=== PATIENT | female | born 1980 | race Caucasian/White ===

== ENCOUNTER 2018-10-30 10:19 | Emergency (ER) | payer BC ==
[2018-10-30] MEDS ORDERED: NA CHLORIDE 0.9% 2,000 ML ONE (11:16)
[2018-10-30 11:31] LABS: Absolute Lymphocytes (CBC) 1.2 K/uL (0.7-4.9); Basophils % 0.4 % (0-1.3); Hematocrit 35.5 % (36.0-45.0); Lymphocytes % 12.2 % (15.3-44.8); MPV 8.2 fL (7.6-11.3); RBC Red Blood Cell Count 3.96 M/uL (3.86-4.86)
[2018-10-30 11:53] LABS: ALT/SGPT 16 U/L (12-78); AST/SGOT 19 U/L (15-37); Albumin 2.2 g/dL (3.4-5.0); Alkaline Phosphatase 91 U/L (45-117); BUN Blood Urea Nitrogen 5 mg/dL (7-18); Bicarbonate 20 mmol/L (21-32); Bilirubin Direct < 0.1 mg/dL (0-0.2); Bilirubin Total 0.2 mg/dL (0.2-1.0); Glucose Level 88 mg/dL (74-106); Lipase 106 U/L (73-393); Potassium 3.6 mmol/L (3.5-5.1); Protein, Total 6.7 g/dL (6.4-8.2); Sodium Level 139 mmol/L (136-145)
--- NOTE | 2018-10-30 12:01 | EDPHYS ---
Physician Documentation [facility] Name: Melanie Gotti Age: 38 yrs Sex: Female : 1980 Arrival Date: 10/30/2018 Time: 10:23 Bed 8 Private MD: Segun Perkins B ED Physician Carlos Cota HPI: 10/30 10:49 This 38 yrs old Female presents to ER via Ambulatory with complaints of mario Dehydration-31 wks preg. 10:49 The patient presents to the emergency department with abdominal pain, of the right mario upper quadrant, left upper quadrant, right lower quadrant and left lower quadrant. The estimated gestational age is 31 weeks. course: care: private OB physician. Previous pregnancies: in previous pregnancies patient has had vaginal delivery. Associated signs and symptoms: The patient has no apparent associated signs or symptoms. The patient has not experienced similar symptoms in the past. 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 - Social history:: Smoking status: Patient/guardian denies using tobacco. - Ebola Screening: : No symptoms or risks identified at this time. - Family history:: not pertinent. ROS: 10:49 Constitutional: Negative for fever, chills, and weight loss, Eyes: Negative for injury, mario pain, redness, and discharge, ENT: Negative for injury, pain, and discharge, Neck: Negative for injury, pain, and swelling, Cardiovascular: Negative for chest pain, palpitations, and edema, Respiratory: Negative for shortness of breath, cough, wheezing, and pleuritic chest pain, Back: Negative for injury and pain, : Negative for injury, bleeding, discharge, and swelling, MS/Extremity: Negative for injury and deformity, Skin: Negative for injury, rash, and discoloration, Neuro: Negative for headache, weakness, numbness, tingling, and seizure, Psych: Negative for depression, anxiety, suicide ideation, homicidal ideation, and hallucinations, Allergy/Immunology: Negative for hives, rash, and allergies, Endocrine: Negative for neck swelling, polydipsia, polyuria, polyphagia, and marked weight changes, Hematologic/Lymphatic: Negative for swollen nodes, abnormal bleeding, and unusual bruising. 10:49 Abdomen/GI: Positive for abdominal distension. Exam: 10:49 Constitutional: This is a well developed, well nourished patient who is awake, alert, mario and in no acute distress. Head/Face: Normocephalic, atraumatic. Eyes: Pupils equal round and reactive to light, extra-ocular motions intact. Lids and lashes normal. Conjunctiva and sclera are non-icteric and not injected. Cornea within normal limits. Periorbital areas with no swelling, redness, or edema. ENT: Nares patent. No nasal discharge, no septal abnormalities noted. Tympanic membranes are normal and external auditory canals are clear. Oropharynx with no redness, swelling, or masses, exudates, or evidence of obstruction, uvula midline. Mucous membranes moist. Neck: Trachea midline, no thyromegaly or masses palpated, and no cervical lymphadenopathy. Supple, full range of motion without nuchal rigidity, or vertebral point tenderness. No Meningismus. Chest/axilla: Normal chest wall appearance and motion. Nontender with no deformity. No lesions are appreciated. Respiratory: Lungs have equal breath sounds bilaterally, clear to auscultation and percussion. No rales, rhonchi or wheezes noted. No increased work of breathing, no retractions or nasal flaring. Back: No spinal tenderness. No costovertebral tenderness. Full range of motion. Skin: Warm, dry with normal turgor. Normal color with no rashes, no lesions, and no evidence of cellulitis. MS/ Extremity: Pulses equal, no cyanosis. Neurovascular intact. Full, normal range of motion. Neuro: Awake and alert, GCS 15, oriented to person, place, time, and situation. Cranial nerves II-XII grossly intact. Motor strength 5/5 in all extremities. Sensory grossly intact. Cerebellar exam normal. Normal gait. Psych: Awake, alert, with orientation to person, place and time. Behavior, mood, and affect are within normal limits. 10:49 Cardiovascular: Rate: tachycardic, Rhythm: regular, Pulses: Pulses are 4+ in bilateral radial, brachial, femoral, popliteal, posterior tibial and and dorsalis pedis arteries.. Heart sounds: normal, Edema: is not appreciated, JVD: is not appreciated. Vital Signs: 10:24 BP 123 / 72; Pulse 119; Resp 16; Temp 98.4; Pulse Ox 98% on R/A; Weight 70.31 kg; la1 Height 5 ft. 3 in. (160.02 cm); 11:38 BP 109 / 70; Pulse 94; Resp 16; Pulse Ox 96% ; bp 13:07 BP 99 / 66; Pulse 80; Resp 16; Pulse Ox 99% ; bp 10:24 Body Mass Index 27.46 (70.31 kg, 160.02 cm) la1 MDM: 10:28 Patient medically screened. [facility] 10:51 Data reviewed: vital signs, nurses notes, lab test result(s), CBC, electrolytes, [facility] hepatic panel, urinalysis. 10/30 10:49 Order name: Abo/rh Typing; Complete Time: 11:58 [facility] 10/30 10:49 Order name: Basic Metabolic Panel; Complete Time: 11:58 [facility] 10/30 10:49 Order name: CBC with Diff; Complete Time: 11:58 [facility] 10/30 10:49 Order name: Lipase; Complete Time: 11:58 [facility] 10/30 10:49 Order name: LFT's; Complete Time: 11:58 [facility] 10/30 10:49 Order name: Urine Culture [facility] 10/30 10:49 Order name: IV Saline Lock; Complete Time: 11:10 [facility] 10/30 10:49 Order name: Labs collected and sent; Complete Time: 11:10 [facility] 10/30 10:49 Order name: NPO; Complete Time: 10:50 [facility] 10/30 10:49 Order name: Urine Dipstick-Ancillary (obtain specimen); Complete Time: 11:28 [facility] 10/30 11:22 Order name: Urine Dipstick--Ancillary (enter results) 10/30 10:49 Order name: FHT's; Complete Time: 11:38 [facility] Administered Medications: 11:00 Drug: NS 0.9% 1000 ml Route: IV; Rate: 1 bolus; Site: right forearm; bp 14:20 Follow up: Response: No adverse reaction; IV Status: Completed infusion; IV Intake: sg 1000ml 14:26 Follow up: Response: No adverse reaction; IV Status: Completed infusion; IV Intake: sg 1000ml 11:00 Drug: NS 0.9% 1000 ml Route: IV; Rate: 1 bolus; Site: right forearm; bp 12:10 Drug: Rocephin 1 grams Route: IV; Rate: per protocol; Site: right forearm; bp Disposition: 10/30/18 12:00 Discharged to Home. Impression: related conditions, unspecified, third trimester, Dehydration, Urinary tract infection, site not specified. - Condition is Stable. - Discharge Instructions: Dehydration, Adult, Urinary Tract Infection, Adult, Urinary Tract Infection, Adult, Feca-fo-Ifiu, Abdominal Pain During , Uyje-ky-Axoy, Dehydration, Adult, Mdqp-mx-Qfje, Rehydration, Adult. - Prescriptions for Vitamin 27- 0.8 mg Oral Tablet - take 1 tablet by ORAL route once daily; 30 tablet. Macrobid 100 mg Oral Capsule - take 1 capsule by ORAL route every 12 hours for 7 days; 14 capsule. - Medication Reconciliation Form, Thank You Letter, Antibiotic Education, Prescription Opioid Use form. - Follow up: Segun Perkins; When: 2 - 3 days; Reason: Recheck today's complaints, Continuance of care, Re-evaluation by your physician. - Problem is new. - Symptoms have improved. Signatures: Dispatcher [employer] EDMS Efren Garcia RN RN Carlos Walker MD MD cha Attema, Lee RN RN la1 Isaac Abbasi RN RN bp Corrections: (The following items were deleted from the chart) 14:26 12:00 10/30/2018 12:00 Discharged to Home. Impression: related conditions, sg unspecified, third trimester; Dehydration; Urinary tract infection, site not specified. Condition is Stable. Discharge Instructions: Dehydration, Adult, Abdominal Pain During , Uhjs-mg-Ajog, Dehydration, Adult, Alwk-ge-Gtft, Rehydration, Adult. Prescriptions for Vitamin 27-0.8 mg Oral Tablet - take 1 tablet by ORAL route once daily; 30 tablet. and Forms are Medication Reconciliation Form, Thank You Letter, Antibiotic Education, Prescription Opioid Use. Follow up: Seugn Perkins; When: 2 - 3 days; Reason: Recheck today's complaints, Continuance of care, Re-evaluation by your physician. Problem is new. Symptoms have improved. mario
--- NOTE | 2018-10-30 12:01 | ER ---
Nurse's Notes [facility] Name: Melanie Gotti Age: 38 yrs Sex: Female : 1980 Arrival Date: 10/30/2018 Time: 10:23 Bed 8 Private MD: Segun Perkins B Diagnosis: related conditions, unspecified, third trimester;Dehydration;Urinary tract infection, site not specified Presentation: 10/30 10:22 Presenting complaint: Patient states: I am about 31 wks and I think I am la1 dehydrated. Pt tolerating PO, denies diarrhea or vomiting. Denies vaginal bleeding or discharge, feeling baby move a normal amount. Transition of care: patient was not received from another setting of care. Onset of symptoms was October 30, 2018. Risk Assessment: Do you want to hurt yourself or someone else? Patient reports no desire to harm self or others. Initial Sepsis Screen: Does the patient meet any 2 criteria? Yes Does the patient have a suspected source of infection? No. Patient's initial sepsis screen is negative. Care prior to arrival: None. 10:22 Method Of Arrival: Ambulatory la1 10:22 Acuity: JAYCOB 3 la1 Triage Assessment: 10:25 General: Appears in no apparent distress. comfortable, Behavior is calm, cooperative, bp appropriate for age. Pain: Denies pain. EENT: No deficits noted. Neuro: No deficits noted. Cardiovascular: Rhythm is sinus tachycardia. Respiratory: No deficits noted. GI: No signs and/or symptoms were reported involving the gastrointestinal system. : GRAVID. Derm: No deficits noted. Musculoskeletal: No deficits noted. 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 - Social history:: Smoking status: Patient/guardian denies using tobacco. - Ebola Screening: : No symptoms or risks identified at this time. - Family history:: not pertinent. Screenin:25 Abuse screen: Denies threats or abuse. Denies injuries from another. Nutritional bp screening: No deficits noted. Tuberculosis screening: No symptoms or risk factors identified. Fall Risk None identified. Assessment: 10:25 General: SEE TRIAGE NOTE. bp 11:39 Reassessment: IVF INFUSING, RESULTS PENDING. VS STABLE ON MONITOR. bp 12:03 Reassessment: D/C ON HOLD FOR IVF INFUSION. bp Vital Signs: 10:24 BP 123 / 72; Pulse 119; Resp 16; Temp 98.4; Pulse Ox 98% on R/A; Weight 70.31 kg; la1 Height 5 ft. 3 in. (160.02 cm); 11:38 BP 109 / 70; Pulse 94; Resp 16; Pulse Ox 96% ; bp 13:07 BP 99 / 66; Pulse 80; Resp 16; Pulse Ox 99% ; bp 10:24 Body Mass Index 27.46 (70.31 kg, 160.02 cm) la1 Vitals: 11:42 Heart Tones 145. bp ED Course: 10:23 Patient arrived in ED. as 10:23 Triage completed. la1 10:24 Segun Perkins MD is Private Physician. as 10:24 Arm band placed on right wrist. la1 10:25 Carlos Cota MD is Attending Physician. mraio 10:25 Patient has correct armband on for positive identification. Bed in low position. Call bp light in reach. Side rails up X2. 10:27 Isaac Abbasi, DALE is Primary Nurse. bp 11:10 Inserted saline lock: 22 gauge in right forearm, using aseptic technique. Blood bp collected. 12:00 Segun Perkins MD is Referral Physician. mario 14:17 Primary Nurse role handed off by Isaac Abbasi, RN sg 14:17 Efren Garcia, DALE is Primary Nurse. sg 14:20 IV discontinued, intact, bleeding controlled, No redness/swelling at site. Pressure sg dressing applied. Administered Medications: 11:00 Drug: NS 0.9% 1000 ml Route: IV; Rate: 1 bolus; Site: right forearm; bp 14:20 Follow up: Response: No adverse reaction; IV Status: Completed infusion; IV Intake: sg 1000ml 14:26 Follow up: Response: No adverse reaction; IV Status: Completed infusion; IV Intake: sg 1000ml 11:00 Drug: NS 0.9% 1000 ml Route: IV; Rate: 1 bolus; Site: right forearm; bp 12:10 Drug: Rocephin 1 grams Route: IV; Rate: per protocol; Site: right forearm; bp Intake: 14:20 IV: 1000ml; Total: 1000ml. sg 14:26 IV: 1000ml; Total: 2000ml. sg Outcome: 12:00 Discharge ordered by . mario 14:20 Discharged to home ambulatory, with family. 14:20 Condition: good 14:20 Discharge instructions given to patient, Instructed on discharge instructions, follow up and referral plans. safety practices, Demonstrated understanding of instructions, follow-up care. 14:26 Patient left the ED. sg Signatures: Efren Garcia, RN RN Carlos Walker MD MD cha Martinez, Amelia as Attema, Lee RN RN la1 Isaac Abbasi RN RN bp
[2018-10-30] MEDS ORDERED: CEFTRIAXONE/SWI 1gm 1 GM/10 ML SYR ONE (12:10)
[2018-10-30 20:05] LABS: Urine Blood NEGATIVE (NEG); Urine Glucose NEGATIVE (NEG); Urine Protein NEGATIVE (NEG)
== END 2018-10-30 14:26 | disposition home or self-care (01) ==
LOC: ER 10:19
DX: O23.43 Unspecified infection of urinary tract in pregnancy, third trimester (principal); O26.893 Other specified pregnancy related conditions, third trimester; E86.0 Dehydration; Z3A.31 31 weeks gestation of pregnancy
CPT/HCPCS: 96361; 87088; 85025; 87086; 80048; 36415; 86900; 86901; 80076; 81003; 83690; 96374; 99284; J0696; J7030

== ENCOUNTER 2018-12-26 01:34 | Inpatient (IN) | payer BC ==
[2018-12-26] MEDS ORDERED: CARBOPROST TROME 250 MCG/ML IM PRN (04:51)
[2018-12-26] MEDS ORDERED: PROMETHAZINE 25 MG/ML VIAL IM PRN (04:51)
[2018-12-26] MEDS ORDERED: Ringers Lactate 1,000 ML IV PRN (04:51)
[2018-12-26] MEDS ORDERED: METHYLERGONOVINE 0.2MG/ML AMP IM PRN (04:51)
[2018-12-26] MEDS ORDERED: BUTORPHANOL 1 MG/ML INJ IV PRN (04:51)
[2018-12-26] MEDS ORDERED: OXYTOCIN/LR 20 UNIT/1,000 ML BAG IV SCH ×2 (05:00→12:00)
[2018-12-26] MEDS ORDERED: Ringers Lactate 1,000 ML IV SCH (05:00)
[2018-12-26 05:16] LABS: Absolute Lymphocytes (CBC) 2.1 K/uL (0.7-4.9); Basophils % 0.3 % (0-1.3); Hematocrit 34.2 % (36.0-45.0); MPV 8.9 fL (7.6-11.3); RBC Red Blood Cell Count 4.01 M/uL (3.86-4.86)
[2018-12-26 06:07] LABS: Urine Appearance CLEAR; Urine Bilirubin NEGATIVE (NEG); Urine Blood NEGATIVE (NEG); Urine Color YELLOW; Urine Glucose NEGATIVE (NEG); Urine Microscopic Reflex ORDER UMIC; Urine Protein NEGATIVE (NEG); Urine Specific Gravity <=1.005 (1.005-1.030); Urine Urobilinogen 0.2 mg/dL (0.2-1.0)
[2018-12-26 06:34] VITALS: BMI 28.7
[2018-12-26 06:48] LABS: Urine Bacteria <20 /HPF (<20); Urine Culture Reflex Order REFLEXED; Urine RBC <5 /HPF (NONE SEEN)
[2018-12-26] MEDS ORDERED: ROPIVACAINE HCL 100 ML IV PRN (09:12)
[2018-12-26] MEDS ORDERED: ROPIVACAINE HCL 0.2% 20ML AMP IV ONE (09:14)
[2018-12-26] MEDS ORDERED: FENTANYL CITR 100 MCG/2 ML IV ONE (09:14)
--- NOTE | 2018-12-26 11:30 | PREOPHP ---
Date of Admission: 12/26/2018 History Of Present Illness: A 38-year-old 5, para 2, 39 weeks 1 day, Rh positive, immune to Rubella, negative beta strep screen, for induction. FHTs normal reactive. Patient is rodney re gularly, but really is not aware of them at this point. 3.5 cm, 50% effaced, vertex, well applied, - 1 station. Cervix slightly posterior. Rupture of membranes, clear fluid. Labor talk given. Patien t will probably be requesting epidural once the labor starts progressing. Anticipate delivery someti me later this morning or early afternoon. SENG/HARSHA Voice ID: [id number]
[2018-12-26] MEDS ORDERED: BISACODYL 10 MG RECTAL SUPP RECT PRN (11:49)
[2018-12-26] MEDS ORDERED: DOCUSATE NA/SENNA CONC 1 TAB PO PRN (11:49)
[2018-12-26] MEDS ORDERED: DIPHENHYDRAMINE 25 MG TAB/CAP PO PRN (11:49)
[2018-12-26] MEDS ORDERED: Oxycodone HCl/Acetaminophen 1 TAB TAB PO PRN ×2 (11:49)
[2018-12-26] MEDS ORDERED: ACETAMINOPHEN 500 MG TAB PO PRN (11:49)
[2018-12-26] MEDS ORDERED: IBUPROFEN 200 MG TAB PO PRN (11:49)
[2018-12-26 21:55] LABS: RPR (Rapid Plasma Reagin) NON-REACT (NON-REACT)
--- NOTE | 2018-12-26 22:23 | OP ---
Surgeon: Segun Perkins MD This is a 38-year-old 5, para 2 at 39 weeks and 1 day for induction, 3.5 cm when first examin ed by myself this morning. Valerie regularly. Rupture of membranes, clear fluid. Patient reque sted and received epidural anesthesia. Second stage of about 20 minutes. Spontaneous vaginal delive ry of a 6 pound 12 ounce female. Apgars 9 and 9. No episiotomy. No laceration. Schultze delivery of the placenta. Estimated blood loss 300 mL or less. Tolerated all procedures well. Rh positive, immune to Rubella and negative beta strep screen. Final Diagnoses: Term intrauterine at 39 weeks and 1 day, vaginal delivery, epidural anest hesia. SENG/HARSHA Voice ID: [id number] Report ID: [id number]
[2018-12-27 07:13] VITALS: TEMP 98.7
[2018-12-27 10:59] VITALS: BP 137/65
[2018-12-31 02:46] LABS: HBsAG Nonreactive (Nonreactive)
== END 2018-12-27 14:00 | disposition home or self-care (01) | DRG 807 ==
LOC: 2ND-WC 04:31
PROVIDERS: ADMIT Specialist; ATTEND Specialist
PROC: 10E0XZZ Delivery of Products of Conception, External Approach (ICD-10-PCS; principal; 2018-12-26)
PROC: 00HU33Z Insertion of Infusion Device into Spinal Canal, Percutaneous Approach (ICD-10-PCS; 2018-12-26)
DX: O80 Encounter for full-term uncomplicated delivery (principal); Z37.0 Single live birth; Z3A.39 39 weeks gestation of pregnancy
CPT/HCPCS: 36415; 81003; 81015; 85025; 86592; 86901; 87086; 87088; 87340; J0595; J2210; J2550; J2590; J2795; J3010; J7120

== ENCOUNTER 2020-06-24 17:39 | Emergency (ER) | payer BC, SELFPAY ==
--- NOTE | 2020-06-24 19:50 | EDPHYS ---
Physician Documentation [facility] Name: Melanie Gotti Age: 39 yrs Sex: Female : 1980 Arrival Date: 06/24/2020 Time: 17:43 Bed 30 Private MD: ED Physician Silviano Morgan HPI: 06/24 18:41 This 39 yrs old Female presents to ER via Ambulatory with complaints of jr8 Cough, Congestion. 18:41 The patient or guardian reports cough, that is intermittent, described as mild, with jr8 productive sputum, that is white. Onset: The symptoms/episode began/occurred gradually, 3 day(s) ago. Severity of symptoms: At their worst the symptoms were mild, in the emergency department the symptoms are unchanged. Modifying factors: The symptoms are alleviated by nothing, the symptoms are aggravated by nothing. Associated signs and symptoms: Pertinent positives: rhinorrhea, sore throat, loss of voice. It is unknown whether or not the patient has had similar symptoms in the past. The patient has not recently seen a physician. 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 - Social history:: Smoking status: Patient denies any tobacco usage or history of. ROS: 18:41 Eyes: Negative for injury, pain, redness, and discharge, Neck: Negative for injury, jr8 pain, and swelling, Cardiovascular: Negative for chest pain, palpitations, and edema, Abdomen/GI: Negative for abdominal pain, nausea, vomiting, diarrhea, and constipation, Back: Negative for injury and pain, MS/Extremity: Negative for injury and deformity, Skin: Negative for injury, rash, and discoloration, Neuro: Negative for headache, weakness, numbness, tingling, and seizure. 18:41 ENT: Positive for rhinorrhea, sore throat. 18:41 Respiratory: Positive for cough, with white sputum, Negative for dyspnea on exertion, shortness of breath, wheezing. Exam: 18:41 Eyes: Pupils equal round and reactive to light, extra-ocular motions intact. Lids and jr8 lashes normal. Conjunctiva and sclera are non-icteric and not injected. Cornea within normal limits. Periorbital areas with no swelling, redness, or edema. ENT: Nares patent. No nasal discharge, no septal abnormalities noted. Tympanic membranes are normal and external auditory canals are clear. Oropharynx with no redness, swelling, or masses, exudates, or evidence of obstruction, uvula midline. Mucous membranes moist. Neck: Trachea midline, no thyromegaly or masses palpated, and no cervical lymphadenopathy. Supple, full range of motion without nuchal rigidity, or vertebral point tenderness. No Meningismus. Cardiovascular: Regular rate and rhythm with a normal S1 and S2. No gallops, murmurs, or rubs. Normal PMI, no JVD. No pulse deficits. Respiratory: Lungs have equal breath sounds bilaterally, clear to auscultation and percussion. No rales, rhonchi or wheezes noted. No increased work of breathing, no retractions or nasal flaring. Abdomen/GI: Soft, non-tender, with normal bowel sounds. No distension or tympany. No guarding or rebound. No evidence of tenderness throughout. Back: No spinal tenderness. No costovertebral tenderness. Full range of motion. Skin: Warm, dry with normal turgor. Normal color with no rashes, no lesions, and no evidence of cellulitis. MS/ Extremity: Pulses equal, no cyanosis. Neurovascular intact. Full, normal range of motion. Neuro: Awake and alert, GCS 15, oriented to person, place, time, and situation. Cranial nerves II-XII grossly intact. Motor strength 5/5 in all extremities. Sensory grossly intact. Cerebellar exam normal. Normal gait. Vital Signs: 17:54 BP 120 / 91; Pulse 100; Resp 19 S; Temp 97.9(TE); Pulse Ox 97% on R/A; Weight 64.41 kg ca1 (R); Height 5 ft. 3 in. (160.02 cm) (R); 17:54 Body Mass Index 25.15 (64.41 kg, 160.02 cm) ca1 MDM: 18:34 Patient medically screened. jr8 19:49 Data reviewed: vital signs, nurses notes, lab test result(s), and as a result, I will jr8 discharge patient. Data interpreted: Pulse oximetry: on room air is 97 %. Interpretation: normal. Counseling: I had a detailed discussion with the patient and/or guardian regarding: the historical points, exam findings, and any diagnostic results supporting the discharge/admit diagnosis, the need for outpatient follow up, a family practitioner, to return to the emergency department if symptoms worsen or persist or if there are any questions or concerns that arise at home. 06/24 18:01 Order name: Strep ca1 06/24 18:01 Order name: COVID-19 : Document "Date of Symptom Onset" if Symptomatic. ca1 06/24 18:01 Order name: Flu ca1 06/24 18:02 Order name: Group A Streptococcus Rapid Sc; Complete Time: 19:14 EDMS 06/24 18:55 Order name: Throat Culture EDMS Administered Medications: No medications were administered Disposition: 06/24/20 19:50 Discharged to Home. Impression: Acute bronchitis, Acute laryngitis. - Condition is Stable. - Discharge Instructions: Acute Bronchitis, Adult, Laryngitis. - Prescriptions for promethazine- DM 6.25-15 mg/5 mL Oral syrup - take 5 milliliter by ORAL route every 4 hours as needed; 120 milliliter. Prednisone 20 mg Oral Tablet - take 2 tablet by ORAL route once daily for 5 days; 10 tablet. - Medication Reconciliation Form, Thank You Letter, Antibiotic Education, Prescription Opioid Use form. - Follow up: Private Physician; When: 2 - 3 days; Reason: Recheck today's complaints, Continuance of care, Re-evaluation by your physician. - Problem is new. - Symptoms are unchanged. Addendum: 06/27/2020 07:08 Co-signature as Attending Physician, Silviano Morgan MD. r n Signatures: Dispatcher [employer] Anthony Alvarez, RN Silviano Arroyo MD MD rn Roszak, Josh, PA PA jr8 Nayla Butler RN RN ca1 Corrections: (The following items were deleted from the chart) 06/24 18:41 18:02 CORONAVIRUS ordered. [facility] [place] 18:42 18:02 Influenza Screen (A ordered. [facility] [place] [facility] 20:02 19:50 06/24/2020 19:50 Discharged to Home. Impression: Acute bronchitis; Acute em laryngitis. Condition is Stable. Forms are Medication Reconciliation Form, Thank You Letter, Antibiotic Education, Prescription Opioid Use. Follow up: Private Physician; When: 2 - 3 days; Reason: Recheck today's complaints, Continuance of care, Re-evaluation by your physician. Problem is new. Symptoms are unchanged. jr8
--- NOTE | 2020-06-24 19:50 | ER ---
Nurse's Notes [facility] Name: Melanie Gotti Age: 39 yrs Sex: Female : 1980 Arrival Date: 06/24/2020 Time: 17:43 Bed 30 Private MD: Diagnosis: Acute bronchitis;Acute laryngitis Presentation: 06/24 17:54 Chief complaint: Patient states: Lost voice x 3 days. Cough and congestion x 3 days. ca1 Denies fever. Coronavirus screen: Client denies travel out of the [place] in the last 14 days. congestion, cough unrelated to allergies, Client presents with at least one sign or symptom that may indicate coronavirus-19. Standard/surgical mask placed on the client. Provider contacted for isolation considerations. Ebola Screen: Patient negative for fever greater than or equal to 101.5 degrees Fahrenheit, and additional compatible Ebola Virus Disease symptoms Patient denies exposure to infectious person. Patient denies travel to an Ebola-affected area in the 21 days before illness onset. No symptoms or risks identified at this time. Initial Sepsis Screen: Does the patient meet any 2 criteria? No. Patient's initial sepsis screen is negative. Does the patient have a suspected source of infection? No. Patient's initial sepsis screen is negative. Risk Assessment: Do you want to hurt yourself or someone else? Patient reports no desire to harm self or others. Onset of symptoms. 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 - Social history:: Smoking status: Patient denies any tobacco usage or history of. Screenin:51 Abuse screen: Denies threats or abuse. Nutritional screening: No deficits noted. em Tuberculosis screening: No symptoms or risk factors identified. Fall Risk None identified. Assessment: 19:20 General: Appears in no apparent distress. comfortable, Behavior is calm, cooperative, em appropriate for age, Denies fever. Pain: Denies pain. Neuro: Level of Consciousness is awake, alert, obeys commands, Oriented to person, place, time, situation. Cardiovascular: Capillary refill < 3 seconds Patient's skin is warm and dry. Respiratory: Airway is patent Respiratory effort is even, unlabored, Respiratory pattern is regular, symmetrical, Breath sounds are clear bilaterally. Derm: Skin is intact, is healthy with good turgor, Skin is pink, warm \\T\\ dry. Musculoskeletal: Capillary refill < 3 seconds, Range of motion: intact in all extremities. Vital Signs: 17:54 BP 120 / 91; Pulse 100; Resp 19 S; Temp 97.9(TE); Pulse Ox 97% on R/A; Weight 64.41 kg ca1 (R); Height 5 ft. 3 in. (160.02 cm) (R); 17:54 Body Mass Index 25.15 (64.41 kg, 160.02 cm) ca1 ED Course: 17:43 Patient arrived in ED. am2 17:56 Triage completed. ca1 17:57 Arm band placed on right wrist. ca1 18:19 Strep Sent. ca1 18:19 COVID-19 : Document "Date of Symptom Onset" if Symptomatic. Sent. ca1 18:19 Flu Sent. ca1 18:19 Group A Streptococcus Rapid Sc Sent. ca1 18:20 COVID swab sent to lab. Flu and/or RSV swab sent to lab. Strep swab sent to lab. ca1 18:33 Wolf Feliz PA is PHCP. jr8 18:34 Silviano Morgan MD is Attending Physician. jr8 19:37 Anthony Izaguirre RN is Primary Nurse. em 19:51 Patient has correct armband on for positive identification. em 19:51 No provider procedures requiring assistance completed. Patient did not have IV access em during this emergency room visit. Administered Medications: No medications were administered Outcome: 19:50 Discharge ordered by . jr8 20:02 Discharged to home ambulatory. em 20:02 Condition: stable 20:02 Discharge instructions given to patient, Instructed on discharge instructions, follow up and referral plans. medication usage, Demonstrated understanding of instructions, follow-up care, medications, Prescriptions given X 2. 20:02 Patient left the ED. em Signatures: Anthony Izaguirre RN RN em Wolf Feliz PA PA jr8 Maggie Ramsey am2 Nayla Butler RN RN ca1 Corrections: (The following items were deleted from the chart) 18:41 18:19 CORONAVIRUS drawn and sent. ca1 EDMS 18:42 18:19 Influenza Screen (A drawn and sent. ca1 EDMS
[2020-06-24 20:03] LABS: SARS-COV-2 RT PCR NEGATIVE (NEGATIVE)
== END 2020-06-24 20:02 | disposition home or self-care (01) ==
LOC: ER 17:39
DX: J20.9 Acute bronchitis, unspecified (principal); J04.0 Acute laryngitis; Z20.822 Contact with and (suspected) exposure to COVID-19; Z88.8 Allergy status to other drugs, medicaments and biological substances
CPT/HCPCS: 0240U; 87070; 87081; 99283

== ENCOUNTER 2020-09-27 10:22 | Emergency (ER) | payer OTHER ==
--- NOTE | 2020-09-27 12:19 | RAD REPORT ---
EXAM DESCRIPTION: RAD - Knee Left 3 View - 09/27/2020 12:00 pm CLINICAL HISTORY: Left knee pain FINDINGS: No fracture or dislocation is seen. No bone or joint abnormality seen
--- NOTE | 2020-09-27 12:33 | EDPHYS ---
Physician Documentation [facility] Name: Melanie Gotti Age: 40 yrs Sex: Female : 1980 Arrival Date: 09/27/2020 Time: 10:26 Bed 12 Private MD: ED Physician Marcello Jiménez HPI: 09/27 18:24 This 40 yrs old Female presents to ER via Ambulatory with complaints of Knee tw4 Injury, Knee Pain. 18:24 The patient presents with an injury. The complaints affect the left knee. Context: The tw4 problem was sustained at home. Modifying factors: The symptoms are alleviated by the symptoms are aggravated by movement, weight bearing, bending knee. The patient has not experienced similar symptoms in the past. Historical: - Allergies: 11:12 unknown decongestant; aa5 - PMHx: 11:12 None; aa5 - PSHx: 11:12 None; aa5 - Immunization history:: Adult Immunizations up to date. - Social history:: Smoking status: Patient denies any tobacco usage or history of. ROS: 18:24 Constitutional: Negative for fever, chills, and weight loss, Eyes: Negative for injury, tw4 pain, redness, and discharge, Cardiovascular: Negative for chest pain, palpitations, and edema, Respiratory: Negative for shortness of breath, cough, wheezing, and pleuritic chest pain, Abdomen/GI: Negative for abdominal pain, nausea, vomiting, diarrhea, and constipation, Back: Negative for injury and pain, Neuro: Negative for headache, weakness, numbness, tingling, and seizure. 18:24 MS/extremity: Positive for pain, swelling, tenderness. Exam: 18:24 Constitutional: This is a well developed, well nourished patient who is awake, alert, tw4 and in no acute distress. Head/Face: Normocephalic, atraumatic. Chest/axilla: Normal chest wall appearance and motion. Nontender with no deformity. No lesions are appreciated. Cardiovascular: Regular rate and rhythm with a normal S1 and S2. No gallops, murmurs, or rubs. Normal PMI, no JVD. No pulse deficits. Respiratory: Lungs have equal breath sounds bilaterally, clear to auscultation and percussion. No rales, rhonchi or wheezes noted. No increased work of breathing, no retractions or nasal flaring. Abdomen/GI: Soft, non-tender, with normal bowel sounds. No distension or tympany. No guarding or rebound. No evidence of tenderness throughout. 18:24 Musculoskeletal/extremity: Extremities: noted in the medial aspect of left knee and left knee: ROM: limited active range of motion due to pain, in the medial aspect of left knee and left knee. Vital Signs: 11:10 BP 134 / 99; Pulse 90; Resp 16 S; Temp 98.6(O); Pulse Ox 98% on R/A; Weight 65.77 kg aa5 (R); Height 5 ft. 3 in. (160.02 cm) (R); Pain 710; 11:10 Body Mass Index 25.69 (65.77 kg, 160.02 cm) aa5 MDM: 11:16 Patient medically screened. tw4 18:24 Data reviewed: vital signs, nurses notes. Data interpreted: Pulse oximetry:. tw4 09/27 11:16 Order name: Knee Left 3 View XRAY tw4 09/27 12:35 Order name: Crutches; Complete Time: 13:01 tw4 Administered Medications: 13:01 Drug: Motrin (ibuprofen) 800 mg Route: PO; aa5 13:01 Follow up: Response: Medication administered at discharge. aa5 Disposition Summary: 09/27/20 12:33 Discharge Ordered Location: Home tw4 Problem: new tw4 Symptoms: have improved tw4 Condition: Stable tw4 Diagnosis - Sprain of collateral ligament of knee tw4 Followup: tw4 - With: Private Physician - When: Upon discharge from the Emergency Department - Reason: Recheck today's complaints, Continuance of care, Re-evaluation by your physician Discharge Instructions: - Discharge Summary Sheet tw4 - Knee Sprain, Adult tw4 - Acute Knee Pain, Adult tw4 Forms: - Medication Reconciliation Form tw4 - Thank You Letter tw4 - Antibiotic Education tw4 - Prescription Opioid Use tw4 Prescriptions: - Ibuprofen 800 mg Oral Tablet - take 1 tablet by ORAL route every 12 hours As needed take with food; 20 tablet; tw4 Refills: 0, Product Selection Permitted Signatures: Dispatcher [employer] Julia Zhu RN RN aa5 Marcello Jiménez MD MD tw4
--- NOTE | 2020-09-27 12:33 | ER ---
Nurse's Notes [facility] Name: Melanie Gotti Age: 40 yrs Sex: Female : 1980 Arrival Date: 09/27/2020 Time: 10:26 Bed 12 Private MD: Diagnosis: Sprain of collateral ligament of knee Presentation: 09/27 11:10 Chief complaint: Patient states: "I went for a jog on and my left knee has aa5 been hurting since then". Coronavirus screen: At this time, the client does not indicate any symptoms associated with coronavirus-19. Ebola Screen: Patient negative for fever greater than or equal to 101.5 degrees Fahrenheit, and additional compatible Ebola Virus Disease symptoms. Initial Sepsis Screen: Does the patient meet any 2 criteria? No. Patient's initial sepsis screen is negative. Does the patient have a suspected source of infection? No. Patient's initial sepsis screen is negative. Risk Assessment: Do you want to hurt yourself or someone else? Patient reports no desire to harm self or others. Onset of symptoms was September 2020. 11:10 Method Of Arrival: Ambulatory 5 11:10 Acuity: JAYCOB 4 aa5 Historical: - Allergies: 11:12 unknown decongestant; aa5 - PMHx: 11:12 None; aa5 - PSHx: 11:12 None; aa5 - Immunization history:: Adult Immunizations up to date. - Social history:: Smoking status: Patient denies any tobacco usage or history of. Screenin:20 Abuse screen: Denies threats or abuse. Nutritional screening: No deficits noted. aa5 Tuberculosis screening: No symptoms or risk factors identified. Fall Risk None identified. Assessment: 11:10 General: Appears comfortable, Behavior is calm, cooperative. Pain: Complains of pain in aa5 left knee Pain currently is 7 out of 10 on a pain scale. Is continuous. Neuro: Level of Consciousness is awake, alert, obeys commands, Oriented to person, place, time, situation, Appropriate for age. Cardiovascular: Patient's skin is warm and dry. Respiratory: Airway is patent Respiratory effort is even, unlabored, Respiratory pattern is regular, symmetrical. GI: No signs and/or symptoms were reported involving the gastrointestinal system. : No signs and/or symptoms were reported regarding the genitourinary system. EENT: No signs and/or symptoms were reported regarding the EENT system. Derm: Skin is pink, warm \\T\\ dry. Musculoskeletal: Range of motion: intact in all extremities, Reports pain in left knee. 13:00 Reassessment: Patient is alert, oriented x 3, equal unlabored respirations, skin aa5 warm/dry/pink. Vital Signs: 11:10 BP 134 / 99; Pulse 90; Resp 16 S; Temp 98.6(O); Pulse Ox 98% on R/A; Weight 65.77 kg aa5 (R); Height 5 ft. 3 in. (160.02 cm) (R); Pain 7/10; 11:10 Body Mass Index 25.69 (65.77 kg, 160.02 cm) aa5 ED Course: 10:26 Patient arrived in ED. bp1 11:09 Arm band placed on Patient placed in an exam room. aa5 11:09 Patient has correct armband on for positive identification. Call light in reach. aa5 11:12 Triage completed. aa5 11:13 Julia Lopez, RN is Primary Nurse. aa5 11:16 Marcello Jiménez MD is Attending Physician. tw4 11:59 Knee Left 3 View XRAY In Process Unspecified. EDMS 13:00 No provider procedures requiring assistance completed. Patient did not have IV access aa5 during this emergency room visit. Administered Medications: 13:01 Drug: Motrin (ibuprofen) 800 mg Route: PO; aa5 13:01 Follow up: Response: Medication administered at discharge. aa5 Outcome: 12:33 Discharge ordered by . tw4 13:01 Discharged to home ambulatory, with crutches. aa5 13:01 Condition: stable 13:01 Discharge instructions given to patient, Instructed on discharge instructions, follow up and referral plans. medication usage, Demonstrated understanding of instructions, follow-up care, medications, Prescriptions given X 1. 13:02 Patient left the ED. aa5 Signatures: Dispatcher [employer] EDMS Julia Lopez, DALE RN aa5 Marcello Jiménez MD MD tw4 Miladis Elliott bp1 Corrections: (The following items were deleted from the chart) 11:10 11:09 Arm band placed on Patient placed in an exam room, on a stretcher, aa5 aa5
[2020-09-27 13:07] VITALS: BP 134/99; TEMP 98.6; O2SAT 98
[2020-09-27] MEDS ORDERED: IBUPROFEN 400 MG TAB ONE (13:14)
== END 2020-09-27 13:02 | disposition home or self-care (01) ==
LOC: ER 10:22
DX: S83.402A Sprain of unspecified collateral ligament of left knee, initial encounter (principal); Z88.8 Allergy status to other drugs, medicaments and biological substances
CPT/HCPCS: 99283

== ENCOUNTER 2020-12-03 18:41 | Emergency (ER) | payer OTHER ==
[2020-12-03 21:36] LABS: SARS-COV-2 RT PCR POSITIVE (NEGATIVE)
--- NOTE | 2020-12-03 21:43 | EDPHYS ---
Physician Documentation [facility] Name: Melanie Gotti Age: 40 yrs Sex: Female : 1980 Arrival Date: 12/03/2020 Time: 18:44 Bed DX1 Private MD: ED Physician Rommel Cadet HPI: 12/03 20:38 This 40 yrs old Female presents to ER via Ambulatory with complaints of Fever.pkl 20:38 The patient or guardian reports cough, described as mild, with productive sputum, that pkl is white, hoarse voice, sinus congrestion. Onset: The symptoms/episode began/occurred 3 day(s) ago. 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 - Social history:: Smoking status: Patient denies any tobacco usage or history of. ROS: 20:38 Eyes: Negative for injury, pain, redness, and discharge. pkl 20:38 ENT: Positive for sinus congestion. 20:38 Neck: Negative for stiffness. 20:38 Cardiovascular: Negative for chest pain. 20:38 Respiratory: Positive for cough, with white sputum. 20:38 Abdomen/GI: Negative for abdominal pain, nausea, vomiting, and diarrhea. 20:38 Back: Negative for acute changes. 20:38 : Negative for urinary symptoms. 20:38 MS/extremity: Negative for acute changes. 20:38 Skin: Negative for rash. 20:38 Neuro: Negative for altered mental status. Exam: 20:38 Head/Face: Normocephalic, atraumatic. Eyes: Pupils equal round and reactive to light, pkl extra-ocular motions intact. Lids and lashes normal. Conjunctiva and sclera are non-icteric and not injected. Cornea within normal limits. Periorbital areas with no swelling, redness, or edema. 20:38 ENT: Exam is negative for acute changes. 20:38 Neck: Exam negative for nuchal rigidity. 20:38 Chest/axilla: Exam negative for acute changes. 20:38 Cardiovascular: Rate: normal, Rhythm: regular. 20:38 Respiratory: the patient does not display signs of respiratory distress, Respirations: normal, Breath sounds: are clear throughout. 20:38 Abdomen/GI: Bowel sounds: normal, Palpation: abdomen is soft and non-tender, in all quadrants. 20:38 Back: Exam negative for acute changes. 20:38 : Exam negative for acute changes. 20:38 Musculoskeletal/extremity: Exam is negative for acute changes. 20:38 Skin: Exam negative for rash. 20:38 Neuro: Orientation: is normal, Mentation: is normal, Cranial nerves: grossly normal, Motor: is normal. Vital Signs: 19:34 BP 137 / 92; Pulse 99; Resp 18; Temp 97.8; Pulse Ox 99% on R/A; Weight 65.77 kg; em 19:39 BP 132 / 88; Pulse 95; Resp 18; Pulse Ox 100% on R/A; ld1 21:16 BP 127 / 87; Pulse 84; Resp 16; Temp 97.5; Pulse Ox 100% on R/A; Pain 0/10; bc5 22:11 BP 125 / 80; Pulse 75; Resp 15; Temp 98(O); Pulse Ox 100% on R/A; Pain 0/10; bc5 MDM: 20:22 Patient medically screened. pkl 21:38 Data reviewed: vital signs, nurses notes, lab test result(s). ED course: Discussed lab pkl results with patient. Advised to quarantine for 10 days. To monitor O2 sat with pulse oximeter daily. To return for evaluation if O2 sat is less than 90 %. Patient understood instructions. 12/03 20:04 Order name: Flu em 12/03 20:04 Order name: COVID-19 : Document "Date of Symptom Onset" if Symptomatic. em 12/03 20:04 Order name: Strep em 12/03 20:04 Order name: Group A Streptococcus Rapid Sc; Complete Time: 21:33 EDMS 12/03 21:18 Order name: Throat Culture EDMS 12/03 21:37 Order name: COVID-19/FLU A+B; Complete Time: 21:37 EDMS Administered Medications: 22:09 Drug: predniSONE 40 mg Route: PO; bc5 Disposition Summary: 12/03/20 21:42 Discharge Ordered Location: Home pkl Problem: new pkl Symptoms: are unchanged pkl Condition: Stable pkl Diagnosis - Positive Covid 19. Sinusitis pkl Followup: pkl - With: Private Physician - When: 2 - 3 days - Reason: Re-evaluation by your physician Discharge Instructions: - Discharge Summary Sheet pkl Forms: - Medication Reconciliation Form pkl - Thank You Letter pkl - Antibiotic Education pkl - Prescription Opioid Use pkl Prescriptions: - Prednisone 20 mg Oral Tablet - take 1 tablet by ORAL route once daily for 5 days; 5 tablet; Refills: 0, pkl Product Selection Permitted - Zithromax Z-Miguel 250 mg Oral Tablet - take 1 tablet by ORAL route as directed for 5 days Day 1 - take two (2) tablets pkl one time. Day 2, 3, 4 , 5 take one (1) tablet once daily.; 6 tablet; Refills: 0, Product Selection Permitted Signatures: Dispatcher [employer] EDRommel Bobby MD MD pkl Anthony Izaguirre, RN RN Lachelle Silvestre, RN RN bc5 Corrections: (The following items were deleted from the chart) 20:50 20:04 CORONAVIRUS ordered. EDMS EDMS 20:52 20:04 Influenza Screen (A ordered. EDMS EDMS
--- NOTE | 2020-12-03 21:43 | ER ---
Nurse's Notes [facility] Name: Melanie Gotti Age: 40 yrs Sex: Female : 1980 Arrival Date: 12/03/2020 Time: 18:44 Bed DX1 Private MD: Diagnosis: Positive Covid 19. Sinusitis Presentation: 12/03 19:34 Chief complaint: Patient states: fever, congestion for a few days, also developed a em fever. Coronavirus screen: Vaccine status: Patient reports receiving the 2nd dose of the covid vaccine. Ebola Screen: Patient negative for fever greater than or equal to 101.5 degrees Fahrenheit, and additional compatible Ebola Virus Disease symptoms Patient denies exposure to infectious person. Patient denies travel to an Ebola-affected area in the 21 days before illness onset. No symptoms or risks identified at this time. Initial Sepsis Screen: Does the patient meet any 2 criteria? HR > 90 bpm. No. Patient's initial sepsis screen is negative. Does the patient have a suspected source of infection? No. Patient's initial sepsis screen is negative. Risk Assessment: Do you want to hurt yourself or someone else? Patient reports no desire to harm self or others. Onset of symptoms was December 03, 2020. 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 - Social history:: Smoking status: Patient denies any tobacco usage or history of. Screenin:39 Abuse screen: Denies threats or abuse. Denies injuries from another. Nutritional ld1 screening: No deficits noted. Tuberculosis screening: No symptoms or risk factors identified. Fall Risk None identified. Assessment: 19:39 General: Appears in no apparent distress. comfortable, Behavior is calm, cooperative, ld1 appropriate for age. Pain: Denies pain. Neuro: Level of Consciousness is awake, alert, obeys commands, Oriented to person, place, time, situation. Cardiovascular: Capillary refill < 3 seconds Patient's skin is warm and dry. Respiratory: Airway is patent Respiratory effort is even, unlabored, Respiratory pattern is regular, symmetrical. Respiratory: Reports cough that is. GI: Abdomen is flat, non-distended. : No signs and/or symptoms were reported regarding the genitourinary system. EENT: Reports nasal congestion. Derm: No signs and/or symptoms reported regarding the dermatologic system. Musculoskeletal: No signs and/or symptoms reported regarding the musculoskeletal system. Vital Signs: 19:34 BP 137 / 92; Pulse 99; Resp 18; Temp 97.8; Pulse Ox 99% on R/A; Weight 65.77 kg; em 19:39 BP 132 / 88; Pulse 95; Resp 18; Pulse Ox 100% on R/A; ld1 21:16 BP 127 / 87; Pulse 84; Resp 16; Temp 97.5; Pulse Ox 100% on R/A; Pain 0/10; bc5 22:11 BP 125 / 80; Pulse 75; Resp 15; Temp 98(O); Pulse Ox 100% on R/A; Pain 0/10; 5 ED Course: 18:44 Patient arrived in ED. ds1 19:36 Triage completed. em 19:36 Arm band placed on. em 19:39 Patient has correct armband on for positive identification. Call light in reach. Pulse ld1 ox on. NIBP on. Warm blanket given. 19:39 No provider procedures requiring assistance completed. ld1 20:21 Rommel Cadet MD is Attending Physician. pkl 20:23 Lachelle Kruger, DALE is Primary Nurse. bc5 20:38 Strep Sent. bc5 20:38 Flu Sent. bc5 20:38 Group A Streptococcus Rapid Sc Sent. bc5 20:38 COVID-19 : Document "Date of Symptom Onset" if Symptomatic. Sent. bc5 22:10 Patient did not have IV access during this emergency room visit. bc5 Administered Medications: 22:09 Drug: predniSONE 40 mg Route: PO; 5 Outcome: 21:42 Discharge ordered by . pkl 22:10 Admitted to [facility] 22:10 Condition: stable 22:10 Discharge instructions given to patient, Instructed on discharge instructions, follow up and referral plans. medication usage, safety practices, Isolation and Quarantine 22:11 Patient left the ED. [facility] Signatures: Rommel Cadet MD MD pkl Munoz, Edgar, RN RN em Lyonsi ds1 Eloina Lopez RN RN ld1 Lachelle Kruger RN RN 5 Corrections: (The following items were deleted from the chart) 20:50 20:38 CORONAVIRUS drawn and sent. [facility] EDMS 20:52 20:38 Influenza Screen (A drawn and sent. [facility] EDMS
[2020-12-03] MEDS ORDERED: predniSONE 20 MG TAB ONE (22:24)
[2020-12-03 23:30] VITALS: O2SAT 100
[2020-12-03 23:33] VITALS: BP 125/80; TEMP 98
== END 2020-12-03 22:11 | disposition home or self-care (01) ==
LOC: ER 18:41
DX: U07.1 COVID-19 (principal); J32.9 Chronic sinusitis, unspecified
CPT/HCPCS: 87070; 87081; 0240U; 99285; J7512

== ENCOUNTER 2020-12-06 10:16 | Emergency (ER) | payer OTHER ==
--- NOTE | 2020-12-06 10:45 | ER ---
Nurse's Notes [facility] Name: Melanie Gotti Age: 40 yrs Sex: Female : 1980 Arrival Date: 12/06/2020 Time: 10:18 Bed 27 Private MD: Diagnosis: Acute stress reaction Presentation: 12/06 10:21 Chief complaint: Patient states: "I just got diagnosed with wong virus about 2 days aa5 ago and I've been having panic attacks everyday and this morning my heart is racing and I can't get into a psychiatrist for anxiety medicine". Coronavirus screen: Client reports previous positive COVID test result. Ebola Screen: Patient negative for fever greater than or equal to 101.5 degrees Fahrenheit, and additional compatible Ebola Virus Disease symptoms. Initial Sepsis Screen: Does the patient meet any 2 criteria? HR > 90 bpm. Does the patient have a suspected source of infection? No. Patient's initial sepsis screen is negative. Risk Assessment: Do you want to hurt yourself or someone else? Patient reports no desire to harm self or others. Onset of symptoms was November 2020. 10:21 Method Of Arrival: Ambulatory aa5 10:21 Acuity: JAYCOB 3 aa5 Historical: - Allergies: 10:21 NKDA; aa5 - PMHx: 10:21 Anxiety; Depressive disorder; aa5 - Immunization history:: Client reports receiving the 2nd dose of the Covid vaccine. - Social history:: Smoking status: Patient denies any tobacco usage or history of. Screenin:38 Abuse screen: Denies threats or abuse. Denies injuries from another. Nutritional aj2 screening: No deficits noted. Tuberculosis screening: No symptoms or risk factors identified. Fall Risk None identified. Assessment: 10:38 Pain: Denies pain. aj2 Vital Signs: 10:21 BP 126 / 97; Pulse 105; Resp 18 S; Temp 98.5(TE); Pulse Ox 99% on R/A; Weight 65.77 kg aa5 (R); Height 5 ft. 3 in. (160.02 cm) (R); 10:38 BP 117 / 84; Pulse 90; Resp 20; Temp 98.3; Pulse Ox 100% ; aj2 10:21 Body Mass Index 25.69 (65.77 kg, 160.02 cm) aa5 ED Course: 10:18 Patient arrived in ED. as 10:20 Arm band placed on. aa5 10:23 Triage completed. aa5 10:24 Phil Pollack NP is PHCP. pm1 10:24 Carlos Cota MD is Attending Physician. pm1 10:37 Ran Beltran is Primary Nurse. aj2 10:38 No apparent distress. Resting quietly. Texting on cell phone. aj2 10:38 Patient has correct armband on for positive identification. aj2 10:38 No provider procedures requiring assistance completed. Patient did not have IV access aj2 during this emergency room visit. Administered Medications: 11:13 Not Given (unavailablee): hydroxyzine 50 mg IM once pm1 11:13 Drug: hydrOXYzine 50 mg Route: PO; aj2 Outcome: 10:44 Discharge ordered by . pm1 11:20 Discharged to home ambulatory. aj2 11:20 Condition: stable 11:20 Discharge instructions given to patient, Instructed on discharge instructions, follow up and referral plans. medication usage, Prescriptions given X 1. 11:31 Patient left the ED. aj2 Signatures: Mary Nunez Audri, RN RN aa5 Phil Pollack, ALEIDA [employer] SCIENC[employer] DIRECTOR pm1 Ran Beltran aj2
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
[2020-12-06 11:38] VITALS: BP 117/84; TEMP 98.3; O2SAT 100
[2020-12-06] MEDS ORDERED: hydrOXYzine HCL 25 MG TAB ONE (11:39)
== END 2020-12-06 11:31 | disposition home or self-care (01) ==
LOC: ER 10:16
DX: F43.0 Acute stress reaction (principal); Z86.16 Personal history of COVID-19
CPT/HCPCS: 99283

== ENCOUNTER 2021-03-03 08:08 | Emergency (ER) | payer OTHER ==
[2021-03-03] MEDS ORDERED: HYDROCODONE/APAP 5/325 MG TAB ONE (08:36)
[2021-03-03] MEDS ORDERED: KETOROLAC 30 MG/ML INJ ONE (08:37)
--- NOTE | 2021-03-03 08:39 | ER ---
Nurse's Notes [facility] Name: Melanie Gotti Age: 40 yrs Sex: Female : 1980 Arrival Date: 03/03/2021 Time: 08:11 Bed 8 Private MD: Diagnosis: Acute Otalgia Presentation: 03/03 08:17 Chief complaint: Patient states: R ear pain after having ear pierced about 2 weeks ago. ll1 No known fever. Coronavirus screen: Vaccine status: Patient reports receiving the 2nd dose of the covid vaccine. Client denies travel out of the [place] in the last 14 days. At this time, the client does not indicate any symptoms associated with coronavirus-19. Ebola Screen: Patient denies travel to an Ebola-affected area in the 21 days before illness onset. Initial Sepsis Screen: Does the patient meet any 2 criteria? HR > 90 bpm. No. Patient's initial sepsis screen is negative. Does the patient have a suspected source of infection? Yes: Skin breakdown/wound. Risk Assessment: Do you want to hurt yourself or someone else? Patient reports no desire to harm self or others. Onset of symptoms was February 17, 2021. 08:17 Method Of Arrival: Ambulatory ll1 08:17 Acuity: JAYCOB 4 ll1 Historical: - Allergies: 08:17 NKDA; ll1 - PMHx: 08:17 Anxiety; depressive disorder; ll1 - PSHx: 08:17 Cholecystectomy; ll1 - Immunization history:: Client reports receiving the 2nd dose of the Covid vaccine. - Social history:: Smoking status: Reported history of juuling and/or vaping. Screenin:27 Abuse screen: Denies threats or abuse. Nutritional screening: No deficits noted. ll3 Tuberculosis screening: No symptoms or risk factors identified. Fall Risk None identified. Assessment: 08:27 General: Appears in no apparent distress. uncomfortable, Behavior is calm, cooperative. ll3 Pain: Complains of pain in right ear Pain radiates to right lateral aspect of neck Pain currently is 6 out of 10 on a pain scale. Pain began 2 weeks ago Is continuous, Current management is with Advil. Neuro: Level of Consciousness is awake, alert, obeys commands, Oriented to person, place, time, situation, Speech is normal, Facial symmetry appears normal. Cardiovascular: Patient's skin is warm and dry. Respiratory: Airway is patent Respiratory effort is even, unlabored, Respiratory pattern is regular, symmetrical. EENT: Ear canal w/ drainage noted from right ear Reports pain in right ear. Derm: Skin is pink, warm \T\ dry. 08:55 Reassessment: Pt called boyfriend for a ride home and discharged. ll3 Vital Signs: 08:17 BP 144 / 92; Pulse 92; Resp 16; Temp 98.3; Pulse Ox 100% ; Weight 65.77 kg; Height 5 ll1 ft. 3 in. (160.02 cm); Pain 8/10; 08:27 BP 146 / 74; Pulse 83; Resp 15; Pulse Ox 100% on R/A; ll3 08:17 Body Mass Index 25.69 (65.77 kg, 160.02 cm) 1 ED Course: 08:11 Patient arrived in ED. as 08:15 Fan Selby PA is PHCP. [facility] 08:15 Silviano Morgan MD is Attending Physician. [facility] 08:17 Arm band placed on Patient placed in an exam room, on a stretcher. 1 08:18 Triage completed. 1 08:19 Evette Steel, DALE is Primary Nurse. 3 08:27 Patient has correct armband on for positive identification. Bed in low position. Call 3 light in reach. Side rails up X 1. 08:38 Connie Enamorado MD is Referral Physician. [facility] 09:01 No provider procedures requiring assistance completed. Patient did not have IV access 3 during this emergency room visit. Administered Medications: 08:40 Drug: Ketorolac 30 mg Route: IM; Site: right gluteus; 3 09:02 Follow up: Response: No adverse reaction 3 08:42 Drug: [place] (HYDROcodone-acetaminophen) 5 mg-325 mg 1 tabs Route: PO; ll3 09:02 Follow up: Response: No adverse reaction 3 Outcome: 08:38 Discharge ordered by . [facility] 09:01 Discharged to home ambulatory, with family. 3 09:01 Condition: stable 09:01 Discharge instructions given to patient, Instructed on discharge instructions, follow up and referral plans. medication usage, Demonstrated understanding of instructions, Prescriptions given X 2. 09:02 Patient left the ED. 3 Signatures: Fan Selby PA PA jmm Martinez, Amelia as Lewis, Lynsay, RN RN ll1 Evette Steel RN RN ll3
--- NOTE | 2021-03-03 08:39 | EDPHYS ---
Physician Documentation [facility] Name: Melanie Gotti Age: 40 yrs Sex: Female : 1980 Arrival Date: 03/03/2021 Time: 08:11 Bed 8 Private MD: ED Physician Silvinao Morgan HPI: 03/03 08:33 This 40 yrs old Female presents to ER via Ambulatory with complaints of Ear Pain. m 08:33 The patient presents with pain. The complaints affect the right ear. Onset: The [facility] symptoms/episode began/occurred gradually, 2 week(s) ago. Modifying factors: The symptoms are alleviated by nothing, the symptoms are aggravated by nothing. Associated signs and symptoms: Pertinent negatives: fever. The patient has not experienced similar symptoms in the past. 40-year-old female with a history of anxiety and depression the presents emerged department with complaints of right external ear pain which occurred after receiving a piercing. Patient states she removed the piercing but continues to have pain which radiates into the inner ear. Patient also states of feeling drainage into the inner ear. Denies fever or chills.. Historical: - Allergies: 08:17 NKDA; ll1 - PMHx: 08:17 Anxiety; depressive disorder; ll1 - PSHx: 08:17 Cholecystectomy; ll1 - Immunization history:: Client reports receiving the 2nd dose of the Covid vaccine. - Social history:: Smoking status: Reported history of juuling and/or vaping. ROS: 08:33 Constitutional: Negative for fever, chills, and weight loss. jmm 08:33 ENT: Positive for ear pain. 08:33 All other systems are negative. Exam: 08:33 Constitutional: This is a well developed, well nourished patient who is awake, alert, jmm and in no acute distress. Head/Face: atraumatic. Eyes: EOMI, no conjunctival erythema appreciated 08:33 Neck: Trachea midline, Supple 08:33 Respiratory: Normal respirations, no respiratory distress appreciated Abdomen/GI: Non distended, soft Back: Normal ROM 08:33 ENT: External ear(s): pain with movement, that is moderate, of the pinna of right ear. 08:33 Cardiovascular: Rate: normal, Rhythm: regular. 08:33 Skin: Appearance: Color: normal in color. 08:33 Neuro: Motor: is normal. 08:33 Psych: Behavior/mood is pleasant, cooperative. Vital Signs: 08:17 BP 144 / 92; Pulse 92; Resp 16; Temp 98.3; Pulse Ox 100% ; Weight 65.77 kg; Height 5 ll1 ft. 3 in. (160.02 cm); Pain 8/10; 08:27 BP 146 / 74; Pulse 83; Resp 15; Pulse Ox 100% on R/A; ll3 08:17 Body Mass Index 25.69 (65.77 kg, 160.02 cm) ll1 MDM: 08:33 Patient medically screened. [facility] 08:37 Data reviewed: vital signs, nurses notes. Counseling: I had a detailed discussion with carlota the patient and/or guardian regarding: the historical points, exam findings, and any diagnostic results supporting the discharge/admit diagnosis, the need for outpatient follow up, to return to the emergency department if symptoms worsen or persist or if there are any questions or concerns that arise at home. ED course: Patient is alert and non toxic in appearance in the ED. No signs of sepsis. Patient advised to follow up with ENT and otherwise given strict return precautions. patient understood and agrees with the plan of care. . Administered Medications: 08:40 Drug: Ketorolac 30 mg Route: IM; Site: right gluteus; ll3 09:02 Follow up: Response: No adverse reaction ll3 08:42 Drug: [place] (HYDROcodone-acetaminophen) 5 mg-325 mg 1 tabs Route: PO; ll3 09:02 Follow up: Response: No adverse reaction ll3 Disposition: 09:58 Co-signature as Attending Physician, Silviano Morgan MD I agree with the assessment and rn plan of care. Attestation: The patient's history, exam findings, diagnostics, and a summary of any interventions or procedures was reviewed in detail with Fan OWENS. Disposition Summary: 03/03/21 08:38 Discharge Ordered Location: Home [facility] Condition: Stable carlota Diagnosis - Acute Otalgia carlota Followup: carlota - With: Connie Enamorado MD - When: 2 - 3 days - Reason: Recheck today's complaints, Continuance of care, Re-evaluation by your physician Discharge Instructions: - Discharge Summary Sheet sai - Earache, Adult sai Forms: - Medication Reconciliation Form [facility] - Thank You Letter carlota - Antibiotic Education [facility] - Prescription Opioid Use [facility] Prescriptions: - Augmentin 875-125 mg Oral Tablet - take 1 tablet by ORAL route every 12 hours for 10 days; 20 tablet; Refills: 0, [facility] Product Selection Permitted - Prednisone 20 mg Oral Tablet - take 3 tablets by ORAL route once daily for 5 days; 15 tablet; Refills: 0, [facility] Product Selection Permitted Signatures: Fan Selby PA PA jmm Nieto, Roman, MD MD rn Lewis, Lynsay, RN RN ll1 Evette tSeel RN RN ll3
[2021-03-03 09:31] VITALS: TEMP 98.3; O2SAT 100
[2021-03-03 09:33] VITALS: BP 146/74
== END 2021-03-03 09:02 | disposition home or self-care (01) ==
LOC: ER 08:08
DX: H92.01 Otalgia, right ear (principal); F41.8 Other specified anxiety disorders
CPT/HCPCS: 96372; 99283

== ENCOUNTER 2021-06-01 13:13 | Emergency (ER) | payer OTHER ==
[2021-06-01] MEDS ORDERED: HYDROCODONE/APAP 10/325 TAB ONE (14:49)
--- NOTE | 2021-06-01 15:22 | RAD REPORT ---
EXAM DESCRIPTION: RAD - Chest Pa And Lat (2 Views) - 06/01/2021 3:03 pm CLINICAL HISTORY: COUGH Chest pain. COMPARISON: No comparisons FINDINGS: The lungs are clear. The heart is normal in size. No displaced fractures. IMPRESSION: No acute or concerning finding suspected.
--- NOTE | 2021-06-01 15:25 | RAD REPORT ---
EXAM DESCRIPTION: RAD - Sacrum And Coccyx - 06/01/2021 3:03 pm CLINICAL HISTORY: PAIN COMPARISON: No comparisons FINDINGS: Cortical irregularity seen of the distal most aspect of the coccyx, likely a minimal fract ure. No additional fracture seen. IUD is noted.
[2021-06-01 15:59] LABS: SARS-COV-2 RT PCR NEGATIVE (NEGATIVE)
--- NOTE | 2021-06-01 16:11 | EDPHYS ---
Physician Documentation [facility] Name: Melanie Gotti Age: 40 yrs Sex: Female : 1980 Arrival Date: 06/01/2021 Time: 13:16 Bed 18 Private MD: ED Physician Ray Phillips HPI: 06/01 15:33 This 40 yrs old Female presents to ER via Ambulatory with complaints of Fall Injury, pm1 Sore Throat. 15:33 Details of fall: The patient fell from an upright position, while standing. Onset: The pm1 symptoms/episode began/occurred last night. Associated injuries: The patient sustained sacrum. Severity of symptoms: in the emergency department the symptoms are actually worse. The patient has not experienced similar symptoms in the past. The patient has not recently seen a physician. Patient presenting with complaints of pain to her tailbone after fall yesterday in the bathroom shower. Patient slipped and bounced on her rear. No injury to any other location except her tailbone. Patient also presenting to ER with complaints of sore throat cough and congestion for 1 week. Negative for fever, negative for chest pain, positive for mild shortness of breath. OPERA SINGER: 16:00 LMP N/A - Irregular menses jd3 Historical: - Allergies: 13:25 NKDA; ab2 - PMHx: 13:25 Anxiety; depressive disorder; ab2 - PSHx: 13:25 Cholecystectomy; ab2 - Immunization history:: Adult Immunizations up to date. - Social history:: Smoking status: Reported history of juuling and/or vaping. ROS: 15:33 Constitutional: Negative for fever, chills, and weight loss, Cardiovascular: Negative pm1 for chest pain, palpitations, and edema. 15:33 Abdomen/GI: Negative for abdominal pain, nausea, vomiting, diarrhea, and constipation, Back: Negative for injury and pain, MS/Extremity: Negative for injury and deformity, Skin: Negative for injury, rash, and discoloration, Neuro: Negative for headache, weakness, numbness, tingling, and seizure. 15:33 ENT: Positive for sore throat, Negative for ear pain, difficulty swallowing. 15:33 Respiratory: Positive for cough, shortness of breath. 15:33 All other systems are negative. Exam: 15:33 Constitutional: This is a well developed, well nourished patient who is awake, alert, pm1 and in no acute distress. Head/Face: Normocephalic, atraumatic. 15:33 MS/ Extremity: Pulses equal, no cyanosis. Neurovascular intact. Full, normal range of motion. 15:33 Eyes: Exam is negative for acute changes, Periorbital structures: appear normal, Extraocular movements: no acute changes, Conjunctiva: no acute changes, no injection. 15:33 ENT: Exam is negative for acute changes, Mouth: no acute changes, Lips: normal, moist, Oral mucosa: normal, pink and intact, moist, Posterior pharynx: no acute changes, Airway: no evidence of obstruction, Tonsils: are normal in appearance, peritonsillar mass, is not appreciated. 15:33 Neck: Exam negative for acute changes, Lymph nodes: no appreciated lymphadenopathy. 15:33 Cardiovascular: Exam negative for acute changes, Rate: normal, Rhythm: regular, Pulses: no pulse deficits are appreciated, Heart sounds: normal. 15:33 Respiratory: Exam negative for acute changes, respiratory distress, shortness of breath, Breath sounds: are clear throughout. 15:33 Abdomen/GI: Inspection: abdomen appears normal, Palpation: abdomen is soft and non-tender, in all quadrants. 15:33 Back: pain, that is moderate, of the sacrum, Chaperoned by RN: Jacqueline. 15:33 Neuro: Exam negative for acute changes, Orientation: is normal, Mentation: is normal, Motor: is normal, moves all fours, Sensation: is normal, no obvious gross deficits. Vital Signs: 13:22 BP 137 / 81; Pulse 102; Resp 17; Temp 98.2(TE); Pulse Ox 98% on R/A; Weight 65.77 kg; ab2 Height 5 ft. 3 in. (160.02 cm); Pain 8/10; 16:00 BP 128 / 79; Pulse 82; Resp 18 S; Pulse Ox 100% on R/A; Pain 4/10; jd3 13:22 Body Mass Index 25.69 (65.77 kg, 160.02 cm) ab2 MDM: 14:00 Patient medically screened. pm1 15:32 Data reviewed: vital signs. Data interpreted: Pulse oximetry: on room air is 98 %. pm1 Interpretation: normal. Counseling: I had a detailed discussion with the patient and/or guardian regarding: radiology results. 16:09 Counseling: I had a detailed discussion with the patient and/or guardian regarding: the pm1 historical points, exam findings, and any diagnostic results supporting the discharge/admit diagnosis, lab results, the need for outpatient follow up, to return to the emergency department if symptoms worsen or persist or if there are any questions or concerns that arise at home. 06/01 14:07 Order name: Strep pm1 06/01 14:07 Order name: COVID-19/FLU A+B (Document "Date of Onset" if Symptomatic) pm1 06/01 14:07 Order name: Chest Pa And Lat (2 Views) XRAY; Complete Time: 15:27 pm1 06/01 14:08 Order name: Group A Streptococcus Rapid Sc; Complete Time: 15:50 EDMS 06/01 14:08 Order name: COVID-19/FLU A+B; Complete Time: 16:09 EDMS 06/01 15:43 Order name: Throat Culture EDMS 06/01 14:07 Order name: Sacrum And Coccyx XRAY; Complete Time: 15:27 pm1 Administered Medications: 14:49 Drug: [place] (HYDROcodone-acetaminophen) 10 mg-325 mg 1 tabs Route: PO; jd3 15:45 Follow up: Response: No adverse reaction; RASS: Alert and Calm (0) jd3 Disposition: 21:36 Co-signature as Attending Physician, Ray Phillips DO I agree with the assessment and ms3 plan of care. Disposition Summary: 06/01/21 16:10 Discharge Ordered Location: Home pm1 Problem: new pm1 Symptoms: have improved pm1 Condition: Stable pm1 Diagnosis - Acute pharyngitis, unspecified pm1 - Fracture of coccyx pm1 Followup: pm1 - With: Emergency Department - When: As needed - Reason: Worsening of condition Followup: pm1 - With: Private Physician - When: 2 - 3 days - Reason: Recheck today's complaints, Continuance of care, Re-evaluation by your physician Discharge Instructions: - Discharge Summary Sheet pm1 - Pharyngitis pm1 - Tailbone Injury pm1 Forms: - Medication Reconciliation Form pm1 - Thank You Letter pm1 - Antibiotic Education pm1 - Prescription Opioid Use pm1 Prescriptions: - Tylenol-Codeine #3 300 mg-30 mg Oral - take 2 tablet by ORAL route every 6 hours As needed; 20 tablet; Refills: 0, pm1 Product Selection Permitted Signatures: Dispatcher [employer] Phil Lester, ALEIDA GROUTER HELPER pm1 Ricky Ramirez, RN RN jd3 Ray Pihllips, DO [place] ms3 Hesham Alvarez2
--- NOTE | 2021-06-01 16:11 | ER ---
Nurse's Notes [facility] Name: Melanie Gotti Age: 40 yrs Sex: Female : 1980 Arrival Date: 06/01/2021 Time: 13:16 Bed 18 Private MD: Diagnosis: Acute pharyngitis, unspecified;Fracture of coccyx Presentation: 06/01 13:22 Chief complaint: Patient states: "I took a hard fall in the bathroom and fell right ab2 onto my butt last night. The pain is getting worse. On top of that I have congestion and a sore throat for about a week now." Pt denies LOC or hitting head. Coronavirus screen: Vaccine status: Patient reports receiving the 2nd dose of the covid vaccine. Client denies travel out of the [place] in the last 14 days. At this time, the client does not indicate any symptoms associated with coronavirus-19. Ebola Screen: Patient negative for fever greater than or equal to 101.5 degrees Fahrenheit, and additional compatible Ebola Virus Disease symptoms Patient denies exposure to infectious person. Patient denies travel to an Ebola-affected area in the 21 days before illness onset. No symptoms or risks identified at this time. Initial Sepsis Screen: Does the patient meet any 2 criteria? No. Patient's initial sepsis screen is negative. Does the patient have a suspected source of infection? No. Patient's initial sepsis screen is negative. Risk Assessment: Do you want to hurt yourself or someone else? Patient reports no desire to harm self or others. Onset of symptoms is unknown. 13:22 Method Of Arrival: Ambulatory ab2 13:22 Acuity: JAYCOB 4 ab2 Triage Assessment: 13:26 General: Appears in no apparent distress. uncomfortable, Behavior is calm, cooperative, ab2 appropriate for age. Pain: Complains of pain in buttocks Pain currently is 8 out of 10 on a pain scale. 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 - Social history:: Smoking status: Reported history of juuling and/or vaping. Screenin:34 Abuse screen: Denies threats or abuse. Nutritional screening: No deficits noted. jd3 Tuberculosis screening: No symptoms or risk factors identified. Fall Risk Ambulatory Aid- None/Bed Rest/Nurse Assist (0 pts). Mental Status- Oriented to own ability (0 pts). Total German Fall Scale indicates No Risk (0-24 pts). Assessment: 14:32 General: Appears in no apparent distress. comfortable, Behavior is calm, cooperative, jd3 appropriate for age. 14:33 Pain: Complains of pain in buttocks Quality of pain is described as sharp, tender, jd3 Aggravated by increased activity, repositioning, weight bearing. Neuro: Level of Consciousness is awake, alert, obeys commands, Oriented to person, place, time, situation. Cardiovascular: Denies chest pain, Capillary refill < 3 seconds Patient's skin is warm and dry. Respiratory: Airway is patent Respiratory effort is even, unlabored, Respiratory pattern is regular, symmetrical. GI: No signs and/or symptoms were reported involving the gastrointestinal system. : No signs and/or symptoms were reported regarding the genitourinary system. EENT: Reports sore throat. Derm: Skin is intact, Skin is dry, Skin is normal, Skin temperature is warm. Musculoskeletal: Circulation, motion, and sensation intact. Range of motion: intact in all extremities. 15:11 Reassessment: Patient appears in no apparent distress at this time. No changes from jd3 previously documented assessment. Patient and/or family updated on plan of care and expected duration. Pain level reassessed. Patient is alert, oriented x 3, equal unlabored respirations, skin warm/dry/pink. 16:27 Reassessment: Patient appears in no apparent distress at this time. Patient and/or jd3 family updated on plan of care and expected duration. Pain level reassessed. Patient is alert, oriented x 3, equal unlabored respirations, skin warm/dry/pink. Patient states feeling better. Vital Signs: 13:22 BP 137 / 81; Pulse 102; Resp 17; Temp 98.2(TE); Pulse Ox 98% on R/A; Weight 65.77 kg; ab2 Height 5 ft. 3 in. (160.02 cm); Pain 8/10; 16:00 BP 128 / 79; Pulse 82; Resp 18 S; Pulse Ox 100% on R/A; Pain 4/10; jd3 13:22 Body Mass Index 25.69 (65.77 kg, 160.02 cm) ab2 ED Course: 13:16 Patient arrived in ED. mr 13:25 Triage completed. ab2 13:26 Arm band placed on right wrist. ab2 13:38 Phil Pollack NP is PHCP. pm1 13:38 Ray Phillips DO is Attending Physician. pm1 14:33 Ricky Ramirez, RN is Primary Nurse. jd3 14:35 Patient has correct armband on for positive identification. Bed in low position. Call jd3 light in reach. Side rails up X 1. Adult w/ patient. Pulse ox on. NIBP on. 14:49 Group A Streptococcus Rapid Sc Sent. jd3 14:49 COVID-19/FLU A+B Sent. jd3 15:03 Chest Pa And Lat (2 Views) XRAY In Process Unspecified. EDMS 15:03 Sacrum And Coccyx XRAY In Process Unspecified. EDMS 16:27 No provider procedures requiring assistance completed. Patient did not have IV access jd3 during this emergency room visit. Administered Medications: 14:49 Drug: [place] (HYDROcodone-acetaminophen) 10 mg-325 mg 1 tabs Route: PO; jd3 15:45 Follow up: Response: No adverse reaction; RASS: Alert and Calm (0) jd3 Outcome: 16:10 Discharge ordered by MD. pm1 16:27 Discharged to home ambulatory, with family. jd3 16:27 Condition: stable 16:27 Discharge instructions given to patient, family, Instructed on discharge instructions, follow up and referral plans. medication usage, Demonstrated understanding of instructions, follow-up care, medications, Prescriptions given X 1. 16:29 Patient left the ED. jd3 Signatures: Dispatcher [employer] EDRI Eduardo Lilibeth mr Phil Pollack, ALEIDA COLLECTION SYSTEMS TECHNICIAN pm1 Ricky Ramirez, DALE RN jd3 Heshma Alvarez ab2
[2021-06-01 17:20] VITALS: BP 128/79; O2SAT 100
[2021-06-01 17:22] VITALS: TEMP 98.2
== END 2021-06-01 16:29 | disposition home or self-care (01) ==
LOC: ER 13:13
DX: J02.9 Acute pharyngitis, unspecified (principal); S32.2XXA Fracture of coccyx, initial encounter for closed fracture; W18.2XXA Fall in (into) shower or empty bathtub, initial encounter; Z20.822 Contact with and (suspected) exposure to COVID-19
CPT/HCPCS: 87070; 87081; 0240U; 71046; 72220; 99284

== ENCOUNTER 2021-06-12 11:26 | Emergency (ER) | payer OTHER ==
[2021-06-12] MEDS ORDERED: ALBUTEROL INHALER 60 PUFF/8 GM IH ONE (12:29)
[2021-06-12] MEDS ORDERED: dexAMETHasone 10 MG/ML VIAL ONE (12:29)
[2021-06-12] MEDS ORDERED: HYDROCODONE/CHLORPHEN 5 ML/OSYR ONE (12:29)
[2021-06-12 12:37] LABS: Absolute Lymphocytes (CBC) 1.6 K/uL (0.7-4.9); Hematocrit 44.7 % (36.0-45.0); Lymphocytes % 21.1 % (15.3-44.8); MPV 8.5 fL (7.6-11.3); RBC Red Blood Cell Count 5.04 M/uL (3.86-4.86)
--- NOTE | 2021-06-12 12:45 | RAD REPORT ---
EXAM DESCRIPTION: RAD - Chest Single View - 06/12/2021 12:14 pm CLINICAL HISTORY: SOB COMPARISON: Chest Pa And Lat (2 Views) dated 06/01/2021 FINDINGS: Lines: None. Lungs: No evidence of edema or pneumonia. Pleural: No significant pleural effusions or pneumothorax. Cardiac: The heart size is within normal limits. Bones: No acute fractures. Other: IMPRESSION: No acute cardiopulmonary disease.
[2021-06-12 12:46] LABS: BUN Blood Urea Nitrogen 5 mg/dL (7-18); Bicarbonate 28 mmol/L (21-32); Glucose Level 85 mg/dL (74-106); Potassium 3.8 mmol/L (3.5-5.1); Sodium Level 138 mmol/L (136-145)
[2021-06-12 12:50] LABS: Troponin High Sensitivity < 3.0 pg/mL (<58.9)
[2021-06-12 14:00] LABS: SARS-COV-2 RT PCR NEGATIVE (NEGATIVE)
--- NOTE | 2021-06-12 15:07 | EDPHYS ---
Physician Documentation [facility] Name: Melanie Gotti Age: 40 yrs Sex: Female : 1980 Arrival Date: 06/12/2021 Time: 11:28 Bed 23 Private MD: ED Physician Carlos Cota HPI: 06/12 11:54 This 40 yrs old Female presents to ER via Ambulatory with complaints of Cough, pm1 Breathing Difficulty. 11:54 The patient or guardian reports cough, with productive sputum. Onset: The pm1 symptoms/episode began/occurred 2 week(s) ago. Severity of symptoms: in the emergency department the symptoms are actually worse. Modifying factors: The symptoms are alleviated by nothing, the symptoms are aggravated by nothing. Associated signs and symptoms: Pertinent negatives: chest pain, diarrhea, fever, sore throat, vomiting. The patient has not experienced similar symptoms in the past. The patient has been recently seen by a physician: 1 week ago for fracture tail bone. Patient had a mild cough at that time that she is presenting with today that has become worse. 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 - Social history:: Smoking status: Patient denies any tobacco usage or history of. ROS: 11:54 Constitutional: Negative for fever, chills, and weight loss, Cardiovascular: Negative pm1 for chest pain, palpitations, and edema. 11:54 Abdomen/GI: Negative for abdominal pain, nausea, vomiting, diarrhea, and constipation, Back: Negative for injury and pain, MS/Extremity: Negative for injury and deformity, Skin: Negative for injury, rash, and discoloration, Neuro: Negative for headache, weakness, numbness, tingling, and seizure. 11:54 Respiratory: Positive for cough, shortness of breath. 11:54 All other systems are negative. Exam: 11:54 Constitutional: This is a well developed, well nourished patient who is awake, alert, pm1 and in no acute distress. Head/Face: Normocephalic, atraumatic. 11:54 Back: No spinal tenderness. No costovertebral tenderness. Full range of motion. Skin: Warm, dry with normal turgor. Normal color with no rashes, no lesions, and no evidence of cellulitis. MS/ Extremity: Pulses equal, no cyanosis. Neurovascular intact. Full, normal range of motion. 11:54 Eyes: Exam is negative for acute changes, Pupils: no acute changes, Extraocular movements: no acute changes, Conjunctiva: no acute changes, no injection. 11:54 ENT: Exam is negative for acute changes, Mouth: no acute changes, Lips: normal, moist, Oral mucosa: normal, pink and intact, moist. 11:54 Cardiovascular: Exam negative for acute changes, Rate: normal, Rhythm: regular, Pulses: no pulse deficits are appreciated, Heart sounds: normal. 11:54 Respiratory: Exam negative for acute changes, respiratory distress, shortness of breath, Breath sounds: are clear throughout. 11:54 Neuro: Exam negative for acute changes, Orientation: is normal, Mentation: is normal, Motor: is normal, moves all fours. Vital Signs: 11:46 BP 125 / 82; Pulse 104; Resp 17; Temp 97.3(TE); Pulse Ox 98% on R/A; Weight 73.48 kg; ab2 Height 5 ft. 3 in. (160.02 cm); Pain 7/10; 12:29 BP 125 / 93; Pulse 88; Resp 18; Pulse Ox 100% on R/A; Pain 0/10; ld1 13:33 BP 126 / 84; Pulse 69; Resp 18; Pulse Ox 100% on R/A; ld1 14:25 BP 107 / 66; Pulse 68; Resp 18; Pulse Ox 99% on R/A; ld1 15:10 BP 119 / 72; Pulse 71; Resp 18; Pulse Ox 100% on R/A; ld1 11:46 Body Mass Index 28.70 (73.48 kg, 160.02 cm) ab2 MDM: 12:09 Patient medically screened. [facility] 15:05 Data reviewed: vital signs. Data interpreted: Pulse oximetry: on room air is 99 %. pm1 Interpretation: normal. Counseling: I had a detailed discussion with the patient and/or guardian regarding: the historical points, exam findings, and any diagnostic results supporting the discharge/admit diagnosis, lab results, radiology results, the need for outpatient follow up, to return to the emergency department if symptoms worsen or persist or if there are any questions or concerns that arise at home. 06/12 11:54 Order name: Basic Metabolic Panel; Complete Time: 13:02 06/12 11:54 Order name: CBC with Diff; Complete Time: 13:02 06/12 11:54 Order name: Troponin HS; Complete Time: 13:02 06/12 12:15 Order name: COVID-19/FLU A+B (Document "Date of Onset" if Symptomatic); Complete Time: pm1 15:08 06/12 12:15 Order name: Strep; Complete Time: 13:02 pm06/12 12:44 Order name: Throat Culture EDMS 06/12 11:54 Order name: XRAY Chest (1 view); Complete Time: 13:02 06/12 11:54 Order name: Cardiac monitoring; Complete Time: 12:02 06/12 11:54 Order name: EKG - Nurse/Tech; Complete Time: 12:02 06/12 11:54 Order name: IV Saline Lock; Complete Time: 12:16 06/12 11:54 Order name: Labs collected and sent; Complete Time: 12:16 06/12 11:54 Order name: O2 Per Protocol; Complete Time: 12:02 06/12 11:54 Order name: O2 Sat Monitoring; Complete Time: 12:02 ld Administered Medications: 12:28 Drug: Decadron (dexamethasone) 10 mg Route: IM; Site: right deltoid; ld1 12:29 Drug: Albuterol 5 mg Route: Inhalation; ld1 12:29 Drug: Tussionex Pennkinetic ER (chlorpheniramine-hydrocodone) Suspension 5 ml Route: PO;ld1 Disposition Summary: 06/12/21 15:06 Discharge Ordered Location: Home pm1 Problem: new pm1 Symptoms: have improved pm1 Condition: Stable pm1 Diagnosis - Acute bronchitis, unspecified pm1 Followup: pm1 - With: Emergency Department - When: As needed - Reason: Worsening of condition Followup: pm1 - With: Private Physician - When: 2 - 3 days - Reason: Recheck today's complaints, Continuance of care, Re-evaluation by your physician Discharge Instructions: - Discharge Summary Sheet pm1 - Acute Bronchitis, Adult pm1 Forms: - Medication Reconciliation Form pm1 - Thank You Letter pm1 - Antibiotic Education pm1 - Prescription Opioid Use pm1 Prescriptions: - Ventolin HFA 90 mcg/actuation Inhalation HFA aerosol inhaler - inhale 2 puff by INHALATION route every 4-6 hours As needed; 1 Inhaler; pm1 Refills: 0, Product Selection Permitted - Medrol (Miguel) 4 mg Oral Tablets, Dose Pack - take 1 tablet by ORAL route as directed - follow package instructions; 1 pm1 packet; Refills: 0, Product Selection Permitted - Guaifenesin AC 10-100 mg/5 mL Oral Liquid - take 10 milliliters by ORAL route every 4 hours As needed; 240 milliliter; pm1 Refills: 0, Product Selection Permitted Addendum: 06/16/2021 07:05 Co-signature as Attending Physician, Carlos Cota MD I agree with the assessment and c mckeon plan of care. Signatures: Dispatcher [employer] EDCarlos Madrigal MD MD cha Marinas, Patrick, TARIFF COMPILER TARIFF COMPILER pm1 Eloina Lopez, DALE RN ld1 Hesham Alvarez ab2
--- NOTE | 2021-06-12 15:07 | ER ---
Nurse's Notes [facility] Name: Melanie Gotti Age: 40 yrs Sex: Female : 1980 Arrival Date: 06/12/2021 Time: 11:28 Bed 23 Private MD: Diagnosis: Acute bronchitis, unspecified Presentation: 06/12 11:46 Chief complaint: Patient states: "Last night I was coughing so hard I was wheezing. My ab2 throat hurts, I'm hoarse and losing my voice. I cant sleep. Last week I was here and they told me it was viral, but its getting worse." Pt c/o SOB and chest pressure when coughing. Coronavirus screen: Vaccine status: Patient reports being unvaccinated. Client denies travel out of the [place] in the last 14 days. congestion, difficulty breathing, shortness of breath, sore throat, Client presents with at least one sign or symptom that may indicate coronavirus-19. Ebola Screen: Patient negative for fever greater than or equal to 101.5 degrees Fahrenheit, and additional compatible Ebola Virus Disease symptoms Patient denies exposure to infectious person. Patient denies travel to an Ebola-affected area in the 21 days before illness onset. No symptoms or risks identified at this time. Initial Sepsis Screen: Does the patient meet any 2 criteria? No. Patient's initial sepsis screen is negative. Does the patient have a suspected source of infection? No. Patient's initial sepsis screen is negative. Risk Assessment: Do you want to hurt yourself or someone else? Patient reports no desire to harm self or others. Onset of symptoms is unknown. 11:46 Method Of Arrival: Ambulatory ab2 11:50 Acuity: JAYCOB 3 ab2 Triage Assessment: 11:49 General: Appears in no apparent distress. uncomfortable, Behavior is calm, cooperative, ab2 appropriate for age. Pain: Complains of pain in sore throat. EENT: Reports pain when swallowing. Cardiovascular: Denies chest pain, shortness of breath. Respiratory: Reports cough that is Onset: The symptoms/episode began/occurred yesterday, the patient reports symptoms have resolved. 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 - Social history:: Smoking status: Patient denies any tobacco usage or history of. Screenin:29 Abuse screen: Denies threats or abuse. Denies injuries from another. Nutritional ld1 screening: No deficits noted. Tuberculosis screening: No symptoms or risk factors identified. Fall Risk None identified. Assessment: 11:50 Respiratory: Airway is patent Respiratory effort is even, unlabored, ab2 12:29 General: Appears in no apparent distress. comfortable, Behavior is calm, cooperative, ld1 appropriate for age. Pain: Denies pain. Neuro: Level of Consciousness is awake, alert, obeys commands, Oriented to person, place, time, situation, Appropriate for age. Cardiovascular: Capillary refill < 3 seconds Patient's skin is warm and dry. Rhythm is regular. Respiratory: Airway is patent Respiratory effort is even, unlabored, Breath sounds are clear bilaterally. GI: Abdomen is round non-distended. : No signs and/or symptoms were reported regarding the genitourinary system. EENT: No signs and/or symptoms were reported regarding the EENT system. Derm: No signs and/or symptoms reported regarding the dermatologic system. Musculoskeletal: No signs and/or symptoms reported regarding the musculoskeletal system. 13:33 Reassessment: Patient appears in no apparent distress at this time. No changes from ld1 previously documented assessment. Patient and/or family updated on plan of care and expected duration. Pain level reassessed. 14:25 Reassessment: Patient appears in no apparent distress at this time. Patient is alert, ld1 oriented x 3, equal unlabored respirations, skin warm/dry/pink. 15:10 Reassessment: Patient appears in no apparent distress at this time. Patient and/or ld1 family updated on plan of care and expected duration. Pain level reassessed. Patient is alert, oriented x 3, equal unlabored respirations, skin warm/dry/pink. Vital Signs: 11:46 BP 125 / 82; Pulse 104; Resp 17; Temp 97.3(TE); Pulse Ox 98% on R/A; Weight 73.48 kg; ab2 Height 5 ft. 3 in. (160.02 cm); Pain 7/10; 12:29 BP 125 / 93; Pulse 88; Resp 18; Pulse Ox 100% on R/A; Pain 0/10; ld1 13:33 BP 126 / 84; Pulse 69; Resp 18; Pulse Ox 100% on R/A; ld1 14:25 BP 107 / 66; Pulse 68; Resp 18; Pulse Ox 99% on R/A; ld1 15:10 BP 119 / 72; Pulse 71; Resp 18; Pulse Ox 100% on R/A; ld1 11:46 Body Mass Index 28.70 (73.48 kg, 160.02 cm) ab2 ED Course: 11:28 Patient arrived in ED. rg4 11:48 Triage completed. ab2 11:50 Arm band placed on right wrist. ab2 11:51 Eloina Lopez, DALE is Primary Nurse. ld1 11:55 Phil Pollack NP is PHCP. pm1 11:55 Carlos Cota MD is Attending Physician. pm1 12:16 XRAY Chest (1 view) In Process Unspecified. EDMS 12:24 Strep Sent. ld1 12:24 COVID-19/FLU A+B (Document "Date of Onset" if Symptomatic) Sent. ld1 12:29 Patient has correct armband on for positive identification. Placed in gown. Bed in low ld1 position. Call light in reach. Side rails up X2. classroom monitor on. Pulse ox on. NIBP on. Door closed. Noise minimized. Warm blanket given. 12:29 No provider procedures requiring assistance completed. Inserted saline lock: 22 gauge ld1 in left antecubital area, using aseptic technique. Blood collected. Missed attempt(s): 20 gauge in right antecubital area. 15:18 IV discontinued, intact, bleeding controlled, No redness/swelling at site. ld1 Administered Medications: 12:28 Drug: Decadron (dexamethasone) 10 mg Route: IM; Site: right deltoid; ld1 12:29 Drug: Albuterol 5 mg Route: Inhalation; ld1 12:29 Drug: Tussionex Pennkinetic ER (chlorpheniramine-hydrocodone) Suspension 5 ml Route: PO;ld1 Outcome: 15:06 Discharge ordered by . pm1 15:18 Discharged to home ambulatory. ld1 15:18 Condition: stable 15:18 Discharge instructions given to patient, Instructed on discharge instructions, follow up and referral plans. medication usage, Demonstrated understanding of instructions, follow-up care, medications, Prescriptions given X 3. 15:18 Patient left the ED. ld1 Signatures: Dispatcher [employer] EDMS Phil Pollack NP HALVER MACHINE OPERATOR pm1 Agustina Wilson rg4 Eloina Lopez RN RN ld1 Hesham Alvarez ab2 Corrections: (The following items were deleted from the chart) 11 11:46 Chief complaint: Patient states: "Last night I was coughing so hard I was ab2 wheezing. My throat hurts, I'm hoarse and losing my voice. I cant sleep. Last week I was here and they told me it was viral, but its getting worse." ab2 11 11:46 Acuity: JAYCOB 4 ab2 ab2
[2021-06-12 16:21] VITALS: TEMP 97.3
[2021-06-12 16:24] VITALS: BP 119/72; O2SAT 100
--- NOTE | 2021-06-15 12:39 | EKG ---
Test Date: 2021-06-12 Test Time: 11:56:26 Procurement Officer: NOEMI MEASUREMENT RESULTS: Intervals: Rate: 76 PA: 156 QRSD: 78 QT: 362 QTc: 407 [place]: P: 50 PA: 156 QRS: 80 T: 81 INTERPRETIVE STATEMENTS: Normal sinus rhythm Normal ECG No previous ECG available for comparison Electronically Signed On 06-15-21 12:33:47 CDT by Nestor Armando
== END 2021-06-12 15:18 | disposition home or self-care (01) ==
LOC: ER 11:26
DX: J20.9 Acute bronchitis, unspecified (principal); Z20.822 Contact with and (suspected) exposure to COVID-19
CPT/HCPCS: 93005; 87070; 85025; 80048; 36415; 87081; 84484; 0240U; 71045; 96372; 99285; J1100

== ENCOUNTER 2021-09-22 12:22 | Emergency (ER) | payer OTHER ==
[2021-09-22] MEDS ORDERED: ONDANSETRON 4 MG (ODT) TAB ONE (15:48)
[2021-09-22] MEDS ORDERED: ACETAMINOPHEN 500 MG TAB ONE (15:48)
--- NOTE | 2021-09-22 17:11 | EDPHYS ---
Physician Documentation [facility] Name: Melanie Gotti Age: 41 yrs Sex: Female : 1980 Arrival Date: 09/22/2021 Time: 12:23 Bed DIS1 Private MD: ED Physician Yan Avalos Historical: - Allergies: 09/22 13:03 NKDA; ss - PMHx: 13:03 Anxiety; depressive disorder; ss - PSHx: 13:03 Cholecystectomy; ss - Immunization history:: Client reports receiving the 2nd dose of the Covid vaccine. - Social history:: Smoking status: Reported history of juuling and/or vaping. Vital Signs: 13:01 Resp 17; Weight 71.21 kg; Height 5 ft. 3 in. (160.02 cm); Pain 6/10; ss 13:01 Pulse 79; Temp 97.4(TE); Pulse Ox 100% on R/A; ss 13:03 BP 132 / 95; ss 13:01 Body Mass Index 27.81 (71.21 kg, 160.02 cm) ss MDM: 15:34 Patient medically screened. cp 09/22 13:03 Order name: COVID-19 SARS RT PCR (Document "Date of Onset" if Symptomatic); Complete ss Time: 17:09 09/22 13:04 Order name: Flu; Complete Time: 17:09 ss 09/22 15:18 Order name: Strep; Complete Time: 17:09 cp 09/22 15:55 Order name: Throat Culture EDMS Administered Medications: 15:41 Drug: Zofran (Ondansetron) 4 mg Route: PO; ss 15:41 Drug: Tylenol 1000 mg Route: PO; ss Disposition Summary: 09/22/21 17:10 Discharge Ordered Location: Home cp Problem: new cp Symptoms: have improved cp Condition: Stable cp Diagnosis - Headache cp - Nausea cp Followup: cp - With: Private Physician - When: 2 - 3 days - Reason: Worsening of condition Discharge Instructions: - Discharge Summary Sheet cp - Migraine Headache cp - Nausea, Adult cp Forms: - Medication Reconciliation Form cp - Thank You Letter cp - Antibiotic Education cp - Prescription Opioid Use cp Prescriptions: - Fioricet 50-300-40 mg Oral capsule - take 1 capsule by ORAL route every 4 hours as needed; 20 capsule; Refills: 0, cp Product Selection Permitted - Zofran 4 mg Oral Tablet - take 1 tablet by ORAL route every 12 hours As needed; 20 tablet; Refills: 0, cp Product Selection Permitted Signatures: Trini Leung RN RN ss Carlos Colindres PA PA cp
--- NOTE | 2021-09-22 17:11 | ER ---
Nurse's Notes [facility] Name: Melanie Gotti Age: 41 yrs Sex: Female : 1980 Arrival Date: 09/22/2021 Time: 12:23 Bed DIS1 Private MD: Diagnosis: Headache;Nausea Presentation: 09/22 13:01 Chief complaint: Patient states: Migraine x 4 days. Exposed to Covid. Coronavirus ss screen: Client denies travel out of the [place] in the last 14 days. Ebola Screen: Patient denies exposure to infectious person. Patient denies travel to an Ebola-affected area in the 21 days before illness onset. Initial Sepsis Screen: Does the patient meet any 2 criteria? No. Patient's initial sepsis screen is negative. Does the patient have a suspected source of infection? No. Patient's initial sepsis screen is negative. Risk Assessment: Do you want to hurt yourself or someone else? Patient reports no desire to harm self or others. Onset of symptoms was September 18, 2021. 13:01 Method Of Arrival: Ambulatory ss 13:01 Acuity: JAYCOB 4 ss Historical: - Allergies: 13:03 NKDA; ss - PMHx: 13:03 Anxiety; depressive disorder; ss - PSHx: 13:03 Cholecystectomy; ss - Immunization history:: Client reports receiving the 2nd dose of the Covid vaccine. - Social history:: Smoking status: Reported history of juuling and/or vaping. Vital Signs: 13:01 Resp 17; Weight 71.21 kg; Height 5 ft. 3 in. (160.02 cm); Pain 6/10; ss 13:01 Pulse 79; Temp 97.4(TE); Pulse Ox 100% on R/A; ss 13:03 BP 132 / 95; ss 13:01 Body Mass Index 27.81 (71.21 kg, 160.02 cm) ss ED Course: 12:23 Patient arrived in ED. as 13:02 Triage completed. ss 13:03 Arm band placed on right wrist. ss 13:24 Carlos Colindres PA is PHCP. cp 13:24 Yan Avalos MD is Attending Physician. cp 17:22 Trini Harmon RN is Primary Nurse. ss 17:22 No provider procedures requiring assistance completed. Patient did not have IV access ss during this emergency room visit. Administered Medications: 15:41 Drug: Zofran (Ondansetron) 4 mg Route: PO; ss 15:41 Drug: Tylenol 1000 mg Route: PO; ss Outcome: 17:10 Discharge ordered by . cp 17:22 Discharged to home ambulatory. ss 17:22 Condition: good 17:22 Discharge instructions given to patient, Instructed on discharge instructions, follow up and referral plans. Demonstrated understanding of instructions, follow-up care, Prescriptions given X 2. 17:23 Patient left the ED. ss Signatures: Mary Nunez Shelby, RN RN Carlos Colindres, PA PA cp
[2021-09-22 17:45] VITALS: TEMP 97.4; O2SAT 100
[2021-09-22 17:47] VITALS: BP 132/95
== END 2021-09-22 17:23 | disposition home or self-care (01) ==
LOC: ER 12:22
DX: R51.9 Headache, unspecified (principal); R11.0 Nausea; Z20.822 Contact with and (suspected) exposure to COVID-19
CPT/HCPCS: 87070; 87081; 87804 ×2; U0003; Q0162

== ENCOUNTER 2022-03-20 15:58 | Emergency (ER) | payer OTHER ==
--- OUTSIDE RECORDS SUMMARY | 2022-03-20 16:02 | XMS REPORT | Continuity of Care Document ---
:1980 Author Organization [facility] t Address [address] [place] [address] Care Team Providers Name Role Phone Yamileth Rowe MD Primary Care Physician YAMILETH ROWE Attending Clinician Unavailable Raghavendra Lockhart Attending Clinician Raghavendra GARDNER Attending Clinician Unavailable ASHLEY VELÁSQUEZ Attending Clinician Unavailable Ashley Velásquez DO Attending Clinician Ger Coleman DO Attending Clinician GER COLEMAN Attending Clinician Unavailable ASHLEY VELÁSQUEZ Admitting Clinician Unavailable GER COLEMAN Admitting Clinician Unavailable Payers Payer Name Policy Type Policy Number Effective Date Expiration Date [facility] [id number] 2021 STAR 00:00:00 Problems Condition Condition Condition Status Onset Resolution Last Treating Co mments Source Name Details Category Date Date Treatment Clinician Date Encounter Encounter Disease Active Uni vers for for 2-09 ity of initial initial 00:00: [place] prescripti prescripti 00 Me dical on of on of Branch vaginal vaginal ring ring hormonal hormonal contracept contracept lupe lupe Decreased Decreased Disease Active Uni vers libido libido 04-28 ity of 00:00: [address] Well woman Well woman Disease Active 2014-03 U nivers exam exam 2- ity of 00:00: [place] 00 Medical Branch Allergies, Adverse Reactions, Alerts Allergy Allergy Status Severity Reaction(s) Onset Inactive Treating Comm ents Source Name Type Date Date Clinician NO KNOWN Drug Active Univers ALLERGIE Class ity of S [facility] Social History Social Habit Start Date Stop Date Quantity Comments Source History SDOH University o f Alcohol Frequency [place] M ed[facility] History SDOH University o f Alcohol Std [place] [facility] Drinks Branch History SDOH University o f Alcohol Binge [place] [facility] al [facility] Alcohol intake 2022-02-25 2022-02-25 Current drinker Unive rsity of 00:00:00 00:00:00 of alcohol [place] [facility] (finding) Branch Exposure to 2022-02-14 2022-02-24 Not sure University of SARS-CoV-2 00:00:00 10:23:00 [facility] (event) Branch Tobacco use and 2022-01-03 2022-01-03 Smokeless tobacco Un iversity of exposure 00:00:00 00:00:00 non-user [facility] Alcohol Comment 2022-01-03 2022-01-03 socially, 2 beers Un iversity of 00:00:00 00:00:00 a week [facility] Sex Ass[birth year] At [birth year] Universit y of 00:00:00 00:00:00 [facility] Smoking Status Start Date Stop Date Source Never smoked tobacco [facility] Medications Ordered Filled Start Stop Current Ordering Indication Dosage Frequency Signature Comments Components Source Medication Medication Date Date Medication? Clinician (SIG) Name Name ibuprofen 2021-03 Yes [id number] 600mg Take 1 Univers 600 mg 2 05 tablet by ity of tablet 00:00: mouth [place] 00 every 6 Medical (six) Branch hours as needed for Pain (scale 4-6). ibuprofen 2021-03 Yes [id number] 600mg Take 1 Univers 600 mg 2 05 tablet by ity of tablet 00:00: mouth [place] 00 every 6 Medical (six) Branch hours as needed for Pain (scale 4-6). amoxicillin 2021-03- Yes [id number] 500mg Take 1 Univers 500 mg 04-28 05 tablet by ity of tablet 00:00: 05:59 mouth in [place] 00 :00 the Medical morning Branch and 1 tablet in the evening. Do all this for 10 days. amoxicillin 2021-03- Yes [id number] 500mg Take 1 Univers 500 mg 04-28 05 tablet by ity of tablet 00:00: 05:59 mouth in [place] 00 :00 the Medical morning Branch and 1 tablet in the evening. Do all this for 10 days. dexamethaso 2021-03- No [id number] 10mg Univers ne sod phos 0-17 10-17 ity of PF 15:15: 14:21 [place] injection 00 :00 Medical 10 mg Branch dexamethaso 2021-03- No [id number] 10mg 10 mg, Univers ne sod phos 0-17 10-17 Intramuscu i ty of PF 15:15: 14:21 lar, ONCE, [place] injection 00 :00 1 dose, On Medi margaret 10 mg [facility] 01/03/22 at 1015, Routine dexamethaso 2021-03- No [id number] 10mg Univers ne sod phos 0-17 10-17 ity of PF 15:15: 14:21 [place] injection 00 :00 Medical 10 mg Branch dexamethaso 2021-03- No [id number] 10mg 10 mg, Univers ne sod phos 0-17 10-17 Intramuscu i ty of PF 15:15: 14:21 lar, ONCE, [place] injection 00 :00 1 dose, On Medi margaret 10 mg [facility] 01/03/22 at 1015, Routine dexAMETHaso 2021-03- No [id number] 10mg Univers ne sodium 0-17 10-17 ity of phos (PF) 15:00: 14:20 [place] injection 00 :23 Medical syringe 10 Branch mg dexAMETHaso 2021-03- No [id number] 10mg Univers ne sodium 0-17 10-17 ity of phos (PF) 15:00: 14:20 [place] injection 00 :23 Medical syringe 10 Branch mg loratadine 2021-03 Yes 10mg Take 10 mg U nivers 10 mg 0-17 by mouth ity of tablet 09:16: in the [place] 59 morning. Medical Branch loratadine 2021-03 Yes 10mg Take 10 mg U nivers 10 mg 0-17 by mouth ity of tablet 09:16: in the [place] 59 morning. Medical Branch loratadine 2021-03 Yes 10mg Take 10 mg U nivers 10 mg 0-17 by mouth ity of tablet 09:16: in the [place] 59 morning. Medical Branch loratadine 2021-03 Yes 10mg Take 10 mg U nivers 10 mg 0-17 by mouth ity of tablet 09:16: in the [place] 59 morning. Medical Branch copper 380 2021-03 Yes 1{IUD} 1 Intra Un taiwo square mm 0-17 Uterine ity of IUD 08:36: Device by [place] [id number] Intrauteri Medical ne route Branch once now. copper 380 2021-03 Yes 1{IUD} 1 Intra Un taiwo square mm 0-17 Uterine ity of IUD 08:36: Device by [place] [id number] Intrauteri Medical ne route Branch once now. copper 380 2021-03 Yes 1{IUD} 1 Intra Un taiwo square mm 0-17 Uterine ity of IUD 08:36: Device by [place] [id number] Intrauteri Medical ne route Branch once now. copper 380 2021-03 Yes 1{IUD} 1 Intra Un taiwo square mm 0-17 Uterine ity of IUD 08:36: Device by [place] [address] Intrauteri Medical ne route Branch once now. hydrOXYzine 2021-03 Yes [id number] 25mg Take 1 Univers 25 mg 0-17 capsule by ity of capsule 00:00: mouth 3 [place] (three) Medical times [place] daily as needed for Itching. escitalopra 2021-03 Yes [id number] 10mg Take 1 Univers m oxalate 0-17 tablet by ity o f 10 mg 00:00: mouth in [place] tablet 00 the Medical morning. Branch azelastine- 2021-03 Yes [id number] 1{spray Use 1 Univers fluticasone 0-17 } [place] in ity of (DYMISTA) 00:00: each [place] 137-50 00 nostril in Medical mcg/spray the Branch nasal spray morning and 1 [place] in the evening. hydrOXYzine 2021-03 Yes [id number] 25mg Take 1 Univers 25 mg 0-17 capsule by ity of capsule 00:00: mouth 3 [place] 00 (three) Medical times Branch daily as needed for Itching. escitalopra 2021-03 Yes [id number] 10mg Take 1 Univers m oxalate 0-17 tablet by ity o f 10 mg 00:00: mouth in [place] tablet 00 the Medical morning. Branch azelastine- 2021-03 Yes [id number] 1{spray Use 1 Univers fluticasone 0-17 } [place] in ity of (DYMISTA) 00:00: each [place] 137-50 00 nostril in Medical mcg/spray the Branch nasal spray morning and 1 [place] in the evening. hydrOXYzine 2021-03 Yes [id number] 25mg Take 1 Univers 25 mg 0-17 capsule by ity of capsule 00:00: mouth 3 [place] 00 (three) Medical times Branch daily as needed for Itching. escitalopra 2021-03 Yes [id number] 10mg Take 1 Univers m oxalate 0-17 tablet by ity o f 10 mg 00:00: mouth in [place] tablet 00 the Medical morning. [place] azelastine- 2021-03 Yes [id number] 1{spray Use 1 Univers fluticasone 0-17 } [place] ity of (DYMISTA) 00:00: each [place] 137-50 00 nostril in Medical mcg/spray the Branch nasal spray morning and 1 [place] in the evening. hydrOXYzine 2021-03 Yes [id number] 25mg Take 1 Univers 25 mg 0-17 capsule by ity of capsule 00:00: mouth 3 [place] 00 (three) Medical times Branch daily as needed for Itching. escitalopra 2021-03 Yes [id number] 10mg Take 1 Univers m oxalate 0-17 tablet by ity o f 10 mg 00:00: mouth in [place] tablet 00 the Medical morning. [place] azelastine- 2021-03 Yes [id number] 1{spray Use 1 Univers fluticasone 0-17 } [place] in ity of (DYMISTA) 00:00: each [place] 137-50 00 nostril in Medical mcg/spray the Branch nasal spray morning and 1 [place] in the evening. benzonatate Yes [id number] 200mg Take 1 Univers 200 mg 9-20 capsule by ity of capsule 00:00: mouth 3 [place] 00 (three) Medical times Branch daily as needed for Cough for up to 20 doses. benzonatate 2021- No [id number] 200mg Take 1 Univers 200 mg 9-20 10-17 capsule by ity of capsule 00:00: 00:00 mouth 3 [place] 00 :00 (three) Medical times Branch daily as needed for Cough for up to 20 doses. benzonatate 2021- No [id number] 200mg Take 1 Univers 200 mg 9-20 10-17 capsule by ity of capsule 00:00: 00:00 mouth 3 [place] 00 :00 (three) Medical times [place] daily as needed for Cough for up to 20 doses. NUVARING Yes [id number] 1{each} Insert 1 Univers 0.12-0.015 5-02 Each into ity of mg/24 hr 00:00: vagina [place] vaginal 00 once every Medica l insert month. Branch Insert vaginally and leave in place for 3 consecutiv e weeks, then remove for 1 week. NUVARING Yes [id number] 1{each} Insert 1 Univers 0.12-0.015 5-02 Each into ity of mg/24 hr 00:00: vagina [place] vaginal 00 once every Medica l insert month. Branch Insert vaginally and leave in place for 3 consecutiv e weeks, then remove for 1 week. NUVARING Yes [id number] 1{each} Insert 1 Univers 0.12-0.015 5-02 Each into ity of mg/24 hr 00:00: vagina [place] vaginal 00 once every Medica l insert month. Branch Insert vaginally and leave in place for 3 consecutiv e weeks, then remove for 1 week. NUVARING 2021- No [id number] 1{each} Insert 1 Univers 0.12-0.015 5-02 10-17 Each into ity of mg/24 hr 00:00: 00:00 vagina [place] vaginal 00 :00 once every Medica l insert month. Branch Insert vaginally and leave in place for 3 consecutiv e weeks, then remove for 1 week. NUVARING 2021- No [id number] 1{each} Insert 1 Univers 0.12-0.015 5-02 10-17 Each into ity of mg/24 hr 00:00: 00:00 vagina [place] vaginal 00 :00 once every Medica l insert month. Branch Insert vaginally and leave in place for 3 consecutiv e weeks, then remove for 1 week. hydrOXYzine Yes Univer s 25 mg 1-18 ity of capsule 00:00: [place] 00 Medical Branch escitalopra 2018-0 Yes Univer s m oxalate 1-18 ity of 10 mg 00:00: [place] tablet 00 Medical Branch hydrOXYzine 0 Yes Univer s 25 mg 1-18 ity of capsule 00:00: [place] 00 Medical Branch escitalopra 0 Yes Univer s m oxalate 1-18 ity of 10 mg 00:00: [place] tablet 00 Medical Branch hydrOXYzine 0 Yes Univer s 25 mg 1-18 ity of capsule 00:00: [place] 00 Medical Branch escitalopra 0 Yes Univer s m oxalate 1-18 ity of 10 mg 00:00: [place] tablet 00 Medical Branch hydrOXYzine 0 2021- No Unive rs 25 mg 1-18 10-17 ity of capsule 00:00: 00:00 [place] 00 :00 Medical Branch escitalopra 0 2021- No Unive rs m oxalate 1-18 10-17 ity of 10 mg 00:00: 00:00 [place] tablet 00 :00 Medical Branch hydrOXYzine 0 2- No Unive rs 25 mg 1-18 10-17 ity of capsule 00:00: 00:00 [place] 00 :00 Medical Branch escitalopra 0 2- No Unive rs m oxalate 1-18 10-17 ity of 10 mg 00:00: 00:00 [place] tablet 00 :00 [facility] norgestimat 2016-03 Yes 1{tbl} Take 1 Un taiwo e-ethinyl 2-11 tablet by ity o f estradiol 00:00: mouth [place] 0.18/0.215/ 00 daily. Medica l 0.25 mg-35 Branch mcg (28) tablet norgestimat 2016-03 Yes 1{tbl} Take 1 Un taiwo e-ethinyl 2-11 tablet by ity o f estradiol 00:00: mouth [place] 0.18/0.215/ 00 daily. Medica l 0.25 mg-35 Branch mcg (28) tablet norgestimat 2016-03 Yes 1{tbl} Take 1 Un taiwo e-ethinyl 2-11 tablet by ity o f estradiol 00:00: mouth [place] 0.18/0.215/ 00 daily. Medica l 0.25 mg-35 Branch mcg (28) tablet norgestimat 2016-03- No 1{tbl} Take 1 U nivers e-ethinyl 2-11 10-17 tablet by ity of estradiol 00:00: 00:00 mouth [place] 0.18/0.215/ 00 :00 daily. Medica l 0.25 mg-35 Branch mcg (28) tablet norgestimat 2016-03- No 1{tbl} Take 1 U nivers e-ethinyl 2-11 10-17 tablet by ity of estradiol 00:00: 00:00 mouth [place] 0.18/0.215/ 00 :00 daily. Medica l 0.25 mg-35 Branch mcg (28) tablet ibuprofen 2014-03 Yes 600mg Take 1 Tab U nivers (MOTRIN) 0-21 by mouth ity of 600 mg 00:00: every 6 [place] tablet 00 (six) Medical hours as Branch needed for Pain (scale 4-6). Take with food or milk. ibuprofen 2014-03 Yes 600mg Take 1 Tab U nivers (MOTRIN) 0-21 by mouth ity of 600 mg 00:00: every 6 [place] tablet 00 (six) Medical hours as Branch needed for Pain (scale 4-6). Take with food or milk. ibuprofen 2014-03 Yes 600mg Take 1 Tab U nivers (MOTRIN) 0-21 by mouth ity of 600 mg 00:00: every 6 [place] tablet 00 (six) Medical hours as Branch needed for Pain (scale 4-6). Take with food or milk. ibuprofen 2014-03 Yes 600mg Take 1 Tab U nivers (MOTRIN) 0-21 by mouth ity of 600 mg 00:00: every 6 [place] tablet 00 (six) Medical hours as Branch needed for Pain (scale 4-6). Take with food or milk. ibuprofen 2014-03 Yes 600mg Take 1 Tab U nivers (MOTRIN) 0-21 by mouth ity of 600 mg 00:00: every 6 [place] tablet 00 (six) Medical hours as Branch needed for Pain (scale 4-6). Take with food or milk. ibuprofen 2014-03 No 600mg Take 1 Tab Univers (MOTRIN) 0-21 12-09 by mouth ity of 600 mg 00:00: 00:00 every 6 [place] tablet 00 :00 (six) Medical hours as Branch needed for Pain (scale 4-6). Take with food or milk. ibuprofen 2014-03- 600mg Take 1 Tab Univers (MOTRIN) 0-21 1209 by mouth ity of 600 mg 00:00: 00:00 every 6 [place] tablet 00 :00 (six) Medical hours as Branch needed for Pain (scale 4-6). Take with food or milk. Immunizations Ordered Filled Immunization Date Status Comments [facility] e Immunization Name Name SARS-COV-2 COVID-19 2020-08-25 Completed Unive rsity of PFIZER VACCINE 00:00:00 [facility] SARS-COV-2 COVID-19 2020-08-25 Completed Unive rsity of PFIZER VACCINE 00:00:00 [facility] SARS-COV-2 COVID-19 2020-08-25 Completed Unive rsity of PFIZER VACCINE 00:00:00 [facility] SARS-COV-2 COVID-19 2020-08-25 Completed Unive rsity of PFIZER VACCINE 00:00:00 [facility] SARS-COV-2 COVID-19 2020-08-04 Completed Unive rsity of PFIZER VACCINE 00:00:00 [facility] SARS-COV-2 COVID-19 2020-08-04 Completed Unive rsity of PFIZER VACCINE 00:00:00 [facility] SARS-COV-2 COVID-19 2020-08-04 Completed Unive rsity of PFIZER VACCINE 00:00:00 [facility] SARS-COV-2 COVID-19 2020-08-04 Completed Unive rsity of PFIZER VACCINE 00:00:00 [facility] Influenza Virus 2017-02-14 Completed Universit y of Vaccine Quad IM 00:00:00 [place] Med ical Multi-dose 6+ MO Branch Influenza Virus 2017-02-14 Completed Universit y of Vaccine Quad IM 00:00:00 [place] Med ical Multi-dose 6+ MO Branch Influenza Virus 2017-02-14 Completed Universit y of Vaccine Quad IM 00:00:00 [place] Med ical Multi-dose 6+ MO Branch Influenza Virus 2017-02-14 Completed Universit y of Vaccine Quad IM 00:00:00 [place] Med ical Multi-dose 6+ MO Branch Influenza Virus 2017-02-14 Completed Universit y of Vaccine Quad IM 00:00:00 [place] Med ical Multi-dose 6+ MO Branch Influenza Virus 2017-02-14 Completed Universit y of Vaccine Quad IM 00:00:00 [place] Med ical Multi-dose 6+ MO Branch Influenza Virus 2017-02-14 Completed Universit y of Vaccine Quad IM 00:00:00 [place] Med ical Multi-dose 6+ MO Branch Influenza Virus 2014-12-08 Completed Universit y of Vaccine Quad IM 3+ 00:00:00 [facility] Influenza Virus 2014-12-08 Completed Universit y of Vaccine Quad IM 3+ 00:00:00 [facility] Influenza Virus 2014-12-08 Completed Universit y of Vaccine [place] IM 3+ 00:00:00 [facility] Influenza Virus 2014-12-08 Completed Universit y of Vaccine [place] IM 3+ 00:00:00 [facility] Influenza Virus 2014-12-08 Completed Universit y of Vaccine [place] IM 3+ 00:00:00 [facility] Influenza Virus 2014-12-08 Completed Universit y of Vaccine [place] IM 3+ 00:00:00 [facility] Influenza Virus 2014-12-08 Completed Universit y of Vaccine [place] IM 3+ 00:00:00 [facility] TDAP 2014-10-23 Completed University of 00:00:00 [facility] TDAP 2014-10-23 Completed University of 00:00:00 [facility] TDAP 2014-10-23 Completed University of 00:00:00 [facility] TDAP 2014-10-23 Completed University of 00:00:00 [facility] TDAP 2014-10-23 Completed University of 00:00:00 [facility] TDAP 2014-10-23 Completed University of 00:00:00 [facility] TDAP 2014-10-23 Completed University of 00:00:00 [facility] Td 2010-07-08 Completed University of 00:00:00 [facility] Td 2010-07-08 Completed University of 00:00:00 [facility] Td 2010-07-08 Completed University of 00:00:00 [facility] Td 2010-07-08 Completed University of 00:00:00 [facility] Td 2010-07-08 Completed University of 00:00:00 [facility] Td 2010-07-08 Completed University of 00:00:00 [facility] Td 2010-07-08 Completed University of 00:00:00 [facility] Vital Signs Vital Name Observation Time Observation Value Comments Source Systolic blood 2022-02-25 16:24:00 118 mm[Hg] Univer sity of pressure [place] [facility] Diastolic blood 2022-02-25 16:24:00 83 mm[Hg] Unive rsity of pressure [place] [facility] Heart rate 2022-02-25 16:24:00 96 /min Universi ty of [place] [facility] [place] Body temperature 2022-02-25 16:24:00 36.78 Roberta Univ ersity of [place] [facility] Body height 2022-02-25 16:24:00 160 cm Universi ty of [place] [facility] [place] Body weight 2022-02-25 16:24:00 72.122 kg Universi ty of [place] [facility] BMI 2022-02-25 16:24:00 28.17 kg/m2 Universi ty of [place] [facility] Oxygen saturation in 2022-02-25 16:24:00 95 /min University of Arterial blood by [place] Medi margaret Pulse oximetry Branch Systolic blood 2022-01-03 13:32:00 133 mm[Hg] Univer sity of pressure [place] [facility] Diastolic blood 2022-01-03 13:32:00 83 mm[Hg] Unive rsity of pressure [place] [facility] Heart rate 2022-01-03 13:32:00 85 /min Universi ty of [place] [facility] Body temperature 2022-01-03 13:32:00 36.44 Roberta Univ ersity of [place] [facility] Body height 2022-01-03 13:32:00 160 cm Universi ty of [place] [facility] Body weight 2022-01-03 13:32:00 72.122 kg Universi ty of [place] [facility] BMI 2022-01-03 13:32:00 28.17 kg/m2 [facility]i ty of [place] [facility] [place] Oxygen saturation in 2022-01-03 13:32:00 98 /min University of Arterial blood by [place] Medi margaret Pulse oximetry Branch Diastolic blood 2021-12-07 16:38:00 87 mm[Hg] Unive rsity of pressure [place] [facility] Heart rate 2021-12-07 16:38:00 98 /min Universi ty of [place] [facility] Body temperature 2021-12-07 16:38:00 36.17 Roberta Univ ersity of [place] [facility] Respiratory rate 2021-12-07 16:38:00 18 /min Univ ersity of [place] [facility] Body height 2021-12-07 16:38:00 160 cm Universi ty of [place] [facility] Body weight 2021-12-07 16:38:00 71.215 kg Universi ty of [place] [facility] BMI 2021-12-07 16:38:00 27.81 kg/m2 Universi ty of [place] [facility] Oxygen saturation in 2021-12-07 16:38:00 97 /min University of Arterial blood by [facility] Pulse oximetry Branch Systolic blood 2021-12-07 16:38:00 123 mm[Hg] Univer sity of pressure [place] [facility] Systolic blood 2021-08-03 16:08:00 117 mm[Hg] Univer sity of pressure [place] [facility] Diastolic blood 2021-08-03 16:08:00 80 mm[Hg] Unive rsity of pressure [place] [facility] Heart rate 2021-08-03 16:08:00 100 /min Universi ty of [place] [facility] Body temperature 2021-08-03 16:08:00 36.56 Roberta Univ ersity of [place] [facility] Respiratory rate 2021-08-03 16:08:00 18 /min Univ ersity of [place] [facility] Body weight 2021-08-03 16:08:00 71.668 kg Universi ty of [place] [facility] BMI 2021-08-03 16:08:00 27.99 kg/m2 Universi ty of [place] [facility] Oxygen saturation in 2021-08-03 16:08:00 99 /min University of Arterial blood by [facility] Pulse oximetry Branch Systolic blood 2021-07-15 18:43:00 135 mm[Hg] Univer sity of pressure [place] [facility] Diastolic blood 2021-07-15 18:43:00 97 mm[Hg] Unive rsity of pressure [place] [facility] Heart rate 2021-07-15 18:43:00 86 /min Universi ty of [place] [facility] Body temperature 2021-07-15 18:43:00 37.33 Roberta Univ ersity of [place] [facility] Respiratory rate 2021-07-15 18:43:00 18 /min Univ ersity of [place] [facility] Body height 2021-07-15 18:43:00 160 cm Universi ty of [place] [facility] Body weight 2021-07-15 18:43:00 73.483 kg Universi ty of [place] [facility] BMI 2021-07-15 18:43:00 28.70 [facility] Oxygen saturation in 2021-07-15 18:43:00 100 /min [facility] blood by [facility] Pulse oximetry Branch Procedures Procedure Date / Time Performed Performing Clinician [place] e POCT MOLECULAR FLU 2022-02-25 16:22:00 Yamileth Rowe [facility] POCT MOLECULAR STREP 2022-02-25 16:20:00 Yamileth Rowe [facility] RAPID STREP SCREEN 2021-12-07 16:41:00 Ger Coleman [facility] FOR GROUP A Medical Branch CONSENT/REFUSAL FOR 2021-12-07 16:32:22 Doctor Unassigned, No Un iversity of [place] DIAGNOSIS AND Name [facility] TREATMENT CONSENT/REFUSAL FOR 2021-08-03 16:04:24 Doctor Unassigned, No Un iversity of [place] DIAGNOSIS AND Name [facility] TREATMENT XR FOOT 3+ VW LEFT 2021-07-15 19:17:24 Singer Ger [facility] CONSENT/REFUSAL FOR 2021-07-15 18:35:54 Doctor Unassigned, No Un iversity of [place] DIAGNOSIS AND Name [facility] TREATMENT NOTICE OF PRIVACY 2021-07-15 18:35:10 Doctor Unassigned, No Univ ersity of [place] PRACTICES Name [facility] Encounters Start End Encounter Admission Attending Care Care Encounter Source Date/Time Date/Time Type Type Clinicians Facility Department ID 2022-02-25 2022-02-25 Outpatient Daryl ROWE [facility] [id number] Univers 10:00:00 10:42:34 YAMILETH phillips [facility] 2022-02-25 2022-02-25 [facility] [id number] Univers 10:00:00 10:42:34 Visit [facility] [id number] jacqueline [facility] [id number] Memo as JOSE?BLEA [id number] [place] ayala [address] MEDICAL OFFICE BUILDING 2022-01-03 2022-01-03 Outpatient Daryl ROWE [facility] [id number] Univers 08:40:00 09:31:28 [facility] [place] [facility]22-[facility]-03 2022-01-03 [facility] [id number] Univers 08:40:00 09:31:28 Visit [id number] [facility] [id number] Memo as JOSE?BLEA [id number] [place] ay[place] [address] MEDICAL OFFICE BUILDING 2021-12-07 2021-12-07 Emergency Raghavendra Gardner [facility] [id number] Univers 11:42:00 12:51:00 Mimi SHAW [id number] i ty of [facility] [id number] [id number] [address] 2021-12-07 2021-12-07 Emergency X KENDRA, K [facility] ERT [id number] Univers 11:42:00 12:51:00 [facility] [place] [facility] 2021-08-03 2021-08-03 Emergency [facility] E[facility] [id number] Univers 11:08:00 12:17:00 ASHLEY [facility] 2021-08-03 2021-08-03 [facility] [id number] Univers 11:08:00 12:17:00 Ashley SHAW [id number] i ty of [facility] [id number] [facility] [place] [id number] [address] 2021-07-15 2021-07-15 [facility] [id number] Univers 13:45:00 14:49:00 Ger BIRDLING [id number] i ty of [facility] [id number] [id number] [address] [address] 2021-07-15 2021-07-15 Emergency X [facility] ERT [id number] 13:45:00 14:49:00 GER [facility] Results Test Description Test Time Test Comments Results Result Comments Source POCT MOLECULAR FLU 2022-02-25 16:33:28 Test Item Value Reference Range Interpretation Comme nts POCT Molecular FluA (test code = 69548-6) Negative Negative POCT Molecular FluB (test code = 50530-1) Negative Negative Lab Interpretation (test code = 40690-6) Normal [facility] MOLECULAR [id number] 16:33:28 Test Item Value Reference Range Interpretation Comments POCT Molecular FluA (test code = Negative Negative 68192-8) POCT Molecular FluB (test code = Negative Negative 61711-6) Lab Interpretation (test code = Normal 43238-8) [facility] MOLECULAR [id number] 16:27:43 Test Item Value Reference Range Interpretation Comments POCT Molecular Strep (test code = Negative Negative 64937-7) Lab Interpretation (test code = Normal 09008-2) [facility] MOLECULAR [id number] 16:27:43 Test Item Value Reference Range Interpretation Comments POCT Molecular Strep (test code = Negative Negative 03249-4) Lab Interpretation (test code = Normal 07848-6) [facility]
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
[2022-03-20 16:35] VITALS: BP 137/99; TEMP 98.2; O2SAT 100
== END 2022-03-20 16:25 | disposition home or self-care (01) ==
LOC: ER 15:58
DX: T22.212A Burn of second degree of left forearm, initial encounter (principal)
CPT/HCPCS: 99281

== ENCOUNTER 2022-10-30 12:47 | Emergency (ER) | payer OTHER ==
--- OUTSIDE RECORDS SUMMARY | 2022-10-30 12:53 | XMS REPORT | Continuity of Care Document ---
:1980 Author Organization [facility] t Address [address] [place] [address] [address] [place] [address] Care Team Providers Name Role Phone Yamileth Rowe MD Primary Care Physician YAMILETH ROWE Attending Clinician Unavailable YAMILETH ROWE Attending Clinician Unavailable MEY HEALY Attending Clinician Unavailable Mey Nguyen Attending Clinician Unknown, Attending Attending Clinician Unavailable PRISCILLA KAPADIA Attending Clinician Unavailable Priscilla Kapadia PA-C Attending Clinician Akbar Vazquez Attending Clinician Unavailable MANSOOR MIN Attending Clinician Unavailable Mansoor Jorge Attending Clinician ORSEMARY LAUREN Attending Clinician Unavailable Rosemary Treviño Attending Clinician Butch Beatty Attending Clinician BUTCH PAYAN Attending Clinician Unavailable Raghavendra GARDNER Attending Clinician Unavailable Raghavendra Lockhart Attending Clinician ASHLEY VELÁSQUEZ Attending Clinician Unavailable Ashley Velásquez DO Attending Clinician Ger Coleman DO Attending Clinician GER COLEMAN Attending Clinician Unavailable YAMILETH ROWE Admitting Clinician Unavailable ASHLEY VELÁSQUEZ Admitting Clinician Unavailable GER COLEMAN Admitting Clinician Unavailable Payers Payer Name Policy Type Policy Number Effective Date Expiration Date Erich wu [facility]ENKINS [facility] [id number] 2021 STAR 00:00:00 Problems Condition Condition Condition Status Onset Resolution Last Treating Co mments Source Name Details Category Date Date Treatment Clinician Date Allergic Allergic Disease Active Unive rs conjunctiv conjunctiv 06-22 it y of itis of itis of 00:00: [place] left eye left eye 00 Medica l Branch Encounter Encounter Disease Active Uni vers for for 2 ity of initial initial 00:00: [place] prescripti prescripti 00 Me dical on of on of Branch vaginal vaginal ring ring hormonal hormonal contracept contracept lupe lupe Decreased Decreased Disease Active Uni vers libido libido 04-28 ity of 00:00: [place] 00 Medical [place] Well woman Well woman Disease Active 2014-03 U nivers exam exam 04-27 ity of 00:00: [address] Allergies, Adverse Reactions, Alerts Allergy Allergy Status Severity Reaction(s) Onset Inactive Treating Comm ents Source Name Type Date Date Clinician NO KNOWN Drug Active Univers ALLERGIE Class ity of S [facility] Social History Social Habit Start Date Stop Date Quantity Comments Source History SDSD University o f Alcohol Frequency [facility] edical Branch History SDSD University o f Alcohol Std Drinks [facility] History [facility] o f Alcohol Binge [facility] [place] Gender identity Universit y of [facility] Sexual orientation Univer sity of [facility] Alcohol intake 2022-10-09 2022-10-09 Ex-drinker University of 00:00:00 00:00:00 (finding) [facility] Exposure to 2022-07-10 2022-07-20 Not sure [facility] SARS-CoV-2 (event) 00:00:00 11:46:00 [facility] Tobacco use and 2022-05-09 2022-05-09 User of smokeless Un iversity of exposure 00:00:00 00:00:00 tobacco [facility] Tobacco Comment 2022-05-09 2022-05-09 Vape occasional Univ ersity of 00:00:00 00:00:00 [facility] Alcohol Comment 2022-01-03 2022-01-03 socially, 2 beers Un iversity of 00:00:00 00:00:00 a week [facility] History of Social 2022-01-03 2022-01-03 Univers ity of function 00:00:00 00:00:00 [facility] Sex [birth year] Universit y of 00:00:00 00:00:00 [facility] Smoking Status Start Date Stop Date Source Never smoked tobacco [facility] Medications Ordered Filled Start Stop Current Ordering Indication Dosage Frequency Signature Comments Components Source Medication Medication Date Date Medication? Clinician (SIG) Name Name loratadine Yes 10mg Take 1 Unive rs 10 mg 10-09 tablet by ity of tablet 10:15: mouth in [place] 48 the Medical morning. Branch mupirocin 2 Yes [id number] Apply to Univers % ointment 10-09 area(s) 3 ity of 00:00: (three) [place] 00 times Medical daily. Branch Azelastine Yes [id number] 1{spray Use 1 Univers 205.5 mcg 5-09 } [place] in ity of (0.15 %) 00:00: each [place] nasal spray 00 nostril in Me dical the Branch morning. fluticasone Yes [id number] 1{spray Use 1 Univers propionate 5-09 } [place] in ity o f 50 00:00: each [place] mcg/actuati 00 nostril in Me dical on nasal the Branch spray morning. Azelastine Yes [id number] 1{spray Use 1 Univers 205.5 mcg 5-09 } [place] in ity of (0.15 %) 00:00: each [place] nasal spray 00 nostril in Me dical the Branch morning. fluticasone 0 Yes [id number] 1{spray Use 1 Univers propionate 5-09 } [place] in ity o f 50 00:00: each [place] mcg/actuati 00 nostril in Me dical on nasal the Branch spray morning. Azelastine Yes [id number] 1{spray Use 1 Univers 205.5 mcg 5-09 } [place] in ity of (0.15 %) 00:00: each [place] nasal spray 00 nostril in Me dical the Branch morning. fluticasone 0 Yes [id number] 1{spray Use 1 Univers propionate 5-09 } [place] in ity o f 50 00:00: each [place] mcg/actuati 00 nostril in Me dical on nasal the Branch spray morning. Azelastine Yes [id number] 1{spray Use 1 Univers 205.5 mcg 5-09 } [place] in ity of (0.15 %) 00:00: each [place] nasal spray 00 nostril in Me dical the Branch morning. fluticasone Yes [id number] 1{spray Use 1 Univers propionate 5-09 } [place] in ity o f 50 00:00: each [place] mcg/actuati 00 nostril in Me dical on nasal the Branch spray morning. dexamethaso 2022- No [id number] 10mg Univers ne sod phos 07-20 [id number] ity o f PF 18:00: 17:18 [place] injection 00 :00 Medical 10 mg Branch dexamethaso 2022- No [id number] 10mg 10 mg, Univers ne sod phos 07-20 [id number] Intramuscu ity of PF 18:00: 17:18 lar, ONCE, [place] injection 00 :00 1 dose, On Medi margaret 10 mg 07/20/22 Branch at 1300, 1 mL cephALEXin 2022- No [id number] 500mg Take 1 Univers 500 mg 4-19 04-25 capsule by ity of capsule 00:00: 04:59 mouth 4 [place] 00 :00 (four) Medical times Branch daily for 5 days. cephALEXin 2022-0 2022- No [id number] 500mg Take 1 Univers 500 mg 4-19 04-25 capsule by ity of capsule 00:00: 04:59 mouth 4 [place] 00 :00 (four) Medical times Branch daily for 5 days. cephALEXin 2022-0 2022- No [id number] 500mg Take 1 Univers 500 mg 4-19 04-25 capsule by ity of capsule 00:00: 04:59 mouth 4 [place] 00 :00 (four) Medical times Branch daily for 5 days. cephALEXin 2022-0 2022- No [id number] 500mg Take 1 Univers 500 mg 4-19 04-25 capsule by ity of capsule 00:00: 04:59 mouth 4 [place] 00 :00 (four) Medical times Branch daily for 5 days. olopatadine 2023-0 Yes [id number] 1[drp] Place 1 Univers 0.7 % Drop 4-05 4102 Drop in ity of 00:00: each eye [place] 00 in the Medical morning. Branch olopatadine 2023-0 Yes [id number] 1[drp] Place 1 Univers 0.7 % Drop 4-05 4102 Drop in ity of 00:00: each eye [place] 00 in the Medical morning. Branch olopatadine 3-0 Yes [id number] 1[drp] Place 1 Univers 0.7 % Drop 4-05 4102 Drop in ity of 00:00: each eye [place] 00 in the Medical morning. Branch hydrOXYzine 3-0 Yes [id number] 25mg Take 1 Univers 25 mg 4-05 capsule by ity of capsule 00:00: mouth 3 [place] 00 (three) Medical times Branch daily as needed for Itching. olopatadine 3-0 Yes [id number] 1[drp] Place 1 Univers 0.7 % Drop 4-05 4102 Drop in ity of 00:00: each eye [place] 00 in the Medical morning. Branch hydrOXYzine 3-0 Yes [id number] 25mg Take 1 Univers 25 mg 4-05 capsule by ity of capsule 00:00: mouth 3 [place] 00 (three) Medical times Branch daily as needed for Itching. olopatadine 3-0 Yes [id number] 1[drp] Place 1 Univers 0.7 % Drop 4-05 4102 Drop in ity of 00:00: each eye [place] 00 in the Medical morning. Branch hydrOXYzine 3-0 Yes [id number] 25mg Take 1 Univers 25 mg 4-05 capsule by ity of capsule 00:00: mouth 3 [place] 00 (three) Medical times Branch daily as needed for Itching. olopatadine 2023-0 Yes [id number] 1[drp] Place 1 Univers 0.7 % Drop 4-05 4102 Drop in ity of 00:00: each eye [place] 00 in the Medical morning. Branch hydrOXYzine 2023-0 Yes [id number] 25mg Take 1 Univers 25 mg 4-05 capsule by ity of capsule 00:00: mouth 3 [place] 00 (three) Medical times Branch daily as needed for Itching. olopatadine 3-0 Yes [id number] 1[drp] Place 1 Univers 0.7 % Drop 4-05 4102 Drop in ity of 00:00: each eye [place] 00 in the Medical morning. Branch hydrOXYzine 3-0 Yes [id number] 25mg Take 1 Univers 25 mg 4-05 capsule by ity of capsule 00:00: mouth 3 [place] 00 (three) Medical times Branch daily as needed for Itching. olopatadine 3-0 Yes [id number] 1[drp] Place 1 Univers 0.7 % Drop 4-05 4102 Drop in ity of 00:00: each eye [place] 00 in the Medical morning. Branch hydrOXYzine 3-0 Yes [id number] 25mg Take 1 Univers 25 mg 4-05 capsule by ity of capsule 00:00: mouth 3 [place] 00 (three) Medical times Branch daily as needed for Itching. olopatadine 3-0 Yes [id number] 1[drp] Place 1 Univers 0.7 % Drop 4-05 4102 Drop in ity of 00:00: each eye [place] 00 in the Medical morning. Branch hydrOXYzine 3-0 Yes [id number] 25mg Take 1 Univers 25 mg 4-05 capsule by ity of capsule 00:00: mouth 3 [place] 00 (three) Medical times Branch daily as needed for Itching. olopatadine 3-0 Yes [id number] 1[drp] Place 1 Univers 0.7 % Drop 4-05 4102 Drop in ity of 00:00: each eye [place] 00 in the Medical morning. Branch hydrOXYzine 3-0 Yes [id number] 25mg Take 1 Univers 25 mg 4-05 capsule by ity of capsule 00:00: mouth 3 [place] 00 (three) Medical times Branch daily as needed for Itching. olopatadine 3-0 Yes [id number] 1[drp] Place 1 Univers 0.7 % Drop 4-05 4102 Drop in ity of 00:00: each eye [place] 00 in the Medical morning. Branch hydrOXYzine 2023-0 Yes [id number] 25mg Take 1 Univers 25 mg 4-05 capsule by ity of capsule 00:00: mouth 3 [place] 00 (three) Medical times Branch daily as needed for Itching. olopatadine 2022-0 Yes [id number] 1[drp] Place 1 Univers 0.7 % Drop 4-05 4102 Drop in ity of 00:00: each eye [place] 00 in the Medical morning. Branch hydrOXYzine 2022-0 Yes [id number] 25mg Take 1 Univers 25 mg 4-05 capsule by ity of capsule 00:00: mouth 3 [place] 00 (three) Medical times Branch daily as needed for Itching. olopatadine 2022-0 Yes [id number] 1[drp] Place 1 Univers 0.7 % Drop 4-05 4102 Drop in ity of 00:00: each eye [place] 00 in the Medical morning. Branch hydrOXYzine 2022-0 Yes [id number] 25mg Take 1 Univers 25 mg 4-05 capsule by ity of capsule 00:00: mouth 3 [place] 00 (three) Medical times Branch daily as needed for Itching. predniSONE 2022-0 3- No [id number] 40mg Take 2 Univers 20 mg 3-30 04-05 tablets by ity of tablet 00:00: 04:59 mouth in [place] 00 :00 the Medical morning Branch for 5 days. dexamethaso 0 3- No [id number] 10mg U nivers ne 2-20 02-20 ity of (DECADRON) 15:30: 15:34 [place] injection 00 :00 Medical 10 mg Branch dexamethaso 0 2022- No [id number] 10mg 10 mg, Univers ne 2-20 02-20 Intramuscu ity of (DECADRON) 15:30: 15:34 lar, ONCE, [place] injection 00 :00 1 dose, On Medi margaret 10 mg Mon [place] 05/09/22 at 0945, Routine methylPREDN 2022-0 Yes [id number] follow Univers ISolone 2-20 package ity of (MEDROL, 00:00: directions Memo as RAVINDRA,) 4 mg 00 Medical tablets Branch methylPREDN 3-0 Yes [id number] follow Univers ISolone 2-20 package ity of (MEDROL, 00:00: directions [place]o as RAVINDRA,) 4 mg 00 Medical tablets Branch methylPREDN 3-0 Yes [id number] follow Univers ISolone 2-20 package ity of (MEDROL, 00:00: directions [place] RAVINDRA,) 4 mg 00 Medical tablets Branch methylPREDN 2023-0 Yes [id number] follow Univers ISolone 2-20 package ity of (MEDROL, 00:00: directions Memo as RAVINDRA,) 4 mg 00 Medical tablets Branch methylPREDN 2023-0 Yes [id number] follow Univers ISolone 2-20 package ity of (MEDROL, 00:00: directions [place] RAVINDRA,) 4 mg 00 Medical tablets Branch methylPREDN 2023-0 Yes [id number] follow Univers ISolone 2-20 package ity of (MEDROL, 00:00: directions [place] RAVINDRA,) 4 mg 00 Medical tablets Branch methylPREDN 2023-0 2023- No [id number] follow Univers ISolone 2-20 04-21 package ity of (MEDROL, 00:00: 00:[place] RAVINDR[place] 4 mg 00 :00 Medical tablets Branch methylPREDN 2023-0 2023- No [id number] follow Univers ISolone 2-20 04-21 package ity of (MEDROL, 00:00: 00:00 [place] RAVINDRA,) 4 mg 00 :00 Medical tablets Branch escitalopra 2022-0 Yes [id number] 10mg Take 1 Univers m oxalate 1-19 tablet by ity o f 10 mg 00:00: mouth in [place] tablet 00 the Medical morning. Branch azelastine- 2022-0 Yes [id number] 1{spray Use 1 Univers fluticasone 1-19 } [place] in ity of (DYMISTA) 00:00: each [place] 137-50 00 nostril in Medical mcg/spray the Branch nasal spray morning and 1 [place] in the evening. methylPREDN 2022-0 Yes [id number] Take by Univers ISolone 1-19 mouth ity of (MEDROL, 00:00: SEE-INSTRU Memo as RAVINDRA,) 4 mg 00 CTIONS. Medica l tablets follow Branch package directions escitalopra 2022-0 Yes [id number] 10mg Take 1 Univers m oxalate 1-19 tablet by ity o f 10 mg 00:00: mouth in [place] tablet 00 the Medical morning. Branch azelastine- 2022-0 Yes [id number] 1{spray Use 1 Univers fluticasone 1-19 } [place] in ity of (DYMISTA) 00:00: each [place] 137-50 00 nostril in Medical mcg/spray the Branch nasal spray morning and 1 [place] in the evening. methylPREDN 3-0 Yes [id number] Take by Univers ISolone 1-19 mouth ity of (MEDROL, 00:00: SEE-INSTRU Memo as RAVINDRA,) 4 mg 00 CTIONS. Medica l tablets follow Branch package directions escitalopra 2022-0 Yes [id number] 10mg Take 1 Univers m oxalate 1-19 tablet by ity o f 10 mg 00:00: mouth in [place] tablet 00 the Medical morning. Branch azelastine- 2022-0 Yes [id number] 1{spray Use 1 Univers fluticasone 1-19 } [place] in ity of (DYMISTA) 00:00: each [place] 137-50 00 nostril in Medical mcg/spray the Branch nasal spray morning and 1 [place] in the evening. methylPREDN 3-0 Yes [id number] Take by Univers ISolone 1-19 mouth ity of (MEDROL, 00:00: SEE-INSTRU Memo as RAVINDRA,) 4 mg 00 CTIONS. Medica l tablets follow Branch package directions escitalopra 2022-0 Yes [id number] 10mg Take 1 Univers m oxalate 1-19 tablet by ity o f 10 mg 00:00: mouth in [place] tablet 00 the Medical morning. Branch azelastine- 3-0 Yes [id number] 1{spray Use 1 Univers fluticasone 1-19 } [place] in ity of (DYMISTA) 00:00: each [place] 137-50 00 nostril in Medical mcg/spray the Branch nasal spray morning and 1 [place] in the evening. methylPREDN 3-0 Yes [id number] Take by Univers ISolone 1-19 mouth ity of (MEDROL, 00:00: SEE-INSTRU Memo as RAVINDRA,) 4 mg 00 CTIONS. Medica l tablets follow Branch package directions escitalopra 3-0 Yes [id number] 10mg Take 1 Univers m oxalate 1-19 tablet by ity o f 10 mg 00:00: mouth in [place] tablet 00 the Medical morning. Branch azelastine- 3-0 Yes [id number] 1{spray Use 1 Univers fluticasone 1-19 } [place] in ity of (DYMISTA) 00:00: each [place] 137-50 00 nostril in Medical mcg/spray the Branch nasal spray morning and 1 [place] in the evening. methylPREDN 3-0 Yes [id number] Take by Univers ISolone 1-19 mouth ity of (MEDROL, 00:00: SEE-INSTRU Memo as RAVINDRA,) 4 mg 00 CTIONS. Medica l tablets follow Branch package directions escitalopra 2022-0 Yes [id number] 10mg Take 1 Univers m oxalate 1-19 tablet by ity o f 10 mg 00:00: mouth in [place] tablet 00 the Medical morning. Branch azelastine- 2022-0 Yes [id number] 1{spray Use 1 Univers fluticasone 1-19 } [place] in ity of (DYMISTA) 00:00: each [place] 137-50 00 nostril in Medical mcg/spray the Branch nasal spray morning and 1 [place] in the evening. methylPREDN 2022-0 Yes [id number] Take by Univers ISolone 1-19 mouth ity of (MEDROL, 00:00: SEE-INSTRU Memo as RAVINDRA,) 4 mg 00 CTIONS. Medica l tablets follow Branch package directions escitalopra 2022-0 Yes [id number] 10mg Take 1 Univers m oxalate 1-19 tablet by ity o f 10 mg 00:00: mouth in [place] tablet 00 the Medical morning. Branch azelastine- 2022-0 Yes [id number] 1{spray Use 1 Univers fluticasone 1-19 } [place] in ity of (DYMISTA) 00:00: each [place] 137-50 00 nostril in Medical mcg/spray the Branch nasal spray morning and 1 [place] in the evening. methylPREDN 3-0 Yes [id number] Take by Univers ISolone 1-19 mouth ity of (MEDROL, 00:00: SEE-INSTRU Memo as RAVINDRA,) 4 mg 00 CTIONS. Medica l tablets follow Branch package directions escitalopra 2022-0 Yes [id number] 10mg Take 1 Univers m oxalate 1-19 tablet by ity o f 10 mg 00:00: mouth in [place] tablet 00 the Medical morning. Branch azelastine- 3-0 Yes [id number] 1{spray Use 1 Univers fluticasone 1-19 } [place] in ity of (DYMISTA) 00:00: each [place] 137-50 00 nostril in Medical mcg/spray the Branch nasal spray morning and 1 [place] in the evening. methylPREDN 2023-0 Yes [id number] Take by Univers ISolone 1-19 mouth ity of (MEDROL, 00:00: SEE-INSTRU Memo as RAVINDRA,) 4 mg 00 CTIONS. Medica l tablets follow Branch package directions escitalopra 3-0 Yes [id number] 10mg Take 1 Univers m oxalate 1-19 tablet by ity o f 10 mg 00:00: mouth in [place] tablet 00 the Medical morning. Branch azelastine- 2022-0 Yes [id number] 1{spray Use 1 Univers fluticasone 1-19 } [place] in ity of (DYMISTA) 00:00: each [place] 137-50 00 nostril in Medical mcg/spray the Branch nasal spray morning and 1 [place] in the evening. methylPREDN 3-0 Yes [id number] Take by Univers ISolone 1-19 mouth ity of (MEDROL, 00:00: SEE-INSTRU Memo as RAVINDRA,) 4 mg 00 CTIONS. Medica l tablets follow Branch package directions escitalopra 2022-0 Yes [id number] 10mg Take 1 Univers m oxalate 1-19 tablet by ity o f 10 mg 00:00: mouth in [place] tablet 00 the Medical morning. Branch azelastine- 3-0 Yes [id number] 1{spray Use 1 Univers fluticasone 1-19 } [place] in ity of (DYMISTA) 00:00: each [place] 137-50 00 nostril in Medical mcg/spray the Branch nasal spray morning and 1 [place] in the evening. escitalopra 3-0 Yes [id number] 10mg Take 1 Univers m oxalate 1-19 tablet by ity o f 10 mg 00:00: mouth in [place] tablet 00 the Medical morning. Branch azelastine- 3-0 Yes [id number] 1{spray Use 1 Univers fluticasone 1-19 } [place] in ity of (DYMISTA) 00:00: each [place] 137-50 00 nostril in Medical mcg/spray the Branch nasal spray morning and 1 [place] in the evening. escitalopra 2022-0 Yes [id number] 10mg Take 1 Univers m oxalate 1-19 tablet by ity o f 10 mg 00:00: mouth in [place] tablet 00 the Medical morning. Branch azelastine- 2022-0 Yes [id number] 1{spray Use 1 Univers fluticasone 1-19 } [place] in ity of (DYMISTA) 00:00: each [place] 137-50 00 nostril in Medical mcg/spray the Branch nasal spray morning and 1 [place] in the evening. escitalopra 2022-0 Yes [id number] 10mg Take 1 Univers m oxalate 1-19 tablet by ity o f 10 mg 00:00: mouth in [place] tablet 00 the Medical morning. Branch azelastine- 2022-0 Yes [id number] 1{spray Use 1 Univers fluticasone 1-19 } [place] in ity of (DYMISTA) 00:00: each [place] 137-50 00 nostril in Medical mcg/spray the Branch nasal spray morning and 1 [place] in the evening. escitalopra 2022-0 Yes [id number] 10mg Take 1 Univers m oxalate 1-19 tablet by ity o f 10 mg 00:00: mouth in [place] tablet 00 the Medical morning. Branch azelastine- 2022-0 Yes [id number] 1{spray Use 1 Univers fluticasone 1-19 } [place] in ity of (DYMISTA) 00:00: each [place] 137-50 00 nostril in Medical mcg/spray the Branch nasal spray morning and 1 [place] in the evening. escitalopra 2022-0 Yes [id number] 10mg Take 1 Univers m oxalate 1-19 tablet by ity o f 10 mg 00:00: mouth in [place] tablet 00 the Medical morning. Branch azelastine- 2022-0 Yes [id number] 1{spray Use 1 Univers fluticasone 1-19 } [place] in ity of (DYMISTA) 00:00: each [place] 137-50 00 nostril in Medical mcg/spray the Branch nasal spray morning and 1 [place] in the evening. escitalopra 3-0 Yes [id number] 10mg Take 1 Univers m oxalate 1-19 tablet by ity o f 10 mg 00:00: mouth in [place] tablet 00 the Medical morning. Branch azelastine- 2022-0 Yes [id number] 1{spray Use 1 Univers fluticasone 1-19 } [place] in ity of (DYMISTA) 00:00: each [place] 137-50 00 nostril in Medical mcg/spray the Branch nasal spray morning and 1 [place] in the evening. escitalopra 2022-0 Yes [id number] 10mg Take 1 Univers m oxalate 1-19 tablet by ity o f 10 mg 00:00: mouth in [place] tablet 00 the Medical morning. Branch azelastine- 0 Yes [id number] 1{spray Use 1 Univers fluticasone 1-19 } [place] in ity of (DYMISTA) 00:00: each [place] 137-50 00 nostril in Medical mcg/spray the Branch nasal spray morning and 1 [place] in the evening. escitalopra Yes [id number] 10mg Take 1 Univers m oxalate 1-19 tablet by ity o f 10 mg 00:00: mouth in [place] tablet 00 the Medical morning. [place] azelastine- Yes [id number] 1{spray Use 1 Univers fluticasone 1-19 } [place] in ity of (DYMISTA) 00:00: each [place] 137-50 00 nostril in Medical mcg/spray the Branch nasal spray morning and 1 [place] in the evening. methylPREDN 2022- No [id number] Take by Univers ISolone 04-07- mouth ity of (MEDROL, 00:00: 00:00 [place]-INSTRU [place] RAVINDRA,) 4 mg 00 :00 CTIONS. Medica l tablets follow Branch package directions methylPREDN 2022- No [id number] Take by Univers ISolone 04-07-21 mouth ity of (MEDROL, 00:00: 00:00 [place]-INSTRU [place] RAVIN[place],) 4 mg 00 :00 CTIONS. Medica l tablets follow Branch package directions dexamethaso 2022- No [id number] 10mg U nivers ne 04-06 ity of (DECADRON) 16:45: 15:37 [place] injection 00 :00 Medical 10 mg Branch dexamethaso 2022- No [id number] 10mg 10 mg, Univers ne 04-06 Intramuscu ity of (DECADRON) 16:45: 15:37 lar, ONCE, [place] injection 00 :00 1 dose, On Medi margaret 10 mg Wed Branch 04/06/22 at 1045, Routine methylPREDN Yes [id number] Take by [facility] 04-06 mouth ity of (MEDROL, 00:00: SEE-INSTRU Memo as RAVINDRA,) 4 mg 00 CTIONS. Medica l tablets follow Branch package directions methylPREDN 2022- No [id number] Take by [facility] 04-06 mouth ity of (MEDROL, 00:00: 00:00 [place]-INSTRU [place] RAVINDRA,) 4 mg 00 :00 CTIONS. Medica l tablets follow Branch package directions methylPREDN 2022- No [id number] Take by [facility] 04-06 mouth ity of (MEDROL, 00:00: 00:00 [place]-INSTRU [place] RAVINDR[place],) 4 mg 00 :00 CTIONS. Medica l tablets follow Branch package directions ibuprofen 2021-03 Yes [id number] 600mg Take 1 Univers 600 mg 2-09 05 tablet by ity of tablet 00:00: mouth [place] 00 every 6 Medical (six) Branch hours as needed for Pain (scale 4-6). ibuprofen 2021-03 Yes [id number] 600mg Take 1 Univers 600 mg 2-09 05 tablet by ity of tablet 00:00: mouth [place] 00 every 6 Medical (six) Branch hours as needed for Pain (scale 4-6). ibuprofen 2021-03 Yes [id number] 600mg Take 1 Univers 600 mg 2-09 05 tablet by ity of tablet 00:00: mouth [place] 00 every 6 Medical (six) Branch hours as needed for Pain (scale 4-6). ibuprofen 2021-03- No [id number] 600mg Take 1 Univers 600 mg 2-09 - 05 tablet by ity of tablet 00:00: 00:00 mouth [place] 00 :00 every 6 Medical (six) Branch hours as needed for Pain (scale 4-6). ibuprofen 2021-03- No [id number] 600mg Take 1 Univers 600 mg 2-09 - 05 tablet by ity of tablet 00:00: 00:00 mouth [place] 00 :00 every 6 Medical (six) Branch hours as needed for Pain (scale 4-6). amoxicillin 2021-03- No [id number] 500mg Take 1 Univers 500 mg 04-28 05 tablet by ity of tablet 00:00: 05:59 mouth in [place] 00 :00 the Medical morning Branch and 1 tablet in the evening. Do all this for 10 days. amoxicillin 2021-03- No [id number] 500mg Take 1 Univers 500 mg 04-28 05 tablet by ity of tablet 00:00: 05:59 mouth in [place] 00 :00 the Medical morning Branch and 1 tablet in the evening. Do all this for 10 days. dexamethaso 2021-03- No [id number] 10mg Univers ne sod phos 0-17 10-17 ity of PF 15:15: 14:21 [place] injection 00 :00 Medical 10 mg Branch dexamethaso 2021-03- No [id number] 10mg 10 mg, Univers ne sod phos 0-17 10-17 Intramuscu i ty of PF 15:15: 14:21 lar, ONCE, [place] injection 00 :00 1 dose, On Medi margaret 10 mg [facility] 01/03/22 at 1015, Routine dexamethaso 2021-03- No [id number] 10mg Univers ne sod phos 0-17 10-17 ity of PF 15:15: 14:21 [place] injection 00 :00 Medical 10 mg Branch dexamethaso 2021-03- No [id number] 10mg 10 mg, Univers ne sod phos 0-17 10-17 Intramuscu i ty of PF 15:15: 14:21 lar, ONCE, [place] injection 00 :00 1 dose, On Medi margaret 10 mg [facility] 01/03/22 at 1015, Routine dexAMETHaso 2021-03- No [id number] 10mg Univers ne sodium 0-17 10-17 ity of phos (PF) 15:00: 14:20 [place] injection 00 :23 Medical syringe 10 Branch mg dexAMETHaso 2021-03- No [id number] 10mg Univers ne sodium 0-17 10-17 ity of phos (PF) 15:00: 14:20 [place] injection 00 :23 Medical syringe 10 Branch mg loratadine 2021- Yes 10mg Take 10 mg U nivers 10 mg 0-17 by mouth ity of tablet 09:16: in the [place] 59 morning. Medical Branch loratadine 2021-1 Yes 10mg Take 10 mg U nivers 10 mg 0-17 by mouth ity of tablet 09:16: in the [place] 59 morning. Medical Branch loratadine 2021-1 Yes 10mg Take 10 mg U nivers 10 mg 0-17 by mouth ity of tablet 09:16: in the [place] 59 morning. Medical Branch loratadine 2021-1 Yes 10mg Take 10 mg U nivers 10 mg 0-17 by mouth ity of tablet 09:16: in the [place] 59 morning. Medical Branch loratadine 2021-1 Yes 10mg Take 10 mg U nivers 10 mg 0-17 by mouth ity of tablet 09:16: in the [place] 59 morning. Medical Branch loratadine 2021-1 Yes 10mg Take 10 mg U nivers 10 mg 0-17 by mouth ity of tablet 09:16: in the [place] 59 morning. Medical Branch loratadine 2021-1 Yes 10mg Take 10 mg U nivers 10 mg 0-17 by mouth ity of tablet 09:16: in the [place] 59 morning. Medical Branch loratadine 2021-1 Yes 10mg Take 10 mg U nivers 10 mg 0-17 by mouth ity of tablet 09:16: in the [place] 59 morning. Medical Branch loratadine 2021-1 Yes 10mg Take 10 mg U nivers 10 mg 0-17 by mouth ity of tablet 09:16: in the [place] 59 morning. Medical Branch loratadine 2021-1 Yes 10mg Take 10 mg U nivers 10 mg 0-17 by mouth ity of tablet 09:16: in the [place] 59 morning. Medical Branch loratadine 2021-1 Yes 10mg Take 10 mg U nivers 10 mg 0-17 by mouth ity of tablet 09:16: in the [place] 59 morning. Medical Branch loratadine 2021-1 Yes 10mg Take 10 mg U nivers 10 mg 0-17 by mouth ity of tablet 09:16: in the [place] 59 morning. Medical Branch loratadine 2021-1 Yes 10mg Take 10 mg U nivers [...] mouth ity of tablet 09:16: in the [place] 59 morning. Medical Branch loratadine 2021-03 Yes 10mg Take 10 mg U nivers 10 mg 0-17 by mouth ity of tablet 09:16: in the [place] 59 morning. Medical Branch copper 380 2021-03 Yes 1{IUD} 1 Intra Un taiwo square mm 0-17 Uterine ity of IUD 08:36: Device by [place] [id number] Intrauteri Medical ne route Branch once now. copper 380 2021-03 Yes 1{IUD} 1 Intra Un taiwo square mm 0-17 Uterine ity of IUD 08:36: Device by [place] [id number] Intrauter Medical ne route Branch once now. copper 380 2021-03 Yes 1{IUD} 1 Intra Un taiwo square mm 0-17 Uterine ity of IUD 08:36: Device by [address] route Branch once now. copper 380 2021-03 Yes 1{IUD} 1 Intra Un taiwo square mm 0-17 Uterine ity of IUD 08:36: Device by [address] route Branch once now. copper 380 2021-03 Yes 1{IUD} 1 Intra Un taiwo square mm 0-17 Uterine ity of IUD 08:36: Device by [address] route Branch once now. copper 380 2021-03 Yes 1{IUD} 1 Intra Un taiwo square mm 0-17 Uterine ity of IUD 08:36: Device by [address] route Branch once now. copper 380 2021-03 Yes 1{IUD} 1 Intra Un taiwo square mm 0-17 Uterine ity of IUD 08:36: Device by [address] route Branch once now. copper 380 2021-03 Yes 1{IUD} 1 Intra Un taiwo square mm 0-17 Uterine ity of IUD 08:36: Device by [address] route Branch once now. copper 380 2021-03 Yes 1{IUD} 1 Intra Un taiwo square mm 0-17 Uterine ity of IUD 08:36: Device by [address] route Branch once now. copper 380 2021-03 Yes 1{IUD} 1 Intra Un taiwo square mm 0-17 Uterine ity of IUD 08:36: Device by [address] route Branch once now. copper 380 2021-03 Yes 1{IUD} 1 Intra Un taiwo square mm 0-17 Uterine ity of IUD 08:36: Device by [address] route Branch once now. copper 380 2021-03 Yes 1{IUD} 1 Intra Un taiwo square mm 0-17 Uterine ity of IUD 08:36: Device by [address] route Branch once now. copper 380 2021-03 Yes 1{IUD} 1 Intra Un taiwo square mm 0-17 Uterine ity of IUD 08:36: Device by [address] route Branch once now. copper 380 2021-03 Yes 1{IUD} 1 Intra Un taiwo square mm 0-17 Uterine ity of IUD 08:36: Device by [address] route Branch once now. copper 380 2021-03 Yes 1{IUD} 1 Intra Un taiwo square mm 0-17 Uterine ity of IUD 08:36: Device by [address] route Branch once now. copper 380 2021-03 Yes 1{IUD} 1 Intra Un taiwo square mm 0-17 Uterine ity of IUD 08:36: Device by [address] route Branch once now. copper 380 2021-03 Yes 1{IUD} 1 Intra Un taiwo square mm 0-17 Uterine ity of IUD 08:36: Device by [address] route Branch once now. copper 380 2021-03 Yes 1{IUD} 1 Intra Un taiwo square mm 0-17 Uterine ity of IUD 08:36: Device by [address] route Branch once now. copper 380 2021-03 Yes 1{IUD} 1 Intra Un taiwo square mm 0-17 Uterine ity of IUD 08:36: Device by [address] route Branch once now. copper 380 2021-03 Yes 1{IUD} 1 Intra Un taiwo square mm 0-17 Uterine ity of IUD 08:36: Device by [address] route Branch once now. copper 380 2021-03 Yes 1{IUD} 1 Intra Un taiwo square mm 0-17 Uterine ity of IUD 08:36: Device by [address] route Branch once now. copper 380 2021-03 Yes 1{IUD} 1 Intra Un taiwo square mm 0-17 Uterine ity of IUD 08:36: Device by [address] route Branch once now. copper 380 2021-03 Yes 1{IUD} 1 Intra Un taiwo square mm 0-17 Uterine ity of IUD 08:36: Device by [address] route Branch once now. hydrOXYzine 2021-03 Yes [id number] 25mg Take 1 [facility] 25 mg 0-17 capsule by ity of capsule 00:00: mouth 3 [place] 00 (three) Medical times Branch daily as needed for Itching. escitalopra 2021-03 Yes [id number] 10mg Take 1 Univers m oxalate 0-17 tablet by ity o f 10 mg 00:00: mouth in [place] tablet 00 the Medical morning. [place] azelastine- 2021-03 Yes [id number] 1{spray Use 1 [facility] fluticasone 0-17 } [place] in ity of (DYMISTA) 00:00: each [place] 137-50 00 nostril in Medical mcg/spray the Branch nasal spray morning and 1 [place] in the evening. hydrOXYzine 2021-03 Yes [id number] 25mg Take 1 [facility] 25 mg 0-17 capsule by ity of capsule 00:00: mouth 3 [place] 00 (three) Medical times Branch daily as needed for Itching. escitalopra 2021-03 Yes [id number] 10mg Take 1 [facility] m oxalate 0-17 tablet by ity o f 10 mg 00:00: mouth in [place] tablet 00 the Medical morning. [place] azelastine- 2021-03 Yes [id number] 1{spray Use 1 [facility] fluticasone 0-17 } [place] in ity of (DYMISTA) 00:00: each [place] 137-50 00 nostril in Medical mcg/spray the Branch nasal spray morning and 1 [place] in the evening. hydrOXYzine 2021-03 Yes [id number] 25mg Take 1 [facility] 25 mg 0-17 capsule by ity of capsule 00:00: mouth 3 [place] 00 (three) Medical times Branch daily as needed for Itching. escitalopra 2021-03 Yes [id number] 10mg Take 1 [facility] m oxalate 0-17 tablet by ity o f 10 mg 00:00: mouth in [place] tablet 00 the Medical morning. [place] azelastine- 2021-03 Yes [id number] 1{spray Use 1 [facility] fluticasone 0-17 } [place] in ity of (DYMISTA) 00:00: each [place] 137-50 00 nostril in Medical mcg/spray the Branch nasal spray morning and 1 [place] in the evening. hydrOXYzine 2021-03 Yes [id number] 25mg Take 1 [facility] 25 mg 0-17 capsule by ity of capsule 00:00: mouth 3 [place] 00 (three) Medical times Branch daily as needed for Itching. escitalopra 2021-03 Yes [id number] 10mg Take 1 [facility] m oxalate 0-17 tablet by ity o f 10 mg 00:00: mouth in [place] tablet 00 the Medical morning. Branch azelastine- 2021-03 Yes [id number] 1{spray Use 1 [facility] fluticasone 0-17 } [place] in ity of (DYMISTA) 00:00: each [place] 137-50 00 nostril in Medical mcg/spray the Branch nasal spray morning and 1 [place] in the evening. hydrOXYzine 2021-03 Yes [id number] 25mg Take 1 [facility] 25 mg 0-17 capsule by ity of capsule 00:00: mouth 3 [place] 00 (three) Medical times Branch daily as needed for Itching. escitalopra 2021-03 Yes [id number] 10mg Take 1 Univers m oxalate 0-17 tablet by ity o f 10 mg 00:00: mouth in [place] tablet 00 the Medical morning. [place] azelastine- 2021-03 Yes [id number] 1{spray Use 1 [facility] fluticasone 0-17 } [place] in ity of (DYMISTA) 00:00: each [place] 137-50 00 nostril in Medical mcg/spray the Branch nasal spray morning and 1 [place] in the evening. hydrOXYzine 2021-03 Yes [id number] 25mg Take 1 [facility] 25 mg 0-17 capsule by ity of capsule 00:00: mouth 3 [place] 00 (three) Medical times Branch daily as needed for Itching. hydrOXYzine 2021-03 Yes [id number] 25mg Take 1 [facility] 25 mg 0-17 capsule by ity of capsule 00:00: mouth 3 [place] 00 (three) Medical times Branch daily as needed for Itching. hydrOXYzine 2021-03 Yes [id number] 25mg Take 1 [facility] 25 mg 0-17 capsule by ity of capsule 00:00: mouth 3 [place] 00 (three) Medical times Branch daily as needed for Itching. hydrOXYzine 2021-03 Yes [id number] 25mg Take 1 [facility] 25 mg 0-17 capsule by ity of capsule 00:00: mouth 3 [place] 00 (three) Medical times Branch daily as needed for Itching. hydrOXYzine 2021-03 Yes [id number] 25mg Take 1 [facility] 25 mg 0-17 capsule by ity of capsule 00:00: mouth 3 [place] 00 (three) Medical times Branch daily as needed for Itching. hydrOXYzine 2021-03 Yes [id number] 25mg Take 1 [facility] 25 mg 0-17 capsule by ity of capsule 00:00: mouth 3 [place] 00 (three) Medical times Branch daily as needed for Itching. hydrOXYzine 2021-03 Yes [id number] 25mg Take 1 [facility] 25 mg 0-17 capsule by ity of capsule 00:00: mouth 3 [place] 00 (three) Medical times Branch daily as needed for Itching. hydrOXYzine 2021-03- No [id number] 25mg Take 1 [facility] 25 mg 0-17 04-05 capsule by ity of capsule 00:00: 00:00 mouth 3 [place] 00 :00 (three) Medical times Branch daily as needed for Itching. escitalopra 2021-03- No [id number] 10mg Take 1 Univers m oxalate 0-17 01-19 tablet by ity of 10 mg 00:00: 00:00 mouth in [place] tablet 00 :00 the Medical morning. [place] azelastine- 2021-03- No [id number] 1{spray Use 1 [facility] fluticasone 0-17 01-19 } [place] in ity of (DYMISTA) 00:00: 00:00 each [place] 137-50 00 :00 nostril in Medical mcg/spray the Branch nasal spray morning and 1 [place] in the evening. escitalopra 2021-03- No [id number] 10mg Take 1 Univers m oxalate 0-17 01-19 tablet by ity of 10 mg 00:00: 00:00 mouth in [place] tablet 00 :00 the Medical morning. [place] azelastine 2021-03- No [id number] 1{spray Use 1 [facility] fluticasone 0-17 01-19 } [place] in ity of (DYMISTA) 00:00: 00:00 each [place] 137-50 00 :00 nostril in Medical mcg/spray the Branch nasal spray morning and 1 [place] in the evening. benzonatate Yes [id number] 200mg Take 1 Univers 200 mg 9-20 capsule by ity of capsule 00:00: mouth 3 [place] 00 (three) Medical times Branch daily as needed for Cough for up to 20 doses. benzonatate 2021- No [id number] 200mg Take 1 Univers 200 mg 9-20 10-17 capsule by ity of capsule 00:00: 00:00 mouth 3 [place] 00 :00 (three) Medical times Branch daily as needed for Cough for up to 20 doses. benzonatate 2021- No [id number] 200mg Take 1 [facility] 200 mg 9-20 10-17 capsule by ity of capsule 00:00: 00:00 mouth 3 [place] 00 :00 (three) Medical times Branch daily as needed for Cough for up to 20 doses. NUVARING Yes [id number] 1{each} Insert 1 Univers 0.12-0.015 5-02 Each into ity of mg/24 hr 00:00: vagina [place] vaginal 00 once every Medica l insert month. Branch Insert vaginally and leave in place for 3 consecutiv e weeks, then remove for 1 week. NUVARING Yes [id number] 1{each} Insert 1 Univers 0.12-0.015 5-02 Each into ity of mg/24 hr 00:00: vagina [place] vaginal 00 once every Medica l insert month. Branch Insert vaginally and leave in place for 3 consecutiv e weeks, then remove for 1 week. NUVARING Yes [id number] 1{each} Insert 1 Univers 0.12-0.015 5-02 Each into ity of mg/24 hr 00:00: vagina [place] vaginal 00 once every Medica l insert month. Branch Insert vaginally and leave in place for 3 consecutiv e weeks, then remove for 1 week. NUVARING 2021- No [id number] 1{each} Insert 1 Univers 0.12-0.015 5-02 10-17 Each into ity of mg/24 hr 00:00: 00:00 vagina [place] vaginal 00 :00 once every Medica l insert month. Branch Insert vaginally and leave in place for 3 consecutiv e weeks, then remove for 1 week. NUVARING 2021- No [id number] 1{each} Insert 1 Univers 0.12-0.015 5-02 10-17 Each into ity of mg/24 hr 00:00: 00:00 vagina [place] vaginal 00 :00 once every Medica l insert month. Branch Insert vaginally and leave in place for 3 consecutiv e weeks, then remove for 1 week. hydrOXYzine Yes Univer s 25 mg 1-18 ity of capsule 00:00: [place] 00 Medical Branch escitalopra [id number] Yes Univer s m oxalate 1-18 ity [...] [place] tablet 00 Medical Branch hydrOXYzine 0 2022- No Unive rs 25 mg 1-18 10-17 ity of capsule 00:00: 00:00 [place] 00 :00 Medical Branch escitalopra 2018-0 2022- No Unive rs m oxalate 1-18 10-17 ity of 10 mg 00:00: 00:00 [place] tablet 00 :00 Medical Branch hydrOXYzine 0 2022- No Unive rs 25 mg 1-18 10-17 ity of capsule 00:00: 00:00 [place] 00 :00 Medical Branch escitalopra 2018-0 2022- No Unive rs m oxalate 1-18 10-17 ity of 10 mg 00:00: 00:00 [place] tablet 00 :00 Medical Branch norgestimat 2017 Yes 1{tbl} Take 1 Un taiwo e-ethinyl [...] 600mg Take 1 Tab Univers (MOTRIN) 0-21 02-25 by mouth ity of 600 mg 00:00: 00:00 every 6 [place] tablet 00 :00 (six) Medical hours as Branch needed for Pain (scale 4-6). Take with food or milk. Immunizations Ordered Filled Immunization Date Status Comments [facility] Immunization Name Name SARS-COV-2 COVID-19 2020-08-25 Completed Unive rsity of PFIZER VACCINE 00:00:00 [place] [facility] SARS-COV-2 COVID-19 2020-08-25 Completed Unive rsity of PFIZER VACCINE 00:00:00 [place] [facility] SARS-COV-2 COVID-19 2020-08-25 Completed Unive rsity of PFIZER VACCINE 00:00:00 [place] [facility] SARS-COV-2 COVID-19 2020-08-25 Completed Unive rsity of PFIZER VACCINE 00:00:00 [place] [facility] SARS-COV-2 COVID-19 2020-08-25 Completed Unive rsity of PFIZER VACCINE 00:00:00 [place] [facility] SARS-COV-2 COVID-19 2020-08-25 Completed Unive rsity of PFIZER VACCINE 00:00:00 [place] [facility] SARS-COV-2 COVID-19 2020-08-25 Completed Unive rsity of PFIZER VACCINE 00:00:00 [place] [facility] SARS-COV-2 COVID-19 2020-08-25 Completed Unive rsity of PFIZER VACCINE 00:00:00 [place] [facility] SARS-COV-2 COVID-19 2020-08-25 Completed Unive rsity of PFIZER VACCINE 00:00:00 [place] [facility] SARS-COV-2 COVID-19 2020-08-25 Completed Unive rsity of PFIZER VACCINE 00:00:00 [place] [facility] SARS-COV-2 COVID-19 2020-08-25 Completed Unive rsity of PFIZER VACCINE 00:00:00 [place] [facility] SARS-COV-2 COVID-19 2020-08-25 Completed Unive rsity of PFIZER VACCINE 00:00:00 [place] [facility] SARS-COV-2 COVID-19 2020-08-25 Completed Unive rsity of PFIZER VACCINE 00:00:00 [facility] Branch SARS-COV-2 COVID-19 2020-08-25 Completed Unive rsity of PFIZER VACCINE 00:00:00 [facility] Branch SARS-COV-2 COVID-19 2020-08-25 Completed Unive rsity of PFIZER VACCINE 00:00:00 [facility] Branch SARS-COV-2 COVID-19 2020-08-25 Completed Unive rsity of PFIZER VACCINE 00:00:00 [facility] Branch SARS-COV-2 COVID-19 2020-08-25 Completed Unive rsity of PFIZER VACCINE 00:00:00 [facility] Branch SARS-COV-2 COVID-19 2020-08-25 Completed Unive rsity of PFIZER VACCINE 00:00:00 [facility] Branch SARS-COV-2 COVID-19 2020-08-25 Completed Unive rsity of PFIZER VACCINE 00:00:00 [facility] Branch SARS-COV-2 COVID-19 2020-08-25 Completed Unive rsity of PFIZER VACCINE 00:00:00 [facility] Branch SARS-COV-2 COVID-19 2020-08-25 Completed Unive rsity of PFIZER VACCINE 00:00:00 [facility] Branch SARS-COV-2 COVID-19 2020-08-25 Completed Unive rsity of PFIZER VACCINE 00:00:00 [facility] Branch SARS-COV-2 COVID-19 2020-08-25 Completed Unive rsity of PFIZER VACCINE 00:00:00 [facility] Branch SARS-COV-2 COVID-19 2020-08-04 Completed Unive rsity of PFIZER VACCINE 00:00:00 [facility] Branch SARS-COV-2 COVID-19 2020-08-04 Completed Unive rsity of PFIZER VACCINE 00:00:00 [facility] Branch SARS-COV-2 COVID-19 2020-08-04 Completed Unive rsity of PFIZER VACCINE 00:00:00 [facility] Branch SARS-COV-2 COVID-19 2020-08-04 Completed Unive rsity of PFIZER VACCINE 00:00:00 [place] [facility] SARS-COV-2 COVID-19 2020-08-04 Completed Unive rsity of PFIZER VACCINE 00:00:00 [facility] Branch SARS-COV-2 COVID-19 2020-08-04 Completed Unive rsity of PFIZER VACCINE 00:00:00 [facility] Branch SARS-COV-2 COVID-19 2020-08-04 Completed Unive rsity of PFIZER VACCINE 00:00:00 [facility] Branch SARS-COV-2 COVID-19 2020-08-04 Completed Unive rsity of PFIZER VACCINE 00:00:00 [facility] Branch SARS-COV-2 COVID-19 2020-08-04 Completed Unive rsity of PFIZER VACCINE 00:00:00 [facility] Branch SARS-COV-2 COVID-19 2020-08-04 Completed Unive rsity of PFIZER VACCINE 00:00:00 [facility] Branch SARS-COV-2 COVID-19 2020-08-04 Completed Unive rsity of PFIZER VACCINE 00:00:00 [facility] Branch SARS-COV-2 COVID-19 2020-08-04 Completed Unive rsity of PFIZER VACCINE 00:00:00 [facility] Branch SARS-COV-2 COVID-19 2020-08-04 Completed Unive rsity of PFIZER VACCINE 00:00:00 [facility] Branch SARS-COV-2 COVID-19 2020-08-04 Completed Unive rsity of PFIZER VACCINE 00:00:00 [facility] Branch SARS-COV-2 COVID-19 2020-08-04 Completed Unive rsity of PFIZER VACCINE 00:00:00 [facility] Branch SARS-COV-2 COVID-19 2020-08-04 Completed Unive rsity of PFIZER VACCINE 00:00:00 [facility] Branch SARS-COV-2 COVID-19 2020-08-04 Completed Unive rsity of PFIZER VACCINE 00:00:00 [facility] Branch SARS-COV-2 COVID-19 2020-08-04 Completed Unive rsity of PFIZER VACCINE 00:00:00 [facility] Branch SARS-COV-2 COVID-19 2020-08-04 Completed Unive rsity of PFIZER VACCINE 00:00:00 [facility] Branch SARS-COV-2 COVID-19 2020-08-04 Completed Unive rsity of PFIZER VACCINE 00:00:00 [facility] Branch SARS-COV-2 COVID-19 2020-08-04 Completed Unive rsity of PFIZER VACCINE 00:00:00 [place] [facility] SARS-COV-2 COVID-19 2020-08-04 Completed Unive rsity of PFIZER VACCINE 00:00:00 [place] [facility] SARS-COV-2 COVID-19 2020-08-04 Completed Unive rsity of PFIZER VACCINE 00:00:00 [place] [facility] Influenza Virus 2017-02-14 Completed Universit y of [...] Universit y of Vaccine Quad IM 00:00:00 [place] [facility] Multi-dose 6+ MO Branch Influenza Virus 2017-02-14 Completed Universit y of Vaccine Quad IM 00:00:00 [place] Med ical Multi-dose 6+ MO Branch Influenza Virus 2017-02-14 Completed Universit y of Vaccine Quad IM 00:00:00 [place] Med ical Multi-dose 6+ MO Branch Influenza Virus 2017-02-14 Completed Universit y of Vaccine Quad IM 00:00:00 [place] Med ical Multi-dose 6+ MO Branch Influenza Virus 2017-02-14 Completed Universit y of Vaccine Quad IM 00:00:00 [place] Med ical Multi-dose 6+ MO Branch Influenza Virus 2014-12-08 Completed Universit y of Vaccine Quad IM 3+ 00:00:00 [facility] YRS Branch Influenza Virus 2014-12-08 Completed Universit y of Vaccine Quad IM 3+ 00:00:00 [place] [facility] YRS Branch Influenza Virus 2014-12-08 Completed Universit y of Vaccine Quad IM 3+ 00:00:00 [place] [facility] YRS Branch Influenza Virus 2014-12-08 Completed Universit y of Vaccine Quad IM 3+ 00:00:00 [facility] YRS Branch Influenza Virus 2014-12-08 Completed Universit y of Vaccine Quad IM 3+ 00:00:00 [facility] Influenza Virus 2014-12-08 Completed Universit y of Vaccine Quad IM 3+ 00:00:00 [facility] Influenza Virus 2014-12-08 Completed Universit y of Vaccine [facility] IM 3+ 00:00:00 [facility] Influenza Virus 2014-12-08 Completed Universit y of Vaccine [facility] IM 3+ 00:00:00 [facility] Influenza Virus 2014-12-08 Completed Universit y of Vaccine [facility] IM 3+ 00:00:00 [facility] Influenza Virus 2014-12-08 Completed Universit y of Vaccine [facility] IM 3+ 00:00:00 [facility] Influenza Virus 2014-12-08 Completed Universit y of Vaccine [facility] IM 3+ 00:00:00 [facility] Influenza Virus 2014-12-08 Completed Universit y of Vaccine Quad IM 3+ 00:00:00 [facility] Influenza Virus 2014-12-08 Completed Universit y of Vaccine Quad IM 3+ 00:00:00 [facility] Influenza Virus 2014-12-08 Completed Universit y of Vaccine [facility] IM 3+ 00:00:00 [facility] Influenza Virus 2014-12-08 Completed Universit y of Vaccine Quad IM 3+ 00:00:00 [facility] Influenza Virus 2014-12-08 Completed Universit y of Vaccine Quad IM 3+ 00:00:00 [facility] Influenza Virus 2014-12-08 Completed Universit y of Vaccine Quad IM 3+ 00:00:00 [facility] Influenza Virus 2014-12-08 Completed Universit y of Vaccine Quad IM 3+ 00:00:00 [facility] Influenza Virus 2014-12-08 Completed Universit y of Vaccine Quad IM 3+ 00:00:00 [facility] Influenza Virus 2014-12-08 Completed Universit y of Vaccine Quad IM 3+ 00:00:00 [facility] Influenza Virus 2014-12-08 Completed Universit y of Vaccine Quad IM 3+ 00:00:00 [facility] Influenza Virus 2014-12-08 Completed Universit y of Vaccine Quad IM 3+ 00:00:00 [facility] Influenza Virus 2014-12-08 Completed Universit y of Vaccine Quad IM 3+ 00:00:00 [facility] Influenza Virus 2014-12-08 Completed Universit y of Vaccine Quad IM 3+ 00:00:00 [facility] Influenza Virus 2014-12-08 Completed Universit y of Vaccine Quad IM 3+ 00:00:00 [facility] Influenza Virus 2014-12-08 Completed Universit y of Vaccine Quad IM 3+ 00:00:00 [facility] TDAP 2014-10-23 Completed University of 00:00:00 [facility] TDAP 2014-10-23 Completed University of 00:00:00 [facility] TDAP 2014-10-23 Completed University of 00:00:00 [facility] TDAP 2014-10-23 Completed University of 00:00:00 [facility] TDAP 2014-10-23 Completed University of 00:00:00 [facility] TDAP 2014-10-23 Completed University of 00:00:00 [facility] TDAP 2014-10-23 Completed University of 00:00:00 [facility] TDAP 2014-10-23 Completed University of 00:00:00 [facility] TDAP 2014-10-23 Completed University of 00:00:00 [facility] TDAP 2014-10-23 Completed University of 00:00:00 [facility] TDAP 2014-10-23 Completed University of 00:00:00 [facility] TDAP 2014-10-23 Completed University of 00:00:00 [facility] TDAP 2014-10-23 Completed University of 00:00:00 [facility] TDAP 2014-10-23 Completed University of 00:00:00 [facility] TDAP 2014-10-23 Completed University of 00:00:00 [facility] TDAP 2014-10-23 Completed University of 00:00:00 [facility] TDAP 2014-10-23 Completed University of 00:00:00 [facility] TDAP 2014-10-23 Completed University of 00:00:00 [facility] TDAP 2014-10-23 Completed University of 00:00:00 [facility] TDAP 2014-10-23 Completed University of 00:00:00 [facility] TDAP 2014-10-23 Completed University of 00:00:00 [facility] TDAP 2014-10-23 Completed University of 00:00:00 [facility] TDAP 2014-10-23 Completed University of 00:00:00 [facility] TDAP 2014-10-23 Completed University of 00:00:00 [facility] TDAP 2014-10-23 Completed [facility] 00:00:00 [facility] TDAP 2014-10-23 Completed University of 00:00:00 [facility] Td 2010-07-08 Completed University of 00:00:00 [facility] Td 2010-07-08 Completed University of 00:00:00 [facility] Td 2010-07-08 Completed University of 00:00:00 [facility] Td 2010-07-08 Completed University of 00:00:00 [facility] TD, NOS 2010-07-08 Completed University [facility] 00:00:00 [facility] TD, NOS 2010-07-08 Completed [facility] of 00:00:00 [facility] Td 2010-07-08 Completed University of 00:00:00 [facility] TD, NOS 2010-07-08 Completed [facility] 00:00:00 [facility] TD, NOS 2010-07-08 Completed [facility] 00:00:00 [facility] TD, NOS 2010-07-08 Completed [facility] 00:00:00 [facility] TD, NOS 2010-07-08 Completed [facility] of 00:00:00 [facility] TD, NOS 2010-07-08 Completed [facility] 00:00:00 [facility] TD, NOS 2010-07-08 Completed [facility] 00:00:00 [facility] TD, NOS 2010-07-08 Completed [facility] of 00:00:00 [facility] TD, NOS 2010-07-08 Completed [facility] 00:00:00 [facility] TD, NOS 2010-07-08 Completed [facility] 00:00:00 [facility] TD, NOS 2010-07-08 Completed [facility] 00:00:00 [facility] TD, NOS 2010-07-08 Completed [facility] 00:00:00 [facility] TD, NOS 2010-07-08 Completed [facility] of 00:00:00 [facility] Td 2010-07-08 Completed [facility] of 00:00:00 [facility] TD, NOS 2010-07-08 Completed [facility] 00:00:00 [facility] TD, NOS 2010-07-08 Completed [facility] 00:00:00 [facility] TD, NOS 2010-07-08 Completed [facility] of 00:00:00 [facility] TD, NOS 2010-07-08 Completed [facility] of 00:00:00 [facility] TD, NOS 2010-07-08 Completed [facility] of 00:00:00 [facility] Td 2010-07-08 Completed University of 00:00:00 [facility] Vital Signs Vital Name Observation Time Observation Value Comments Source Systolic blood 2022-10-09 15:13:00 117 mm[Hg] Univer sity of pressure [facility] Diastolic blood 2022-10-09 15:13:00 77 mm[Hg] Unive rsity of pressure [facility] Heart rate 2022-10-09 15:13:00 93 /min [facility]i [facility] Body temperature 2022-10-09 15:13:00 36.28 Roberta Univ ers[facility] [place] [facility] Body height 2022-10-09 15:13:00 160 cm [facility] [place] [facility] Body weight 2022-10-09 15:13:00 73.029 kg [facility] [place] [facility] BMI 2022-10-09 15:13:00 28.52 kg/m2 [facility] [place] [facility] Oxygen saturation in 2022-10-09 15:13:00 99 /min University of Arterial blood by [place] [facility] margaret Pulse oximetry Branch Systolic blood 2022-07-20 16:56:00 126 mm[Hg] Univer sity of pressure [facility] Diastolic blood 2022-07-20 16:56:00 81 mm[Hg] Unive rsity of pressure [facility] Heart rate 2022-07-20 16:56:00 77 /min [facility] [place] [facility] Body temperature 2022-07-20 16:56:00 36.39 Roberta [facility] [place] [facility] Respiratory rate 2022-07-20 16:56:00 22 /min Univ [facility] [place] [facility] Body height 2022-07-20 16:56:00 160 cm [facility] [place] [facility] Body weight 2022-07-20 16:56:00 75.921 kg [facility] [place] [facility] BMI 2022-07-20 16:56:00 29.65 kg/m2 [facility] [place] [facility] Oxygen saturation in 2022-07-20 16:56:00 97 /min University of Arterial blood by [place] [facility] margaret Pulse oxim[facility] Branch Systolic blood 2022-07-08 16:22:00 122 mm[Hg] Univer sity of pressure [place] [facility] Diastolic blood 2022-07-08 16:22:00 90 mm[Hg] Unive rsity of pressure [facility] Heart rate 2022-07-08 16:22:00 85 /min [facility]i [facility] Body temperature 2022-07-08 16:22:00 36.67 Orberta Univ [facility] [place] [facility] Respiratory rate 2022-07-08 16:22:00 20 /min Univ ersity [facility] [place] [facility] Body height 2022-07-08 16:22:00 160 cm [facility]i [facility] Body weight 2022-07-08 16:22:00 73.936 kg [facility] [place] [facility] BMI 2022-07-08 16:22:00 28.87 kg/m2 [facility] [place] [facility] Oxygen saturation in 2022-07-08 16:22:00 99 /min University of Arterial blood by [facility] Pulse oximetry Branch Systolic blood 2022-07-06 15:43:00 122 mm[Hg] Univer sity of pressure [facility] Diastolic blood 2022-07-06 15:43:00 86 mm[Hg] Unive rsity of pressure [facility] Heart rate 2022-07-06 15:43:00 115 /min Universi ty [facility] Body temperature 2022-07-06 15:43:00 36.83 Roberta Univ [facility] [place] [facility] Body height 2022-07-06 15:43:00 160 cm [facility] Body weight 2022-07-06 15:43:00 73.71 kg [facility] BMI 2022-07-06 15:43:00 28.79 kg/m2 [facility] [place] [facility] Oxygen saturation in 2022-07-06 15:43:00 96 /min University of Arterial blood by [facility] Pulse oximetry Branch Systolic blood 2022-06-22 18:25:00 120 mm[Hg] Univer sity of pressure [facility] Diastolic blood 2022-06-22 18:25:00 81 mm[Hg] Unive rsity of pressure [facility] Heart rate 2022-06-22 18:25:00 93 /min [facility]i [facility] Body temperature 2022-06-22 18:25:00 37 Roberta Univ [facility] [place] [facility] Body height 2022-06-22 18:25:00 160 cm [facility] [place] [facility] Body weight 2022-06-22 18:25:00 77.111 kg [facility] [place] [facility] BMI 2022-06-22 18:25:00 30.11 kg/m2 [facility] [place] [facility] Oxygen saturation in 2022-06-22 18:25:00 98 /min University of Arterial blood by [place] [facility] margaret Pulse oximetry Branch Systolic blood 2022-06-16 16:30:00 123 mm[Hg] Univer sity of pressure [facility] Diastolic blood 2022-06-16 16:30:00 80 mm[Hg] Unive rsity of pressure [facility] Heart rate 2022-06-16 16:30:00 65 /min [facility] Body temperature 2022-06-16 16:30:00 36.56 Roberta [facility] [place] [facility] Body height 2022-06-16 16:30:00 160 cm [facility] [place] [facility] Body weight 2022-06-16 16:30:00 75.887 kg [facility] [place] [facility] BMI 2022-06-16 16:30:00 29.64 kg/m2 [facility] Oxygen saturation in 2022-06-16 16:30:00 98 /min University of Arterial blood by [facility] Pulse oximetry Branch Systolic blood 2022-05-09 15:18:00 120 mm[Hg] Univer sity of pressure [facility] Diastolic blood 2022-05-09 15:18:00 83 mm[Hg] Unive rsity of pressure [facility] Heart rate 2022-05-09 15:18:00 83 /min [facility] [place] [facility] Body temperature 2022-05-09 15:18:00 36.72 Roberta [facility] [place] [facility] Respiratory rate 2022-05-09 15:18:00 18 /min Univ [facility] [place] [facility] Body height 2022-05-09 15:18:00 160 cm [facility] [place] [facility] Body weight 2022-05-09 15:18:00 75.615 kg [facility] [place] [facility] BMI 2022-05-09 15:18:00 29.53 kg/m2 [facility] [place] [facility] Oxygen saturation in 2022-05-09 15:18:00 98 /min University of Arterial blood by [facility] margaret Pulse oximetry Branch Systolic blood 2022-04-07 15:52:00 138 mm[Hg] Univer sity of pressure [place] [facility] Diastolic blood 2022-04-07 15:52:00 85 mm[Hg] Unive rsity of pressure [facility] Heart rate 2022-04-07 15:52:00 76 /min [facility] [place] [facility] Body temperature 2022-04-07 15:52:00 36.94 Roberta [facility] [place] [facility] Body height 2022-04-07 15:52:00 160 cm [facility] Body weight 2022-04-07 15:52:00 73.483 kg [facility] [place] [facility] BMI 2022-04-07 15:52:00 28.70 kg/m2 [facility] [place] [facility] Oxygen saturation in 2022-04-07 15:52:00 95 /min University [facility] Arterial blood by [place] [facility] P[facility]xim[facility] Branch Systolic blood 2022-04-06 15:32:00 118 mm[Hg] Univer sity of pressure [facility] Diastolic blood 2022-04-06 15:32:00 80 mm[Hg] Unive rsity of pressure [facility] Heart rate 2022-04-06 15:32:00 99 /min [facility] Body temperature 2022-04-06 15:32:00 37.33 Roberta [facility] [place] [facility] Respiratory rate 2022-04-06 15:32:00 17 /min Univ [facility] [place] [facility] Body height 2022-04-06 15:32:00 160 cm [facility] Body weight 2022-04-06 15:32:00 74.617 kg [facility] BMI 2022-04-06 15:32:00 29.14 kg/m2 [facility] [place] [facility] Oxygen saturation in 2022-04-06 15:32:00 98 /min University of Arterial blood by [facility] margaret Pulse oximetry Branch Systolic blood 2022-02-25 16:24:00 118 mm[Hg] Univer sity of pressure [facility] Diastolic blood 2022-02-25 16:24:00 83 mm[Hg] Unive rsity of pressure [facility] Heart rate 2022-02-25 16:24:00 96 /min [facility] [place] [facility] Body temperature 2022-02-25 16:24:00 36.78 Roberta [facility] [place] [facility] Body height 2022-02-25 16:24:00 160 cm [facility] Body weight 2022-02-25 16:24:00 72.122 kg [facility] BMI 2022-02-25 16:24:00 28.17 kg/m2 [facility] [place] [facility] Oxygen saturation in 2022-02-25 16:24:00 95 /min University of Arterial blood by [facility] margaret Pulse oximetry Branch Systolic blood 2022-01-03 13:32:00 133 mm[Hg] Univer sity of pressure [facility] Diastolic blood 2022-01-03 13:32:00 83 mm[Hg] Unive rsity of pressure [facility] Heart rate 2022-01-03 13:32:00 85 /min [facility] [place] [facility] Body temperature 2022-01-03 13:32:00 36.44 Roberta [facility] [place] [facility] Body height 2022-01-03 13:32:00 160 cm [facility] Body weight 2022-01-03 13:32:00 72.122 kg [facility] BMI 2022-01-03 13:32:00 28.17 kg/m2 [facility] Oxygen saturation in 2022-01-03 13:32:00 98 /min University of Arterial blood by [facility] Pulse oximetry Branch Diastolic blood 2021-12-07 16:38:00 87 mm[Hg] Unive rsity of pressure [facility] Heart rate 2021-12-07 16:38:00 98 /min [facility] Body temperature 2021-12-07 16:38:00 36.17 Roberta [facility] [place] [facility] Respiratory rate 2021-12-07 16:38:00 18 /min Univ [facility] [place] [facility] Body height 2021-12-07 16:38:00 160 cm [facility] Body weight 2021-12-07 16:38:00 71.215 kg [facility] BMI 2021-12-07 16:38:00 27.81 kg/m2 [facility] [place] [facility] Oxygen saturation in 2021-12-07 16:38:00 97 /min University of Arterial blood by [facility] Pulse oximetry Branch Systolic blood 2021-12-07 16:38:00 123 mm[Hg] Univer sity of pressure [facility] Systolic blood 2021-08-03 16:08:00 117 mm[Hg] Univer sity of pressure [facility] Diastolic blood 2021-08-03 16:08:00 80 mm[Hg] Unive rsity of pressure [facility] Heart rate 2021-08-03 16:08:00 100 /min [facility] [place] [facility] Body temperature 2021-08-03 16:08:00 36.56 Roberta [facility] [place] [facility] Respiratory rate 2021-08-03 16:08:00 18 /min Univ [facility] [place] [facility] Body weight 2021-08-03 16:08:00 71.668 kg [facility] [place] [facility] BMI 2021-08-03 16:08:00 27.99 kg/m2 [facility] [place] [facility] Oxygen saturation in 2021-08-03 16:08:00 99 /min University of Arterial blood by [facility] Pulse oximetry Branch Systolic blood 2021-07-15 18:43:00 135 mm[Hg] Univer sity of pressure [facility] Diastolic blood 2021-07-15 18:43:00 97 mm[Hg] Unive rsity of pressure [facility] Heart rate 2021-07-15 18:43:00 86 /min [facility] [place] [facility] Body temperature 2021-07-15 18:43:00 37.33 Roberta [facility] [place] [facility] Respiratory rate 2021-07-15 18:43:00 18 /min Univ [facility] [place] [facility] Body height 2021-07-15 18:43:00 160 cm [facility] Body weight 2021-07-15 18:43:00 73.483 kg [facility] BMI 2021-07-15 18:43:00 28.70 kg/m2 [facility] [place] [facility] Oxygen saturation in 2021-07-15 18:43:00 100 /min University of Arterial blood by [facility] Pulse oximetry Branch Procedures Procedure Date / Time Performed Performing Clinician Garland barbosa XR HEEL 2+ VW 2022-07-20 17:15:00 Kang [facility] [place] BILATERAL Medical Branch POCT MOLECULAR STREP 2022-06-16 16:34:00 Unknown, Attending [facility] POCT MOLECULAR FLU 2022-05-09 15:19:00 Unknown, Attending [facility] POCT MOLECULAR STREP 2022-05-09 15:16:00 Unknown, Attending [facility] POCT MOLECULAR FLU 2022-02-25 16:22:00 Soledad [facility] POCT MOLECULAR STREP 2022-02-25 16:20:[address] [facility] RAPID STREP SCREEN 2021-12-07 16:41:00 Singer [facility] FOR GROUP A Medical Branch CONSENT/REFUSAL FOR 2021-12-07 16:32:22 Doctor Unassigned, No [facility] [place] DI[facility]NOS[facility] AND Name [facility] TREATMENT CONSENT/REFUSAL FOR 2021-08-03 16:04:24 Doctor Unassigned, No [facility] [place] DIAGNOSIS AND Name [facility] TREATMENT XR FOOT 3+ VW LEFT 2021-07-15 19:17:[address] [facility] CONSENT/REFUSAL FOR 2021-07-15 18:35:54 Doctor Unassigned, No Un [facility] [place] DIAGNOSIS AND Name Medical Branch TREATMENT NOTICE OF PRIVACY 2021-07-15 18:35:10 Doctor Unassigned, No Univ [facility] PRACTICES Name Medical Branch Encounters Start End Encounter Admission Attending Care Care Encounter Source Date/Time Date/Time Type Type Clinicians Facility Department ID 2023-03-09 2023-03-09 Outpatient R YAMILETH ROWE [facility] [id number] Univers 10:20:00 10:20:00 YAMILETH ROWE [facility] 2022-10-09 2022-10-09 Outpatient R NIRAJ [facility] [id number] Univers 09:40:00 10:41:51 MEY phillips [facility] 2022-10-09 2022-10-09 Urgent Mey Healy [facility] 1.2.840.114 [id number] Univers 09:40:00 10:41:51 Care Unknown, Attending [place] [id number] ity [facility] [id number] Memo as JOSE?BLEA [id number] Nj ayala DOWELL [address] MEDICAL OFFICE [facility] 2022-08-08 2022-08-08 Outpatient R SOLEDAD YAMILETH [facility] [id number] Univers 13:23:51 23:59:00 YAMILETH ROWE [facility] 2022-08-08 2022-08-08 [facility] 1.2.840.114 [id number] Univers 13:23:51 23:59:00 Encounter Yamileth SHAW [id number] [facility] 4.2.7.2.686 [place] [id number] [address] 2022-07-26 2022-07-26 Telephone [facility] [id number] Univers 00:00:00 00:00:00 Yamileth HEALTH [id number] ity of [facility] 4.2.7.2.686 Memo as JOSE?BLEA [id number] Nj ayala DOWELL 044 [facility] OFFICE [facility] 2022-07-25 2022-07-25 [facility] [id number] Univers 00:00:00 00:00:00 Yamileth HEALTH [id number] ity [facility] 4.2.7.2.686 Memo as JOSE?BLEA [id number] Nj ayala DOWELL 044 [facility] OFFICE [facility] 2022-07-20 2022-07-20 Outpatient R KANG [facility] [id number] Univers 12:06:42 23:59:00 PRISCILLA margarita [facility] 2022-07-20 2022-07-20 [facility] 1.2.840.114 [id number] Univers 12:06:42 23:59:00 Encounter [facility] [id number] ity of [facility] 4.2.7.2.686 Memo as JOSE?BLEA [id number] Nj ayala DOWELL 808 [facility] OFFICE [facility] 2022-07-20 2022-07-20 Urgent Priscilla Kapadia [facility] 1.2.840.11 [id number] Univers 11:40:00 12:00:00 Care Unknown, Attending HEALTH 350.1.13.10 ity of [place] 4.2.7.2.686 Memo as JOSE?BLEA [id number] Nj ayala DOWELL 370 [facility] OFFICE [facility] 2022-07-08 2022-07-08 Billing Adjudicator Lab, Ang - Db RUST 1.2.840.1 [id number] Univers 12:15:00 12:30:00 [facility] 350.1.13.10 ity of [place] 4.2.7.2.686 Memo as JOSE?BLEA [id number] Nj ayala DOWELL 353 [facility] OFFICE [facility] 2022-07-08 2022-07-08 Outpatient R CHUCKIE ROWEINE [facility] [id number] Univers 11:20:00 11:55:48 MARYAMargarita YAMILETH [facility] 2022-07-08 2022-07-08 Office [facility] 1.2.840.114 [id number] Univers 11:20:00 11:55:48 Visit [facility] 350.1.13.10 ity of [place] 4.2.7.2.686 Memo as JOSE?BLEA [id number] Nj ayala DOWELL 044 [facility] OFFICE [facility] 2022-07-06 2022-07-06 Outpatient R PAKO [facility] [id number] Univers 10:35:00 10:55:42 ZURIU jacqueline [facility] 2022-07-06 2022-07-06 Urgent Mansoor Min R[facility] .2.840.11 [id number] Univers 10:35:00 10:55:42 Care Unknown, Attending HEALTH 350.1.13.10 ity of [place] 4.2.7.2.686 Memo as JOSE?BLEA [id number] [facility] CARTER 370 [facility] OFFICE [facility] 2022-06-22 2022-06-22 Outpatient R XIN [facility] [id number] Univers 13:30:00 13:40:17 ROSEMARY phillips [facility] 2022-06-22 2022-06-22 Office [facility] 1.2.840.114 [id number] Univers 13:30:00 13:40:17 Visit [facility] 350.1.13.10 it y of [place] 4.2.7.2.686 Memo as JOSE?BLEA [id number] [facility] [address] MEDICAL OFFICE [facility] 2022-06-16 2022-06-16 Urgent JairocoreyButch maxwell [facility] 1.2.840.114 [id number] Univers 11:20:00 11:40:00 Care Unknown, Attending HEALTH 350.1.13.10 ity of [place] 4.2.7.2.686 Memo as JOSE?BLEA [id number] [address] OFFICE [facility] 2022-06-16 2022-06-16 Outpatient R SCHUYLER [facility] [id number] Univers 11:20:00 11:20:00 BUTCH phillips [facility] 2022-05-09 2022-05-09 Outpatient R PAKO [facility] [id number] Univers 09:00:00 09:28:42 [facility] 2022-05-09 2022-05-09 Urgent Mara Minalberto [facility] 1.2.840.11 [id number] Univers 09:00:00 09:28:42 Care Unknown, Attending HEALTH 350.1.13.10 ity of [place] 4.2.7.2.686 Memo as JOSE?BLEA [id number] [address] MEDICAL OFFICE [facility] 2022-04-14 2022-04-14 Refill [facility] 1.2.840.114 [id number] Univers 00:00:00 00:00:00 [facility] 350.1.13.10 ity of [place] 4.2.7.2.686 Memo as JOSE?BLEA [id number] [address] OFFICE [facility] 2022-04-07 2022-04-07 [facility] [id number] Univers 09:20:00 10:17:32 YAMILETH ity [facility] 2022-04-07 2022-04-07 [facility] 1.2.840.114 [id number] Univers 09:20:00 10:17:32 Visit [facility] 350.1.13.10 ity of [place] 4.2.7.2.686 Memo as JOSE?BLEA [id number] [address] MEDICAL OFFICE [facility] 2022-04-06 2022-04-06 Outpatient R SCHUYLER [facility] [id number] Univers 09:00:00 09:40:43 RANIA ity [facility] 2022-04-06 2022-04-06 [facility] 1.2.840.114 [id number] Univers 09:00:00 09:40:43 Care Unknown, [facility] HEALTH 350.1.13.10 ity of [place] 4.2.7.2.686 Memo as JOSE?BLEA [id number] [facility] [address] MEDICAL OFFICE [facility] 2022-02-25 2022-02-25 Outpatient R SOLEDAD [facility] [id number] Univers 10:00:00 10:42:34 [facility] 2022-02-25 2022-02-25 Office [facility] 1.2.840.114 [id number] Univers 10:00:00 10:42:34 Visit [facility] 350.1.13.10 ity of [place] 4.2.7.2.686 Memo as JOSE?BLEA [id number] [address] MEDICAL OFFICE [facility] 2022-01-03 2022-01-03 Outpatient R SOLEDAD [facility] [id number] Univers 08:40:00 09:31:28 JESSUP ity [facility] 2022-01-03 2022-01-03 Office [facility] 1.2.840.114 [id number] Univers 08:40:00 09:31:28 Visit [facility] 350.1.13.10 ity of [place] 4.2.7.2.686 Memo as JOSE?BLEA [id number] [address] MEDICAL OFFICE [facility] 2021-12-07 2021-12-07 Emergency X Raghavendra GARDNER [facility] ERT [id number] Univers 11:42:00 12:51:00 [facility] 2021-12-07 2021-12-07 Emergency Raghavendra aGrdner [facility] 1.2.840.114 [id number] Univers 11:42:00 12:51:00 Mimi SHAW 350.1.13.10 i ty of [place] 4.2.7.2.686 [facility] [id number] [address] 2021-08-03 2021-08-03 [facility] [id number] Univers 11:08:00 12:17:00 ASHLEY [facility] 2021-08-03 2021-08-03 [facility] 1.2.840.114 [id number] Univers 11:08:00 12:17:00 Ashley SHAW 350.1.13.10 i ty of [place] 4.2.7.2.686 [facility] [id number] [address] 2021-07-15 2021-07-15 [facility] 1.2.183.091 [id number] Univers 13:45:00 14:49:00 Ger BIRDLING 350.1.13.10 i ty of [place] 4.2.7.2.686 [facility] [id number] [address] 2021-07-15 2021-07-15 Emergency [facility] [id number] Univers 13:45:00 14:49:00 GER [facility] Results Test Description Test Time Test Comments Results Result Comments Source POCT MOLECULAR STREP 2022-06-16 16:41:11 Test Item Value Reference Range Interpretation Comme nts POCT Molecular Strep (test code = 43451-4) Negative Negative Lab Interpretation (test code = 68237-3) Normal [facility] MOLECULAR [id number] 15:31:05 Test Item Value Reference Range Interpretation Comments POCT Molecular FluA (test code = Negative Negative 71906-6) POCT Molecular FluB (test code = Negative Negative 59486-6) Lab Interpretation (test code = Normal 52488-7) [facility] MOLECULAR [id number] 15:23:32 Test Item Value Reference Range Interpretation Comments POCT Molecular Strep (test code = Negative Negative 87269-4) Lab Interpretation (test code = Normal 03721-2) [facility] MOLECULAR [id number] 16:33:28 Test Item Value Reference Range Interpretation Comments POCT Molecular FluA (test code = Negative Negative 79054-8) POCT Molecular FluB (test code = Negative Negative 78127-4) Lab Interpretation (test code = Normal 03468-4) [facility] MOLECULAR [id number] 16:33:28 Test Item Value Reference Range Interpretation Comments POCT Molecular FluA (test code = Negative Negative 11768-4) POCT Molecular FluB (test code = Negative Negative 75256-3) Lab Interpretation (test code = Normal 72721-4) [facility] MOLECULAR [id number] 16:27:43 Test Item Value Reference Range Interpretation Comments POCT Molecular Strep (test code = Negative Negative 39521-2) Lab Interpretation (test code = Normal 50979-4) [facility] MOLECULAR [id number] 16:27:43 Test Item Value Reference Range Interpretation Comments POCT Molecular Strep (test code = Negative Negative 65706-1) Lab Interpretation (test code = Normal 12920-1) [facility]
--- NOTE | 2022-10-30 14:00 | RAD REPORT ---
EXAM DESCRIPTION: RAD - Foot Left 3 View - 10/30/2022 1:35 pm CLINICAL HISTORY: Left Foot pain FINDINGS: No fracture or dislocation is seen. Mild hallux valgus deformity
[2022-10-30] MEDS ORDERED: HYDROCODONE/APAP 5/325 MG TAB ONE (14:03)
--- NOTE | 2022-10-30 14:25 | ER ---
Nurse's Notes [facility] Name: Melanie Gotti Age: 42 yrs Sex: Female : 1980 Arrival Date: 10/30/2022 Time: 12:47 Bed 11 Private MD: Diagnosis: Pain in left foot Presentation: 10/30 13:21 Chief complaint: Patient states: Left bottom heel pain, "its burning, it throbs" . Has nj1 been hurting for 6 weeks, i was in [facility], with plantar fascitis but "i know plantar fascitis is not where its hurting". pain is not getting better. Coronavirus screen: Vaccine status: Patient reports receiving the 2nd dose of the covid vaccine. Ebola Screen: Patient denies travel to an Ebola-affected area in the 21 days before illness onset. Initial Sepsis Screen: Does the patient meet any 2 criteria? HR > 90 bpm. No. Patient's initial sepsis screen is negative. Does the patient have a suspected source of infection? No. Patient's initial sepsis screen is negative. Risk Assessment: Do you want to hurt yourself or someone else? Patient reports no desire to harm self or others. Onset of symptoms was October 2022. 13:21 Method Of Arrival: Ambulatory [facility] 13:21 Acuity: JAYCOB 4 nj1 Triage Assessment: 13:30 Cardiovascular: Patient's skin is warm and dry. nj 13:30 General: Appears in no apparent distress. uncomfortable, Behavior is calm, cooperative, nj1 appropriate for age. Pain: Complains of pain in heel of left foot Pain currently is 7 out of 10 on a pain scale. Neuro: Level of Consciousness is awake, alert, obeys commands, Oriented to person, place, time, situation. 13:30 Pain: Quality of pain is described as burning, throbbing. Respiratory: Airway is patent nj1 Respiratory effort is even, unlabored. Musculoskeletal: Reports pain in heel of left foot. Historical: - Allergies: 13:26 NKDA; nj1 - PMHx: 13:26 Anxiety; depressive disorder; nj1 - PSHx: 13:26 Cholecystectomy; nj1 - Immunization history:: Client reports receiving the 2nd dose of the Covid vaccine. - Social history:: Smoking status: Reported history of juuling and/or vaping. Screenin:[facility] Fall Risk Assessment (Adult) History of falling in the last 3 months, ss including since admission No falls in past 3 months (0 pts). Abuse screen: Denies threats or abuse. Denies injuries from another. Nutritional screening: No deficits noted. Tuberculosis screening: Never had TB. Assessment: 14:32 General: Appears in no apparent distress. comfortable, Behavior is calm, cooperative. ss Neuro: Level of Consciousness is awake, alert, obeys commands, Oriented to person, place, time, situation. Cardiovascular: Pulses are palpable in right dorsalis pedis artery and left dorsalis pedis artery. Respiratory: Airway is patent Respiratory effort is even, unlabored, Respiratory pattern is regular, symmetrical. Derm: Skin is intact, is healthy with good turgor, Skin is pink, warm \\T\\ dry. normal. Vital Signs: 13:21 BP 120 / 87; Pulse 91; Resp 17; Temp 98.2(TE); Pulse Ox 99% ; Weight 71.67 kg; Height 5 nj1 ft. 3 in. ; Pain 7/10; 13:21 Body Mass Index 27.99 (71.67 kg, 160.02 cm) nj1 13:21 Pain Scale: Adult nj1 ED Course: 12:50 Patient arrived in ED. mr 12:55 Tammi Mccormack [facility]C [facility]. kb 12:55 Yan Avalos MD is Attending Physician. kb 13:26 Triage completed. nj1 13:26 Arm band placed on right wrist. nj1 13:37 Foot Left 3 View XRAY In Process Unspecified. EDMS 14:31 Trini Waite, RN is Primary Nurse. ss 14:32 Patient has correct armband on for positive identification. ss 14:32 No provider procedures requiring assistance completed. Patient did not have IV access ss during this emergency room visit. Administered Medications: 13:55 Drug: HYDROcodone-acetaminophen PO 5 mg-325 mg 1 tabs Route: PO; nj1 14:33 Follow up: Response: No adverse reaction ss Medication: 14:32 VIS not applicable for this client. ss Outcome: 14:24 Discharge ordered by . kb 14:32 Discharged to home ambulatory, with family. ss 14:32 Condition: good 14:32 Discharge instructions given to patient, Instructed on discharge instructions, follow up and referral plans. Demonstrated understanding of instructions, follow-up care, Prescriptions given X 1. 14:33 Patient left the ED. ss Signatures: Dispatcher [employer] EDMS Tammi Mccormack, MERY-Demarcus IT ACCOUNT MANAGER-Olivia iLlibeth Clark mr Trini Waite, RN RN ss Lizzette Lu RN RN nj1 Corrections: (The following items were deleted from the chart) 13:29 13:21 BP 151 / 98; Pulse 91bpm; Resp 17bpm; Pulse Ox 99%; Temp 98.2F Temporal; 71.67 nj1 kg; Height 5 ft. 3 in.; BMI: 27.9; Pain 710, Adult; nj1 14:10 13:20 General: Appears in no apparent distress. uncomfortable, Behavior is calm, nj1 cooperative, appropriate for age, nj1 14:10 13:20 Pain: Complains of pain in heel of left foot Pain currently is 7 out of 10 on a [facility] pain scale. nj1 14:10 13:20 Neuro: Level of Consciousness is awake, alert, obeys commands, Oriented to nj1 person, place, time, situation, nj 14:10 13:20 Cardiovascular: Patient's skin is warm and dry. nj1 nj1
--- NOTE | 2022-10-30 14:25 | EDPHYS ---
Physician Documentation [facility] Name: Melanie Gotti Age: 42 yrs Sex: Female : 1980 Arrival Date: 10/30/2022 Time: 12:47 Bed 11 Private MD: ED Physician Yan Avalos HPI: 10/30 17:55 This 42 yrs old Female presents to ER via Ambulatory with complaints of Foot Pain. kb 17:55 The patient presents with pain. The complaints affect the heel of left foot. Onset: The kb symptoms/episode began/occurred Onset: The symptoms/episode began/occurred 6 week(s) ago. 17:56 Context: The problem was sustained at home, resulted from an unknown cause, the patient kb can fully bear weight, the patient is able to ambulate. Modifying factors: The symptoms are alleviated by nothing, the symptoms are aggravated by weight bearing. Associated signs and symptoms: The patient has no apparent associated signs or symptoms. Severity of symptoms: At their worst the symptoms were moderate, in the emergency department the symptoms are unchanged. The patient has not experienced similar symptoms in the past. The patient has not recently seen a physician. Pt reports burning pain to heel for 6 weeks. States she was seen at [facility] ER and diagnosed with plantar fasciitis. Followed up with PCP who agreed. Pt states she does not think it is plantar fasciitis because it is just in her heel. wants an x-ray to rule out heel spur. Historical: - Allergies: 13:26 NKDA; nj1 - PMHx: 13:26 Anxiety; depressive disorder; nj1 - PSHx: 13:26 Cholecystectomy; nj1 - Immunization history:: Client reports receiving the 2nd dose of the Covid vaccine. - Social history:: Smoking status: Reported history of juuling and/or vaping. ROS: 17:54 Constitutional: Negative for fever, chills, and weight loss. kb 17:54 MS/extremity: Positive for pain, of the heel of left foot. 17:54 All other systems are negative. Exam: 17:54 Constitutional: This is a well developed, well nourished patient who is awake, alert, kb and in no acute distress. Head/Face: Normocephalic, atraumatic. ENT: Moist Mucous membranes Cardiovascular: Regular rate and rhythm with a normal S1 and S2. No gallops, murmurs, or rubs. No pulse deficits. Respiratory: Respirations even and unlabored. No increased work of breathing. Talking in full sentences Abdomen/GI: Soft, non-tender. No distention Skin: Warm, dry with normal turgor. Normal color. MS/ Extremity: Pulses equal, no cyanosis. Neurovascular intact. Full, normal range of motion. Neuro: Awake and alert, GCS 15, oriented to person, place, time, and situation. Moves all extremities. Normal gait. Vital Signs: 13:21 BP 120 / 87; Pulse 91; Resp 17; Temp 98.2(TE); Pulse Ox 99% ; Weight 71.67 kg; Height 5 nj1 ft. 3 in. ; Pain 7/10; 13:21 Body Mass Index 27.99 (71.67 kg, 160.02 cm) nj1 13:21 Pain Scale: Adult nj1 MDM: 13:16 Patient medically screened. kb 17:55 Differential diagnosis: closed fracture, contusion, tendonitis. Data reviewed: vital kb signs, nurses notes. Counseling: I had a detailed discussion with the patient and/or guardian regarding: the historical points, exam findings, and any diagnostic results supporting the discharge/admit diagnosis, radiology results, the need for outpatient follow up, a orthopedic surgeon, to return to the emergency department if symptoms worsen or persist or if there are any questions or concerns that arise at home. 10/30 13:25 Order name: Foot Left 3 View XRAY; Complete Time: 14:02 kb Administered Medications: 13:55 Drug: HYDROcodone-acetaminophen PO 5 mg-325 mg 1 tabs Route: PO; nj 14:33 Follow up: Response: No adverse reaction ss Disposition Summary: 10/30/22 14:24 Discharge Ordered Location: Home kb Condition: Stable kb Diagnosis - Pain in left foot kb Followup: kb - With: Emergency Department - When: As needed - Reason: Worsening of condition Followup: kb - With: Private Physician - When: 2 - 3 days - Reason: Recheck today's complaints, Continuance of care, Re-evaluation by your physician Discharge Instructions: - Discharge Summary Sheet kb - Musculoskeletal Pain kb - Foot Pain kb Forms: - Medication Reconciliation Form kb - Thank You Letter kb - Antibiotic Education kb - Prescription Opioid Use kb - Patient Portal Instructions kb - Leadership Thank You Letter kb Prescriptions: - Diclofenac Sodium 75 mg Oral tablet,delayed release (DR/EC) - take 1 tablet by ORAL route 2 times per day As needed; 30 tablet; Refills: 0, kb Product Selection Permitted Signatures: Dispatcher [employer] Tammi Giles, ARASHC MERY-Lizzette Sotelo RN RN nj1 Trini Waite RN ss Corrections: (The following items were deleted from the chart) 17:58 17:55 Onset: The symptoms/episode began/occurred kb kb
[2022-10-30 14:38] VITALS: BP 120/87; TEMP 98.2; O2SAT 99
== END 2022-10-30 14:33 | disposition home or self-care (01) ==
LOC: ER 12:47
DX: M79.672 Pain in left foot (principal)
CPT/HCPCS: 99283

== ENCOUNTER 2023-11-18 09:16 | Emergency (ER) | payer OTHER ==
--- OUTSIDE RECORDS SUMMARY | 2023-11-18 09:22 | XMS REPORT | Continuity of Care Document ---
Author Name Unknown Address [address] [place] [address] [facility] thconnect Address [address] [place] [address] Care Team Providers Care [employer]itor Name Role Phone Yamileth Rowe MD Primary Care Physician [phone] Mansoor Jorge Attending Clinician [phone] Unknown, Attending Attending Clinician Unavailab MANSOOR Chavarria Attending Clinician Unavailable Yamileth Rowe MD Attending Clinician [phone] Cresencio Kapadia PA-C Attending Clinician [phone] CRESENCIO KAPADIA Attending Clinician Unavailable ROSEMARY SHEIKH Attending Clinician Unavailable YAMILETH ROWE Attending Clinician Unavailable KENNA ALMARAZ Attending Clinician UnavailKENNA Cifuentes Attending Clinician UnavailRosemary Calderon Attending Clinician [phone] CHACHO MINOR Attending Clinician Unavailable Chacho Beatty Attending Clinician [phone] ASHLEY WRIGHT Attending Clinician Unavailable Ashley Wright MD Attending Clinician [phone] KG HEALY Attending Clinician Unavailable Kg Nguyen Attending Clinician [phone] Lab, Ang - Db Attending Clinician Unavailable Raghavendra GARDNER Attending Clinician Unavailable Raghavendra Lockhartge Attending Clinician ASHLEY GIL Attending Clinician Unavailab Ashley Damon DO Attending Clinician Farhat Coleman DO Attending Clinician [phone] FARHAT COLEMAN Attending Clinician Unavailable YAMILETH ROWE Admitting Clinician Unavailable ASHLEY GIL Admitting Clinician Unavailab FARHAT Guzmán Admitting Clinician Unavailable Payers Payer Name Policy Type Policy Number Effective Date Expirati on Date Source Problems Condition Name Condition Details Condition Category Status Onset Date Resolution Date Last Treatment Date Treating Clinician Comments Source Need for vaccinatio n Need for vaccinatio n Disease Active 05-08 00:00: 00 [facility] Injury of left ankle, initial encounter Injury of left ankle, initial encounter Disease Active 05-08 00:00: 00 [facility] Allergic conjunctiv itis of left eye Allergic conjunctiv itis of left eye Disease Active 05 00:00: 00 [facility] Encounter for initial prescripti on of vaginal ring hormonal contracept lupe Encounter for initial prescripti on of vaginal ring hormonal contracept lupe Disease Active 04-28 00:00: 00 [facility] Decreased libido Decreased libido Disease Active 04-28 00:00: 00 [facility] Well woman exam Well woman exam Disease Active 2014-03 00:00: 00 [facility] Anemia of mother in , condition Anemia of mother in , condition Disease Resolve d 2014-03 00:00: 00 2016-02-25 00:00:00 2016-02-25 11:16:48 [facility] Spontaneou s vaginal delivery Spontaneou s vaginal delivery Disease Resolve d 2014-03 0-20 00:00: 00 2015-02-24 00:00:00 2021-10-03 00:38:09 [facility] Yeast infection of the vagina Yeast infection of the vagina Disease Resolve d 7-31 00:00: 00 2015-02-24 00:00:00 2015-02-24 12:46:58 [facility] Supervisio n of high-risk with history of Supervisio n of high-risk with history of Disease Resolve d 07-08 00:00: 00 2015-02-24 00:00:00 2015-02-24 12:47:13 [facility] Family history of Downs syndrome Family history of Downs syndrome Disease Resolve d 07-08 00:00: 00 2015-02-24 00:00:00 2015-02-24 12:47:01 [facility] Prior with demise, antepartum Prior with demise, antepartum Disease Resolve d 07-08 00:00: 00 2015-02-24 00:00:00 2021-10-03 00:35:41 [facility] Sciatic leg pain Sciatic leg pain Disease Resolve d 07-08 00:00: 00 2015-02-24 00:00:00 2015-02-24 12:47:08 [facility] History of delivery, currently History of delivery, currently Disease Resolve d 07-08 00:00: 00 2015-02-24 00:00:00 2015-02-24 12:47:43 [facility] induction of labor induction of labor Disease Resolve d 2014-0319 00:00: 00 2015-01-06 00:00:00 2015-01-06 15:12:40 [facility] Allergies, Adverse Reactions, Alerts Allergy Name Allergy Type Status Severity Reaction(s) Onset Date Inactive Date Treating Clinician Comments Source NO KNOWN ALLERGIE S Drug Class Active [facility] Social History Social Habit Start Date Stop Date Quantity Comments Source History SDOH Alcohol Frequency [facility] History SDOH Alcohol Std Drinks [facility] History SDOH Alcohol Binge [facility] Gender identity [facility] Alcoholic beverage intake 2023-08-28 00:00:00 2023-08-28 00:00:00 Ex-drinker (finding) [facility] Alcohol intake 2023-05-24 00:00:00 2023-05-24 00:00:00 Ex-drinker (finding) [facility] History of Social function 2022-12-02 00:00:00 2022-12-02 00:00:00 [facility] Exposure to SARS-CoV-2 (event) 2022-07-10 00:00:00 2022-07-20 11:46:00 Not sure [facility] Tobacco use and exposure 2022-05-09 00:00:00 2022-05-09 00:00:00 User of smokeless tobacco [facility] Tobacco Comment 2022-05-09 00:00:00 2022-05-09 00:00:00 Vape occasional [facility] Alcohol Comment 2022-01-03 00:00:00 2022-01-03 00:00:00 socially, 2 beers a week [facility] Sex assigned at 1980 00:00:00 1980 00:00:00 [facility] Smoking Status Start Date Stop Date Source Never smoked tobacco [facility] Medications Ordered Medication Name Filled Medication Name Start Date Stop Date Current Medication? Ordering Clinician Indication Dosage Frequency Signature (SIG) Comments Components Source amoxicillin -clavulanat e (AUGMENTIN) 875-125 mg per tablet 08-27 00:00: 00 09-07 04:59 :00 Yes [id number] 1{tbl} Take 1 tablet by mouth in the morning and 1 tablet in the evening. Do all this for 10 days. [facility] ESCITALOPRA M OXALATE 20 mg tablet 08-10 00:00: 00 Yes [id number] 20mg TAKE 1 TABLET BY MOUTH EVERY MORNING [facility] ESCITALOPRA M OXALATE 20 mg tablet 07-09 00:00: 00 08-10 00:00 :00 No [id number] 20mg TAKE 1 TABLET BY MOUTH EVERY MORNING [facility] ESCITALOPRA M OXALATE 20 mg tablet 06-04 00:00: 00 07-09 00:00 :00 No [id number] 20mg TAKE 1 TABLET BY MOUTH EVERY MORNING [facility] azelastine 137 mcg (0.1 %) nasal spray 05-23 00:00: 00 Yes [id number] 1{spray } Use 1 Vernon in each nostril in the morning and 1 Vernon in the evening. Use in each nostril as directed [facility] amoxicillin -clavulanat e (AUGMENTIN) 875-125 mg per tablet 05-23 00:00: 00 06-03 04:59 :00 No [id number] 1{tbl} Take 1 tablet by mouth in the morning and 1 tablet in the evening. Do all this for 10 days. [facility] meloxicam 15 mg tablet 05-08 00:00: 00 Yes [id number] 15mg Take 1 tablet by mouth in the morning. [facility] ESCITALOPRA M OXALATE 20 mg tablet 05-05 00:00: 00 06-04 00:00 :00 No [id number] 20mg TAKE 1 TABLET BY MOUTH EVERY MORNING [facility] ketorolac (TORADOL) injection 30 mg 04-08 17:15: 00 04-08 16:27 :00 No [id number] 30mg [facility] methocarbam oL (ROBAXIN-75 0) 750 mg tablet 04-08 00:00: 00 04-19 05:59 :00 No [id number] 750mg Take 1 tablet by mouth 4 (four) times daily for 10 days. [facility] escitalopra m oxalate 20 mg tablet 03-31 00:00: 00 05-05 00:00 :00 No [id number] 20mg TAKE ONE TABLET BY MOUTH EVERY MORNING [facility] ketorolac (TORADOL) injection 30 mg 2022-03 16:45: 00 02-25 16:00 :00 No [id number] 30mg [facility] proMETHazin e 25 mg tablet 2022-03 00:00: 00 Yes [id number] 25mg Take 1 tablet by mouth every 4 (four) hours as needed for Nausea and Vomiting (N/V). [facility] escitalopra m oxalate 20 mg tablet 2022-03 00:00: 00 03-31 00:00 :00 No [id number] 20mg Take 1 tablet by mouth in the morning. [facility] ondansetron 4 mg disintegrat ing tablet 2022-03 00:00: 00 Yes [id number] 4mg Take 1 tablet by mouth every 8 (eight) hours as needed for Nausea and Vomiting (N/V). [facility] clindamycin 300 mg capsule 2022-03 00:00: 00 01-27 00:00 :00 No [id number] 05 300mg Take 1 capsule by mouth 4 (four) times daily. [facility] amoxicillin 500 mg tablet 12-02 00:00: 00 01-27 00:00 :00 No [id number] 500mg Take 1 tablet by mouth in the morning and 1 tablet in the evening. [facility] azelastine 137 mcg (0.1 %) nasal spray 11-03 00:00: 00 05-23 00:00 :00 No [id number] 1{spray } Use 1 Vernon in each nostril in the morning and 1 Vernon in the evening. Use in each nostril as directed [facility] fluticasone propionate 50 mcg/actuati on nasal spray 11-03 00:00: 00 01-27 00:00 :00 No [id number] 2{spray } Use 2 Sprays in each nostril in the morning. [facility] predniSONE 20 mg tablet 11-03 00:00: 00 11-09 04:59 :00 No [id number] 20mg Take 1 tablet by mouth in the morning and 1 tablet in the evening. Do all this for 5 days. [facility] loratadine 10 mg tablet 10-09 10:15: 48 Yes 10mg Take 1 tablet by mouth in the morning. [facility] mupirocin 2 % ointment 10-09 00:00: 00 Yes [id number] Apply to area(s) 3 (three) times daily. [facility] Azelastine 205.5 mcg (0.15 %) nasal spray 07-26 00:00: 00 Yes [id number] 1{spray } Use 1 Vernon in each nostril in the morning. [facility] fluticasone propionate 50 mcg/actuati on nasal spray 07-26 00:00: 00 Yes [id number] 1{spray } Use 1 Vernon in each nostril in the morning. [facility] dexamethaso ne sod phos PF injection 10 mg 07-20 18:00: 00 07-20 17:18 :00 No [id number] 10mg [facility] cephALEXin 500 mg capsule -19 00:00: 00 07-12 04:59 :00 No [id number] 500mg Take 1 capsule by mouth 4 (four) times daily for 5 days. [facility] olopatadine 0.7 % Drop 06-22 00:00: 00 Yes [id number] 4102 1[drp] Place 1 Drop in each eye in the morning. [facility] hydrOXYzine 25 mg capsule 06-22 00:00: 00 Yes [id number] 25mg Take 1 capsule by mouth 3 (three) times daily as needed for Itching. [facility] predniSONE 20 mg tablet 3-30 00:00: 00 06-22 04:59 :00 No [id number] 40mg Take 2 tablets by mouth in the morning for 5 days. [facility] dexamethaso ne (DECADRON) injection 10 mg 2-20 15:30: 00 05-09 15:34 :00 No [id number] 10mg [facility] methylPREDN ISolone (MEDROL, RAVINDRA,) 4 mg tablets 2-20 00:00: 00 07-08 00:00 :00 No [id number] follow package directions [facility] azelastine- fluticasone (DYMISTA) 137-50 mcg/spray nasal spray 04-07 00:00: 00 Yes [id number] 1{spray } Use 1 Vernon in each nostril in the morning and 1 Vernon in the evening. [facility] escitalopra m oxalate 10 mg tablet 04-07 00:00: 00 01-27 00:00 :00 No [id number] 10mg Take 1 tablet by mouth in the morning. [facility] methylPREDN ISolone (MEDROL, RAVINDRA,) 4 mg tablets 04-07 00:00: 00 07-08 00:00 :00 No [id number] Take by mouth SEE-INSTRU CTIONS. follow package directions [facility] dexamethaso ne (DECADRON) injection 10 mg 04-06 16:45: 00 04-06 15:37 :00 No [id number] 10mg [facility] methylPREDN ISolone (MEDROL, RAVINDRA,) 4 mg tablets 04-06 00:00: 00 04-07 00:00 :00 No [id number] Take by mouth SEE-INSTRU CTIONS. follow package directions [facility] ibuprofen 600 mg tablet 2021-03 00:00: 00 04-07 00:00 :00 No [id number] 05 600mg Take 1 tablet by mouth every 6 (six) hours as needed for Pain (scale 4-6). [facility] amoxicillin 500 mg tablet 2021-03 00:00: 00 03-08 05:59 :00 No [id number] 05 500mg Take 1 tablet by mouth in the morning and 1 tablet in the evening. Do all this for 10 days. [facility] dexamethaso ne sod phos PF injection 10 mg 2021-03 15:15: 00 01-03 14:21 :00 No [id number] 10mg [facility] dexAMETHaso ne sodium phos (PF) injection syringe 10 mg 2021-03 15:00: 00 01-03 14:20 :23 No [id number] 10mg [facility] loratadine 10 mg tablet 2021-03 09:16: 59 Yes 10mg Take 10 mg by mouth in the morning. [facility] copper 380 square mm IUD 2021-03 08:36: 44 Yes 1{IUD} 1 Intra Uterine Device by Intrauteri ne route once now. [facility] hydrOXYzine 25 mg capsule 2021-03 00:00: 00 06-22 00:00 :00 No [id number] 25mg Take 1 capsule by mouth 3 (three) times daily as needed for Itching. [facility] escitalopra m oxalate 10 mg tablet 2021-03 00:00: 00 04-07 00:00 :00 No [id number] 10mg Take 1 tablet by mouth in the morning. [facility] azelastine- fluticasone (DYMISTA) 137-50 mcg/spray nasal spray 2021-03 00:00: 00 04-07 00:00 :00 No [id number] 1{spray } Use 1 Vernon in each nostril in the morning and 1 Vernon in the evening. [facility] benzonatate 200 mg capsule 20 00:00: 00 01-03 00:00 :00 No [id number] 200mg Take 1 capsule by mouth 3 (three) times daily as needed for Cough for up to 20 doses. [facility] NUVARING 0.12-0.015 mg/24 hr vaginal insert 07-19 00:00: 00 01-03 00:00 :00 No [id number] 1{each} Insert 1 Each into vagina once every month. Insert vaginally and leave in place for 3 consecutiv e weeks, then remove for 1 week. [facility] hydrOXYzine 25 mg capsule 04-06 00:00: 00 01-03 00:00 :00 No [facility] escitalopra m oxalate 10 mg tablet 04-06 00:00: 00 01-03 00:00 :00 No [facility] norgestimat e-ethinyl estradiol 0.18/0.215/ 0.25 mg-35 mcg (28) tablet 2016-03 00:00: 00 01-03 00:00 :00 No 1{tbl} Take 1 tablet by mouth daily. [facility] ibuprofen (MOTRIN) 600 mg tablet 2014-03 00:00: 00 02-25 00:00 :00 No 600mg Take 1 Tab by mouth every 6 (six) hours as needed for Pain (scale 4-6). Take with food or milk. [facility] Immunizations Ordered Immunization Name Filled Immunization Name Date Status Comments Source SARS-COV-2 COVID-19 PFIZER VACCINE 2020-08-25 00:00:00 Completed [facility] SARS-COV-2 COVID-19 PFIZER VACCINE 2020-08-25 00:00:00 Completed [facility] SARS-COV-2 COVID-19 PFIZER VACCINE 2020-08-25 00:00:00 Completed [facility] SARS-COV-2 COVID-19 PFIZER VACCINE 2020-08-25 00:00:00 Completed [facility] SARS-COV-2 COVID-19 PFIZER VACCINE 2020-08-25 00:00:00 Completed [facility] SARS-COV-2 COVID-19 PFIZER VACCINE 2020-08-25 00:00:00 Completed [facility] SARS-COV-2 COVID-19 PFIZER VACCINE 2020-08-25 00:00:00 Completed [facility] SARS-COV-2 COVID-19 PFIZER VACCINE 2020-08-25 00:00:00 Completed [facility] SARS-COV-2 COVID-19 PFIZER VACCINE 2020-08-25 00:00:00 Completed [facility] SARS-COV-2 COVID-19 PFIZER VACCINE 2020-08-25 00:00:00 Completed [facility] SARS-COV-2 COVID-19 PFIZER VACCINE 2020-08-25 00:00:00 Completed [facility] SARS-COV-2 COVID-19 PFIZER VACCINE 2020-08-25 00:00:00 Completed [facility] SARS-COV-2 COVID-19 PFIZER VACCINE 2020-08-25 00:00:00 Completed [facility] SARS-COV-2 COVID-19 PFIZER VACCINE 2020-08-25 00:00:00 Completed [facility] SARS-COV-2 COVID-19 PFIZER VACCINE 2020-08-25 00:00:00 Completed [facility] SARS-COV-2 COVID-19 PFIZER VACCINE 2020-08-25 00:00:00 Completed [facility] SARS-COV-2 COVID-19 PFIZER VACCINE 2020-08-25 00:00:00 Completed [facility] SARS-COV-2 COVID-19 PFIZER VACCINE 2020-08-25 00:00:00 Completed [facility] SARS-COV-2 COVID-19 PFIZER VACCINE 2020-08-25 00:00:00 Completed [facility] SARS-COV-2 COVID-19 PFIZER VACCINE 2020-08-25 00:00:00 Completed [facility] SARS-COV-2 COVID-19 PFIZER VACCINE 2020-08-25 00:00:00 Completed [facility] SARS-COV-2 COVID-19 PFIZER VACCINE 2020-08-25 00:00:00 Completed [facility] SARS-COV-2 COVID-19 PFIZER VACCINE 2020-08-25 00:00:00 Completed [facility] SARS-COV-2 COVID-19 PFIZER VACCINE 2020-08-25 00:00:00 Completed [facility] SARS-COV-2 COVID-19 PFIZER VACCINE 2020-08-25 00:00:00 Completed [facility] SARS-COV-2 COVID-19 PFIZER VACCINE 2020-08-25 00:00:00 Completed [facility] SARS-COV-2 COVID-19 PFIZER VACCINE 2020-08-04 00:00:00 Completed [facility] SARS-COV-2 COVID-19 PFIZER VACCINE 2020-08-04 00:00:00 Completed [facility] SARS-COV-2 COVID-19 PFIZER VACCINE 2020-08-04 00:00:00 Completed [facility] SARS-COV-2 COVID-19 PFIZER VACCINE 2020-08-04 00:00:00 Completed [facility] SARS-COV-2 COVID-19 PFIZER VACCINE 2020-08-04 00:00:00 Completed [facility] SARS-COV-2 COVID-19 PFIZER VACCINE 2020-08-04 00:00:00 Completed [facility] SARS-COV-2 COVID-19 PFIZER VACCINE 2020-08-04 00:00:00 Completed [facility] SARS-COV-2 COVID-19 PFIZER VACCINE 2020-08-04 00:00:00 Completed [facility] SARS-COV-2 COVID-19 PFIZER VACCINE 2020-08-04 00:00:00 Completed [facility] SARS-COV-2 COVID-19 PFIZER VACCINE 2020-08-04 00:00:00 Completed [facility] SARS-COV-2 COVID-19 PFIZER VACCINE 2020-08-04 00:00:00 Completed [facility] SARS-COV-2 COVID-19 PFIZER VACCINE 2020-08-04 00:00:00 Completed [facility] SARS-COV-2 COVID-19 PFIZER VACCINE 2020-08-04 00:00:00 Completed [facility] SARS-COV-2 COVID-19 PFIZER VACCINE 2020-08-04 00:00:00 Completed [facility] SARS-COV-2 COVID-19 PFIZER VACCINE 2020-08-04 00:00:00 Completed [facility] SARS-COV-2 COVID-19 PFIZER VACCINE 2020-08-04 00:00:00 Completed [facility] SARS-COV-2 COVID-19 PFIZER VACCINE 2020-08-04 00:00:00 Completed [facility] SARS-COV-2 COVID-19 PFIZER VACCINE 2020-08-04 00:00:00 Completed [facility] SARS-COV-2 COVID-19 PFIZER VACCINE 2020-08-04 00:00:00 Completed [facility] SARS-COV-2 COVID-19 PFIZER VACCINE 2020-08-04 00:00:00 Completed [facility] SARS-COV-2 COVID-19 PFIZER VACCINE 2020-08-04 00:00:00 Completed [facility] SARS-COV-2 COVID-19 PFIZER VACCINE 2020-08-04 00:00:00 Completed [facility] SARS-COV-2 COVID-19 PFIZER VACCINE 2020-08-04 00:00:00 Completed [facility] SARS-COV-2 COVID-19 PFIZER VACCINE 2020-08-04 00:00:00 Completed [facility] SARS-COV-2 COVID-19 PFIZER VACCINE 2020-08-04 00:00:00 Completed [facility] SARS-COV-2 COVID-19 PFIZER VACCINE 2020-08-04 00:00:00 Completed [facility] Influenza Virus Vaccine Quad IM Multi-dose 6+ MO 2017-02-14 00:00:00 Completed [facility] Influenza Virus Vaccine Quad IM Multi-dose 6+ MO 2017-02-14 00:00:00 Completed [facility] Influenza Virus Vaccine Quad IM Multi-dose 6+ MO 2017-02-14 00:00:00 Completed [facility] Influenza Virus Vaccine Quad IM Multi-dose 6+ MO 2017-02-14 00:00:00 Completed [facility] Influenza Virus Vaccine Quad IM Multi-dose 6+ MO 2017-02-14 00:00:00 Completed [facility] Influenza Virus Vaccine Quad IM Multi-dose 6+ MO 2017-02-14 00:00:00 Completed [facility] Influenza Virus Vaccine Quad IM Multi-dose 6+ MO 2017-02-14 00:00:00 Completed [facility] Influenza Virus Vaccine Quad IM Multi-dose 6+ MO 2017-02-14 00:00:00 Completed [facility] Influenza Virus Vaccine Quad IM Multi-dose 6+ MO 2017-02-14 00:00:00 Completed [facility] Influenza Virus Vaccine Quad IM Multi-dose 6+ MO 2017-02-14 00:00:00 Completed [facility] Influenza Virus Vaccine Quad IM Multi-dose 6+ MO 2017-02-14 00:00:00 Completed [facility] Influenza Virus Vaccine Quad IM Multi-dose 6+ MO 2017-02-14 00:00:00 Completed [facility] Influenza Virus Vaccine Quad IM Multi-dose 6+ MO 2017-02-14 00:00:00 Completed [facility] Influenza Virus Vaccine Quad IM Multi-dose 6+ MO 2017-02-14 00:00:00 Completed [facility] Influenza Virus Vaccine Quad IM Multi-dose 6+ MO 2017-02-14 00:00:00 Completed [facility] Influenza Virus Vaccine Quad IM Multi-dose 6+ MO 2017-02-14 00:00:00 Completed [facility] Influenza Virus Vaccine Quad IM Multi-dose 6+ MO 2017-02-14 00:00:00 Completed [facility] Influenza Virus Vaccine Quad IM Multi-dose 6+ MO 2017-02-14 00:00:00 Completed [facility] Influenza Virus Vaccine Quad IM Multi-dose 6+ MO 2017-02-14 00:00:00 Completed [facility] Influenza Virus Vaccine Quad IM Multi-dose 6+ MO 2017-02-14 00:00:00 Completed [facility] Influenza Virus Vaccine Quad IM Multi-dose 6+ MO 2017-02-14 00:00:00 Completed [facility] Influenza Virus Vaccine Quad IM Multi-dose 6+ MO 2017-02-14 00:00:00 Completed [facility] Influenza Virus Vaccine Quad IM Multi-dose 6+ MO 2017-02-14 00:00:00 Completed [facility] Influenza Virus Vaccine Quad IM Multi-dose 6+ MO 2017-02-14 00:00:00 Completed [facility] Influenza Virus Vaccine Quad IM Multi-dose 6+ MO 2017-02-14 00:00:00 Completed [facility] Influenza Virus Vaccine Quad IM Multi-dose 6+ MO 2017-02-14 00:00:00 Completed [facility] Influenza Virus Vaccine Quad IM Multi-dose 6+ MO 2017-02-14 00:00:00 Completed [facility] Influenza Virus Vaccine Quad IM Multi-dose 6+ MO 2017-02-14 00:00:00 Completed [facility] Influenza Virus Vaccine Quad IM Multi-dose 6+ MO 2017-02-14 00:00:00 Completed [facility] Influenza Virus Vaccine Quad IM 3+ YRS 2014-12-08 00:00:00 Completed [facility] Influenza Virus Vaccine Quad IM 3+ YRS 2014-12-08 00:00:00 Completed [facility] Influenza Virus Vaccine Quad IM 3+ YRS 2014-12-08 00:00:00 Completed [facility] Influenza Virus Vaccine Quad IM 3+ YRS 2014-12-08 00:00:00 Completed [facility] Influenza Virus Vaccine Quad IM 3+ YRS 2014-12-08 00:00:00 Completed [facility] Influenza Virus Vaccine Quad IM 3+ YRS 2014-12-08 00:00:00 Completed [facility] Influenza Virus Vaccine Quad IM 3+ YRS 2014-12-08 00:00:00 Completed [facility] Influenza Virus Vaccine Quad IM 3+ YRS 2014-12-08 00:00:00 Completed [facility] Influenza Virus Vaccine Quad IM 3+ YRS 2014-12-08 00:00:00 Completed [facility] Influenza Virus Vaccine Quad IM 3+ YRS 2014-12-08 00:00:00 Completed [facility] Influenza Virus Vaccine Quad IM 3+ YRS 2014-12-08 00:00:00 Completed [facility] Influenza Virus Vaccine Quad IM 3+ YRS 2014-12-08 00:00:00 Completed [facility] Influenza Virus Vaccine Quad IM 3+ YRS 2014-12-08 00:00:00 Completed [facility] Influenza Virus Vaccine Quad IM 3+ YRS 2014-12-08 00:00:00 Completed [facility] Influenza Virus Vaccine Quad IM 3+ YRS 2014-12-08 00:00:00 Completed [facility] Influenza Virus Vaccine Quad IM 3+ YRS 2014-12-08 00:00:00 Completed [facility] Influenza Virus Vaccine Quad IM 3+ YRS 2014-12-08 00:00:00 Completed [facility] Influenza Virus Vaccine Quad IM 3+ YRS 2014-12-08 00:00:00 Completed [facility] Influenza Virus Vaccine Quad IM 3+ YRS 2014-12-08 00:00:00 Completed [facility] Influenza Virus Vaccine Quad IM 3+ YRS 2014-12-08 00:00:00 Completed [facility] Influenza Virus Vaccine Quad IM 3+ YRS 2014-12-08 00:00:00 Completed [facility] Influenza Virus Vaccine Quad IM 3+ YRS 2014-12-08 00:00:00 Completed [facility] Influenza Virus Vaccine Quad IM 3+ YRS 2014-12-08 00:00:00 Completed [facility] Influenza Virus Vaccine Quad IM 3+ YRS 2014-12-08 00:00:00 Completed [facility] Influenza Virus Vaccine Quad IM 3+ YRS 2014-12-08 00:00:00 Completed [facility] Influenza Virus Vaccine Quad IM 3+ YRS 2014-12-08 00:00:00 Completed [facility] Influenza Virus Vaccine Quad IM 3+ YRS 2014-12-08 00:00:00 Completed [facility] Influenza Virus Vaccine Quad IM 3+ YRS 2014-12-08 00:00:00 Completed [facility] Influenza Virus Vaccine Quad IM 3+ YRS 2014-12-08 00:00:00 Completed [facility] TDAP 2014-10-23 00:00:00 Completed [facility] TDAP 2014-10-23 00:00:00 Completed [facility] TDAP 2014-10-23 00:00:00 Completed [facility] TDAP 2014-10-23 00:00:00 Completed [facility] TDAP 2014-10-23 00:00:00 Completed [facility] TDAP 2014-10-23 00:00:00 Completed [facility] TDAP 2014-10-23 00:00:00 Completed [facility] TDAP 2014-10-23 00:00:00 Completed [facility] TDAP 2014-10-23 00:00:00 Completed [facility] TDAP 2014-10-23 00:00:00 Completed [facility] TDAP 2014-10-23 00:00:00 Completed [facility] TDAP 2014-10-23 00:00:00 Completed [facility] TDAP 2014-10-23 00:00:00 Completed [facility] TDAP 2014-10-23 00:00:00 Completed [facility] TDAP 2014-10-23 00:00:00 Completed [facility] TDAP 2014-10-23 00:00:00 Completed [facility] TDAP 2014-10-23 00:00:00 Completed [facility] TDAP 2014-10-23 00:00:00 Completed [facility] TDAP 2014-10-23 00:00:00 Completed [facility] TDAP 2014-10-23 00:00:00 Completed [facility] TDAP 2014-10-23 00:00:00 Completed [facility] TDAP 2014-10-23 00:00:00 Completed [facility] TDAP 2014-10-23 00:00:00 Completed [facility] TDAP 2014-10-23 00:00:00 Completed [facility] TDAP 2014-10-23 00:00:00 Completed [facility] TDAP 2014-10-23 00:00:00 Completed [facility] TDAP 2014-10-23 00:00:00 Completed [facility] TDAP 2014-10-23 00:00:00 Completed [facility] TDAP 2014-10-23 00:00:00 Completed [facility] Td 2010-07-08 00:00:00 Completed [facility] Td 2010-07-08 00:00:00 Completed [facility] Td 2010-07-08 00:00:00 Completed [facility] Td 2010-07-08 00:00:00 Completed [facility] TD, NOS 2010-07-08 00:00:00 Completed [facility] TD, NOS 2010-07-08 00:00:00 Completed [facility] Td 2010-07-08 00:00:00 Completed [facility] TD, NOS 2010-07-08 00:00:00 Completed [facility] TD, NOS 2010-07-08 00:00:00 Completed [facility] TD, NOS 2010-07-08 00:00:00 Completed [facility] TD, NOS 2010-07-08 00:00:00 Completed [facility] TD, NOS 2010-07-08 00:00:00 Completed [facility] TD, NOS 2010-07-08 00:00:00 Completed [facility] TD, NOS 2010-07-08 00:00:00 Completed [facility] TD, NOS 2010-07-08 00:00:00 Completed [facility] TD, NOS 2010-07-08 00:00:00 Completed [facility] TD, NOS 2010-07-08 00:00:00 Completed [facility] TD, NOS 2010-07-08 00:00:00 Completed [facility] TD, NOS 2010-07-08 00:00:00 Completed [facility] Td 2010-07-08 00:00:00 Completed [facility] TD, NOS 2010-07-08 00:00:00 Completed [facility] TD, NOS 2010-07-08 00:00:00 Completed [facility] TD, NOS 2010-07-08 00:00:00 Completed [facility] TD, NOS 2010-07-08 00:00:00 Completed [facility] TD, NOS 2010-07-08 00:00:00 Completed [facility] TD, NOS 2010-07-08 00:00:00 Completed [facility] TD, NOS 2010-07-08 00:00:00 Completed [facility] TD, NOS 2010-07-08 00:00:00 Completed [facility] Td 2010-07-08 00:00:00 Completed [facility] TDAP Unknown Completed [facility] Influenza Virus Vaccine Quad IM 3+ YRS Unknown Completed [facility] Influenza Virus Vaccine Quad IM Multi-dose 6+ MO Unknown Completed [facility] SARS-COV-2 COVID-19 PFIZER VACCINE Unknown Completed [facility] SARS-COV-2 COVID-19 PFIZER VACCINE Unknown Completed [facility] Influenza Virus Vaccine Quad IM, Preserv and ABX Free 6 MO-64 YRS (FLUCELVAX) Unknown Completed [facility] SARS-COV-2 COVID 19 CORNELIA SUCROSE VACCINE 12, [id number], 0.3 ML (30 MCG), IM PFIZER (KIRKPATRICK TOP) Unknown Completed [facility] TD, NOS Unknown Completed [facility] TDAP Unknown Completed [facility] Influenza Virus Vaccine Quad IM 3+ YRS Unknown Completed [facility] Influenza Virus Vaccine Quad IM Multi-dose 6+ MO Unknown Completed [facility] SARS-COV-2 COVID-19 PFIZER VACCINE Unknown Completed [facility] SARS-COV-2 COVID-19 PFIZER VACCINE Unknown Completed [facility] Influenza Virus Vaccine Quad IM, Preserv and ABX Free 6 MO-64 YRS (FLUCELVAX) Unknown Completed [facility] SARS-COV-2 COVID 19 CORNELIA SUCROSE VACCINE +, , 0.3 ML (30 MCG), IM PFIZER (KIRKPATRICK TOP) Unknown Completed [facility] TD, NOS Unknown Completed [facility] TDAP Unknown Completed [facility] Influenza Virus Vaccine Quad IM 3+ YRS Unknown Completed [facility] Influenza Virus Vaccine Quad IM Multi-dose 6+ MO Unknown Completed [facility] SARS-COV-2 COVID-19 PFIZER VACCINE Unknown Completed [facility] SARS-COV-2 COVID-19 PFIZER VACCINE Unknown Completed [facility] TD, NOS Unknown Completed [facility] TDAP Unknown Completed [facility] Influenza Virus Vaccine Quad IM 3+ YRS Unknown Completed [facility] Influenza Virus Vaccine Quad IM Multi-dose 6+ MO Unknown Completed [facility] SARS-COV-2 COVID-19 PFIZER VACCINE Unknown Completed [facility] SARS-COV-2 COVID-19 PFIZER VACCINE Unknown Completed [facility] TD, NOS Unknown Completed [facility] TDAP Unknown Completed [facility] Influenza Virus Vaccine Quad IM 3+ YRS Unknown Completed [facility] Influenza Virus Vaccine Quad IM Multi-dose 6+ MO Unknown Completed [facility] SARS-COV-2 COVID-19 PFIZER VACCINE Unknown Completed [facility] SARS-COV-2 COVID-19 PFIZER VACCINE Unknown Completed [facility] TD, NOS Unknown Completed [facility] TDAP Unknown Completed [facility] Influenza Virus Vaccine Quad IM 3+ YRS Unknown Completed [facility] Influenza Virus Vaccine Quad IM Multi-dose 6+ MO Unknown Completed [facility] SARS-COV-2 COVID-19 PFIZER VACCINE Unknown Completed [facility] SARS-COV-2 COVID-19 PFIZER VACCINE Unknown Completed [facility] TD, NOS Unknown Completed [facility] TDAP Unknown Completed [facility] Influenza Virus Vaccine Quad IM 3+ YRS Unknown Completed [facility] Influenza Virus Vaccine Quad IM Multi-dose 6+ MO Unknown Completed [facility] SARS-COV-2 COVID-19 PFIZER VACCINE Unknown Completed [facility] SARS-COV-2 COVID-19 PFIZER VACCINE Unknown Completed [facility] TD, NOS Unknown Completed [facility] TDAP Unknown Completed [facility] Influenza Virus Vaccine Quad IM 3+ YRS Unknown Completed [facility] Influenza Virus Vaccine Quad IM Multi-dose 6+ MO Unknown Completed [facility] SARS-COV-2 COVID-19 PFIZER VACCINE Unknown Completed [facility] SARS-COV-2 COVID-19 PFIZER VACCINE Unknown Completed [facility] TD, NOS Unknown Completed [facility] TDAP Unknown Completed [facility] Influenza Virus Vaccine Quad IM 3+ YRS Unknown Completed [facility] Influenza Virus Vaccine Quad IM Multi-dose 6+ MO Unknown Completed [facility] SARS-COV-2 COVID-19 PFIZER VACCINE Unknown Completed [facility] SARS-COV-2 COVID-19 PFIZER VACCINE Unknown Completed [facility] TD, NOS Unknown Completed [facility] TDAP Unknown Completed [facility] Influenza Virus Vaccine Quad IM 3+ YRS Unknown Completed [facility] Influenza Virus Vaccine Quad IM Multi-dose 6+ MO Unknown Completed [facility] SARS-COV-2 COVID-19 PFIZER VACCINE Unknown Completed [facility] SARS-COV-2 COVID-19 PFIZER VACCINE Unknown Completed [facility] TD, NOS Unknown Completed [facility] TDAP Unknown Completed [facility] Influenza Virus Vaccine Quad IM 3+ YRS Unknown Completed [facility] Influenza Virus Vaccine Quad IM Multi-dose 6+ MO Unknown Completed [facility] SARS-COV-2 COVID-19 PFIZER VACCINE Unknown Completed [facility] SARS-COV-2 COVID-19 PFIZER VACCINE Unknown Completed [facility] TD, NOS Unknown Completed [facility] TDAP Unknown Completed [facility] Influenza Virus Vaccine Quad IM 3+ YRS Unknown Completed [facility] Influenza Virus Vaccine Quad IM Multi-dose 6+ MO Unknown Completed [facility] SARS-COV-2 COVID-19 PFIZER VACCINE Unknown Completed [facility] SARS-COV-2 COVID-19 PFIZER VACCINE Unknown Completed [facility] TD, NOS Unknown Completed [facility] TDAP Unknown Completed [facility] Influenza Virus Vaccine Quad IM 3+ YRS Unknown Completed [facility] Influenza Virus Vaccine Quad IM Multi-dose 6+ MO Unknown Completed [facility] SARS-COV-2 COVID-19 PFIZER VACCINE Unknown Completed [facility] SARS-COV-2 COVID-19 PFIZER VACCINE Unknown Completed [facility] TD, NOS Unknown Completed [facility] TDAP Unknown Completed [facility] Influenza Virus Vaccine Quad IM 3+ YRS Unknown Completed [facility] Influenza Virus Vaccine Quad IM Multi-dose 6+ MO Unknown Completed [facility] SARS-COV-2 COVID-19 PFIZER VACCINE Unknown Completed [facility] SARS-COV-2 COVID-19 PFIZER VACCINE Unknown Completed [facility] TD, NOS Unknown Completed [facility] TDAP Unknown Completed [facility] Influenza Virus Vaccine Quad IM 3+ YRS Unknown Completed [facility] Influenza Virus Vaccine Quad IM Multi-dose 6+ MO Unknown Completed [facility] SARS-COV-2 COVID-19 PFIZER VACCINE Unknown Completed [facility] SARS-COV-2 COVID-19 PFIZER VACCINE Unknown Completed [facility] TD, NOS Unknown Completed [facility] TDAP Unknown Completed [facility] Influenza Virus Vaccine Quad IM 3+ YRS Unknown Completed [facility] Influenza Virus Vaccine Quad IM Multi-dose 6+ MO Unknown Completed [facility] SARS-COV-2 COVID-19 PFIZER VACCINE Unknown Completed [facility] SARS-COV-2 COVID-19 PFIZER VACCINE Unknown Completed [facility] TD, NOS Unknown Completed [facility] TDAP Unknown Completed [facility] Influenza Virus Vaccine Quad IM 3+ YRS Unknown Completed [facility] Influenza Virus Vaccine Quad IM Multi-dose 6+ MO Unknown Completed [facility] SARS-COV-2 COVID-19 PFIZER VACCINE Unknown Completed [facility] SARS-COV-2 COVID-19 PFIZER VACCINE Unknown Completed [facility] TD, NOS Unknown Completed [facility] TDAP Unknown Completed [facility] Influenza Virus Vaccine Quad IM 3+ YRS Unknown Completed [facility] Influenza Virus Vaccine Quad IM Multi-dose 6+ MO Unknown Completed [facility] SARS-COV-2 COVID-19 PFIZER VACCINE Unknown Completed [facility] SARS-COV-2 COVID-19 PFIZER VACCINE Unknown Completed [facility] Influenza Virus Vaccine Quad IM, Preserv and ABX Free 6 MO-64 YRS (FLUCELVAX) Unknown Completed [facility] SARS-COV-2 COVID 19 CORNELIA SUCROSE VACCINE 12+, [id number], 0.3 ML (30 MCG), IM PFIZER (KIRKPATRICK TOP) Unknown Completed [facility] TD, NOS Unknown Completed [facility] TDAP Unknown Completed [facility] Influenza Virus Vaccine Quad IM 3+ YRS Unknown Completed [facility] Influenza Virus Vaccine Quad IM Multi-dose 6+ MO Unknown Completed [facility] SARS-COV-2 COVID-19 PFIZER VACCINE Unknown Completed [facility] SARS-COV-2 COVID-19 PFIZER VACCINE Unknown Completed [facility] Influenza Virus Vaccine Quad IM, Preserv and ABX Free 6 MO-64 YRS (FLUCELVAX) Unknown Completed [facility] SARS-COV-2 COVID 19 CORNELIA SUCROSE VACCINE 12+, [id number], 0.3 ML (30 MCG), IM PFIZER (KIRKPATRICK TOP) Unknown Completed [facility] TD, NOS Unknown Completed [facility] TDAP Unknown Completed [facility] Influenza Virus Vaccine Quad IM 3+ YRS Unknown Completed [facility] Influenza Virus Vaccine Quad IM Multi-dose 6+ MO Unknown Completed [facility] SARS-COV-2 COVID-19 PFIZER VACCINE Unknown Completed [facility] SARS-COV-2 COVID-19 PFIZER VACCINE Unknown Completed [facility] Influenza Virus Vaccine Quad IM, Preserv and ABX Free 6 MO-64 YRS (FLUCELVAX) Unknown Completed [facility] SARS-COV-2 COVID 19 CORNELIA SUCROSE VACCINE 12+, , 0.3 ML (30 MCG), IM PFIZER (KIRKPATRICK TOP) Unknown Completed [facility] TD, NOS Unknown Completed [facility] TDAP Unknown Completed [facility] Influenza Virus Vaccine Quad IM 3+ YRS Unknown Completed [facility] Influenza Virus Vaccine Quad IM Multi-dose 6+ MO Unknown Completed [facility] SARS-COV-2 COVID-19 PFIZER VACCINE Unknown Completed [facility] SARS-COV-2 COVID-19 PFIZER VACCINE Unknown Completed [facility] Influenza Virus Vaccine Quad IM, Preserv and ABX Free 6 MO-64 YRS (FLUCELVAX) Unknown Completed [facility] SARS-COV-2 COVID 19 CORNELIA SUCROSE VACCINE 12+, , 0.3 ML (30 MCG), IM PFIZER (KIRKPATRICK TOP) Unknown Completed [facility] TD, NOS Unknown Completed [facility] TDAP Unknown Completed [facility] Influenza Virus Vaccine Quad IM 3+ YRS Unknown Completed [facility] Influenza Virus Vaccine Quad IM Multi-dose 6+ MO Unknown Completed [facility] SARS-COV-2 COVID-19 PFIZER VACCINE Unknown Completed [facility] SARS-COV-2 COVID-19 PFIZER VACCINE Unknown Completed [facility] Influenza Virus Vaccine Quad IM, Preserv and ABX Free 6 MO-64 YRS (FLUCELVAX) Unknown Completed [facility] SARS-COV-2 COVID 19 CORNELIA SUCROSE VACCINE 12+, [id number], 0.3 ML (30 MCG), IM PFIZER (KIRKPATRICK TOP) Unknown Completed [facility] TD, NOS Unknown Completed [facility] TDAP Unknown Completed [facility] Influenza Virus Vaccine Quad IM 3+ YRS Unknown Completed [facility] Influenza Virus Vaccine Quad IM Multi-dose 6+ MO Unknown Completed [facility] SARS-COV-2 COVID-19 PFIZER VACCINE Unknown Completed [facility] SARS-COV-2 COVID-19 PFIZER VACCINE Unknown Completed [facility] Influenza Virus Vaccine Quad IM, Preserv and ABX Free 6 MO-64 YRS (FLUCELVAX) Unknown Completed [facility] SARS-COV-2 COVID 19 CORNELIA SUCROSE VACCINE , 0.3 ML (30 MCG), IM PFIZER (KIRKPATRICK TOP) Unknown Completed [facility] TD, NOS Unknown Completed [facility] TDAP Unknown Completed [facility] Influenza Virus Vaccine Quad IM 3+ YRS Unknown Completed [facility] Influenza Virus Vaccine Quad IM Multi-dose 6+ MO Unknown Completed [facility] SARS-COV-2 COVID-19 PFIZER VACCINE Unknown Completed [facility] SARS-COV-2 COVID-19 PFIZER VACCINE Unknown Completed [facility] Influenza Virus Vaccine Quad IM, Preserv and ABX Free 6 MO-64 YRS (FLUCELVAX) Unknown Completed [facility] SARS-COV-2 COVID 19 CORNELIA SUCROSE VACCINE , , 0.3 ML (30 MCG), IM PFIZER (KIRKPATRICK TOP) Unknown Completed [facility] TD, NOS Unknown Completed [facility] TDAP Unknown Completed [facility] Influenza Virus Vaccine Quad IM 3+ YRS Unknown Completed [facility] Influenza Virus Vaccine Quad IM Multi-dose 6+ MO Unknown Completed [facility] SARS-COV-2 COVID-19 PFIZER VACCINE Unknown Completed [facility] SARS-COV-2 COVID-19 PFIZER VACCINE Unknown Completed [facility] Influenza Virus Vaccine Quad IM, Preserv and ABX Free 6 MO-64 YRS (FLUCELVAX) Unknown Completed [facility] SARS-COV-2 COVID 19 CORNELIA SUCROSE VACCINE 12+, [id number], 0.3 ML (30 MCG), IM PFIZER (KIRKPATRICK TOP) Unknown Completed [facility] TD, NOS Unknown Completed [facility] Vital Signs Vital Name Observation Time Observation Value Comments S ource Systolic blood pressure 2023-10-16 15:40:00 125 mm[Hg] [facility] Diastolic blood pressure 2023-10-16 15:40:00 83 mm[Hg] [facility] Heart rate 2023-10-16 15:40:00 79 /min [facility] Body temperature 2023-10-16 15:40:00 36.72 Roberta [facility] Respiratory rate 2023-10-16 15:40:00 17 /min [facility] Body weight 2023-10-16 15:40:00 69.854 kg [facility] BMI 2023-10-16 15:40:00 27.28 kg/m2 [facility] Oxygen saturation in Arterial blood by Pulse oximetry 2023-10-16 15:40:00 99 /min [facility] Systolic blood pressure 2023-08-28 23:42:00 130 mm[Hg] [facility] Diastolic blood pressure 2023-08-28 23:42:00 83 mm[Hg] [facility] Heart rate 2023-08-28 23:42:00 89 /min [facility] Body temperature 2023-08-28 23:42:00 37.06 Roberta [facility] Respiratory rate 2023-08-28 23:42:00 18 /min [facility] Body height 2023-08-28 23:42:00 160 cm [facility] Body weight 2023-08-28 23:42:00 72.576 kg [facility] BMI 2023-08-28 23:42:00 28.34 kg/m2 [facility] Oxygen saturation in Arterial blood by Pulse oximetry 2023-08-28 23:42:00 97 /min [facility] Systolic blood pressure 2023-08-10 20:42:00 128 mm[Hg] [facility] Diastolic blood pressure 2023-08-10 20:42:00 88 mm[Hg] [facility] Heart rate 2023-08-10 20:42:00 73 /min [facility] Body temperature 2023-08-10 20:42:00 36.78 Rober[facility] Respiratory rate 2023-08-10 20:42:00 18 /min [facility] Body height 2023-08-10 20:42:00 160 cm [facility] Body weight 2023-08-10 20:42:00 71.668 kg [facility] BMI 2023-08-10 20:42:00 27.99 kg/m2 [facility] Oxygen saturation in Arterial blood by Pulse oximetry 2023-08-10 20:42:00 98 /min [facility] Systolic blood pressure 2023-05-25 00:56:00 127 mm[Hg] [facility] Diastolic blood pressure 2023-05-25 00:56:00 86 mm[Hg] [facility] Heart rate 2023-05-25 00:56:00 86 /min [facility] Body temperature 2023-05-25 00:56:00 36.72 Roberta [facility] Respiratory rate 2023-05-25 00:56:00 17 /min [facility] Body weight 2023-05-25 00:56:00 72.122 kg [facility] BMI 2023-05-25 00:56:00 28.17 kg/m2 [facility] Oxygen saturation in Arterial blood by Pulse oximetry 2023-05-25 00:56:00 98 /min [facility] Systolic blood pressure 2023-05-08 20:24:00 120 mm[Hg] [facility] Diastolic blood pressure 2023-05-08 20:24:00 82 mm[Hg] [facility] Heart rate 2023-05-08 20:24:00 87 /min [facility] Body height 2023-05-08 20:24:00 160 cm [facility] Body weight 2023-05-08 20:24:00 71.215 kg [facility] BMI 2023-05-08 20:24:00 27.81 kg/m2 [facility] Oxygen saturation in Arterial blood by Pulse oximetry 2023-05-08 20:24:00 98 /min [facility] Systolic blood pressure 2023-04-29 15:36:00 139 mm[Hg] [facility] Diastolic blood pressure 2023-04-29 15:36:00 86 mm[Hg] [facility] Heart rate 2023-04-29 15:36:00 84 /min [facility] Body temperature 2023-04-29 15:36:00 36.78 Roberta [facility] Respiratory rate 2023-04-29 15:36:00 18 /min [facility] Body height 2023-04-29 15:36:00 157.5 cm [facility] Body weight 2023-04-29 15:36:00 71.668 kg [facility] BMI 2023-04-29 15:36:00 28.90 kg/m2 [facility] Oxygen saturation in Arterial blood by Pulse oximetry 2023-04-29 15:36:00 98 /min [facility] Systolic blood pressure 2023-04-08 16:05:00 113 mm[Hg] [facility] Diastolic blood pressure 2023-04-08 16:05:00 79 mm[Hg] [facility] Heart rate 2023-04-08 16:05:00 74 /min [facility] Body temperature 2023-04-08 16:05:00 36.11 Roberta [facility] Respiratory rate 2023-04-08 16:05:00 17 /min [facility] Body height 2023-04-08 16:05:00 157.5 cm [facility] Body weight 2023-04-08 16:05:00 71.215 kg [facility] BMI 2023-04-08 16:05:00 28.72 kg/m2 [facility] Oxygen saturation in Arterial blood by Pulse oximetry 2023-04-08 16:05:00 97 /min [facility] Systolic blood pressure 2023-02-25 15:41:00 123 mm[Hg] [facility] Diastolic blood pressure 2023-02-25 15:41:00 77 mm[Hg] [facility] Heart rate 2023-02-25 15:41:00 101 /min [facility] Body temperature 2023-02-25 15:41:00 37.22 Roberta [facility] Respiratory rate 2023-02-25 15:41:00 19 /min [facility] Body height 2023-02-25 15:41:00 160 cm [facility] Body weight 2023-02-25 15:41:00 72.122 kg [facility] BMI 2023-02-25 15:41:00 28.17 kg/m2 [facility] Oxygen saturation in Arterial blood by Pulse oximetry 2023-02-25 15:41:00 95 /min [facility] Systolic blood pressure 2023-01-27 14:47:00 136 mm[Hg] [facility] Diastolic blood pressure 2023-01-27 14:47:00 75 mm[Hg] [facility] Heart rate 2023-01-27 14:47:00 86 /min [facility] Respiratory rate 2023-01-27 14:47:00 18 /min [facility] Body height 2023-01-27 14:47:00 160 cm [facility] Body weight 2023-01-27 14:47:00 73.074 kg [facility] BMI 2023-01-27 14:47:00 28.54 kg/m2 [facility] Oxygen saturation in Arterial blood by Pulse oximetry 2023-01-27 14:47:00 99 /min [facility] Systolic blood pressure 2023-01-16 13:29:00 127 mm[Hg] [facility] Diastolic blood pressure 2023-01-16 13:29:00 88 mm[Hg] [facility] Heart rate 2023-01-16 13:29:00 94 /min [facility] Body temperature 2023-01-16 13:29:00 36.89 Roberta [facility] Respiratory rate 2023-01-16 13:29:00 16 /min [facility] Body height 2023-01-16 13:29:00 160 cm [facility] Body weight 2023-01-16 13:29:00 70.308 kg [facility] BMI 2023-01-16 13:29:00 27.46 kg/m2 [facility] Oxygen saturation in Arterial blood by Pulse oximetry 2023-01-16 13:29:00 100 /min [facility] Systolic blood pressure 2022-12-02 18:51:00 130 mm[Hg] [facility] Diastolic blood pressure 2022-12-02 18:51:00 83 mm[Hg] [facility] Heart rate 2022-12-02 18:51:00 66 /min [facility] Body temperature 2022-12-02 18:51:00 36.28 Roberta [facility] Body height 2022-12-02 18:51:00 160 cm [facility] Body weight 2022-12-02 18:51:00 72.802 kg [facility] BMI 2022-12-02 18:51:00 28.43 kg/m2 [facility] Oxygen saturation in Arterial blood by Pulse oximetry 2022-12-02 18:51:00 97 /min [facility] Systolic blood pressure 2022-11-03 19:38:00 130 mm[Hg] [facility] Diastolic blood pressure 2022-11-03 19:38:00 82 mm[Hg] [facility] Heart rate 2022-11-03 19:35:00 66 /min [facility] Body temperature 2022-11-03 19:35:00 36.72 Roberta [facility] Respiratory rate 2022-11-03 19:35:00 14 /min [facility] Body height 2022-11-03 19:35:00 160 cm [facility] Body weight 2022-11-03 19:35:00 73.12 kg [facility] BMI 2022-11-03 19:35:00 28.56 kg/m2 [facility] Oxygen saturation in Arterial blood by Pulse oximetry 2022-11-03 19:35:00 97 /min [facility] Systolic blood pressure 2022-10-09 15:13:00 117 mm[Hg] [facility] Diastolic blood pressure 2022-10-09 15:13:00 77 mm[Hg] [facility] Heart rate 2022-10-09 15:13:00 93 /min [facility] Body temperature 2022-10-09 15:13:00 36.28 Roberta [facility] Body height 2022-10-09 15:13:00 160 cm [facility] Body weight 2022-10-09 15:13:00 73.029 kg [facility] BMI 2022-10-09 15:13:00 28.52 kg/m2 [facility] Oxygen saturation in Arterial blood by Pulse oximetry 2022-10-09 15:13:00 99 /min [facility] Systolic blood pressure 2022-07-20 16:56:00 126 mm[Hg] [facility] Diastolic blood pressure 2022-07-20 16:56:00 81 mm[Hg] [facility] Heart rate 2022-07-20 16:56:00 77 /min [facility] Body temperature 2022-07-20 16:56:00 36.39 Roberta [facility] Respiratory rate 2022-07-20 16:56:00 22 /min [facility] Body height 2022-07-20 16:56:00 160 cm [facility] Body weight 2022-07-20 16:56:00 75.921 kg [facility] BMI 2022-07-20 16:56:00 29.65 kg/m2 [facility] Oxygen saturation in Arterial blood by Pulse oximetry 2022-07-20 16:56:00 97 /min [facility] Systolic blood pressure 2022-07-08 16:22:00 122 mm[Hg] [facility] Diastolic blood pressure 2022-07-08 16:22:00 90 mm[Hg] [facility] Heart rate 2022-07-08 16:22:00 85 /min [facility] Body temperature 2022-07-08 16:22:00 36.67 Roberta [facility] Respiratory rate 2022-07-08 16:22:00 20 /min [facility] Body height 2022-07-08 16:22:00 160 cm [facility] Body weight 2022-07-08 16:22:00 73.936 kg [facility] BMI 2022-07-08 16:22:00 28.87 kg/m2 [facility] Oxygen saturation in Arterial blood by Pulse oximetry 2022-07-08 16:22:00 99 /min [facility] Systolic blood pressure 2022-07-06 15:43:00 122 mm[Hg] [facility] Diastolic blood pressure 2022-07-06 15:43:00 86 mm[Hg] [facility] Heart rate 2022-07-06 15:43:00 115 /min [facility] Body temperature 2022-07-06 15:43:00 36.83 Roberta [facility] Body height 2022-07-06 15:43:00 160 cm [facility] Body weight 2022-07-06 15:43:00 73.71 kg [facility] BMI 2022-07-06 15:43:00 28.79 kg/m2 [facility] Oxygen saturation in Arterial blood by Pulse oximetry 2022-07-06 15:43:00 96 /min [facility] Systolic blood pressure 2022-06-22 18:25:00 120 mm[Hg] [facility] Diastolic blood pressure 2022-06-22 18:25:00 81 mm[Hg] [facility] Heart rate 2022-06-22 18:25:00 93 /min [facility] Body temperature 2022-06-22 18:25:00 37 Roberta [facility] Body height 2022-06-22 18:25:00 160 cm [facility] Body weight 2022-06-22 18:25:00 77.111 kg [facility] BMI 2022-06-22 18:25:00 30.11 kg/m2 [facility] Oxygen saturation in Arterial blood by Pulse oximetry 2022-06-22 18:25:00 98 /min [facility] Systolic blood pressure 2022-06-16 16:30:00 123 mm[Hg] [facility] Diastolic blood pressure 2022-06-16 16:30:00 80 mm[Hg] [facility] Heart rate 2022-06-16 16:30:00 65 /min [facility] Body temperature 2022-06-16 16:30:00 36.56 Roberta [facility] Body height 2022-06-16 16:30:00 160 cm [facility] Body weight 2022-06-16 16:30:00 75.887 kg [facility] BMI 2022-06-16 16:30:00 29.64 kg/m2 [facility] Oxygen saturation in Arterial blood by Pulse oximetry 2022-06-16 16:30:00 98 /min [facility] Systolic blood pressure 2022-05-09 15:18:00 120 mm[Hg] [facility] Diastolic blood pressure 2022-05-09 15:18:00 83 mm[Hg] [facility] Heart rate 2022-05-09 15:18:00 83 /min [facility] Body temperature 2022-05-09 15:18:00 36.72 Roberta [facility] Respiratory rate 2022-05-09 15:18:00 18 /min [facility] Body height 2022-05-09 15:18:00 160 cm [facility] Body weight 2022-05-09 15:18:00 75.615 kg [facility] BMI 2022-05-09 15:18:00 29.53 kg/m2 [facility] in Arterial blood by Pulse oximetry 2022-05-09 15:18:00 98 /min [facility] Systolic blood pressure 2022-04-07 15:52:00 138 mm[Hg] [facility] Diastolic blood pressure 2022-04-07 15:52:00 85 mm[Hg] [facility] Heart rate 2022-04-07 15:52:00 76 /min [facility] Body temperature 2022-04-07 15:52:00 36.94 Roberta [facility] Body height 2022-04-07 15:52:00 160 cm [facility] Body weight 2022-04-07 15:52:00 73.483 kg [facility] BMI 2022-04-07 15:52:00 28.70 kg/m2 [facility] Oxygen saturation in Arterial blood by Pulse oximetry 2022-04-07 15:52:00 95 /min [facility] Systolic blood pressure 2022-04-06 15:32:00 118 mm[Hg] [facility] Diastolic blood pressure 2022-04-06 15:32:00 80 mm[Hg] [facility] Heart rate 2022-04-06 15:32:00 99 /min [facility] Body temperature 2022-04-06 15:32:00 37.33 Roberta [facility] Respiratory rate 2022-04-06 15:32:00 17 /min [facility] Body height 2022-04-06 15:32:00 160 cm [facility] Body weight 2022-04-06 15:32:00 74.617 kg [facility] BMI 2022-04-06 15:32:00 29.14 kg/m2 [facility] Oxygen saturation in Arterial blood by Pulse oximetry 2022-04-06 15:32:00 98 /min [facility] Systolic blood pressure 2022-02-25 16:24:00 118 mm[Hg] [facility] Diastolic blood pressure 2022-02-25 16:24:00 83 mm[Hg] [facility] Heart rate 2022-02-25 16:24:00 96 /min [facility] Body temperature 2022-02-25 16:24:00 36.78 Roberta [facility] Body height 2022-02-25 16:24:00 160 cm [facility] Body weight 2022-02-25 16:24:00 72.122 kg [facility] BMI 2022-02-25 16:24:00 28.17 kg/m2 [facility] Oxygen saturation in Arterial blood by Pulse oximetry 2022-02-25 16:24:00 95 /min [facility] Systolic blood pressure 2022-01-03 13:32:00 133 mm[Hg] [facility] Diastolic blood pressure 2022-01-03 13:32:00 83 mm[Hg] [facility] Heart rate 2022-01-03 13:32:00 85 /min [facility] Body temperature 2022-01-03 13:32:00 36.44 Roberta [facility] Body height 2022-01-03 13:32:00 160 cm [facility] Body weight 2022-01-03 13:32:00 72.122 kg [facility] BMI 2022-01-03 13:32:00 28.17 kg/m2 [facility] Oxygen saturation in Arterial blood by Pulse oximetry 2022-01-03 13:32:00 98 /min [facility] Diastolic blood pressure 2021-12-07 16:38:00 87 mm[Hg] [facility] Heart rate 2021-12-07 16:38:00 98 /min [facility] Body temperature 2021-12-07 16:38:00 36.17 Roberta [facility] Respiratory rate 2021-12-07 16:38:00 18 /min [facility] Body height 2021-12-07 16:38:00 160 cm [facility] Body weight 2021-12-07 16:38:00 71.215 kg [facility] BMI 2021-12-07 16:38:00 27.81 kg/m2 [facility] Oxygen saturation in Arterial blood by Pulse oximetry 2021-12-07 16:38:00 97 /min [facility] Systolic blood pressure 2021-12-07 16:38:00 123 mm[Hg] [facility] Systolic blood pressure 2021-08-03 16:08:00 117 mm[Hg] [facility] Diastolic blood pressure 2021-08-03 16:08:00 80 mm[Hg] [facility] Heart rate 2021-08-03 16:08:00 100 /min [facility] Body temperature 2021-08-03 16:08:00 36.56 Roberta [facility] Respiratory rate 2021-08-03 16:08:00 18 /min [facility] Body weight 2021-08-03 16:08:00 71.668 kg [facility] BMI 2021-08-03 16:08:00 27.99 kg/m2 [facility] Oxygen saturation in Arterial blood by Pulse oximetry 2021-08-03 16:08:00 99 /min [facility] Systolic blood pressure 2021-07-15 18:43:00 135 mm[Hg] [facility] Diastolic blood pressure 2021-07-15 18:43:00 97 mm[Hg] [facility] Heart rate 2021-07-15 18:43:00 86 /min [facility] Body temperature 2021-07-15 18:43:00 37.33 Roberta [facility] Respiratory rate 2021-07-15 18:43:00 18 /min [facility] Body height 2021-07-15 18:43:00 160 cm [facility] Body weight 2021-07-15 18:43:00 73.483 kg [facility] BMI 2021-07-15 18:43:00 28.70 kg/m2 [facility] Oxygen saturation in Arterial blood by Pulse oximetry 2021-07-15 18:43:00 100 /min [facility] Procedures Procedure Date / Time Performed Performing Clinicia n Source POCT SARS-COV-2 ANTIGEN (BINAX NOW) 2023-10-16 15:45:00 Mansoor Min [facility] POCT SARS-COV-2 ANTIGEN (BINAX NOW) 2023-08-28 23:52:00 Mansoor Min [facility] POCT MOLECULAR STREP 2023-08-28 23:39:00 Unknown, Attchelsey salguero [facility] POCT MOLECULAR FLU 2023-08-10 20:43:00 Unknown, Attend ing [facility] POCT MOLECULAR STREP 2023-08-10 20:40:00 Unknown, Attchelsey salguero [facility] POCT SARS-COV-2 ANTIGEN (BINAX NOW) 2023-08-10 20:34:00 Cresencio Kapadia [facility] SARS-COV-2 COVID 19 CORNELIA SUCROSE VACCINE 12+, , 0.3 ML (30 MCG), IM PFIZER (KIRKPATRICK TOP) 2023-05-08 20:28:51 Rosemary Sheikh [facility] FLU VACC (), 6 MO-64 YRS, .5ML, IM, QUAD (FLUCELVAX) 2023-05-08 20:28:23 Rosemary Sheikh [facility] XR FOOT 3+ VW LEFT 2023-04-29 16:09:11 Cresencio Kapadia [facility] XR ANKLE 3+ VW LEFT 2023-04-29 16:08:46 Aaron Kapadia [facility] RAPID STREP SCREEN FOR GROUP A 2023-01-16 13:57:00 Ashley Wright [facility] RAPID INFLUENZA A/B 2023-01-16 13:57:00 Ashley Wright [facility] COVID-19 (ID NOW RAPID TESTING) 2023-01-16 13:57:00 Ashley Wright [facility] CONSENT/REFUSAL FOR DIAGNOSIS AND TREATMENT 2023-01-16 13:25:16 Doctor Unassigned, [place] [facility] POCT MOLECULAR STREP 2022-12-02 19:03:00 Sabrina Rowe [facility] POCT MOLECULAR STREP 2022-11-03 19:47:00 Unknown, Carol salguero [facility] XR HEEL 2+ VW BILATERAL 2022-07-20 17:15:00 Cresencio Kapadia [facility] POCT MOLECULAR STREP 2022-06-16 16:34:00 Unknown, Atte jose m [facility] POCT MOLECULAR FLU 2022-05-09 15:19:00 Unknown, Attend sami [facility] POCT MOLECULAR STREP 2022-05-09 15:16:00 Unknown, Atte kellisami [facility] POCT MOLECULAR FLU 2022-02-25 16:22:00 Yamileth Rowe [facility] POCT MOLECULAR STREP 2022-02-25 16:20:00 Sabrina Rowe [facility] RAPID STREP SCREEN FOR GROUP A 2021-12-07 16:41:00 Farhat Coleman [facility] CONSENT/REFUSAL FOR DIAGNOSIS AND TREATMENT 2021-12-07 16:32:22 Doctor Unassigned, [place] [facility] CONSENT/REFUSAL FOR DIAGNOSIS AND TREATMENT 2021-08-03 16:04:24 Doctor Unassigned, [place] [facility] XR FOOT 3+ VW LEFT 2021-07-15 [facility]:17[facility]AT[facility] 2021-07-15 18:35:54 Doctor Unassigned, [place] [facility] NOTICE OF PRIVACY PRACTICES 2021-07-15 18:35:10 Doctor Unassigned, [place] [facility] Encounters Start Date/Time End Date/Time Encounter Type Admission Type Attending [facility] Care Facility Care Department Encounter ID Source 2023-10-16 10:20:00 2023-10-16 10:40:00 Urgent Care Mansoor Min Unknown, Attending [facility] 1.2.840.114 350.1.13.10 4.2.7.2.686 [id number] [facility] 2023-10-16 10:20:00 2023-10-16 10:20:00 Outpatient MANSOOR PURI [facility] [id number] [facility] 2023-08-28 18:20:00 2023-08-28 19:21:36 Outpatient MANSOOR PURI [facility] [id number] [facility] 2023-08-28 18:20:00 2023-08-28 19:21:36 Urgent Care Mansoor Min Unknown, Attending [facility] 1..840.114 350.1.13.10 4.2.7.2.686 [id number] [facility] 2023-08-11 00:00:00 2023-08-11 08:52:11 [facility] 1..840.114 350.1.13.10 4.2.7.2.686 [id number] [facility] 2023-08-10 15:40:00 2023-08-10 16:00:00 Urgent Care Mansoor Min Unknown, Attending [facility] 1..840.114 350.1.13.10 4.2.7.2.686 [id number] [facility] 2023-08-10 15:40:00 2023-08-10 15:40:00 Outpatient CRESENCIO TEAGUE [facility] [id number] [facility] 2023-08-07 16:00:00 2023-08-07 16:00:00 Outpatient YAMILETH WEBB [facility] [id number] [facility] 2023-07-08 00:00:00 2023-07-08 00:00:00 Lorene Rowe [facility] 1..840.114 350.1.13.10 4.2.7.2.686 [id number] [facility] 2023-06-05 16:15:00 2023-06-05 16:15:00 Outpatient KENNA KENT CRAIG [facility] [id number] [facility] 2023-06-04 00:00:00 2023-06-04 00:00:00 [facility] 1.84.114 350.1.13.10 4.2.7.2.686 [id number] [facility] 2023-05-24 18:40:00 2023-05-24 19:07:08 Outpatient R MARA MINSHANNAN [facility] [id number] [facility] 2023-05-24 18:40:00 2023-05-24 19:00:00 Urgent Care Min, Mansoor Unknown, Attending [facility] JOSE[facility] 1.84.114 350.1.13.10 4.2.7.2.686 [id number] [facility] 2023-05-24 00:00:00 2023-05-24 00:00:00 Telephone Mara Minkaialisa [facility] JOSE?[facility] 1.84.114 350.1.13.10 4.2.7.2.686 [id number] [facility] 2023-05-08 14:00:00 2023-05-08 14:54:02 Outpatient R ROSEMARY SHEIKH [facility] [id number] [facility] 2023-05-08 14:00:00 2023-05-08 14:54:02 [facility] 1.84.114 350.1.13.10 4.2.7.2.686 [id number] [facility] 2023-05-04 00:00:00 2023-05-04 00:00:00 [facility] 1.84.114 350.1.13.10 4.2.7.2.686 [id number] [facility] 2023-04-29 09:46:44 2023-04-29 23:59:00 Outpatient R CRESENCIO KAPADIA [facility] [id number] [facility] 2023-04-29 09:46:44 2023-04-29 23:59:00 Hospital Encounter Cresencio Kapadia [facility] JOSE?[facility] MARYVALEFermín [facility] 1..840.114 350.1.13.10 4.2.7.2.686 [id number] [facility] 2023-04-29 09:46:43 2023-04-29 23:59:00 Hospital Encounter Cresencio Kapadia [facility] JOSE?[facility] 1..840.114 350.1.13.10 4.2.7.2.686 [id number] [facility] 2023-04-29 09:20:00 2023-04-29 09:55:38 Urgent Care Cresencio Kapadia Unknown, Attending [facility] 1..840.114 350.1.13.10 4.2.7.2.686 [id number] [facility] [facility] 2023-04-08 10:00:00 2023-04-08 10:37:29 Outpatient R CHACHO MINOR [facility] [id number] [facility] 2023-04-08 10:00:00 2023-04-08 10:37:29 Urgent Care Chacho Minor Unknown, Attending [facility] 1..840.114 350.1.13.10 4.2.7.2.686 [id number] [facility] 2023-03-31 00:00:00 2023-03-31 00:00:00 [facility] 1.84.114 350.1.13.10 4.2.7.2.686 [id number] [facility] 2023-03-27 00:00:00 2023-03-27 00:00:00 [facility] 1.84114 350.1.13.10 4.2.7.2.686 [id number] [facility] 2023-03-09 10:20:00 2023-03-09 10:20:00 Outpatient R YAMILETH ROWE [facility] [place] [id number] [facility] 2023-02-25 09:30:00 2023-02-25 09:58:59 Outpatient R CRESENCIO KAPADIA [facility] [id number] [facility] 2023-02-25 09:30:00 2023-02-25 09:58:59 Urgent Care Cresencio Kapadia Unknown, Attending [facility] 1.84.114 350.1.13.10 4.2.7.2.686 [id number] [facility] 2023-01-27 08:20:00 2023-01-27 09:02:54 Outpatient R YAMILETH ROWE [facility] [place] [id number] [facility] 2023-01-27 08:20:00 2023-01-27 09:02:54 Office Visit Kate [facility] JOSE?[facility] 1.84.114 350.1.13.10 4.2.7.2.686 [id number] [facility] 2023-01-27 00:00:00 2023-01-27 00:00:00 Letter (Out) Yamileth Rowe [facility] N[facility] BUILD[facility] 1.84.114 350.1.13.10 4.2.7.2.686 [id number] [facility] 2023-01-26 00:00:00 2023-01-26 00:00:00 Telephone Kate [facility] 1.84.114 350.1.13.10 4.2.7.2.686 [id number] [facility] 2023-01-16 08:30:00 2023-01-16 10:10:00 Emergency X ASHLEY WRIGHT [facility] [id number] [facility] 2023-01-16 08:30:00 2023-01-16 10:10:00 Emergency Ashley Wright [facility] 1.84114 350.1.13.10 4.2.7.2.686 [id number] [facility] 2022-12-02 14:00:00 2022-12-02 14:32:47 Outpatient R CHUCKIE ROWEINE KATE [facility] [place] [id number] [facility] 2022-12-02 14:00:00 2022-12-02 14:32:47 Office Visit Kate [facility] 1.84.114 350.1.13.10 4.2.7.2.686 [id number] [facility] 2022-11-03 14:20:00 2022-11-03 15:10:10 Outpatient R CRESENCIO KAPADIA [facility] [id number] [facility] 2022-11-03 14:20:00 2022-11-03 15:10:10 Urgent Care Cresencio Kapadia Unknown, Attending [facility] 1.84.114 350.1.13.10 4.2.7.2.686 [id number] [facility] 2022-10-09 09:40:00 2022-10-09 10:41:51 Outpatient R KG HEALY [facility] [id number] [facility] 2022-10-09 09:40:00 2022-10-09 10:41:51 Urgent Care Kg Healy Unknown, Attending [facility] BU[facility] 1.2.840.114 350.1.13.10 4.2.7.2.686 [id number] [facility] 2022-08-08 13:23:51 2022-08-08 23:59:00 Outpatient R KATE YAMILETH KLEY, [facility] [place] [id number] [facility] 2022-08-08 13:23:51 2022-08-08 23:59:00 Hospital Encounter Yamileth Rowe [facility] 1.2.840.114 350.1.13.10 4.2.7.2.686 [id number] [facility] 2022-07-26 00:00:00 2022-07-26 00:00:00 Telephone Kate [facility] JOSE?[facility] 1.2.840.114 350.1.13.10 4.2.7.2.686 [id number] [facility] 2022-07-25 00:00:00 2022-07-25 00:00:00 Telephone Kate [facility] JOSE?[facility] 1.2.840.114 350.1.13.10 4.2.7.2.686 [id number] [facility] 2022-07-20 12:06:42 2022-07-20 23:59:00 Outpatient R KANG CRESENCIO [facility] [id number] [facility] 2022-07-20 12:06:42 2022-07-20 23:59:00 Hospital Encounter Cresencio Kapadia [facility] 1.114 350.1.13.10 4.2.7.2.686 [id number] [facility] 2022-07-20 11:40:00 2022-07-20 12:00:00 Urgent Care Cresencio Kapadia Unknown, Attending [facility] 1.114 350.1.13.10 4.2.7.2.686 [id number] [facility] 2022-07-08 12:15:00 2022-07-08 12:30:00 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, Akbar Kellymargarita [facility] 1.114 350.1.13.10 4.2.7.2.686 [id number] [facility] 2022-07-08 11:20:00 2022-07-08 11:55:48 Outpatient R YAMILETH ROWE [facility] [place] [id number] [facility] 2022-07-08 11:20:00 2022-07-08 11:55:48 Office Visit Kate [facility] 1.114 350.1.13.10 4.2.7.2.686 [id number] [facility] 2022-07-06 10:35:00 2022-07-06 10:55:42 Outpatient R MANSOOR MIN [facility] [id number] [facility] 2022-07-06 10:35:00 2022-07-06 10:55:42 Urgent Care Mansoor Min Unknown, Attending [facility] 1.114 350.1.13.10 4.2.7.2.686 [id number] [facility] 2022-06-22 13:30:00 2022-06-22 13:40:17 Outpatient R ROSEMARY SHEIKH [facility] [id number] [facility] 2022-06-22 13:30:00 2022-06-22 13:40:17 Office Visit Rosemary Sheikh [facility] BU[facility] 1.84.114 350.1.13.10 4.2.7.2.686 [id number] [facility] 2022-06-16 11:20:00 2022-06-16 11:40:00 Urgent Care Chacho Minor Unknown, Attending [facility] BU[facility] 1.84.114 350.1.13.10 4.2.7.2.686 [id number] [facility] 2022-06-16 11:20:00 2022-06-16 11:20:00 Outpatient R CHACHO MINOR [facility] [id number] [facility] 2022-05-09 09:00:00 2022-05-09 09:28:42 Outpatient R MINMARA MOSSSHANNAN [facility] [id number] [facility] 2022-05-09 09:00:00 2022-05-09 09:28:42 Urgent Care MinMansoor amaya Unknown, Attending [facility] BU[facility] 1.84.114 350.1.13.10 4.2.7.2.686 [id number] [facility] 2022-04-14 00:00:00 2022-04-14 00:00:00 Yamileth Jo [facility] 1.84.114 350.1.13.10 4.2.7.2.686 [id number] [facility] 2022-04-07 09:20:00 2022-04-07 10:17:32 Outpatient R YAMILETH ROWE [facility] [id number] [facility] 2022-04-07 09:20:00 2022-04-07 10:17:32 Office Visit Kate [facility] JOSE?[facility] OFF[facility] BUILD[facility] 1..840.114 350.1.13.10 4.2.7.2.686 [id number] [facility] 2022-04-06 09:00:00 2022-04-06 09:40:43 Outpatient R MILY CHACHO [facility] [id number] [facility] 2022-04-06 09:00:00 2022-04-06 09:40:43 Urgent Care Mily Chacho Malka, [facility] OFF[facility] BUILD[facility] 1.840.114 350.1.13.10 4.2.7.2.686 [id number] [facility] 2022-02-25 10:00:00 2022-02-25 10:42:34 Outpatient R CHUCKIE ROWEINE [facility] [id number] [facility] 2022-02-25 10:00:00 2022-02-25 10:42:34 [facility] 1..840.114 350.1.13.10 4.2.7.2.686 [id number] [facility] 2022-01-03 08:40:00 2022-01-03 09:31:28 Outpatient R CHUCKIE ROWEINE [facility] [id number] [facility] 2022-01-03 08:40:00 2022-01-03 09:31:28 Office Visit Kate [facility] JOSE?[facility] OFF[facility] BUILD[facility] 1..840.114 350.1.13.10 4.2.7.2.686 [id number] [facility] 2021-12-07 11:42:00 2021-12-07 12:51:00 Emergency X Raghavendra [facility] ERT [id number] [facility] 2021-12-07 11:42:00 2021-12-07 12:51:00 Emergency Raghavendra Gardner [facility] 1.2.840.114 350.1.13.10 4.2.7.2.686 [id number] [facility] 2021-08-03 11:08:00 2021-08-03 12:17:00 Emergency ASHLEY DUNCAN [facility] ERT [id number] [facility] 2021-08-03 11:08:00 2021-08-03 12:17:00 Emergency Didier [facility] 1.2.840.114 350.1.13.10 4.2.7.2.686 [id number] [facility] 2021-07-15 13:45:00 2021-07-15 14:49:[address] Emergency Singer [facility] 1.2.840.114 350.1.13.10 4.2.7.2.686 [id number] [facility] 2021-07-15 13:45:00 2021-07-15 14:49:00 Emergency FARHAT GUTIÉRREZ [facility] ERT [id number] [facility] Results Test Description Test Time Test Comments Results Result Co mments Source [facility] SARS-COV-2 ANTIGEN (BINAX NOW)2023-08-29 00:07:00* Test Item Value Reference Range Interpretation Comme nts POCT SARS-COV-2 ANTIGEN (samara t code = 73598-6) Not Detected Not Detected On board controls acceptable with C Line (test code = 3574) Yes Lab Interpretation (test cod e = 27630-0) Normal [facility] MOLECULAR [id number] 23:47:44* Test Item Value Reference Range Interpretation Comme nts POCT Molecular Strep (test c ode = 92666-1) Negative Negative Lab Interpretation (test cod e = 90931-8) Normal [facility] Molecular [id number] 20:55:33* Test Item Value Reference Range Interpretation Comme nts POCT Molecular FluA (test co de = 62248-5) Negative Negative POCT Molecular FluB (test co de = 05989-7) Negative Negative Lab Interpretation (test cod e = 51844-6) Normal [facility] SARS-COV-2 ANTIGEN (BINAX NOW)2023-08-10 20:49:00* Test Item Value Reference Range Interpretation Comme nts POCT SARS-COV-2 ANTIGEN (test code = 77597-8) Not Detected Not Detected On board controls acceptable with C Line (test code = 3574) Yes ERIN (test code = ERIN) accurate developme nt and interpretation of all internal controls Lab Interpretation (test code = 32402-8) Normal [facility] MOLECULAR [id number] 20:48:12* Test Item Value Reference Range Interpretation Comme nts POCT Molecular Strep (test c ode = 07940-3) Negative Negative Lab Interpretation (test cod e = 67183-5) [facility] [id number] 22:31:09EXAM: XR ANKLE 3+ VW LEFT, XR FOOT 3+ VW LEFT HISTORY: left ankle injury COMPARISON: Left ankle radiographs 01/25/2018, left foot radiographs07/15/2021 FINDINGS: Radiographs of the left ankle and foot demonstrate a well-corticated bonyfragment inferior to the medial malleolus which represents a remoteavulsion injury. 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 An ankle joint effusion is seen. Anklemortise is anatomic. Soft tissue swelling is noted about the lateral ankleand at the great toe. [facility]W [id number] 22:31:09EXAM: XR ANKLE 3+ VW LEFT, XR FOOT 3+ VW LEFT HISTORY: left ankle injury COMPARISON: Left ankle radiographs 01/25/2018, left foot radiographs07/15/2021 FINDINGS: Radiographs of the left ankle and foot demonstrate a well-corticated bonyfragment inferior to the medial malleolus which represents a remoteavulsion injury. 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 An ankle joint effusion is seen. Anklemortise is anatomic. Soft tissue swelling is noted about the lateral ankleand at the great toe. [facility] MOLECULAR [id number] 19:10:58* Test Item Value Reference Range Interpretation Comme nts POCT Molecular Strep (test c ode = 65320-0) Negative Negative Lab Interpretation (test cod e = 38686-7) Normal [facility] MOLECULAR [id number] 19:10:58* Test Item Value Reference Range Interpretation Comme nts POCT Molecular Strep (test c ode = 69657-1) Negative Negative Lab Interpretation (test cod e = 78220-0) Normal [facility] MOLECULAR [id number] 19:55:21* Test Item Value Reference Range Interpretation Comme nts POCT Molecular Strep (test c ode = 60173-3) Negative Negative Lab Interpretation (test cod e = 58602-9) Normal [facility] MOLECULAR [id number] 16:41:11* Test Item Value Reference Range Interpretation Comme nts POCT Molecular Strep (test c ode = 35278-9) Negative Negative Lab Interpretation (test cod e = 97224-1) Normal [facility] MOLECULAR [id number] 15:31:05* Test Item Value Reference Range Interpretation Comme nts POCT Molecular FluA (test co de = 79550-7) Negative Negative POCT Molecular FluB (test co de = 84875-1) Negative Negative Lab Interpretation (test cod e = 51866-7) Normal [facility] MOLECULAR [id number] 15:23:32* Test Item Value Reference Range Interpretation Comme nts POCT Molecular Strep (test c ode = 31673-2) Negative Negative Lab Interpretation (test cod e = 54154-3) Normal [facility] MOLECULAR [id number] 16:33:28* Test Item Value Reference Range Interpretation Comme nts POCT Molecular FluA (test co de = 14319-7) Negative Negative POCT Molecular FluB (test co de = 91446-5) Negative Negative Lab Interpretation (test cod e = 04002-8) Normal [facility] MOLECULAR [id number] 16:33:28* Test Item Value Reference Range Interpretation Comme nts POCT Molecular FluA (test co de = 98963-3) Negative Negative POCT Molecular FluB (test co de = 82195-8) Negative Negative Lab Interpretation (test cod e = 07691-4) Normal [facility] MOLECULAR [id number] 16:27:43* Test Item Value Reference Range Interpretation Comme nts POCT Molecular Strep (test c ode = 28629-2) Negative Negative Lab Interpretation (test cod e = 98607-8) Normal [facility] MOLECULAR [id number] 16:27:43* Test Item Value Reference Range Interpretation Comme nts POCT Molecular Strep (test c ode = 07056-3) Negative Negative Lab Interpretation (test cod e = 97288-9) Normal [facility] Notes Date/Time Note Provider Source 2023-06-05 08:36:36 Images from the original note were not included. Name from pharmacy: ESCITALOPRAM 20 MG TABLET Will file in chart as: ESCITALOPRAM OXALATE 20 mg tablet Sig: TAKE 1 TABLET BY MOUTH EVERY MORNING Disp: 30 tablet Refills: 0 (Pharmacy requested: Not specified) Start: 06/04/2023 Class: eRX For: Anxiety and depression Last ordered: 1 month ago (05/05/2023) by Yamileth Rowe MD Last refill: 05/05/2023 Rx #: [id number] Psychiatry: Antidepressants Pyepou3706/04/2023 10:06 AM Protocol Details Manual Review: Verify no changes in dose in the last 3 months Valid encounter within last 12 months To be filled at: [facility] [id number] [address] Michelle Dunbar No doses changed since 02/09 30 day supply sent Recent Visits Date Type Provider Dept 05/08/23 Office Visit Rosemary Sheikh FNP [facility] 01/27/23 Office Visit Yamileth Rowe MD [facility] 12/02/22 Office Visit Yamileth Rowe MD [facility] 07/08/22 Office Visit Yamileth Rowe MD [facility] 06/22/22 Office Visit Rosemary Sheikh FNP [facility] 04/07/22 Office Visit Yamileth Rowe MD [facility] 02/25/22 Office Visit Yamileth Rowe MD [facility] 01/03/22 Office Visit Yamileth Rowe MD Ang[facility]Yair [facility] Showing recent visits within past 540 days with a meds authorizing provider and meeting all other requirements Future Appointments Date Type Provider Dept 08/07/23 Appointment Yamileth Rowe MD [facility] Showing future appointments within next 150 days with a meds authorizing provider and meeting all other requirements T [facility] 2023-05-24 19:52:08 Medication verbally called in to [facility] by this RN. Pt notified. [facility] 2023-05-24 19:41:10 Melanie Gotti is a 42 year old female, Sondra with [employer] calling regarding patient states she accidentally deleted an rx and asking for it to be resent. amoxicillin-clavulanate (AUGMENTIN) 875-125 mg per tablet [facility] [id number] [place] [address] [place] [address] [facility] Tash Norman [facility] 2023-03-31 15:27:54 Images from the original note were not included. Last Refilled: 01/27/23 Notes: [id number] - [place] Brit[place] - Casandra [facility] Recent Visits Date Type Provider Dept 01/27/23 Office Visit Yamileth Rowe MD [facility] 12/02/22 Office Visit Yamileth Rowe MD [facility] 07/08/22 Office Visit Yamileth Rowe MD [facility] 06/22/22 Office Visit Rosemary Sheikh FNP [facility]Yair [facility] 04/07/22 Office Visit Yamileth Rowe MD [facility] 02/25/22 Office Visit Yamileth Rowe MD [facility] 01/03/22 Office Visit Yamileth Rowe MD [facility] Showing recent visits within past 540 days with a meds authorizing provider and meeting all other requirements Future Appointments Date Type Provider Dept 04/20/23 Appointment Yamileth Rowe MD [facility] Showing future appointments within next 150 days with a meds authorizing provider and meeting all other requirements Name from pharmacy: ESCITALOPRAM 20 MG TABLET Will file in chart as: ESCITALOPRAM OXALATE 20 mg tablet Possible duplicate: Hover to review recent actions on this medication Sig: TAKE ONE TABLET BY MOUTH EVERY MORNING Disp: 30 tablet Refills: Not specified Start: 03/31/2023 Class: eRX For: Anxiety and depression Last ordered: 2 months ago (01/27/2023) by Yamileth Rowe MD Last refill: 02/22/2023 Rx #: [id number] Psychiatry: Antidepressants Swzsib1103/31/2023 01:50 PM Protocol Details Manual Review: Verify no changes in dose in the last 3 months Valid encounter within last 12 months To be filled at: [facility] [id number] [address] YN Esp[place] MA [facility] 2023-03-27 13:18:15 Refill denied: Too soon to refill Requested Prescriptions Pending Prescriptions Disp Refills escitalopram oxalate 20 mg tablet 90 tablet 0 Sig: Take 1 tablet by mouth in the morning. Last fill date: Filled 01/27/23 qty 89 YN Verma LVN [facility]
[2023-11-18] MEDS ORDERED: dexAMETHasone 10 MG/ML VIAL ONE (09:32)
--- NOTE | 2023-11-18 10:37 | ER ---
Nurse's Notes [facility] Name: Melanie Gotti Age: 43 yrs Sex: Female : 1980 Arrival Date: 11/18/2023 Time: 09:16 Bed 12 Private MD: Diagnosis: Nasal congestion Presentation: 11/17 09:27 Chief complaint: Sore throat and sinus congestion x 2 months. Coronavirus screen: At hb this time, the client does not indicate any symptoms associated with coronavirus-19. Ebola Screen: No symptoms or risks identified at this time. Initial Sepsis Screen: Does the patient meet any 2 criteria? No. Patient's initial sepsis screen is negative. Does the patient have a suspected source of infection? No. Patient's initial sepsis screen is negative. Risk Assessment: Do you want to hurt yourself or someone else? Patient reports no desire to harm self or others. Onset of symptoms was August 2023. 09:27 Method Of Arrival: Ambulatory hb 09:27 Acuity: JAYCOB 4 hb Triage Assessment: 09:28 General: Appears in no apparent distress. Behavior is calm, cooperative. Pain: Pain hb currently is 7 out of 10 on a pain scale. Neuro: Level of Consciousness is awake, alert, obeys commands, Oriented to person, place, time, situation. Cardiovascular: Patient's skin is warm and dry. Respiratory: Respiratory effort is even, unlabored, Respiratory pattern is regular, symmetrical. DIRECTOR OF PEOPLE: 10:48 LMP N/A - , Not ap3 Historical: - Allergies: 09:27 NKDA; hb - Home Meds: 09:27 Lexapro Oral [Active]; Hydroxyzine Oral [Active]; hb - PMHx: 09:27 Anxiety; depressive disorder; hb - PSHx: 09:27 Cholecystectomy; hb - Immunization history:: Adult Immunizations up to date. - Infectious Disease History:: Denies. - Social history:: Smoking status: Patient denies any tobacco usage or history of. Screenin:46 [facility] ED Fall Risk Assessment (Adult) History of falling in the last 3 months, ap3 including since admission No falls in past 3 months (0 pts) Confusion or Disorientation No (0 pts) Intoxicated or Sedated No (0 pts) Impaired Gait No (0 pts) Mobility Assist Device Used No (0 pt) Altered Elimination No (0 pt) Score/Fall Risk Level 0 - 2 = Low Risk Oriented to surroundings, Maintained a safe environment, Educated pt \T\ family on fall prevention, incl call for assistance when getting out of bed, Assessed \T\ reinforced patient's understanding of fall precautions, Hourly rounding (assess needs \T\ fall precautionary measures) done, Used ambulatory aids as needed (educated on \T\ assisted with), Used gait belt as appropriate. Abuse screen: Denies threats or abuse. Nutritional screening: No deficits noted. Tuberculosis screening: No symptoms or risk factors identified. Vital Signs: 09:31 BP 147 / 94; Pulse 74; Resp 16; Temp 97(TE); Pulse Ox 97% on R/A; Weight 70.31 kg; hb Height 5 ft. 3 in. ; Pain 7/10; 10:46 Temp 97.4(TE); ap3 09:31 Body Mass Index 27.46 (70.31 kg, 160.02 cm) hb 09:31 Pain Scale: Adult hb ED Course: 09:19 Patient arrived in ED. mg5 09:19 Tammi Mccormack FNP-C is [facility]. kb 09:19 Wayne Poole MD is Attending Physician. kb 09:27 Triage completed. hb 09:28 Arm band placed on. hb 10:46 No provider procedures requiring assistance completed. Patient did not have IV access ap3 during this emergency room visit. 10:47 Patient has correct armband on for positive identification. Bed in low position. Call ap3 light in reach. Side rails up X 1. Provided Education on: discharge instructions. Pulse ox on. NIBP on. Administered Medications: 09:43 Drug: Dexamethasone IM 10 mg IM once Route: IM; Site: left ventrogluteal; hb 10:48 Follow up: Response: No adverse reaction ap3 Medication: 10:48 VIS not applicable for this client. ap3 Outcome: 10:36 Discharge ordered by . kb 10:47 Discharged to home ambulatory, ap3 10:47 Condition: good 10:47 Discharge instructions given to patient, Instructed on discharge instructions, follow up and referral plans. medication usage, Demonstrated understanding of instructions, follow-up care, medications, Prescriptions given X 1, 10:48 Patient left the ED. ap3 Signatures: Tammi Mccormack FNP-C FNP-Ckb Baxter, Heather, RN RN Maggie Ramirez RN RN ap3 Jasmyne Reina mg5 Corrections: (The following items were deleted from the chart) 09:32 09:28 Pain: Pain currently is 5 out of 10 on a pain scale. hb
--- NOTE | 2023-11-18 10:37 | EDPHYS ---
Physician Documentation [facility] Name: Melanie Gotti Age: 43 yrs Sex: Female : 1980 Arrival Date: 11/18/2023 Time: 09:16 Bed 12 Private MD: ED Physician Wayne Poole HPI: 11/17 09:37 This 43 yrs old Female presents to ER via Ambulatory with complaints of Flu Symptoms. kb 09:37 Pt is a 43 year old female who presents for congestion that has been ongoing for 1.5 kb months. States her house is being remodeled so there are a lot of particles in the air (from popcorn ceilings, etc). Denies fever. States she went to at onset of symptoms, tested negative for covid and was told to use OTC medications. . MEDICAL OBSERVER: 10:48 LMP N/A - , Not ap3 Historical: - Allergies: 09:27 NKDA; hb - Home Meds: 09:27 Lexapro Oral [Active]; Hydroxyzine Oral [Active]; hb - PMHx: 09:27 Anxiety; depressive disorder; hb - PSHx: 09:27 Cholecystectomy; hb - Immunization history:: Adult Immunizations up to date. - Infectious Disease History:: Denies. - Social history:: Smoking status: Patient denies any tobacco usage or history of. ROS: 09:31 Constitutional: As per HPI kb Exam: :31 Constitutional: This is a well developed, well nourished patient who is awake, alert, kb and in no acute distress. Head/Face: Normocephalic, atraumatic. ENT: Moist Mucous membranes Cardiovascular: Regular rate Respiratory: Respirations even and unlabored. No increased work of breathing. Talking in full sentences Abdomen/GI: Soft, non-tender. No distention Skin: Warm, dry with normal turgor. Normal color. MS/ Extremity: Pulses equal, no cyanosis. Neurovascular intact. Full, normal range of motion. Neuro: Awake and alert, GCS 15, oriented to person, place, time, and situation. Moves all extremities. Normal gait. Vital Signs: 09:31 BP 147 / 94; Pulse 74; Resp 16; Temp 97(TE); Pulse Ox 97% on R/A; Weight 70.31 kg; hb Height 5 ft. 3 in. ; Pain 7/10; 10:46 Temp 97.4(TE); ap3 09:31 Body Mass Index 27.46 (70.31 kg, 160.02 cm) hb 09:31 Pain Scale: Adult hb MDM: 09:19 Patient medically screened. kb 10:35 Differential diagnosis: uri, allergic rhinitis, sinusitis. Data reviewed: vital signs, kb nurses notes. I considered the following discharge prescriptions or medication management in the emergency department I discussed and recommended Over The Counter medications, Antibiotics: At this time antibiotics are not recommended. Counseling: I had a detailed discussion with the patient and/or guardian regarding the historical points, exam findings, and any diagnostic results supporting the discharge/admit diagnosis, lab results, the need for outpatient follow up, a family practitioner, to return to the emergency department if symptoms worsen or persist or if there are any questions or concerns that arise at home. 11/17 09:30 Order name: Strep kb 11/17 10:37 Order name: Throat Culture EDMS Administered Medications: 09:43 Drug: Dexamethasone IM 10 mg IM once Route: IM; Site: left ventrogluteal; hb 10:48 Follow up: Response: No adverse reaction ap3 Disposition: 11:22 Co-signature as Attending Physician, Wayne Poole MD I reviewed the patient's care rt provided by the Advanced Practice Provider and agree with the diagnosis and treatment plan. Disposition Summary: 11/18/23 10:36 Discharge Ordered Notes: Location: Home kb Condition: Stable kb Diagnosis - Nasal congestion kb Followup: kb - With: Emergency Department - When: As needed - Reason: Worsening of condition Followup: kb - With: Private Physician - When: 2 - 3 days - Reason: Recheck today's complaints, Continuance of care, Re-evaluation by your physician Discharge Instructions: - Discharge Summary Sheet kb - Sinusitis, Adult, [id number] kb - Allergic Rhinitis, Adult, [id number] kb Forms: - Medication Reconciliation Form kb - Antibiotic Education kb - Prescription Opioid Use kb - Patient Portal Instructions kb - Leadership Thank You Letter kb Prescriptions: - Prednisone 20 mg Oral Tablet - take 1 tablet ORAL route once daily for 5 days; 5 tablet; Refills: 0, Product kb Selection Permitted Signatures: Dispatcher [employer] Response Strategies EDTammi Narayan, Mag Easley RN RN hb Wayne Poole MD MD rt Maggie Ramirez RN ap3 Corrections: (The following items were deleted from the chart) :30 09:30 Group A Streptococcus Rapid [id number] ordered. EDMS EDMS
[2023-11-18 11:11] VITALS: BP 147/94; TEMP 97.4; O2SAT 97
== END 2023-11-18 10:48 | disposition home or self-care (01) ==
LOC: ER 09:16
DX: R09.81 Nasal congestion (principal)
CPT/HCPCS: 87070; 87081; 96372; 99284; J1100

== ENCOUNTER 2023-12-28 07:39 | Emergency (ER) | payer OTHER ==
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
[2023-12-28] MEDS ORDERED: ACETAMINOPHEN 500 MG TAB ONE (08:50)
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
--- NOTE | 2023-12-28 09:25 | RAD REPORT ---
EXAM: CT CHEST, ABDOMEN AND PELVIS WITHOUT CONTRAST CLINICAL INDICATION: Female, 43 years old PAIN TECHNIQUE: CT chest, abdomen and pelvis was performed, without IV contrast, as per department protoco l. Axial, sagittal and coronal reconstructions were obtained. One or more of the following dose reduction techniques were used: Automated exposure control, adjustment of the mA and/or kV according to the patient size, and/or iterative reconstruction. Unless otherwise specified, incidental findings do not require dedicated imaging follow-up. [id number]. COMPARISON: No prior exam. FINDINGS: The lack of intravenous contrast limits the sensitivity of this exam for evaluation of solid visceral organs, vascular structures, and retroperitoneum. Chest: LOWER NECK/CHEST WALL: Visualized thyroid gland and soft tissues are normal. LUNGS AND AIRWAYS: Airways are clear. No evidence of airspace or interstitial process. No nodules. PLEURA: No pleural effusion. No pneumothorax. Hemidiaphragms are normally positioned. MEDIASTINUM AND LYMPH NODES: No mediastinal mass or fluid collection. Normal size mediastinal, hilar, and axillary lymph nodes. THORACIC AORTA: Normal caliber and configuration. PULMONARY ARTERIES: Normal caliber. HEART: Unremarkable. Abdomen/Pelvis LIVER: Normal in size and contour. No focal lesion. GALLBLADDER/BILE DUCTS: No biliary ductal dilatation. Cholecystectomy. PANCREAS: No mass, ductal dilation, or stuart-pancreatic fluid. SPLEEN: Normal size. No focal lesion. ADRENALS: Normal; no mass. KIDNEYS AND URETERS: Normal size and contour. No hydronephrosis. GASTROINTESTINAL TRACT: Stomach is non-dilated. Small bowel has normal course and caliber. No colonic wall thickening or pericolonic inflammatory changes. PERITONEUM: No free fluid. LYMPH NODES: No lymphadenopathy. ABDOMINAL AORTA AND OTHER VESSELS: Normal caliber aorta and IVC. URINARY BLADDER: Normal contour. REPRODUCTIVE ORGANS: No pathologic process. IUD MUSCULOSKELETAL: No acute or suspicious osseous abnormality. ADDITIONAL FINDINGS: None IMPRESSION: No acute or significant abnormalities in the chest, abdomen, or pelvis.
[2023-12-28 09:55] VITALS: BP 133/89; TEMP 97.1; O2SAT 99
== END 2023-12-28 09:43 | disposition home or self-care (01) ==
LOC: ER 07:39
DX: S29.011A Strain of muscle and tendon of front wall of thorax, initial encounter (principal); S50.811A Abrasion of right forearm, initial encounter; S00.83XA Contusion of other part of head, initial encounter; S60.221A Contusion of right hand, initial encounter; R04.0 Epistaxis; V49.49XA Driver injured in collision with other motor vehicles in traffic accident, initial encounter
CPT/HCPCS: 70450; 70486; 71250; 72125; 74176; 76377

== ENCOUNTER 2024-01-13 13:58 | Emergency (ER) | payer OTHER ==
--- OUTSIDE RECORDS SUMMARY | 2024-01-13 14:03 | XMS REPORT | Continuity of Care Document ---
Author Name Unknown Address [address] [facility] [address] [place] [address] [facility] thconnect Address [address] [facility] [address] [place] [address] Care Team Providers Care Heating Unit Installer Name Role Phone YAMILETH ROWE Primary Care Physician Unavailab Yessi Joshi Attending Clinician [phone] YESSI CALLE Attending Clinician Unavailable Mansoor Jorge Attending Clinician [phone] Unknown, Attending Attending Clinician Unavailab MANSOOR Chavarria Attending Clinician Unavailable Mansoor Jorge Attending Clinician [phone] Unknown, Attending Attending Clinician Unavailab Yamileth Roberts MD Attending Clinician [phone] Priscilla Kapadia PA-C Attending Clinician [phone] PRISCILLA KAPADIA Attending Clinician Unavailable ROSEMARY SHEIKH Attending Clinician Unavailable YAMILETH ROWE Attending Clinician Unavailable KENNA ALMARAZ Attending Clinician UnavailKENNA Cifuentes Attending Clinician UnavailRosemary Calderon Attending Clinician [phone] BUTCH MINOR Attending Clinician Unavailable Butch Beatty Attending Clinician [phone] ASHLEY WRIGHT Attending Clinician Unavailable Ashley Wright MD Attending Clinician [phone] MEY HEALY Attending Clinician Unavailable Green SHAKER PLATE OPERATOR, Mey Attending Clinician [phone] Lab, Ang - Db Attending Clinician Unavailable Raghavendra GARDNER Attending Clinician Unavailable Raghavendra Lockhart Attending Clinician [phone] ASHLEY VELÁSQUEZ Attending Clinician Unavailab Ashley Damon DO Attending Clinician [phone] Ger Coleman DO Attending Clinician [phone] GER COLEMAN Attending Clinician Unavailable YAMILETH ROWE Admitting Clinician Unavailable ASHLEY VELÁSQUEZ Admitting Clinician Unavailab GER Guzmán Admitting Clinician Unavailable Payers Payer Name Policy Type Policy Number Effective Date Expirati on Date Source Problems Condition Name Condition Details Condition Category Status Onset Date Resolution Date Last Treatment Date Treating Clinician Comments Source Need for vaccinatio n Need for vaccinatio n Disease Active 05-08 00:00: 00 [facility] Injury of left ankle, initial encounter Injury of left ankle, initial encounter Disease Active 05-08 00:00: 00 [facility] Allergic conjunctiv itis of left eye Allergic conjunctiv itis of left eye Disease Active 05 00:00: 00 [facility] Encounter for initial prescripti on of vaginal ring hormonal contracept lupe Encounter for initial prescripti on of vaginal ring hormonal contracept lupe Disease Active 04-28 00:00: 00 [facility] Decreased libido Decreased libido Disease Active 04-28 00:00: 00 [facility] Well woman exam Well woman exam Disease Active 2014-03 00:00: 00 [facility] Anemia of mother in , condition Anemia of mother in , condition Disease Resolve d 2014-03 00:00: 00 2016-02-25 00:00:00 2016-02-25 11:16:48 [facility] Spontaneou s vaginal delivery Spontaneou s vaginal delivery Disease Resolve d 2014-03 0-20 00:00: 00 2015-02-24 00:00:00 2021-10-03 00:38:09 [facility] Yeast infection of the vagina Yeast infection of the vagina Disease Resolve d 7-31 00:00: 00 2015-02-24 00:00:00 2015-02-24 12:46:58 [facility] Supervisio n of high-risk with history of Supervisio n of high-risk with history of Disease Resolve d 07-08 00:00: 00 2015-02-24 00:00:00 2015-02-24 12:47:13 [facility] Family history of Downs syndrome Family history of Downs syndrome Disease Resolve d 07-08 00:00: 00 2015-02-24 00:00:00 2015-02-24 12:47:01 [facility] Prior with demise, antepartum Prior with demise, antepartum Disease Resolve d 07-08 00:00: 00 2015-02-24 00:00:00 2021-10-03 00:35:41 [facility] Sciatic leg pain Sciatic leg pain Disease Resolve d 07-08 00:00: 00 2015-02-24 00:00:00 2015-02-24 12:47:08 [facility] History of delivery, currently History of delivery, currently Disease Resolve d 07-08 00:00: 00 2015-02-24 00:00:00 2015-02-24 12:47:43 [facility] induction of labor induction of labor Disease Resolve d 2014-03 0-19 00:00: 00 2015-01-06 00:00:00 2015-01-06 15:12:40 [facility] Allergies, Adverse Reactions, Alerts Allergy Name Allergy Type Status Severity Reaction(s) Onset Date Inactive Date Treating Clinician Comments Source NO KNOWN ALLERGIE S Drug Class Active [facility] Social History Social Habit Start Date Stop Date Quantity Comments Source History SDOH Alcohol Frequency [facility] History SDOH Alcohol Std Drinks [facility] History SDOH Alcohol Binge [facility] Gender identity [facility] beverage intake 2024-01-12 00:00:00 2024-01-12 00:00:00 Ex-drinker (finding) [facility] Alcohol intake 2023-05-24 00:00:00 2023-05-24 00:00:00 Ex-drinker (finding) [facility] History of Social function 2022-12-02 00:00:00 2022-12-02 00:00:00 [facility] Exposure to SARS-CoV-2 (event) 2022-07-10 00:00:00 2022-07-20 11:46:00 Not sure [facility] Tobacco use and exposure 2022-05-09 00:00:00 2022-05-09 00:00:00 User of smokeless tobacco [facility] Tobacco Comment 2022-05-09 00:00:00 2022-05-09 00:00:00 Vape occasional [facility] Alcohol Comment 2022-01-03 00:00:00 2022-01-03 00:00:00 socially, 2 beers a week [facility] Sex assigned at 1980 00:00:00 1980 00:00:00 [facility] Smoking Status Start Date Stop Date Source Never smoked tobacco [facility] Medications Ordered Medication Name Filled Medication Name Start Date Stop Date Current Medication? Ordering Clinician Indication Dosage Frequency Signature (SIG) Comments Components Source methylPREDN ISolone (MEDROL, RAVINDRA,) 4 mg tablets 2023-03 00:00: 00 Yes [id number] Take by mouth SEE-INSTRU CTIONS. follow package directions [facility] montelukast 10 mg tablet 2023-03 00:00: 00 Yes [id number] 10mg Take 1 tablet by mouth in the morning. [facility] cefdinir 300 mg capsule 2023-03 0-14 00:00: 00 01-08 04:59 :00 Yes [id number] 300mg Take 1 capsule by mouth every 12 (twelve) hours for 7 days. [facility] amoxicillin -clavulanat e (AUGMENTIN) 875-125 mg per tablet -10 00:00: 09-07 04:59 :00 No [id number] 1{tbl} Take 1 tablet by mouth in the morning and 1 tablet in the evening. Do all this for 10 days. [facility] ESCITALOPRA M OXALATE 20 mg tablet 08-10 00:00: 00 Yes [id number] 20mg TAKE 1 TABLET BY MOUTH EVERY MORNING [facility] ESCITALOPRA M OXALATE 20 mg tablet 07-09 00:00: 00 08-10 00:00 :00 No [id number] 20mg TAKE 1 TABLET BY MOUTH EVERY MORNING [facility] ESCITALOPRA M OXALATE 20 mg tablet 06-04 00:00: 00 07-09 00:00 :00 No [id number] 20mg TAKE 1 TABLET BY MOUTH EVERY MORNING [facility] azelastine 137 mcg (0.1 %) nasal spray 05-23 00:00: 00 Yes [id number] 1{spray } Use 1 [place] in each nostril in the morning and 1 [place] in the evening. Use in each nostril as directed [facility] amoxicillin -clavulanat e (AUGMENTIN) 875-125 mg per tablet 05-23 00:00: 00 06-03 04:59 :00 No [id number] 1{tbl} Take 1 tablet by mouth in the morning and 1 tablet in the evening. Do all this for 10 days. [facility] meloxicam 15 mg tablet 2-19 00:00: 00 01-11 00:00 :00 No [id number] 15mg Take 1 tablet by mouth in the morning. [facility] ESCITALOPRA M OXALATE 20 mg tablet 2-16 00:00: 00 06-04 00:00 :00 No [id number] 20mg TAKE 1 TABLET BY MOUTH EVERY MORNING [facility] ketorolac (TORADOL) injection 30 mg 1-20 17:15: 00 04-08 16:27 :00 No [id number] 30mg [facility] methocarbam oL (ROBAXIN-75 0) 750 mg tablet 1-20 00:00: 00 04-19 05:59 :00 No [id number] 750mg Take 1 tablet by mouth 4 (four) times daily for 10 days. [facility] escitalopra m oxalate 20 mg tablet 03-31 00:00: 00 05-05 00:00 :00 No [id number] 20mg TAKE ONE TABLET BY MOUTH EVERY MORNING [facility] ketorolac (TORADOL) injection 30 mg 2022-03 16:45: 00 02-25 16:00 :00 No [id number] 30mg [facility] proMETHazin e 25 mg tablet 2022-03 00:00: 00 01-11 00:00 :00 No [id number] 25mg Take 1 tablet by mouth every 4 (four) hours as needed for Nausea and Vomiting (N/V). [facility] escitalopra m oxalate 20 mg tablet 2022-03 00:00: 00 03-31 00:00 :00 No [id number] 20mg Take 1 tablet by mouth in the morning. [facility] ondansetron 4 mg disintegrat ing tablet 2022-03 0 00:00: 00 01-11 00:00 :00 No [id number] 4mg Take 1 tablet by mouth every 8 (eight) hours as needed for Nausea and Vomiting (N/V). [facility] clindamycin 300 mg capsule 2022-03 0-30 00:00: 00 01-27 00:00 :00 No [id number] 05 300mg Take 1 capsule by mouth 4 (four) times daily. [facility] amoxicillin 500 mg tablet 9-15 00:00: 00 01-27 00:00 :00 No [id number] 500mg Take 1 tablet by mouth in the morning and 1 tablet in the evening. [facility] azelastine 137 mcg (0.1 %) nasal spray 8-17 00:00: 00 2024- 03-06 00:00 :00 No [id number] 1{spray } Use 1 [place] in each nostril in the morning and 1 [place] in the evening. Use in each nostril as directed [facility] fluticasone propionate 50 mcg/actuati on nasal spray 11-03 00:00: 00 01-27 00:00 :00 No [id number] 2{spray } Use 2 Sprays in each nostril in the morning. [facility] predniSONE 20 mg tablet 11-03 00:00: 00 11-09 04:59 :00 No [id number] 20mg Take 1 tablet by mouth in the morning and 1 tablet in the evening. Do all this for 5 days. [facility] loratadine 10 mg tablet 10-09 10:15: 48 Yes 10mg Take 1 tablet by mouth in the morning. [facility] mupirocin 2 % ointment 10-09 00:00: 00 Yes [id number] Apply to area(s) 3 (three) times daily. [facility] Azelastine 205.5 mcg (0.15 %) nasal spray 07-26 00:00: 00 Yes [id number] 1{spray } Use 1 [place] in each nostril in the morning. [facility] fluticasone propionate 50 mcg/actuati on nasal spray 07-26 00:00: 00 Yes [id number] 1{spray } Use 1 [place] in each nostril in the morning. [facility] dexamethaso ne sod phos PF injection 10 mg 07-20 18:00: 00 07-20 17:18 :00 No [id number] 10mg [facility] cephALEXin 500 mg capsule 07-06 00:00: 00 07-12 04:59 :00 No [id number] 500mg Take 1 capsule by mouth 4 (four) times daily for 5 days. [facility] olopatadine 0.7 % Drop 06-22 00:00: 00 Yes [id number] 1[drp] Place 1 Drop in each eye in the morning. [facility] hydrOXYzine 25 mg capsule 4-05 00:00: 00 01-11 00:00 :00 No [id number] 25mg Take 1 capsule by mouth 3 (three) times daily as needed for Itching. [facility] predniSONE 20 mg tablet 3-30 00:00: 00 06-22 04:59 :00 No [id number] 40mg Take 2 tablets by mouth in the morning for 5 days. [facility] dexamethaso ne (DECADRON) injection 10 mg 2-20 15:30: 00 05-09 15:34 :00 No [id number] 10mg [facility] methylPREDN ISolone (MEDROL, RAVINDRA,) 4 mg tablets 2-20 00:00: 00 07-08 00:00 :00 No [id number] follow package directions [facility] azelastine- fluticasone (DYMISTA) 137-50 mcg/spray nasal spray 1- 00:00: 00 Yes [id number] 1{spray } Use 1 [place] in each nostril in the morning and 1 [place] in the evening. [facility] escitalopra m oxalate 10 mg tablet -19 00:00: 00 01-27 00:00 :00 No [id number] 10mg Take 1 tablet by mouth in the morning. [facility] methylPREDN ISolone (MEDROL, RAVINDRA,) 4 mg tablets 1-19 00:00: 00 07-08 00:00 :00 No [id number] Take by mouth SEE-INSTRU CTIONS. follow package directions [facility] dexamethaso ne (DECADRON) injection 10 mg 1-18 16:45: 00 04-06 15:37 :00 No [id number] 10mg [facility] methylPREDN ISolone (MEDROL, RAVINDRA,) 4 mg tablets 1-18 00:00: 04-07 00:00 :00 No [id number] Take by mouth SEE-INSTRU CTIONS. follow package directions [facility] ibuprofen 600 mg tablet 2021-03 00:00: 00 04-07 00:00 :00 No [id number] 05 600mg Take 1 tablet by mouth every 6 (six) hours as needed for Pain (scale 4-6). [facility] amoxicillin 500 mg tablet 2021-03 00:00: 00 03-08 05:59 :00 No [id number] 05 500mg Take 1 tablet by mouth in the morning and 1 tablet in the evening. Do all this for 10 days. [facility] dexamethaso ne sod phos PF injection 10 mg 2021-03 15:15: 00 01-03 14:21 :00 No [id number] 10mg [facility] dexAMETHaso ne sodium phos (PF) injection syringe 10 mg 2021-03 15:00: 00 01-03 14:20 :23 No [id number] 10mg [facility] loratadine 10 mg tablet 2021-03 09:16: 59 Yes 10mg Take 10 mg by mouth in the morning. [facility] copper 380 square mm IUD 2021-03 08:36: 44 Yes 1{IUD} 1 Intra Uterine Device by Intrauteri ne route once now. [facility] hydrOXYzine 25 mg capsule 2021-03 00:00: 00 06-22 00:00 :00 No [id number] 25mg Take 1 capsule by mouth 3 (three) times daily as needed for Itching. [facility] escitalopra m oxalate 10 mg tablet 2021-03 00:00: 00 04-07 00:00 :00 No [id number] 10mg Take 1 tablet by mouth in the morning. [facility] azelastine- fluticasone (DYMISTA) 137-50 mcg/spray nasal spray 2021-03 00:00: 00 04-07 00:00 :00 No [id number] 1{spray } Use 1 [place] in each nostril in the morning and 1 [place] in the evening. [facility] benzonatate 200 mg capsule 12-07 00:00: 00 01-03 00:00 :00 No [id number] 200mg Take 1 capsule by mouth 3 (three) times daily as needed for Cough for up to 20 doses. [facility] NUVARING 0.12-0.015 mg/24 hr vaginal insert 07-19 00:00: 00 01-03 00:00 :00 No [id number] 1{each} Insert 1 Each into vagina once every month. Insert vaginally and leave in place for 3 consecutiv e weeks, then remove for 1 week. [facility] hydrOXYzine 25 mg capsule 04-06 00:00: 01-03 00:00 :00 No [facility] escitalopra m oxalate 10 mg tablet 04-06 00:00: 00 01-03 00:00 :00 No [facility] norgestimat e-ethinyl estradiol 0.18/0.215/ 0.25 mg-35 mcg (28) tablet 2016-03 00:00: 00 01-03 00:00 :00 No 1{tbl} Take 1 tablet by mouth daily. [facility] ibuprofen (MOTRIN) 600 mg tablet 2014-03 0 00:00: 00 02-25 00:00 :00 No 600mg Take 1 Tab by mouth every 6 (six) hours as needed for Pain (scale 4-6). Take with food or milk. [facility] Immunizations Ordered Immunization Name Filled Immunization Name Date Status Comments Source Influenza Virus Vaccine Quad IM, Preserv and ABX Free 6 MO-64 YRS (FLUCELVAX) 2023-05-08 00:00:00 Completed [facility] SARS-COV-2 COVID 19 CORNELIA SUCROSE VACCINE 12+, , 0.3 ML (30 MCG), IM PFIZER (KIRKPATRICK TOP) 2023-05-08 00:00:00 Completed SARS-COV-2 COVID-19 PFIZER VACCINE 2020-08-25 00:00:00 Completed [facility] SARS-COV-2 COVID-19 PFIZER VACCINE 2020-08-25 00:00:00 Completed SARS-COV-2 COVID-19 PFIZER VACCINE 2020-08-25 00:00:00 Completed [facility] SARS-COV-2 COVID-19 PFIZER VACCINE 2020-08-25 00:00:00 Completed [facility] SARS-COV-2 COVID-19 PFIZER VACCINE 2020-08-25 00:00:00 Completed [facility] SARS-COV-2 COVID-19 PFIZER VACCINE 2020-08-25 00:00:00 Completed [facility] SARS-COV-2 COVID-19 PFIZER VACCINE 2020-08-25 00:00:00 Completed [facility] SARS-COV-2 COVID-19 PFIZER VACCINE 2020-08-25 00:00:00 Completed [facility] SARS-COV-2 COVID-19 PFIZER VACCINE 2020-08-25 00:00:00 Completed [facility] SARS-COV-2 COVID-19 PFIZER VACCINE 2020-08-25 00:00:00 Completed [facility] SARS-COV-2 COVID-19 PFIZER VACCINE 2020-08-25 00:00:00 Completed [facility] SARS-COV-2 COVID-19 PFIZER VACCINE 2020-08-25 00:00:00 Completed [facility] SARS-COV-2 COVID-19 PFIZER VACCINE 2020-08-25 00:00:00 Completed [facility] SARS-COV-2 COVID-19 PFIZER VACCINE 2020-08-25 00:00:00 Completed [facility] SARS-COV-2 COVID-19 PFIZER VACCINE 2020-08-25 00:00:00 Completed [facility] SARS-COV-2 COVID-19 PFIZER VACCINE 2020-08-25 00:00:00 Completed [facility] SARS-COV-2 COVID-19 PFIZER VACCINE 2020-08-25 00:00:00 Completed [facility] SARS-COV-2 COVID-19 PFIZER VACCINE 2020-08-25 00:00:00 Completed [facility] SARS-COV-2 COVID-19 PFIZER VACCINE 2020-08-25 00:00:00 Completed [facility] SARS-COV-2 COVID-19 PFIZER VACCINE 2020-08-25 00:00:00 Completed [facility] SARS-COV-2 COVID-19 PFIZER VACCINE 2020-08-04 00:00:00 Completed [facility] SARS-COV-2 COVID-19 PFIZER VACCINE 2020-08-04 00:00:00 Completed [facility] SARS-COV-2 COVID-19 PFIZER VACCINE 2020-08-04 00:00:00 Completed [facility] SARS-COV-2 COVID-19 PFIZER VACCINE 2020-08-04 00:00:00 Completed [facility] SARS-COV-2 COVID-19 PFIZER VACCINE 2020-08-04 00:00:00 Completed [facility] SARS-COV-2 COVID-19 PFIZER VACCINE 2020-08-04 00:00:00 Completed [facility] SARS-COV-2 COVID-19 PFIZER VACCINE 2020-08-04 00:00:00 Completed [facility] SARS-COV-2 COVID-19 PFIZER VACCINE 2020-08-04 00:00:00 Completed [facility] SARS-COV-2 COVID-19 PFIZER VACCINE 2020-08-04 00:00:00 Completed [facility] SARS-COV-2 COVID-19 PFIZER VACCINE 2020-08-04 00:00:00 Completed [facility] SARS-COV-2 COVID-19 PFIZER VACCINE 2020-08-04 00:00:00 Completed [facility] SARS-COV-2 COVID-19 PFIZER VACCINE 2020-08-04 00:00:00 Completed [facility] SARS-COV-2 COVID-19 PFIZER VACCINE 2020-08-04 00:00:00 Completed [facility] SARS-COV-2 COVID-19 PFIZER VACCINE 2020-08-04 00:00:00 Completed [facility] SARS-COV-2 COVID-19 PFIZER VACCINE 2020-08-04 00:00:00 Completed [facility] SARS-COV-2 COVID-19 PFIZER VACCINE 2020-08-04 00:00:00 Completed [facility] SARS-COV-2 COVID-19 PFIZER VACCINE 2020-08-04 00:00:00 Completed [facility] SARS-COV-2 COVID-19 PFIZER VACCINE 2020-08-04 00:00:00 Completed [facility] SARS-COV-2 COVID-19 PFIZER VACCINE 2020-08-04 00:00:00 Completed [facility] SARS-COV-2 COVID-19 PFIZER VACCINE 2020-08-04 00:00:00 Completed [facility] Influenza Virus Vaccine Quad IM Multi-dose 6+ MO 2017-02-14 00:00:00 Completed [facility] Influenza Virus Vaccine Quad IM Multi-dose 6+ MO 2017-02-14 00:00:00 Completed [facility] Influenza Virus Vaccine Quad IM Multi-dose 6+ MO 2017-02-14 00:00:00 Completed [facility] Influenza Virus Vaccine Quad IM Multi-dose 6+ MO 2017-02-14 00:00:00 Completed [facility] Influenza Virus Vaccine Quad IM Multi-dose 6+ MO 2017-02-14 00:00:00 Completed [facility] Influenza Virus Vaccine Quad IM Multi-dose 6+ MO 2017-02-14 00:00:00 Completed [facility] Influenza Virus Vaccine Quad IM Multi-dose 6+ MO 2017-02-14 00:00:00 Completed [facility] Influenza Virus Vaccine Quad IM Multi-dose 6+ MO 2017-02-14 00:00:00 Completed [facility] Influenza Virus Vaccine Quad IM Multi-dose 6+ MO 2017-02-14 00:00:00 Completed [facility] Influenza Virus Vaccine Quad IM Multi-dose 6+ MO 2017-02-14 00:00:00 Completed [facility] Influenza Virus Vaccine Quad IM Multi-dose 6+ MO 2017-02-14 00:00:00 Completed [facility] Influenza Virus Vaccine Quad IM Multi-dose 6+ MO 2017-02-14 00:00:00 Completed [facility] Influenza Virus Vaccine Quad IM Multi-dose 6+ MO 2017-02-14 00:00:00 Completed [facility] Influenza Virus Vaccine Quad IM Multi-dose 6+ MO 2017-02-14 00:00:00 Completed [facility] Influenza Virus Vaccine Quad IM Multi-dose 6+ MO 2017-02-14 00:00:00 Completed [facility] Influenza Virus Vaccine Quad IM Multi-dose 6+ MO 2017-02-14 00:00:00 Completed [facility] Influenza Virus Vaccine Quad IM Multi-dose 6+ MO 2017-02-14 00:00:00 Completed [facility] Influenza Virus Vaccine Quad IM Multi-dose 6+ MO 2017-02-14 00:00:00 Completed [facility] Influenza Virus Vaccine Quad IM Multi-dose 6+ MO 2017-02-14 00:00:00 Completed [facility] Influenza Virus Vaccine Quad IM Multi-dose 6+ MO 2017-02-14 00:00:00 Completed [facility] Influenza Virus Vaccine Quad IM Multi-dose 6+ MO 2017-02-14 00:00:00 Completed [facility] Influenza Virus Vaccine Quad IM Multi-dose 6+ MO 2017-02-14 00:00:00 Completed [facility] Influenza Virus Vaccine Quad IM Multi-dose 6+ MO 2017-02-14 00:00:00 Completed [facility] Influenza Virus Vaccine Quad IM 3+ YRS 2014-12-08 00:00:00 Completed [facility] Influenza Virus Vaccine Quad IM 3+ YRS 2014-12-08 00:00:00 Completed Influenza Virus Vaccine Quad IM 3+ YRS 2014-12-08 00:00:00 Completed [facility] Influenza Virus Vaccine Quad IM 3+ YRS 2014-12-08 00:00:00 Completed [facility] Influenza Virus Vaccine Quad IM 3+ YRS 2014-12-08 00:00:00 Completed [facility] Influenza Virus Vaccine Quad IM 3+ YRS 2014-12-08 00:00:00 Completed [facility] Influenza Virus Vaccine Quad IM 3+ YRS 2014-12-08 00:00:00 Completed [facility] Influenza Virus Vaccine Quad IM 3+ YRS 2014-12-08 00:00:00 Completed [facility] Influenza Virus Vaccine Quad IM 3+ YRS 2014-12-08 00:00:00 Completed [facility] Influenza Virus Vaccine Quad IM 3+ YRS 2014-12-08 00:00:00 Completed [facility] Influenza Virus Vaccine Quad IM 3+ YRS 2014-12-08 00:00:00 Completed [facility] Influenza Virus Vaccine Quad IM 3+ YRS 2014-12-08 00:00:00 Completed [facility] Influenza Virus Vaccine Quad IM 3+ YRS 2014-12-08 00:00:00 Completed [facility] Influenza Virus Vaccine Quad IM 3+ YRS 2014-12-08 00:00:00 Completed [facility] Influenza Virus Vaccine Quad IM 3+ YRS 2014-12-08 00:00:00 Completed [facility] Influenza Virus Vaccine Quad IM 3+ YRS 2014-12-08 00:00:00 Completed [facility] Influenza Virus Vaccine Quad IM 3+ YRS 2014-12-08 00:00:00 Completed [facility] Influenza Virus Vaccine Quad IM 3+ YRS 2014-12-08 00:00:00 Completed [facility] Influenza Virus Vaccine Quad IM 3+ YRS 2014-12-08 00:00:00 Completed [facility] Influenza Virus Vaccine Quad IM 3+ YRS 2014-12-08 00:00:00 Completed [facility] Influenza Virus Vaccine Quad IM 3+ YRS 2014-12-08 00:00:00 Completed [facility] Influenza Virus Vaccine Quad IM 3+ YRS 2014-12-08 00:00:00 Completed [facility] Influenza Virus Vaccine Quad IM 3+ YRS 2014-12-08 00:00:00 Completed [facility] TDAP 2014-10-23 00:00:00 Completed [facility] TDAP 2014-10-23 00:00:00 Completed [facility] TDAP 2014-10-23 00:00:00 Completed [facility] TDAP 2014-10-23 00:00:00 Completed [facility] TDAP 2014-10-23 00:00:00 Completed [facility] TDAP 2014-10-23 00:00:00 Completed [facility] TDAP 2014-10-23 00:00:00 Completed [facility] TDAP 2014-10-23 00:00:00 Completed [facility] TDAP 2014-10-23 00:00:00 Completed [facility] TDAP 2014-10-23 00:00:00 Completed [facility] TDAP 2014-10-23 00:00:00 Completed [facility] TDAP 2014-10-23 00:00:00 Completed [facility] TDAP 2014-10-23 00:00:00 Completed [facility] TDAP 2014-10-23 00:00:00 [facility]pleted [facility] TDAP 2014-10-23 00:00:00 Completed [facility] TDAP 2014-10-23 00:00:00 Completed [facility] TDAP 2014-10-23 00:00:00 Completed [facility] TDAP 2014-10-23 00:00:00 Completed [facility] TDAP 2014-10-23 00:00:00 Completed [facility] TDAP 2014-10-23 00:00:00 Completed [facility] TDAP 2014-10-23 00:00:00 Completed [facility] TDAP 2014-10-23 00:00:00 Completed [facility] TDAP 2014-10-23 00:00:00 Completed [facility] Td 2010-07-08 00:00:00 Completed [facility] TD, NOS 2010-07-08 00:00:00 Completed Td 2010-07-08 00:00:00 Completed [facility] TD, NOS 2010-07-08 00:00:00 [facility]pleted [facility] TD, NOS 2010-07-08 00:00:00 Completed [facility] Td 2010-07-08 00:00:00 Completed [facility] TD, NOS 2010-07-08 00:00:00 Completed [facility] TD, NOS 2010-07-08 00:00:00 Completed [facility] TD, NOS 2010-07-08 00:00:00 Completed [facility] TD, NOS 2010-07-08 00:00:00 Completed [facility] TD, NOS 2010-07-08 00:00:00 Completed [facility] TD, NOS 2010-07-08 00:00:00 Completed [facility] TD, NOS 2010-07-08 00:00:00 Completed [facility] TD, NOS 2010-07-08 00:00:00 Completed [facility] Td 2010-07-08 00:00:00 Completed [facility] TD, NOS 2010-07-08 00:00:00 Completed [facility] TD, NOS 2010-07-08 00:00:00 Completed [facility] TD, NOS 2010-07-08 00:00:00 Completed [facility] TD, NOS 2010-07-08 00:00:00 Completed [facility] TD, NOS 2010-07-08 00:00:00 Completed [facility] TD, NOS 2010-07-08 00:00:00 Completed [facility] TD, NOS 2010-07-08 00:00:00 Completed [facility] Td 2010-07-08 00:00:00 Completed [facility] SARS-COV-2 COVID-19 PFIZER VACCINE Unknown Completed [facility] TD, NOS Unknown Completed [facility] TDAP Unknown Completed [facility] Influenza Virus Vaccine Quad IM 3+ YRS Unknown Completed [facility] Influenza Virus Vaccine Quad IM Multi-dose 6+ MO Unknown Completed [facility] SARS-COV-2 COVID-19 PFIZER VACCINE Unknown Completed [facility] TD, NOS Unknown Completed [facility] TDAP Unknown Completed [facility] Influenza Virus Vaccine Quad IM 3+ YRS Unknown Completed [facility] Influenza Virus Vaccine Quad IM Multi-dose 6+ MO Unknown Completed [facility] SARS-COV-2 COVID-19 PFIZER VACCINE Unknown Completed [facility] TD, NOS Unknown Completed [facility] TDAP Unknown Completed [facility] Influenza Virus Vaccine Quad IM 3+ YRS Unknown Completed [facility] Influenza Virus Vaccine Quad IM Multi-dose 6+ MO Unknown Completed [facility] SARS-COV-2 COVID-19 PFIZER VACCINE Unknown Completed [facility] TD, NOS Unknown Completed [facility] TDAP Unknown Completed [facility] Influenza Virus Vaccine Quad IM 3+ YRS Unknown Completed [facility] Influenza Virus Vaccine Quad IM Multi-dose 6+ MO Unknown Completed [facility] SARS-COV-2 COVID-19 PFIZER VACCINE Unknown Completed [facility] TD, NOS Unknown Completed [facility] TDAP Unknown Completed [facility] Influenza Virus Vaccine Quad IM 3+ YRS Unknown Completed [facility] Influenza Virus Vaccine Quad IM Multi-dose 6+ MO Unknown Completed [facility] SARS-COV-2 COVID-19 PFIZER VACCINE Unknown Completed [facility] TD, NOS Unknown Completed [facility] TDAP Unknown Completed [facility] Influenza Virus Vaccine Quad IM 3+ YRS Unknown Completed [facility] Influenza Virus Vaccine Quad IM Multi-dose 6+ MO Unknown Completed [facility] SARS-COV-2 COVID-19 PFIZER VACCINE Unknown Completed [facility] TD, NOS Unknown Completed [facility] TDAP Unknown Completed [facility] Influenza Virus Vaccine Quad IM 3+ YRS Unknown Completed [facility] Influenza Virus Vaccine Quad IM Multi-dose 6+ MO Unknown Completed [facility] SARS-COV-2 COVID-19 PFIZER VACCINE Unknown Completed [facility] TD, NOS Unknown Completed [facility] TDAP Unknown Completed [facility] Influenza Virus Vaccine Quad IM 3+ YRS Unknown Completed [facility] Influenza Virus Vaccine Quad IM Multi-dose 6+ MO Unknown Completed [facility] SARS-COV-2 COVID-19 PFIZER VACCINE Unknown Completed [facility] TD, NOS Unknown Completed [facility] TDAP Unknown Completed [facility] Influenza Virus Vaccine Quad IM 3+ YRS Unknown Completed [facility] Influenza Virus Vaccine Quad IM Multi-dose 6+ MO Unknown Completed [facility] SARS-COV-2 COVID-19 PFIZER VACCINE Unknown Completed [facility] TD, NOS Unknown Completed [facility] TDAP Unknown Completed [facility] Influenza Virus Vaccine Quad IM 3+ YRS Unknown Completed [facility] Influenza Virus Vaccine Quad IM Multi-dose 6+ MO Unknown Completed [facility] SARS-COV-2 COVID-19 PFIZER VACCINE Unknown Completed [facility] TD, NOS Unknown Completed [facility] TDAP Unknown Completed [facility] Influenza Virus Vaccine Quad IM 3+ YRS Unknown Completed [facility] Influenza Virus Vaccine Quad IM Multi-dose 6+ MO Unknown Completed [facility] SARS-COV-2 COVID-19 PFIZER VACCINE Unknown Completed [facility] TD, NOS Unknown Completed [facility] TDAP Unknown Completed [facility] Influenza Virus Vaccine Quad IM 3+ YRS Unknown Completed [facility] Influenza Virus Vaccine Quad IM Multi-dose 6+ MO Unknown Completed [facility] Influenza Virus Vaccine Quad IM, Preserv and ABX Free 6 MO-64 YRS (FLUCELVAX) Unknown Completed [facility] SARS-COV-2 COVID 19 CORNELIA SUCROSE VACCINE 12+, [id number], 0.3 ML (30 MCG), IM PFIZER (KIRKPATRICK TOP) Unknown Completed [facility] SARS-COV-2 COVID-19 PFIZER VACCINE Unknown Completed [facility] TD, NOS Unknown Completed [facility] TDAP Unknown Completed [facility] Influenza Virus Vaccine Quad IM 3+ YRS Unknown Completed [facility] Influenza Virus Vaccine Quad IM Multi-dose 6+ MO Unknown Completed [facility] SARS-COV-2 COVID-19 PFIZER VACCINE Unknown Completed [facility] Influenza Virus Vaccine Quad IM, Preserv and ABX Free 6 MO-64 YRS (FLUCELVAX) Unknown Completed [facility] SARS-COV-2 COVID 19 CORNELIA SUCROSE VACCINE , 0.3 ML (30 MCG), IM PFIZER (KIRKPATRICK TOP) Unknown Completed [facility] TD, NOS Unknown Completed [facility] TDAP Unknown Completed [facility] Influenza Virus Vaccine Quad IM 3+ YRS Unknown Completed [facility] Influenza Virus Vaccine Quad IM Multi-dose 6+ MO Unknown Completed [facility] SARS-COV-2 COVID-19 PFIZER VACCINE Unknown Completed [facility] Influenza Virus Vaccine Quad IM, Preserv and ABX Free 6 MO-64 YRS (FLUCELVAX) Unknown Completed [facility] SARS-COV-2 COVID 19 CORNELIA SUCROSE VACCINE , 0.3 ML (30 MCG), IM PFIZER (KIRKPATRICK TOP) Unknown Completed [facility] TD, NOS Unknown Completed [facility] TDAP Unknown Completed [facility] Influenza Virus Vaccine Quad IM 3+ YRS Unknown Completed [facility] Influenza Virus Vaccine Quad IM Multi-dose 6+ MO Unknown Completed [facility] SARS-COV-2 COVID-19 PFIZER VACCINE Unknown Completed [facility] Influenza Virus Vaccine Quad IM, Preserv and ABX Free 6 MO-64 YRS (FLUCELVAX) Unknown Completed [facility] SARS-COV-2 COVID 19 CORNELIA SUCROSE VACCINE , , 0.3 ML (30 MCG), IM PFIZER (KIRKPATRICK TOP) Unknown Completed [facility] TD, NOS Unknown Completed [facility] TDAP Unknown Completed [facility] Influenza Virus Vaccine Quad IM 3+ YRS Unknown Completed [facility] Influenza Virus Vaccine Quad IM Multi-dose 6+ MO Unknown Completed [facility] SARS-COV-2 COVID-19 PFIZER VACCINE Unknown Completed [facility] Influenza Virus Vaccine Quad IM, Preserv and ABX Free 6 MO-64 YRS (FLUCELVAX) Unknown Completed [facility] SARS-COV-2 COVID 19 CORNELIA SUCROSE VACCINE 12+, , 0.3 ML (30 MCG), IM PFIZER (KIRKPATRCIK TOP) Unknown Completed [facility] TD, NOS Unknown Completed [facility] TDAP Unknown Completed [facility] Influenza Virus Vaccine Quad IM 3+ YRS Unknown Completed [facility] Influenza Virus Vaccine Quad IM Multi-dose 6+ MO Unknown Completed [facility] SARS-COV-2 COVID-19 PFIZER VACCINE Unknown Completed [facility] Influenza Virus Vaccine Quad IM, Preserv and ABX Free 6 MO-64 YRS (FLUCELVAX) Unknown Completed [facility] SARS-COV-2 COVID 19 CORNELIA SUCROSE VACCINE , 0.3 ML (30 MCG), IM PFIZER (KIRKPATRICK TOP) Unknown Completed [facility] TD, NOS Unknown Completed [facility] TDAP Unknown Completed [facility] Influenza Virus Vaccine Quad IM 3+ YRS Unknown Completed [facility] Influenza Virus Vaccine Quad IM Multi-dose 6+ MO Unknown Completed [facility] SARS-COV-2 COVID-19 PFIZER VACCINE Unknown Completed [facility] Influenza Virus Vaccine Quad IM, Preserv and ABX Free 6 MO-64 YRS (FLUCELVAX) Unknown Completed [facility] SARS-COV-2 COVID 19 CORNELIA SUCROSE VACCINE , , 0.3 ML (30 MCG), IM PFIZER (KIRKPATRICK TOP) Unknown Completed [facility] TD, NOS Unknown Completed [facility] TDAP Unknown Completed [facility] Influenza Virus Vaccine Quad IM 3+ YRS Unknown Completed [facility] Influenza Virus Vaccine Quad IM Multi-dose 6+ MO Unknown Completed [facility] SARS-COV-2 COVID-19 PFIZER VACCINE Unknown Completed [facility] Influenza Virus Vaccine Quad IM, Preserv and ABX Free 6 MO-64 YRS (FLUCELVAX) Unknown Completed [facility] SARS-COV-2 COVID 19 CORNELIA SUCROSE VACCINE 12+, [id number], 0.3 ML (30 MCG), IM PFIZER (KIRKPATRICK TOP) Unknown Completed [facility] TD, NOS Unknown Completed [facility] TDAP Unknown Completed [facility] Influenza Virus Vaccine Quad IM 3+ YRS Unknown Completed [facility] Influenza Virus Vaccine Quad IM Multi-dose 6+ MO Unknown Completed [facility] SARS-COV-2 COVID-19 PFIZER VACCINE Unknown Completed [facility] Influenza Virus Vaccine Quad IM, Preserv and ABX Free 6 MO-64 YRS (FLUCELVAX) Unknown Completed [facility] SARS-COV-2 COVID 19 CORNELIA SUCROSE VACCINE +, , 0.3 ML (30 MCG), IM PFIZER (KIRKPATRICK TOP) Unknown Completed [facility] TD, NOS Unknown Completed [facility] TDAP Unknown Completed [facility] Influenza Virus Vaccine Quad IM 3+ YRS Unknown Completed [facility] Influenza Virus Vaccine Quad IM Multi-dose 6+ MO Unknown Completed [facility] Vital Signs Vital Name Observation Time Observation Value Comments S ource Systolic blood pressure 2024-01-12 18:07:00 135 mm[Hg] [facility] Diastolic blood pressure 2024-01-12 18:07:00 86 mm[Hg] [facility] Heart rate 2024-01-12 18:07:00 99 /min [facility] Body temperature 2024-01-12 18:07:00 37 Roberta [facility] Body height 2024-01-12 18:07:00 160 cm [facility] Body weight 2024-01-12 18:07:00 69.854 kg [facility] BMI 2024-01-12 18:07:00 27.28 kg/m2 [facility] Oxygen saturation in Arterial blood by Pulse oximetry 2024-01-12 18:07:00 99 /min [facility] Systolic blood pressure 2024-01-01 22:58:00 133 mm[Hg] [facility] Diastolic blood pressure 2024-01-01 22:58:00 85 mm[Hg] [facility] Heart rate 2024-01-01 22:58:00 91 /min [facility] Body temperature 2024-01-01 22:58:00 36.83 Roberta [facility] Respiratory rate 2024-01-01 22:58:00 14 /min [facility] Body height 2024-01-01 22:58:00 160 cm [facility] Body weight 2024-01-01 22:58:00 70.308 kg [facility] BMI 2024-01-01 22:58:00 27.46 kg/m2 [facility] Oxygen saturation in Arterial blood by Pulse oximetry 2024-01-01 22:58:00 99 /min [facility] Systolic blood pressure 2023-10-16 15:40:00 125 mm[Hg] [facility] Diastolic blood pressure 2023-10-16 15:40:00 83 mm[Hg] [facility] Heart rate 2023-10-16 15:40:00 79 /min [facility] Body temperature 2023-10-16 15:40:00 36.72 Roberta [facility] Respiratory rate 2023-10-16 15:40:00 17 /min [facility] Body weight 2023-10-16 15:40:00 69.854 kg [facility] BMI 2023-10-16 15:40:00 27.28 kg/m2 [facility] Oxygen saturation in Arterial blood by Pulse oximetry 2023-10-16 15:40:00 99 /min [facility] Systolic blood pressure 2023-08-28 23:42:00 130 mm[Hg] [facility] Diastolic blood pressure 2023-08-28 23:42:00 83 mm[Hg] [facility] Heart rate 2023-08-28 23:42:00 89 /min [facility] Body temperature 2023-08-28 23:42:00 37.06 Roberta [facility] Respiratory rate 2023-08-28 23:42:00 18 /min [facility] Body height 2023-08-28 23:42:00 160 cm [facility] Body weight 2023-08-28 23:42:00 72.576 kg [facility] BMI 2023-08-28 23:42:00 28.34 kg/m2 [facility] Oxygen saturation in Arterial blood by Pulse oximetry 2023-08-28 23:42:00 97 /min [facility] Systolic blood pressure 2023-08-10 20:42:00 128 mm[Hg] [facility] Diastolic blood pressure 2023-08-10 20:42:00 88 mm[Hg] [facility] Heart rate 2023-08-10 20:42:00 73 /min [facility] Body temperature 2023-08-10 20:42:00 36.78 Roberta [facility] Respiratory rate 2023-08-10 20:42:00 18 /min [facility] Body height 2023-08-10 20:42:00 160 cm [facility] Body weight 2023-08-10 20:42:00 71.668 kg [facility] BMI 2023-08-10 20:42:00 27.99 kg/m2 [facility] Oxygen saturation in Arterial blood by Pulse oximetry 2023-08-10 20:42:00 98 /min [facility] Systolic blood pressure 2023-05-25 00:56:00 127 mm[Hg] [facility] Diastolic blood pressure 2023-05-25 00:56:00 86 mm[Hg] [facility] Heart rate 2023-05-25 00:56:00 86 /min [facility] Body temperature 2023-05-25 00:56:00 36.72 Roberta [facility] Respiratory rate 2023-05-25 00:56:00 17 /min [facility] Body weight 2023-05-25 00:56:00 72.122 kg [facility] BMI 2023-05-25 00:56:00 28.17 kg/m2 [facility] Oxygen saturation in Arterial blood by Pulse oximetry 2023-05-25 00:56:00 98 /min [facility] Systolic blood pressure 2023-05-08 20:24:00 120 mm[Hg] [facility] Diastolic blood pressure 2023-05-08 20:24:00 82 mm[Hg] [facility] Heart rate 2023-05-08 20:24:00 87 /min [facility] Body height 2023-05-08 20:24:00 160 cm [facility] Body weight 2023-05-08 20:24:00 71.215 kg [facility] BMI 2023-05-08 20:24:00 27.81 kg/m2 [facility] Oxygen saturation in Arterial blood by Pulse oximetry 2023-05-08 20:24:00 98 /min [facility] Systolic blood pressure 2023-04-29 15:36:00 139 mm[Hg] [facility] Diastolic blood pressure 2023-04-29 15:36:00 86 mm[Hg] [facility] Heart rate 2023-04-29 15:36:00 84 /min [facility] Body temperature 2023-04-29 15:36:00 36.78 Roberta [facility] Respiratory rate 2023-04-29 15:36:00 18 /min [facility] Body height 2023-04-29 15:36:00 157.5 cm [facility] Body weight 2023-04-29 15:36:00 71.668 kg [facility] BMI 2023-04-29 15:36:00 28.90 kg/m2 [facility] Oxygen saturation in Arterial blood by Pulse oximetry 2023-04-29 15:36:00 98 /min [facility] Systolic blood pressure 2023-04-08 16:05:00 113 mm[Hg] [facility] Diastolic blood pressure 2023-04-08 16:05:00 79 mm[Hg] [facility] Heart rate 2023-04-08 16:05:00 74 /[facility] 2023-04-08 16:05:00 36.11 Roberta [facility] Respiratory rate 2023-04-08 16:05:00 17 /min [facility] Body height 2023-04-08 16:05:00 157.5 cm [facility] Body weight 2023-04-08 16:05:00 71.215 kg [facility] BMI 2023-04-08 16:05:00 28.72 kg/m2 [facility] Oxygen saturation in Arterial blood by Pulse oximetry 2023-04-08 16:05:00 97 /min [facility] Systolic blood pressure 2023-02-25 15:41:00 123 mm[Hg] [facility] Diastolic blood pressure 2023-02-25 15:41:00 77 mm[Hg] [facility] Heart rate 2023-02-25 15:41:00 101 /min [facility] Body temperature 2023-02-25 15:41:00 37.22 Roberta [facility] Respiratory rate 2023-02-25 15:41:00 19 /min [facility] Body height 2023-02-25 15:41:00 160 cm [facility] Body weight 2023-02-25 15:41:00 72.122 kg [facility] BMI 2023-02-25 15:41:00 28.17 kg/m2 [facility] Oxygen saturation in Arterial blood by Pulse oximetry 2023-02-25 15:41:00 95 /min [facility] Systolic blood pressure 2023-01-27 14:47:00 136 mm[Hg] [facility] Diastolic blood pressure 2023-01-27 14:47:00 75 mm[Hg] [facility] Heart rate 2023-01-27 14:47:00 86 /min [facility] Respiratory rate 2023-01-27 14:47:00 18 /min [facility] Body height 2023-01-27 14:47:00 160 cm [facility] Body weight 2023-01-27 14:47:00 73.074 kg [facility] BMI 2023-01-27 14:47:00 28.54 kg/m2 [facility] Oxygen saturation in Arterial blood by Pulse oximetry 2023-01-27 14:47:00 99 /min [facility] Systolic blood pressure 2023-01-16 13:29:00 127 mm[Hg] [facility] Diastolic blood pressure 2023-01-16 13:29:00 88 mm[Hg] [facility] Heart rate 2023-01-16 13:29:00 94 /min [facility] Body temperature 2023-01-16 13:29:00 36.89 Roberta [facility] Respiratory rate 2023-01-16 13:29:00 16 /min [facility] Body height 2023-01-16 13:29:00 160 cm [facility] Body weight 2023-01-16 13:29:00 70.308 kg [facility] BMI 2023-01-16 13:29:00 27.46 kg/m2 [facility] Oxygen saturation in Arterial blood by Pulse oximetry 2023-01-16 13:29:00 100 /min [facility] Systolic blood pressure 2022-12-02 18:51:00 130 mm[Hg] [facility] Diastolic blood pressure 2022-12-02 18:51:00 83 mm[Hg] [facility] Heart rate 2022-12-02 18:51:00 66 /min [facility] Body temperature 2022-12-02 18:51:00 36.28 Roberta [facility] Body height 2022-12-02 18:51:00 160 cm [facility] Body weight 2022-12-02 18:51:00 72.802 kg [facility] BMI 2022-12-02 18:51:00 28.43 kg/m2 [facility] Oxygen saturation in Arterial blood by Pulse oximetry 2022-12-02 18:51:00 97 /min [facility] Systolic blood pressure 2022-11-03 19:38:00 130 mm[Hg] [facility] Diastolic blood pressure 2022-11-03 19:38:00 82 mm[Hg] [facility] Heart rate 2022-11-03 19:35:00 66 /min [facility] Body temperature 2022-11-03 19:35:00 36.72 Roberta [facility] Respiratory rate 2022-11-03 19:35:00 14 /min [facility] Body height 2022-11-03 19:35:00 [facility]22-11-03 19:35:00 [facility]12 [facility] 2022-11-03 19:35:00 28.56 kg/m2 [facility] Oxygen saturation in Arterial blood by Pulse oximetry 2022-11-03 19:35:00 97 /min [facility] Systolic blood pressure 2022-10-09 15:13:00 117 mm[Hg] [facility] Diastolic blood pressure 2022-10-09 15:13:00 77 mm[Hg] [facility] Heart rate 2022-10-09 15:13:00 93 /min [facility] Body temperature 2022-10-09 15:13:00 36.28 Roberta [facility] Body height 2022-10-09 15:13:00 160 cm [facility] Body weight 2022-10-09 15:13:00 73.029 kg [facility] BMI 2022-10-09 15:13:00 28.52 kg/m2 [facility] Oxygen saturation in Arterial blood by Pulse oximetry 2022-10-09 15:13:00 99 /min [facility] Systolic blood pressure 2022-07-20 16:56:00 126 mm[Hg] [facility] Diastolic blood pressure 2022-07-20 16:56:00 81 mm[Hg] [facility] Heart rate 2022-07-20 16:56:00 77 /min [facility] Body temperature 2022-07-20 16:56:00 36.39 Roberta [facility] Respiratory rate 2022-07-20 16:56:00 22 /min [facility] Body height 2022-07-20 16:56:00 160 [facility] 2022-07-20 16:56:00 75.921 kg [facility] BMI 2022-07-20 16:56:00 29.65 kg/m2 [facility] Oxygen saturation in Arterial blood by Pulse oximetry 2022-07-20 16:56:00 97 /min [facility] Systolic blood pressure 2022-07-08 16:22:00 122 mm[Hg] [facility] Diastolic blood pressure 2022-07-08 16:22:00 90 mm[Hg] [facility] Heart rate 2022-07-08 16:22:00 85 /min [facility] Body temperature 2022-07-08 16:22:00 36.67 Roberta [facility] Respiratory rate 2022-07-08 16:22:00 20 /min [facility] Body height 2022-07-08 16:22:00 160 cm [facility] Body weight 2022-07-08 16:22:00 73.936 kg [facility] BMI 2022-07-08 16:22:00 28.87 kg/m2 [facility] Oxygen saturation in Arterial blood by Pulse oximetry 2022-07-08 16:22:00 99 /min [facility] Systolic blood pressure 2022-07-06 15:43:00 122 mm[Hg] [facility] Diastolic blood pressure 2022-07-06 15:43:00 86 mm[Hg] [facility] Heart rate 2022-07-06 15:43:00 115 /min [facility] Body temperature 2022-07-06 15:43:00 36.83 Roberta [facility] Body height 2022-07-06 15:43:00 160 cm [facility] Body weight 2022-07-06 15:43:00 73.71 kg [facility] BMI 2022-07-06 15:43:00 28.79 kg/m2 [facility] Oxygen saturation in Arterial blood by Pulse oximetry 2022-07-06 15:43:00 96 /min [facility] Systolic blood pressure 2022-06-22 18:25:00 120 mm[Hg] [facility] Diastolic blood pressure 2022-06-22 18:25:00 81 mm[Hg] [facility] Heart rate 2022-06-22 18:25:00 93 /min [facility] Body temperature 2022-06-22 18:25:00 37 Roberta [facility] Body height 2022-06-22 18:25:00 160 cm [facility] Body weight 2022-06-22 18:25:00 77.111 kg [facility] BMI 2022-06-22 18:25:00 30.11 kg/m2 [facility] Oxygen saturation in Arterial blood by Pulse oximetry 2022-06-22 18:25:00 98 /min [facility] Systolic blood pressure 2022-06-16 16:30:00 123 mm[Hg] [facility] Diastolic blood pressure 2022-06-16 16:30:00 80 mm[Hg] [facility] Heart rate 2022-06-16 16:30:00 65 /min [facility] Body temperature 2022-06-16 16:30:00 36.56 Roberta [facility] Body height 2022-06-16 16:30:00 160 cm [facility] Body weight 2022-06-16 16:30:00 75.887 kg [facility] BMI 2022-06-16 16:30:00 29.64 kg/m2 [facility] Oxygen saturation in Arterial blood by Pulse oximetry 2022-06-16 16:30:00 98 /min [facility] Systolic blood pressure 2022-05-09 15:18:00 120 mm[Hg] [facility] Diastolic blood pressure 2022-05-09 15:18:00 83 mm[Hg] [facility] Heart rate 2022-05-09 15:18:00 83 /min [facility] Body temperature 2022-05-09 15:18:00 36.72 Roberta [facility] Respiratory rate 2022-05-09 15:18:00 18 /min [facility] Body height 2022-05-09 15:18:00 160 cm [facility] Body weight 2022-05-09 15:18:00 75.615 kg [facility] BMI 2022-05-09 15:18:00 29.53 kg/m2 [facility] Oxygen saturation in Arterial blood by Pulse oximetry 2022-05-09 15:18:00 98 /min [facility] Systolic blood pressure 2022-04-07 15:52:00 138 mm[Hg] [facility] Diastolic blood pressure 2022-04-07 15:52:00 85 mm[Hg] [facility] Heart rate 2022-04-07 15:52:00 76 /min [facility] Body temperature 2022-04-07 15:52:00 36.94 Roberta [facility] Body height 2022-04-07 15:52:00 160 cm [facility] Body weight 2022-04-07 15:52:00 73.483 kg [facility] BMI 2022-04-07 15:52:00 28.70 kg/m2 [facility] Oxygen saturation in Arterial blood by Pulse oximetry 2022-04-07 15:52:00 95 /min [facility] Systolic blood pressure 2022-04-06 15:32:00 118 mm[Hg] [facility] Diastolic blood pressure 2022-04-06 15:32:00 80 mm[Hg] [facility] Heart rate 2022-04-06 15:32:00 99 /min [facility] Body temperature 2022-04-06 15:32:00 37.33 Roberta [facility] Respiratory rate 2022-04-06 15:32:00 17 /min [facility] Body height 2022-04-06 15:32:00 160 cm [facility] Body weight 2022-04-06 15:32:00 74.617 kg [facility] BMI 2022-04-06 15:32:00 29.14 kg/m2 [facility] Oxygen saturation in Arterial blood by Pulse oximetry 2022-04-06 15:32:00 98 /min [facility] Systolic blood pressure 2022-02-25 16:24:00 118 mm[Hg] [facility] Diastolic blood pressure 2022-02-25 16:24:00 83 mm[Hg] [facility] Heart rate 2022-02-25 16:24:00 96 /min [facility] Body temperature 2022-02-25 16:24:00 36.78 Roberta [facility] Body height 2022-02-25 16:24:00 160 cm [facility] Body weight 2022-02-25 16:24:00 72.122 kg [facility] BMI 2022-02-25 16:24:00 28.17 kg/m2 [facility] Oxygen saturation in Arterial blood by Pulse oximetry 2022-02-25 16:24:00 95 /min [facility] Systolic blood pressure 2022-01-03 13:32:00 133 mm[Hg] [facility] Diastolic blood pressure 2022-01-03 13:32:00 83 mm[Hg] [facility] Heart rate 2022-01-03 13:32:00 85 /min [facility] Body temperature 2022-01-03 13:32:00 36.44 Roberta [facility] Body height 2022-01-03 13:32:00 160 cm [facility] Body weight 2022-01-03 13:32:00 72.122 kg [facility] BMI 2022-01-03 13:32:00 28.17 kg/m2 [facility] Oxygen saturation in Arterial blood by Pulse oximetry 2022-01-03 13:32:00 98 /min [facility] Diastolic blood pressure 2021-12-07 16:38:00 87 mm[Hg] [facility] Heart rate 2021-12-07 16:38:00 98 /min [facility] Body temperature 2021-12-07 16:38:00 36.17 Roberta [facility] Respiratory rate 2021-12-07 16:38:00 18 /min [facility] Body height 2021-12-07 16:38:00 160 cm [facility] Body weight 2021-12-07 16:38:00 71.215 kg [facility] BMI 2021-12-07 16:38:00 27.81 kg/m2 [facility] Oxygen saturation in Arterial blood by Pulse oximetry 2021-12-07 16:38:00 97 /min [facility] Systolic blood pressure 2021-12-07 16:38:00 123 mm[Hg] [facility] Systolic blood pressure 2021-08-03 16:08:00 117 mm[Hg] [facility] Diastolic blood pressure 2021-08-03 16:08:00 80 mm[Hg] [facility] Heart rate 2021-08-03 16:08:00 100 /min [facility] Body temperature 2021-08-03 16:08:00 36.56 Roberta [facility] Respiratory rate 2021-08-03 16:08:00 18 /min [facility] Body weight 2021-08-03 16:08:00 71.668 kg [facility] BMI 2021-08-03 16:08:00 27.99 kg/m2 [facility] Oxygen saturation in Arterial blood by Pulse oximetry 2021-08-03 16:08:00 99 /min [facility] Systolic blood pressure 2021-07-15 18:43:00 135 mm[Hg] [facility] Diastolic blood pressure 2021-07-15 18:43:00 97 mm[Hg] [facility] Heart rate 2021-07-15 18:43:00 86 /min [facility] Body temperature 2021-07-15 18:43:00 37.33 Roberta [facility] Respiratory rate 2021-07-15 18:43:00 18 /min [facility] Body height 2021-07-15 18:43:00 160 cm [facility] Body weight 2021-07-15 18:43:00 73.483 kg [facility] BMI 2021-07-15 18:43:00 28.70 kg/m2 [facility] Oxygen saturation in Arterial blood by Pulse oximetry 2021-07-15 18:43:00 100 /min [facility] Procedures Procedure Date / Time Performed Performing Clinicia n Source POCT SARS-COV-2 ANTIGEN (BINAX NOW) 2024-01-01 23:00:00 Mansoor Min [facility] POCT SARS-COV-2 ANTIGEN (BINAX NOW) 2023-10-16 15:45:00 Mansoor Min [facility] POCT SARS-COV-2 ANTIGEN (BINAX NOW) 2023-08-28 23:52:00 Mansoor Min [facility] POCT MOLECULAR STREP 2023-08-28 23:39:00 [facility] 2023-08-10 20:43:00 Unknown, Attend [facility] POCT MOLECULAR STREP 2023-08-10 20:40:00 [facility] PO[facility] SARS-COV-2 ANTIGEN (BINAX NOW) 2023-08-10 20:34:00 Priscilla Kapadia [facility] SARS-COV-2 COVID 19 CORNELIA SUCROSE VACCINE 12+, , 0.3 ML (30 MCG), IM PFIZER (KIRKPATRICK TOP) 2023-05-08 20:28:51 Rosemary Sheikh [facility] FLU VACC (), 6 MO-64 YRS, .5ML, IM, QUAD (FLUCELVAX) 2023-05-08 20:28:23 Rosemary Sheikh [facility] XR FOOT 3+ VW LEFT 2023-04-29 16:09:11 Priscilla Kapadia [facility] XR ANKLE 3+ VW LEFT 2023-04-29 16:08:46 Aaron Kapadia [facility] RAPID STREP SCREEN FOR GROUP A 2023-01-16 13:57:00 Ashley Wright [facility] RAPID INFLUENZA A/B 2023-01-16 13:57:00 Ashley Wright [facility] COVID-19 (ID NOW RAPID TESTING) 2023-01-16 13:57:00 Ashley Wright [facility] CONSENT/REFUSAL FOR DIAGNOSIS AND TREATMENT 2023-01-16 13:25:16 Doctor Unassigned, [place] [facility] POCT MOLECULAR STREP 2022-12-02 19:03:00 Sabrina Rowe [facility] POCT MOLECULAR STREP 2022-11-03 19:47:00 Unknown, Attchelsey salguero [facility] XR HEEL 2+ VW BILATERAL 2022-07-20 17:15:00 Priscilla Kapadia [facility] POCT MOLECULAR STREP 2022-06-16 16:34:00 Unknown, Attchelsey salguero [facility] POCT MOLECULAR FLU 2022-05-09 15:19:00 Unknown, Teresa [facility] POCT MOLECULAR STREP 2022-05-09 15:16:00 [facility] 2022-02-25 16:22:00 Ymaileth Rowe [facility] POCT MOLECULAR STREP 2022-02-25 16:20:00 Sabrina Rowe [facility] RAPID STREP SCREEN FOR GROUP A 2021-12-07 16:41:00 Ger Coleman [facility] CONSENT/REFUSAL FOR DIAGNOSIS AND TREATMENT 2021-12-07 16:32:22 Doctor Unassigned, [place] [facility] CONSENT/REFUSAL FOR DIAGNOSIS AND TREATMENT 2021-08-03 16:04:24 Doctor Unassigned, [place] [facility] XR FOOT 3+ VW LEFT 2021-07-15 19:17:24 Ger Coleman [facility] CONSENT/REFUSAL FOR DIAGNOSIS AND TREATMENT 2021-07-15 18:35:54 Doctor Unassigned, [place] [facility] NOTICE OF PRIVACY PRACTICES 2021-07-15 18:35:10 Doctor Unassigned, [place] [facility] Encounters Start Date/Time End Date/Time Encounter Type Admission Type Attending Clinicians Care Facility Care Department Encounter ID Source 2024-01-12 13:00:00 2024-01-12 13:17:14 Office Visit Yessi Calle [facility] 1.2.840.114 350.1.13.10 4.2.7.2.686 [id number] [facility] 2024-01-12 13:00:00 2024-01-12 13:17:14 Outpatient R YESSI CALLE [facility] [id number] [facility] 2024-01-01 17:40:00 2024-01-01 18:00:00 Urgent Care Mansoor Min Unknown, Attending [facility] 1.2.840.114 350.1.13.10 4.2.7.2.686 [id number] [facility] 2024-01-01 17:40:00 2024-01-01 17:40:00 Outpatient R AUSTIN MINCarissaBlade [facility] [id number] [facility] 2023-10-16 10:20:00 2023-10-16 10:40:00 Urgent Care Mansoor Min Unknown, Attending [facility] 1.2.840.114 350.1.13.10 4.2.7.2.686 [id number] [facility] 2023-10-16 10:20:00 2023-10-16 10:20:00 Outpatient R MANSOOR MIN [facility] [id number] [facility] 2023-08-28 18:20:00 2023-08-28 19:21:36 Outpatient R AUSTIN MINCarissaBlade [facility] [id number] [facility] 2023-08-28 18:20:00 2023-08-28 19:21:36 Urgent Care Mansoor Min Unknown, Attending [facility] 1.2.840.114 350.1.13.10 4.2.7.2.686 [id number] [facility] 2023-08-11 00:00:00 2023-08-11 08:52:11 Yamileth Jo [facility] 1.2.840.114 350.1.13.10 4.2.7.2.686 [id number] [facility] 2023-08-10 15:40:00 2023-08-10 16:00:00 Urgent Care Mansoor Min Unknown, Attending Kang [facility] 1.2.840.114 350.1.13.10 4.2.7.2.686 [id number] [facility] 2023-08-10 15:40:00 2023-08-10 15:40:00 Outpatient R KANG PRISCILLA [facility] [id number] [facility] 2023-08-07 16:00:00 2023-08-07 16:00:00 Outpatient R YAMILETH ROWE [facility] [id number] [facility] 2023-07-08 00:00:00 2023-07-08 00:00:00 Refnazia Rowe [facility] 1.2.840.114 350.1.13.10 4.2.7.2.686 [id number] [facility] 2023-06-05 16:15:00 2023-06-05 16:15:00 Outpatient R KENNA ALMARAZ CRAIG [facility] [id number] [facility] 2023-06-04 00:00:00 2023-06-04 00:00:00 Lorene Rowe [facility] 1.2.840.114 350.1.13.10 4.2.7.2.686 [id number] [facility] 2023-05-24 18:40:00 2023-05-24 19:07:08 Outpatient R MANSOOR MIN [facility] [id number] [facility] 2023-05-24 18:40:00 2023-05-24 19:00:00 Urgent Care Mansoor Min Unknown, Attending [facility] 1.84.114 350.1.13.10 4.2.7.2.686 [id number] [facility] 2023-05-24 00:00:00 2023-05-24 00:00:00 Telephone Mansoor Min [facility] 1.84.114 350.1.13.10 4.2.7.2.686 [id number] [facility] 2023-05-08 14:00:00 2023-05-08 14:54:02 Outpatient R ROSEMARY SHEIKH [facility] [id number] [facility] 2023-05-08 14:00:00 2023-05-08 14:54:02 Office Visit Rosemary Sheikh [facility] 1.84.114 350.1.13.10 4.2.7.2.686 [id number] [facility] 2023-05-04 00:00:00 2023-05-04 00:00:00 Yamileth Jo [facility] 1.84.114 350.1.13.10 4.2.7.2.686 [id number] [facility] 2023-04-29 09:46:44 2023-04-29 23:59:00 Outpatient R KANG PRISCILLA [facility] [id number] [facility] 2023-04-29 09:46:44 2023-04-29 23:59:00 Hospital Encounter Priscilla Kapadia [facility] 1.840.114 350.1.13.10 4.2.7.2.686 [id number] [facility] 2023-04-29 09:46:43 2023-04-29 23:59:00 Hospital Encounter Priscilla Kapadia [facility] 1.2840.114 350.1.13.10 4.2.7.2.686 [id number] [facility] 2023-04-29 09:20:00 2023-04-29 09:55:38 Urgent Care Priscilla Kapadia Unknown, Attending [facility] 1.114 350.1.13.10 4.2.7.2.686 [id number] [facility] 2023-04-08 10:00:00 2023-04-08 10:37:29 Outpatient R BUTCH MINOR [facility] [id number] [facility] 2023-04-08 10:00:00 2023-04-08 10:37:29 Urgent Care Butch Minor Unknown, Attending [facility] 1.114 350.1.13.10 4.2.7.2.686 [id number] [facility] 2023-03-31 00:00:00 2023-03-31 00:00:00 [facility] 1..114 350.1.13.10 4.2.7.2.686 [id number] [facility] 2023-03-27 00:00:00 2023-03-27 00:00:00 Refill Soledad [facility] 1.0.114 350.1.13.10 4.2.7.2.686 [id number] [facility] 2023-03-09 10:20:00 2023-03-09 10:20:00 Outpatient R YAMILETH ROWE [facility] [id number] [facility] 2023-02-25 09:30:00 2023-02-25 09:58:59 Outpatient R PRISCILLA KAPADIA [facility] [id number] [facility] 2023-02-25 09:30:00 2023-02-25 09:58:59 Urgent Care Hue Kapadiacy Unknown, Attending [facility] 1..840.114 350.1.13.10 4.2.7.2.686 [id number] [facility] 2023-01-27 08:20:00 2023-01-27 09:02:54 Outpatient R YAMILETH ROWE [facility] [id number] [facility] 2023-01-27 08:20:00 2023-01-27 09:02:54 Office Visit Soledad [facility] 1..840.114 350.1.13.10 4.2.7.2.686 [id number] [facility] 2023-01-27 00:00:00 2023-01-27 00:00:00 Letter (Out) Yamileth Rowe [facility] 1..840.114 350.1.13.10 4.2.7.2.686 [id number] [facility] 2023-01-26 00:00:00 2023-01-26 00:00:00 Telephone Soledad [facility] 1.2.840.114 350.1.13.10 4.2.7.2.686 [id number] [facility] 2023-01-16 08:30:00 2023-01-16 10:10:00 Emergency X ASHLEY WRIGHT [facility] [id number] [facility] 2023-01-16 08:30:00 2023-01-16 10:10:00 Emergency Ashley Wright [facility] 1.840.114 350.1.13.10 4.2.7.2.686 [id number] [facility] 2022-12-02 14:00:00 2022-12-02 14:32:47 Outpatient R YAMILETH ROWE [facility] [id number] [facility] 2022-12-02 14:00:00 2022-12-02 14:32:47 Office Visit Yamileth Rowe [facility] 1.840.114 350.1.13.10 4.2.7.2.686 [id number] [facility] 2022-11-03 14:20:00 2022-11-03 15:10:10 Outpatient R PRISCILLA KAPADIA [facility] [id number] [facility] 2022-11-03 14:20:00 2022-11-03 15:10:10 Urgent Care Priscilla Kapadia Unknown, Attending [facility] 1.840.114 350.1.13.10 4.2.7.2.686 [id number] [facility] 2022-10-09 09:40:00 2022-10-09 10:41:51 Outpatient R MEY HEALY [facility] [id number] [facility] 2022-10-09 09:40:00 2022-10-09 10:41:51 Urgent Care Mey Healy Unknown, Attending [facility] 1.840.114 350.1.13.10 4.2.7.2.686 [id number] [facility] 2022-08-08 13:23:51 2022-08-08 23:59:00 Outpatient R YAMILETH ROWE [facility] [id number] [facility] 2022-08-08 13:23:51 2022-08-08 23:59:00 Hospital Encounter Soledad [facility] 1.2840.114 350.1.13.10 4.2.7.2.686 [id number] [facility] 2022-07-26 00:00:00 2022-07-26 00:00:00 Telephone Soledad [facility] 1.84.114 350.1.13.10 4.2.7.2.686 [id number] [facility] 2022-07-25 00:00:00 2022-07-25 00:00:00 Telephone Soledad [facility] 1.84.114 350.1.13.10 4.2.7.2.686 [id number] [facility] 2022-07-20 12:06:42 2022-07-20 23:59:00 Outpatient R PRISCILAL KAPADIA [facility] [id number] [facility] 2022-07-20 12:06:42 2022-07-20 23:59:00 Hospital Encounter Priscilla Kapadia [facility] 1.84.114 350.1.13.10 4.2.7.2.686 [id number] [facility] 2022-07-20 11:40:00 2022-07-20 12:00:00 Urgent Care Priscilla Kapadia Unknown, [facility] 1.284114 350.1.13.10 4.2.7.2.686 [id number] [facility] 2022-07-08 12:15:00 2022-07-08 12:30:00 Lead Supply Worker Visit Lab, Akbar Mazariegos Soledad [facility] 1.84114 350.1.13.10 4.2.7.2.686 [id number] [facility] 2022-07-08 11:20:00 2022-07-08 11:55:48 [id number] 2022-07-08 11:20:00 2022-07-08 11:55:48 [facility] 1.84114 350.1.13.10 4.2.7.2.686 [id number] [facility] 2022-07-06 10:35:00 2022-07-06 10:55:42 Outpatient R MANSOOR MIN [facility] [id number] [facility] 2022-07-06 10:35:00 2022-07-06 10:55:42 Urgent Care Mansoro Min Unknown, Attending [facility] 1.84.114 350.1.13.10 4.2.7.2.686 [id number] [facility] 2022-06-22 13:30:00 2022-06-22 13:40:17 Outpatient R ROSEMARY SHEIKH [facility] [id number] [facility] 2022-06-22 13:30:00 2022-06-22 13:40:17 Office Visit Rosemary Sheikh [facility] 1.84.114 350.1.13.10 4.2.7.2.686 [id number] [facility] 2022-06-16 11:20:00 2022-06-16 11:40:00 Urgent Care Butch Minor Unknown, Attending [facility] 1.84.114 350.1.13.10 4.2.7.2.686 [id number] [facility] 2022-06-16 11:20:00 2022-06-16 11:20:00 Outpatient R BUTCH MINOR [facility] [id number] [facility] 2022-05-09 09:00:00 2022-05-09 09:28:42 Outpatient R MANSOOR MIN [facility] [id number] [facility] 2022-05-09 09:00:00 2022-05-09 09:28:42 Urgent Care Mansoor Min Unknown, Attending [facility] 1.84.114 350.1.13.10 4.2.7.2.686 [id number] [facility] 2022-04-14 00:00:00 2022-04-14 00:00:00 Refill Soledad [facility] 1.84.114 350.1.13.10 4.2.7.2.686 [id number] [facility] 2022-04-07 09:20:00 2022-04-07 10:17:32 Outpatient R SOLEDAD [facility] [id number] [facility] 2022-04-07 09:20:00 2022-04-07 10:17:32 Office Visit Soledad [facility] MEDICAL OFFICE BUILDING 1.84.114 350.1.13.10 4.2.7.2.686 [id number] [facility] 2022-04-06 09:00:00 2022-04-06 09:40:43 Urgent Care Butch Minor Unknown, Attending [facility] MEDICAL OFFICE BUILDING 1..840.114 350.1.13.10 4.2.7.2.686 [id number] [facility] 2022-04-06 09:00:00 2022-04-06 09:40:43 Outpatient R [facility]CH [facility] [id number] [facility] 2022-02-25 10:00:00 2022-02-25 10:42:34 Outpatient R SOLEDAD [facility] [id number] [facility] 2022-02-25 10:00:00 2022-02-25 10:42:34 Office Visit Soledad [facility] MEDICAL OFFICE BUILDING 1.840.114 350.1.13.10 4.2.7.2.686 [id number] [facility] 2022-01-03 08:40:00 2022-01-03 09:31:28 Outpatient R SOLEDAD [facility] [id number] [facility] 2022-01-03 08:40:00 2022-01-03 09:31:28 Office Visit [facility]edad [facility] 1..840.114 350.1.13.10 4.2.7.2.686 [id number] [place] [facility]07 11:42:00 2021-12-07 12:51:00 Emergency X Raghavendra GARDNER [facility] ERT [id number] [facility] 2021-12-07 11:42:00 2021-12-07 12:51:00 Emergency Raghavendra Gardner [facility] [id number] [facility] 2021-08-03 11:08:00 2021-08-03 12:17:00 Emergency ASHLEY DUNCAN [facility] ERT [id number] [facility] 2021-08-03 11:08:00 2021-08-03 12:17:00 Emergency Ashley Velásquez [facility] [id number] [facility] 2021-07-15 13:45:00 2021-07-15 14:49:00 [facility] [id number] [facility] 2021-07-15 13:45:00 2021-07-15 14:49:00 Emergency GER GUTIÉRREZ [facility] ERT [id number] [facility] Results Test Description Test Time Test Comments Results Result Co mments Source [facility] SARS-COV-2 ANTIGEN (BINAX NOW)2023-10-16 15:45:00* Test Item Value Reference Range Interpretation Comme nts POCT SARS-COV-2 ANTIGEN (test code = 26314-6) Not Detected Not Detected, See Comment On board controls acceptable with C Line (test code = 3574) Yes ERIN (test code = ERIN) accurate developme nt and interpretation of all internal controls Lab Interpretation (test code = 75769-5) Normal [facility] SARS-COV-2 ANTIGEN (BINAX NOW)2023-08-29 00:07:00* Test Item Value Reference Range Interpretation Comme nts POCT SARS-COV-2 ANTIGEN (samara t code = 94418-7) Not Detected Not Detected On board controls acceptable with C Line (test code = 3574) Yes Lab Interpretation (test cod e = 26256-1) Normal [facility] MOLECULAR [id number] 23:47:44* Test Item Value Reference Range Interpretation Comme nts POCT Molecular Strep (test c ode = 46564-2) Negative Negative Lab Interpretation (test cod e = 56691-7) Normal [facility] Molecular [id number] 20:55:33* Test Item Value Reference Range Interpretation Comme nts POCT Molecular FluA (test co de = 27407-7) Negative Negative POCT Molecular FluB (test co de = 80641-6) Negative Negative Lab Interpretation (test cod e = 07700-9) Normal [facility] SARS-COV-2 ANTIGEN (BINAX NOW)2023-08-10 20:49:00* Test Item Value Reference Range Interpretation Comme nts POCT SARS-COV-2 ANTIGEN (test code = 44220-9) Not Detected Not Detected On board controls acceptable with C Line (test code = 3574) Yes ERIN (test code = ERIN) accurate developme nt and interpretation of all internal controls Lab Interpretation (test code = 58368-9) Normal [facility] MOLECULAR [id number] 20:48:12* Test Item Value Reference Range Interpretation Comme nts POCT Molecular Strep (test c ode = 40372-9) Negative Negative Lab Interpretation (test cod e = 66200-4) [facility] [id number] 22:31:09EXAM: XR ANKLE 3+ VW LEFT, XR [...] the lateral ankleand at the great toe. [facility] [id number] 22:31:09EXAM: XR ANKLE 3+ VW LEFT, XR FOOT 3+ VW LEFT HISTORY: left ankle injury COMPARISON: Left ankle radiographs 01/25/2018, left foot radiographs4/ FINDINGS: Radiographs of the left ankle and foot demonstrate a well-corticated bonyfragment inferior to the medial malleolus which represents a remoteavulsion injury. 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 An ankle joint effusion is seen. Anklemortise is anatomic. Soft tissue swelling is noted about the lateral ankleand at the great toe. [facility] MOLECULAR [id number] 19:10:58* Test Item Value Reference Range Interpretation Comme nts POCT Molecular Strep (test c ode = 49790-3) Negative Negative Lab Interpretation (test cod e = 96254-9) Normal [facility] MOLECULAR [id number] 19:10:58* Test Item Value Reference Range Interpretation Comme nts POCT Molecular Strep (test c ode = 40299-0) Negative Negative Lab Interpretation (test cod e = 45231-7) Normal [facility] MOLECULAR [id number] 19:55:21* Test Item Value Reference Range Interpretation Comme nts POCT Molecular Strep (test c ode = 67939-0) Negative Negative Lab Interpretation (test cod e = 29749-1) Normal [facility] MOLECULAR [id number] 16:41:11* Test Item Value Reference Range Interpretation Comme nts POCT Molecular Strep (test c ode = 49604-1) Negative Negative Lab Interpretation (test cod e = 05604-1) Normal [facility] MOLECULAR [id number] 15:31:05* Test Item Value Reference Range Interpretation Comme nts POCT Molecular FluA (test co de = 43977-1) Negative Negative POCT Molecular FluB (test co de = 45512-0) Negative Negative Lab Interpretation (test cod e = 26935-7) Normal [facility] MOLECULAR [id number] 15:23:32* Test Item Value Reference Range Interpretation Comme nts POCT Molecular Strep (test c ode = 70214-2) Negative Negative Lab Interpretation (test cod e = 74559-4) Normal [facility] MOLECULAR [id number] 16:33:28* Test Item Value Reference Range Interpretation Comme nts POCT Molecular FluA (test co de = 31256-0) Negative Negative POCT Molecular FluB (test co de = 35268-9) Negative Negative Lab Interpretation (test cod e = 08305-9) Normal [facility] MOLECULAR [id number] 16:33:28* Test Item Value Reference Range Interpretation Comme nts POCT Molecular FluA (test co de = 09464-5) Negative Negative POCT Molecular FluB (test co de = 92492-8) Negative Negative Lab Interpretation (test cod e = 00341-2) Normal [facility] MOLECULAR [id number] 16:27:43* Test Item Value Reference Range Interpretation Comme nts POCT Molecular Strep (test c ode = 72402-3) Negative Negative Lab Interpretation (test cod e = 57494-4) Normal [facility] MOLECULAR [id number] 16:27:43* Test Item Value Reference Range Interpretation Comme nts POCT Molecular Strep (test c ode = 43215-2) Negative Negative Lab Interpretation (test cod e = 70201-6) Normal [facility] Notes Date/Time Note Provider Source 2023-06-05 08:36:36 [...] Rowe MD Last refill: 05/05/2023 Rx #: [id number] Psychiatry: Antidepressants Llwmbv3606/04/2023 10:06 AM Protocol Details Manual Review: Verify no changes in dose in the last 3 months Valid encounter within last 12 months To be filled at: [facility] [id number] [place] [address] No doses changed since 02/09 30 day supply sent Recent Visits Date Type Provider Dept 05/08/23 Office Visit Rosemary Sheikh FNP [facility] 01/27/23 Office Visit Yamileth Rowe MD [...] authorizing provider and meeting all other requirements [facility] 2023-05-24 19:52:08 Medication verbally called in to [facility] by this RN. Pt notified. [facility] 2023-05-24 19:41:10 Aki Gotti is a 42 year old female, Sondra with [employer] calling regarding patient states she accidentally deleted an rx and asking for it to be resent. amoxicillin-clavulanate (AUGMENTIN) 875-125 mg per tablet [facility] [id number] - [place] [address] [place] [place] [address] [facility] Tash Norman [facility] 2023-03-31 15:27:54 Images from the original note were not included. Last Refilled: 01/27/23 Notes: [facility] - [place] - [address] [place] [address] Recent Visits Date Type Provider Dept 01/27/23 Office Visit Yamileth Rowe MD [facility] 12/02/22 Office Visit Yamileth Rowe MD [facility] 07/08/22 Office Visit Yamileth Rowe MD [facility] 06/22/22 Office Visit Rosemary Sheikh FNP [facility] 04/07/22 Office Visit Yamileth Rowe MD [facility] 02/25/22 Office Visit Yamileth [...] Rowe MD Last refill: 02/22/2023 Rx #: [id number] Psychiatry: Antidepressants Tvywow3403/31/2023 01:50 PM Protocol Details Manual Review: Verify no changes in dose in the last 3 months Valid encounter within last 12 months To be filled at: [facility] [id number] [address] [place] [facility] 2023-03-27 13:18:15 Refill denied: Too soon to refill Requested Prescriptions Pending Prescriptions Disp Refills escitalopram oxalate 20 mg tablet 90 tablet 0 Sig: Take 1 tablet by mouth in the morning. 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
[2024-01-13] MEDS ORDERED: LIDOCAINE 1% MPF 5 ML VIAL ONE (15:24)
--- NOTE | 2024-01-13 16:03 | EDPHYS ---
Physician Documentation [facility] Name: Melanie Gotti Age: 43 yrs Sex: Female : 1980 Arrival Date: 01/13/2024 Time: 13:58 Bed 19 Private MD: ED Physician Carlos Cota HPI: 01/12 16:15 This 43 yrs old Female presents to ER via Ambulatory with complaints of boil dr5 on vaginal region. 16:15 Onset: The symptoms/episode began/occurred acutely. Pt is a 43 year old female dr5 presenting with boil on right vaginal lip that she noticed this morning. Pt took a warm bath with no relief to area. Pt denies dysuria, vaginal discharge, fever.. 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 - Infectious Disease History:: Denies. - Social history:: Smoking status: Patient denies any tobacco usage or history of. ROS: 16:16 Constitutional: as per hpi dr5 Exam: 16:16 Constitutional: This is a well developed, well nourished patient who is awake, alert, dr5 and in no acute distress. Head/Face: Normocephalic, atraumatic. Chest/axilla: Normal chest wall appearance and motion. Nontender with no deformity. No lesions are appreciated. Cardiovascular: Regular rate and rhythm with a normal S1 and S2. Normal PMI, no JVD. No pulse deficits. Abdomen/GI: Soft, non-tender, non-distended Neuro: Awake and alert, GCS 15, oriented to person, place, time, and situation. Cranial nerves II-XII grossly intact. Motor strength 5/5 in all extremities. Sensory grossly intact. Cerebellar exam normal. Normal gait. 16:16 : Pelvic Exam: External exam: Bartholin's cyst present, erythema is noted, DALE Roberts present during exam and I\T\D, Vital Signs: 14:28 BP 144 / 93; Pulse 100; Resp 17; Temp 98(O); Pulse Ox 100% on R/A; ss 15:00 BP 132 / 79; Pulse 87; Resp 16; Pulse Ox 100% ; me1 15:41 BP 139 / 79; Pulse 90; Resp 15; Pulse Ox 98% ; me1 Procedures: 16:16 I \T\ D: Incision and drainage was performed for an abscess of the right Bartholin's dr5 gland. Prepped with Betadine, Anesthetized with 3 ml's 1% Lidocaine. Incised with #11 blade. Drained small amount purulent fluid. bloody fluid. Abscess cavity explored. Dressing: sterile 4x4 gauze, the patient tolerated the procedure well. MDM: 14:07 Medical Screening Exam initiated dr5 16:16 Differential diagnosis: viral Infection, bacterial infection, Bartholin Cyst, Vulvar dr5 Abscess. Data reviewed: vital signs, nurses notes. Consideration of Admission/Observation Escalation of care including admission/observation considered. Considered admission for vulvar abscess with fever and rapid spreading infection.. Historians other than the Patient: Parent: Mother. Care significantly affected by the following chronic conditions: Anxiety, Depression. Care significantly affected by the following Social Determinants of Health: Poor access to healthcare and/or lack of insurance, Poor access to transportation. Counseling: I had a detailed discussion with the patient and/or guardian regarding the historical points, exam findings, and any diagnostic results supporting the discharge/admit diagnosis, the presence of at least one elevated blood pressure reading (>120/80) during this emergency department visit, the need for outpatient follow up, for definitive care, an OB/Gyne specialist, to return to the emergency department if symptoms worsen or persist or if there are any questions or concerns that arise at home. Medication response: Lidocaine injection. Response to treatment: the patient's symptoms have markedly improved after treatment. ED course: Augmentin prescribed for vaginal abscess. PCP follow up or DINKEY LOCOMOTIVE ENGINEER follow up recommended this week for recheck and continued management as needed.. 01/12 15:11 Order name: Incision \T\ Drainage Setup; Complete Time: :24 dr5 Administered Medications: 15:25 Drug: Lidocaine Infiltration (1 %) 5 mg Infiltration once {Note: Administered by Luis Alberto me1 MERY Church.} Route: Infiltration; 15:41 Follow up: Response: No adverse reaction; Pain is decreased ia1 Disposition Summary: 01/13/24 16:02 Discharge Ordered Notes: Location: Home dr5 Condition: Stable dr5 Diagnosis - Cyst of Bartholin's gland dr5 Followup: dr5 - With: Emergency Department - When: As needed - Reason: Worsening of condition Followup: dr5 - With: Private Physician - When: 1 - 2 days - Reason: Recheck today's complaints, Continuance of care, Re-evaluation by your physician Discharge Instructions: - Discharge Summary Sheet dr5 - Bartholin's Cyst dr5 Forms: - Medication Reconciliation Form dr5 - Antibiotic Education dr5 - Patient Portal Instructions dr5 - Leadership Thank You Letter dr5 Prescriptions: - Augmentin 875-125 mg Oral Tablet - take 1 tablet ORAL route every 12 hours for 10 days; 20 tablet; Refills: 0, dr5 Product Selection Permitted Signatures: Trini Waite RN RN ss Alejandra Chen RN RN me1 Luis Alberto Church, MERY-C STUDENT FINANCIAL AID MANAGER-Cdr5
--- NOTE | 2024-01-13 16:03 | ER ---
Nurse's Notes [facility] Name: Melanie Gotti Age: 43 yrs Sex: Female : 1980 Arrival Date: 01/13/2024 Time: 13:58 Bed 19 Private MD: Diagnosis: Cyst of Bartholin's gland Presentation: 01/12 14:28 Chief complaint: Patient states: pain and swelling to R labia majora that patient ss noticed today. Coronavirus screen: Client denies travel out of the [place] in the last 14 days. Ebola Screen: Patient denies exposure to infectious person. Patient denies travel to an Ebola-affected area in the 21 days before illness onset. Initial Sepsis Screen: Does the patient meet any 2 criteria? No. Patient's initial sepsis screen is negative. Does the patient have a suspected source of infection? No. Patient's initial sepsis screen is negative. Risk Assessment: Do you want to hurt yourself or someone else? Patient reports no desire to harm self or others. Onset of symptoms was January 13, 2024. 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 - Infectious Disease History:: Denies. - Social history:: Smoking status: Patient denies any tobacco usage or history of. Screenin:44 [facility] ED Fall Risk Assessment (Adult) History of falling in the last 3 months, me1 including since admission No falls in past 3 months (0 pts) Confusion or Disorientation No (0 pts) Intoxicated or Sedated No (0 pts) Impaired Gait Yes (1 pt) Mobility Assist Device Used No (0 pt) Altered Elimination No (0 pt) Score/Fall Risk Level 0 - 2 = Low Risk Maintained a safe environment, Provided non-skid footwear, Hourly rounding (assess needs \T\ fall precautionary measures) done. Abuse screen: Denies threats or abuse. Nutritional screening: No deficits noted. Tuberculosis screening: No symptoms or risk factors identified. Assessment: 14:44 General: Appears uncomfortable, well groomed, well developed, well nourished, Behavior me1 is calm, cooperative, appropriate for age, Reports pain and swelling to R labia majora that patient noticed today. Pain: Complains of pain in groin Pain does not radiate. Pain currently is 6 out of 10 on a pain scale. Quality of pain is described as pressure, Pain began gradually, Is continuous. Neuro: Level of Consciousness is awake, alert, obeys commands, Oriented to person, place, time, situation, Appropriate for age. Cardiovascular: Patient's skin is warm and dry. Respiratory: Airway is patent Respiratory effort is even, unlabored, Respiratory pattern is regular, symmetrical. GI: No signs and/or symptoms were reported involving the gastrointestinal system. : Reports pain and swelling to R labia majora that patient noticed today. EENT: No signs and/or symptoms were reported regarding the EENT system. Derm: Skin is intact, is healthy with good turgor, Skin is pink, warm \T\ dry. Musculoskeletal: No signs and/or symptoms reported regarding the musculoskeletal system. Vital Signs: 14:28 BP 144 / 93; Pulse 100; Resp 17; Temp 98(O); Pulse Ox 100% on R/A; ss 15:00 BP 132 / 79; Pulse 87; Resp 16; Pulse Ox 100% ; me1 15:41 BP 139 / 79; Pulse 90; Resp 15; Pulse Ox 98% ; me1 ED Course: 14:00 Patient arrived in ED. ra3 14:07 Luis Alberto Church [facility]NP-C [facility] 14:07 Carlos Cota MD is Attending Physician. dr5 14:28 Arm band placed on right wrist. ss 14:30 Triage completed. ss 14:41 Alejandra Chen, DALE is Primary Nurse. me1 14:44 Patient has correct armband on for positive identification. Bed in low position. Call me1 light in reach. Side rails up X2. Provided Education on: POC. Verbalized understanding.. Client placed on continuous cardiac and pulse oximetry monitoring. NIBP monitoring applied. Pulse ox on. NIBP on. 14:44 No provider procedures requiring assistance completed. me1 16:05 Patient did not have IV access during this emergency room visit. me1 Administered Medications: 15:25 Drug: Lidocaine Infiltration (1 %) 5 mg Infiltration once {Note: Administered by Luis Alberto me1 FNP. Ranjit} Route: Infiltration; 15:41 Follow up: Response: No adverse reaction; Pain is decreased me1 Medication: 14:44 VIS not applicable for this client. me1 Outcome: 16:02 Discharge ordered by . arpita 16:08 Discharged to home via ambulance, with family, tx1 16:08 Condition: stable 16:08 Condition: stable 16:08 Discharge instructions given to patient, family, Instructed on discharge instructions, follow up and referral plans. medication usage, Demonstrated understanding of instructions, follow-up care, medications, Prescriptions given X 1, 16:09 Patient left the ED. tx1 Signatures: Trini Waite RN RN Alejandra Chen RN RN tx1 Janessa Norris 3 Luis Alberto Church, ARASHC MERY-Cdr5 Corrections: (The following items were deleted from the chart) 14:44 14:28 Chief complaint: Patient states: pain and swelling to R labia majora that patient me1 noticed today
[2024-01-14 02:13] VITALS: TEMP 98
[2024-01-14 02:21] VITALS: BP 139/79; O2SAT 98
== END 2024-01-13 16:09 | disposition home or self-care (01) ==
LOC: ER 13:58
DX: N75.0 Cyst of Bartholin's gland (principal)
CPT/HCPCS: 10060; 99284; J2003

== ENCOUNTER 2024-03-18 16:30 | Emergency (ER) | payer OTHER ==
--- OUTSIDE RECORDS SUMMARY | 2024-03-18 16:35 | XMS REPORT | Continuity of Care Document ---
Author Name Unknown Address [address] [facility] [place] [address] [facility] Address [address] [place] [address] Care Team Providers Care Compliance Reviewer Name Role Phone Yamileth Rowe MD Primary Care Physician [phone] Doctor Unassigned, Ammon Attending Clinician U Yessi Adkins Attending Clinician [phone] YESSI CALLE Attending Clinician Unavailable Mansoor Jorge Attending Clinician [phone] Unknown, Attending Attending Clinician Unavailab MANSOOR Chavarria Attending Clinician Unavailable Mansoor Jorge Attending Clinician [phone] Unknown, Attending Attending Clinician UnavailYamileth Parry MD Attending Clinician [phone] Priscilla Kapadia PA-C Attending Clinician [phone] PRISCILLA KAPADIA Attending Clinician Unavailable ROSEMARY SHEIKH Attending Clinician Unavailable YAMILETH ROWE Attending Clinician Unavailable KENNA ALMARAZ Attending Clinician UnavailKENNA Cifuentes Attending Clinician UnavailRosemary Calderon Attending Clinician [phone] BUTCH MINOR Attending Clinician Unavailable Butch Beatty Attending Clinician [phone] ASHLEY WRIGHT Attending Clinician Unavailable Ashley Wright MD Attending Clinician [phone] MEY HEALY Attending Clinician Unavailable Mey Nguyen Attending Clinician [phone] Lab, Ang - Db Attending Clinician Unavailable Raghavenrda GARDNER Attending Clinician Unavailable Raghavendra Lockhart Attending Clinician [phone] ASHLEY GIL Attending Clinician Unavailab Ashley Damon DO Attending Clinician [phone] Ger Coleman DO Attending Clinician [phone] GER COLEMAN Attending Clinician Unavailable YAMILETH ROEW Admitting Clinician Unavailable ASHLEY GIL Admitting Clinician Unavailab GER Guzmán Admitting Clinician Unavailable Payers Payer Name Policy Type Policy Number Effective Date Expirati on Date Source Problems Condition Name Condition Details Condition Category Status Onset Date Resolution Date Last Treatment Date Treating Clinician Comments Source Need for vaccinatio n Need for vaccinatio n Disease Active 05-08 00:00: 00 [facility] Injury of left ankle, initial encounter Injury of left ankle, initial encounter Disease Active 05-08 00:00: 00 [facility] Allergic conjunctiv itis of left eye Allergic conjunctiv itis of left eye Disease Active -05 00:00: 00 [facility] Encounter for initial prescripti on of vaginal ring hormonal contracept lupe Encounter for initial prescripti on of vaginal ring hormonal contracept lupe Disease Active 04-28 00:00: 00 [facility] Decreased libido Decreased libido Disease Active 04-28 00:00: 00 [facility] Well woman exam Well woman exam Disease Active 2014-03 00:00: 00 [facility] Anemia of mother in , condition Anemia of mother in , condition Disease Resolve d 2014-03 00:00: 00 2016-02-25 00:00:00 2016-02-25 11:16:48 [facility] Spontaneou s vaginal delivery Spontaneou s vaginal delivery Disease Resolve d 2014-03 0-20 00:00: 00 2015-02-24 00:00:00 2021-10-03 00:38:09 [facility] Yeast infection of the vagina Yeast infection of the vagina Disease Resolve d 7-31 00:00: 00 2015-02-24 00:00:00 2015-02-24 12:46:58 [facility] Supervisio n of high-risk with history of Supervisio n of high-risk with history of Disease Resolve d 07-08 00:00: 00 2015-02-24 00:00:00 2015-02-24 12:47:13 [facility] Family history of Downs syndrome Family history of Downs syndrome Disease Resolve d 07-08 00:00: 00 2015-02-24 00:00:00 2015-02-24 12:47:01 [facility] Prior with demise, antepartum Prior with demise, antepartum Disease Resolve d 07-08 00:00: 00 2015-02-24 00:00:00 2021-10-03 00:35:41 [facility] Sciatic leg pain Sciatic leg pain Disease Resolve d 07-08 00:00: 00 2015-02-24 00:00:00 2015-02-24 12:47:08 [facility] History of delivery, currently History of delivery, currently Disease Resolve d 07-08 00:00: 00 2015-02-24 00:00:00 2015-02-24 12:47:43 [facility] induction of labor induction of labor Disease Resolve d 2014-03 0-19 00:00: 00 2015-01-06 00:00:00 2015-01-06 15:12:40 [facility] Allergies, Adverse Reactions, Alerts Allergy Name Allergy Type Status Severity Reaction(s) Onset Date Inactive Date Treating Clinician Comments Source NO KNOWN ALLERGIE S Drug Class Active [facility] Social History Social Habit Start Date Stop Date Quantity Comments Source History SDOH Alcohol Frequency [facility] History SDOH Alcohol Std Drinks [facility] History SDOH Alcohol Binge [facility] Alcoholic beverage intake 2024-01-12 00:00:00 2024-01-12 00:00:00 Ex-drinker (finding) [facility] Alcohol intake 2023-05-24 00:00:00 2023-05-24 00:00:00 Ex-drinker (finding) [facility] History of Social function 2022-12-02 00:00:00 2022-12-02 00:00:00 [facility] Exposure to SARS-CoV-2 (event) 2022-07-10 00:00:00 2022-07-20 11:46:[address] [facility] Tobacco use and exposure 2022-05-09 00:00:00 2022-05-09 00:00:00 [address]eless tobacco [facility] Tobacco Comment 2022-05-09 00:00:00 2022-05-09 00:00:[address] [facility] Alcohol Comment 2022-01-03 00:00:00 2022-01-03 00:00:00 socially, [address] [facility] Sex assigned at 1980 00:00:00 1980 00:00:00 [facility] Smoking Status Start Date Stop Date Source Never smoked tobacco [facility] Medications Ordered Medication Name Filled Medication Name Start Date Stop Date Current Medication? Ordering Clinician Indication Dosage Frequency Signature (SIG) Comments Components Source methylPREDN ISolone (MEDROL, RAVINDRA,) 4 mg tablets 2023-03 00:00: 00 Yes [id number] Take by mouth SEE-INSTRU CTIONS. follow package directions [facility] montelukast 10 mg tablet 2023-03 00:00: 00 Yes [id number] 10mg Take 1 tablet by mouth in the morning. [facility] cefdinir 300 mg capsule 2023-03 0-14 00:00: 00 01-08 04:59 :00 Yes [id number] 300mg Take 1 capsule by mouth every 12 (twelve) hours for 7 days. [facility] amoxicillin -clavulanat e (AUGMENTIN) 875-125 mg per tablet 6-10 00:00: 00 09-07 04:59 :00 No [id number] 1{tbl} Take 1 tablet by mouth in the morning and 1 tablet in the evening. Do all this for 10 days. [facility] ESCITALOPRA M OXALATE 20 mg tablet -24 00:00: 00 Yes [id number] 20mg TAKE 1 TABLET BY MOUTH EVERY MORNING [facility] ESCITALOPRA M OXALATE 20 mg tablet 07-09 00:00: 00 08-10 00:00 :00 No [id number] 20mg TAKE 1 TABLET BY MOUTH EVERY MORNING [facility] ESCITALOPRA M OXALATE 20 mg tablet 18 00:00: 00 07-09 00:00 :00 No [id number] 20mg TAKE 1 TABLET BY MOUTH EVERY MORNING [facility] azelastine 137 mcg (0.1 %) nasal spray -06 00:00: 00 Yes [id number] 1{spray } Use 1 Hannacroix in each nostril in the morning and 1 Hannacroix in the evening. Use in each nostril as directed [facility] amoxicillin -clavulanat e (AUGMENTIN) 875-125 mg per tablet -06 00:00: 00 06-03 04:59 :00 No [id number] 1{tbl} Take 1 tablet by mouth in the morning and 1 tablet in the evening. Do all this for 10 days. [facility] meloxicam 15 mg tablet 2-19 00:00: 00 01-11 00:00 :00 No [id number] 15mg Take 1 tablet by mouth in the morning. [facility] ESCITALOPRA M OXALATE 20 mg tablet 2-16 00:00: 00 06-04 00:00 :00 No [id number] 20mg TAKE 1 TABLET BY MOUTH EVERY MORNING [facility] ketorolac (TORADOL) injection 30 mg 1-20 17:15: 00 04-08 16:27 :00 No [id number] 30mg [facility] methocarbam oL (ROBAXIN-75 0) 750 mg tablet 04-08 00:00: 00 04-19 05:59 :00 No [id number] 750mg Take 1 tablet by mouth 4 (four) times daily for 10 days. [facility] escitalopra m oxalate 20 mg tablet 03-31 00:00: 00 05-05 00:00 :00 No [id number] 20mg TAKE ONE TABLET BY MOUTH EVERY MORNING [facility] ketorolac (TORADOL) injection 30 mg 2022-03 16:45: 00 02-25 16:00 :00 No [id number] 30mg [facility] proMETHazin e 25 mg tablet 2022-03 00:00: 00 01-11 00:00 :00 No [id number] 25mg Take 1 tablet by mouth every 4 (four) hours as needed for Nausea and Vomiting (N/V). [facility] escitalopra m oxalate 20 mg tablet 2022-03 00:00: 00 03-31 00:00 :00 No [id number] 20mg Take 1 tablet by mouth in the morning. [facility] ondansetron 4 mg disintegrat ing tablet 2022-03 00:00: 00 01-11 00:00 :00 No [id number] 4mg Take 1 tablet by mouth every 8 (eight) hours as needed for Nausea and Vomiting (N/V). [facility] clindamycin 300 mg capsule 2022-03 0-30 00:00: 00 01-27 00:00 :00 No [id number] 05 300mg Take 1 capsule by mouth 4 (four) times daily. [facility] amoxicillin 500 mg tablet 9-15 00:00: 00 01-27 00:00 :00 No [id number] 500mg Take 1 tablet by mouth in the morning and 1 tablet in the evening. [facility] azelastine 137 mcg (0.1 %) nasal spray 11-03 00:00: 00 05-23 00:00 :00 No [id number] 1{spray } Use 1 Hannacroix in each nostril in the morning and 1 Hannacroix in the evening. Use in each nostril as directed [facility] fluticasone propionate 50 mcg/actuati on nasal spray 11-03 00:00: 00 01-27 00:00 :00 No [id number] 2{spray } Use 2 Sprays in each nostril in the morning. [facility] predniSONE 20 mg tablet 11-03 00:00: 00 11-09 04:59 :00 No [id number] 20mg Take 1 tablet by mouth in the morning and 1 tablet in the evening. Do all this for 5 days. [facility] loratadine 10 mg tablet 10-09 10:15: 48 Yes 10mg Take 1 tablet by mouth in the morning. [facility] mupirocin 2 % ointment 10-09 00:00: 00 Yes [id number] Apply to area(s) 3 (three) times daily. [facility] Azelastine 205.5 mcg (0.15 %) nasal spray 07-26 00:00: 00 Yes [id number] 1{spray } Use 1 Hannacroix in each nostril in the morning. [facility] fluticasone propionate 50 mcg/actuati on nasal spray 07-26 00:00: 00 Yes [id number] 1{spray } Use 1 Hannacroix in each nostril in the morning. [facility] dexamethaso ne sod phos PF injection 10 mg 07-20 18:00: 00 07-20 17:18 :00 No [id number] 10mg [facility] cephALEXin 500 mg capsule -19 00:00: 00 07-12 04:59 :00 No [id number] 500mg Take 1 capsule by mouth 4 (four) times daily for 5 days. [facility] olopatadine 0.7 % Drop 405 00:00: 00 Yes [id number] 4102 1[drp] Place 1 Drop in each eye in the morning. [facility] hydrOXYzine 25 mg capsule 405 00:00: 00 01-11 00:00 :00 No [id number] 25mg Take 1 capsule by mouth 3 (three) times daily as needed for Itching. [facility] predniSONE 20 mg tablet 3 00:00: 00 06-22 04:59 :00 No [id number] 40mg Take 2 tablets by mouth in the morning for 5 days. [facility] dexamethaso ne (DECADRON) injection 10 mg 2-20 15:30: 00 05-09 15:34 :00 No [id number] 10mg [facility] methylPREDN ISolone (MEDROL, RAVINDRA,) 4 mg tablets 05-09 00:00: 00 07-08 00:00 :00 No [id number] follow package directions [facility] azelastine- fluticasone (DYMISTA) 137-50 mcg/spray nasal spray 04-07 00:00: 00 Yes [id number] 1{spray } Use 1 Hannacroix in each nostril in the morning and 1 Hannacroix in the evening. [facility] escitalopra m oxalate 10 mg tablet 04-07 00:00: 00 01-27 00:00 :00 No [id number] 10mg Take 1 tablet by mouth in the morning. [facility] methylPREDN ISolone (MEDROL, RAVINDRA,) 4 mg tablets 04-07 00:00: 00 07-08 00:00 :00 No [id number] Take by mouth SEE-INSTRU CTIONS. follow package directions [facility] dexamethaso ne (DECADRON) injection 10 mg -18 16:45: 00 04-06 15:37 :00 No [id number] 10mg [facility] methylPREDN ISolone (MEDROL, RAVINDRA,) 4 mg tablets 04-06 00:00: 00 04-07 00:00 :00 No [id number] Take by mouth SEE-INSTRU CTIONS. follow package directions [facility] ibuprofen 600 mg tablet 2021-03 00:00: 00 04-07 00:00 :00 No [id number] 05 600mg Take 1 tablet by mouth every 6 (six) hours as needed for Pain (scale 4-6). [facility] amoxicillin 500 mg tablet 2021-03 00:00: 00 03-08 05:59 :00 No [id number] 05 500mg Take 1 tablet by mouth in the morning and 1 tablet in the evening. Do all this for 10 days. [facility] dexamethaso ne sod phos PF injection 10 mg 2021-03 15:15: 00 01-03 14:21 :00 No [id number] 10mg [facility] dexAMETHaso ne sodium phos (PF) injection syringe 10 mg 2021-03 15:00: 00 01-03 14:20 :23 No [id number] 10mg [facility] loratadine 10 mg tablet 2021-03 09:16: 59 Yes 10mg Take 10 mg by mouth in the morning. [facility] copper 380 square mm IUD 2021-03 08:36: 44 Yes 1{IUD} 1 Intra Uterine Device by Intrauteri ne route once now. [facility] hydrOXYzine 25 mg capsule 2021-03 00:00: 00 06-22 00:00 :00 No [id number] 25mg Take 1 capsule by mouth 3 (three) times daily as needed for Itching. [facility] escitalopra m oxalate 10 mg tablet 2021-03 00:00: 00 04-07 00:00 :00 No [id number] 10mg Take 1 tablet by mouth in the morning. [facility] azelastine- fluticasone (DYMISTA) 137-50 mcg/spray nasal spray 2021-0317 00:00: 00 04-07 00:00 :00 No [id number] 1{spray } Use 1 Hannacroix in each nostril in the morning and 1 Hannacroix in the evening. [facility] benzonatate 200 mg capsule 9-20 00:00: 00 01-03 00:00 :00 No [id number] 200mg Take 1 capsule by mouth 3 (three) times daily as needed for Cough for up to 20 doses. [facility] NUVARING 0.12-0.015 mg/24 hr vaginal insert 07-19 00:00: 00 01-03 00:00 :00 No [id number] 1{each} Insert 1 Each into vagina once every month. Insert vaginally and leave in place for 3 consecutiv e weeks, then remove for 1 week. [facility] hydrOXYzine 25 mg capsule 04-06 00:00: 00 01-03 00:00 :00 No [facility] escitalopra m oxalate 10 mg tablet 04-06 00:00: 00 01-03 00:00 :00 No [facility] norgestimat e-ethinyl estradiol 0.18/0.215/ 0.25 mg-35 mcg (28) tablet 2016-03-11 00:00: 00 01-03 00:00 :00 No 1{tbl} Take 1 tablet by mouth daily. [facility] ibuprofen (MOTRIN) 600 mg tablet 2014-03 0 00:00: 00 02-25 00:00 :00 No 600mg Take 1 Tab by mouth every 6 (six) hours as needed for Pain (scale 4-6). Take with food or milk. [facility] Immunizations Ordered Immunization Name Filled Immunization Name Date Status Comments Source Influenza Virus Vaccine Quad IM, Preserv and ABX Free 6 MO-64 YRS (FLUCELVAX) 2023-05-08 00:00:[address] [facility] SARS-COV-2 COVID 19 CORNELIA SUCROSE VACCINE 12+, , 0.3 ML (30 MCG), IM PFIZER (KIRKPATRICK TOP) 2023-05-08 00:00:00 Completed SARS-COV-2 COVID-19 PFIZER VACCINE 2020-08-25 00:00:[address] [facility] SARS-COV-2 COVID-19 PFIZER VACCINE 2020-08-25 00:00:00 Completed SARS-COV-2 COVID-19 PFIZER VACCINE 2020-08-25 00:00:[address] [facility] SARS-COV-2 COVID-19 PFIZER VACCINE 2020-08-25 00:00:[address] [facility] SARS-COV-2 COVID-19 PFIZER VACCINE 2020-08-25 00:00:[address] [facility] SARS-COV-2 COVID-19 PFIZER VACCINE 2020-08-25 00:00:[address] [facility] SARS-COV-2 COVID-19 PFIZER VACCINE 2020-08-25 00:00:[address] [facility] SARS-COV-2 COVID-19 PFIZER VACCINE 2020-08-25 00:00:[address] [facility] SARS-COV-2 COVID-19 PFIZER VACCINE 2020-08-25 00:00:[address] [facility] SARS-COV-2 COVID-19 PFIZER VACCINE 2020-08-25 00:00:[address] [facility] SARS-COV-2 COVID-19 PFIZER VACCINE 2020-08-25 00:00:[address] [facility] SARS-COV-2 COVID-19 PFIZER VACCINE 2020-08-25 00:00:[address] [facility] SARS-COV-2 COVID-19 PFIZER VACCINE 2020-08-25 00:00:[address] [facility] SARS-COV-2 COVID-19 PFIZER VACCINE 2020-08-25 00:00:[address] [facility] SARS-COV-2 COVID-19 PFIZER VACCINE 2020-08-25 00:00:[address] [facility] SARS-COV-2 COVID-19 PFIZER VACCINE 2020-08-25 00:00:[address] [facility] SARS-COV-2 COVID-19 PFIZER VACCINE 2020-08-25 00:00:[address] [facility] SARS-COV-2 COVID-19 PFIZER VACCINE 2020-08-25 00:00:[address] [facility] SARS-COV-2 COVID-19 PFIZER VACCINE 2020-08-25 00:00:[address] [facility] SARS-COV-2 COVID-19 PFIZER VACCINE 2020-08-25 00:00:[address] [facility] SARS-COV-2 COVID-19 PFIZER VACCINE 2020-08-04 00:00:[address] [facility] SARS-COV-2 COVID-19 PFIZER VACCINE 2020-08-04 00:00:[address] [facility] SARS-COV-2 COVID-19 PFIZER VACCINE 2020-08-04 00:00:[address] [facility] SARS-COV-2 COVID-19 PFIZER VACCINE 2020-08-04 00:00:[address] [facility] SARS-COV-2 COVID-19 PFIZER VACCINE 2020-08-04 00:00:[address] [facility] SARS-COV-2 COVID-19 PFIZER VACCINE 2020-08-04 00:00:[address] [facility] SARS-COV-2 COVID-19 PFIZER VACCINE 2020-08-04 00:00:[address] [facility] SARS-COV-2 COVID-19 PFIZER VACCINE 2020-08-04 00:00:[address] [facility] SARS-COV-2 COVID-19 PFIZER VACCINE 2020-08-04 00:00:[address] [facility] SARS-COV-2 COVID-19 PFIZER VACCINE 2020-08-04 00:00:[address] [facility] SARS-COV-2 COVID-19 PFIZER VACCINE 2020-08-04 00:00:[address] [facility] SARS-COV-2 COVID-19 PFIZER VACCINE 2020-08-04 00:00:[address] [facility] SARS-COV-2 COVID-19 PFIZER VACCINE 2020-08-04 00:00:[address] [facility] SARS-COV-2 COVID-19 PFIZER VACCINE 2020-08-04 00:00:[address] [facility] SARS-COV-2 COVID-19 PFIZER VACCINE 2020-08-04 00:00:[address] [facility] SARS-COV-2 COVID-19 PFIZER VACCINE 2020-08-04 00:00:[address] [facility] SARS-COV-2 COVID-19 PFIZER VACCINE 2020-08-04 00:00:[address] [facility] SARS-COV-2 COVID-19 PFIZER VACCINE 2020-08-04 00:00:[address] [facility] SARS-COV-2 COVID-19 PFIZER VACCINE 2020-08-04 00:00:[address] [facility] SARS-COV-2 COVID-19 PFIZER VACCINE 2020-08-04 00:00:[address] [facility] Influenza Virus Vaccine Quad IM Multi-dose 6+ MO 2017-02-14 00:00:[address] [facility] Influenza Virus Vaccine Quad IM Multi-dose 6+ MO 2017-02-14 00:00:[address] [facility] Influenza Virus Vaccine Quad IM Multi-dose 6+ MO 2017-02-14 00:00:[address] [facility] Influenza Virus Vaccine Quad IM Multi-dose 6+ MO 2017-02-14 00:00:[address] [facility] Influenza Virus Vaccine Quad IM Multi-dose 6+ MO 2017-02-14 00:00:[address] [facility] Influenza Virus Vaccine Quad IM Multi-dose 6+ MO 2017-02-14 00:00:[address] [facility] Influenza Virus Vaccine Quad IM Multi-dose 6+ MO 2017-02-14 00:00:[address] [facility] Influenza Virus Vaccine Quad IM Multi-dose 6+ MO 2017-02-14 00:00:[address] [facility] Influenza Virus Vaccine Quad IM Multi-dose 6+ MO 2017-02-14 00:00:[address] [facility] Influenza Virus Vaccine Quad IM Multi-dose 6+ MO 2017-02-14 00:00:[address] [facility] Influenza Virus Vaccine Quad IM Multi-dose 6+ MO 2017-02-14 00:00:[address] [facility] Influenza Virus Vaccine Quad IM Multi-dose 6+ MO 2017-02-14 00:00:[address] [facility] Influenza Virus Vaccine Quad IM Multi-dose 6+ MO 2017-02-14 00:00:[address] [facility] Influenza Virus Vaccine Quad IM Multi-dose 6+ MO 2017-02-14 00:00:[address] [facility] Influenza Virus Vaccine Quad IM Multi-dose 6+ MO 2017-02-14 00:00:[address] [facility] Influenza Virus Vaccine Quad IM Multi-dose 6+ MO 2017-02-14 00:00:[address] [facility] Influenza Virus Vaccine Quad IM Multi-dose 6+ MO 2017-02-14 00:00:[address] [facility] Influenza Virus Vaccine Quad IM Multi-dose 6+ MO 2017-02-14 00:00:[address] [facility] Influenza Virus Vaccine Quad IM Multi-dose 6+ MO 2017-02-14 00:00:[address] [facility] Influenza Virus Vaccine Quad IM Multi-dose 6+ MO 2017-02-14 00:00:[address] [facility] Influenza Virus Vaccine Quad IM Multi-dose 6+ MO 2017-02-14 00:00:[address] [facility] Influenza Virus Vaccine Quad IM Multi-dose 6+ MO 2017-02-14 00:00:[address] [facility] Influenza Virus Vaccine Quad IM Multi-dose 6+ MO 2017-02-14 00:00:[address] [facility] Influenza Virus Vaccine Quad IM 3+ YRS 2014-12-08 00:00:[address] [facility] Influenza Virus Vaccine Quad IM 3+ YRS 2014-12-08 00:00:00 Completed Influenza Virus Vaccine Quad IM 3+ YRS 2014-12-08 00:00:[address] [facility] Influenza Virus Vaccine Quad IM 3+ YRS 2014-12-08 00:00:[address] [facility] Influenza Virus Vaccine Quad IM 3+ YRS 2014-12-08 00:00:[address] [facility] Influenza Virus Vaccine Quad IM 3+ YRS 2014-12-08 00:00:[address] [facility] Influenza Virus Vaccine Quad IM 3+ YRS 2014-12-08 00:00:[address] [facility] Influenza Virus Vaccine Quad IM 3+ YRS 2014-12-08 00:00:[address] [facility] Influenza Virus Vaccine Quad IM 3+ YRS 2014-12-08 00:00:[address] [facility] Influenza Virus Vaccine Quad IM 3+ YRS 2014-12-08 00:00:[address] [facility] Influenza Virus Vaccine Quad IM 3+ YRS 2014-12-08 00:00:[address] [facility] Influenza Virus Vaccine Quad IM 3+ YRS 2014-12-08 00:00:[address] [facility] Influenza Virus Vaccine Quad IM 3+ YRS 2014-12-08 00:00:[address] [facility] Influenza Virus Vaccine Quad IM 3+ YRS 2014-12-08 00:00:[address] [facility] Influenza Virus Vaccine Quad IM 3+ YRS 2014-12-08 00:00:[address] [facility] Influenza Virus Vaccine Quad IM 3+ YRS 2014-12-08 00:00:[address] [facility] [facility] [facility] Influenza Virus Vaccine Quad IM 3+ YRS 2014-12-08 00:00:[address] [facility] Influenza Virus Vaccine Quad IM 3+ YRS 2014-12-08 00:00:[address] [facility] Influenza Virus Vaccine Quad IM 3+ YRS 2014-12-08 00:00:[address] [facility] Influenza Virus Vaccine Quad IM 3+ YRS 2014-12-08 00:00:[address] [facility] Influenza Virus Vaccine Quad IM 3+ YRS 2014-12-08 00:00:[address] [facility] Influenza Virus Vaccine Quad IM 3+ YRS 2014-12-08 00:00:[address] [facility] Influenza Virus Vaccine Quad IM 3+ YRS 2014-12-08 00:00:[address] [facility] TDAP 2014-10-23 00:00:[address] [facility] TDAP 2014-10-23 00:00:[address] [facility] TDAP 2014-10-23 00:00:[address] [facility] TDAP 2014-10-23 00:00:[address] [facility] TDAP 2014-10-23 00:00:[address] [facility] TDAP 2014-10-23 00:00:[address] [facility] TDAP 2014-10-23 00:00:[address] [facility] TDAP 2014-10-23 00:00:[address] [facility] TDAP 2014-10-23 00:00:[address] [facility] TDAP 2014-10-23 00:00:[address] [facility] TDAP 2014-10-23 00:00:[address] [facility] TDAP 2014-10-23 00:00:[address] [facility] TDAP 2014-10-23 00:00:[address] [facility] TDAP 2014-10-23 00:00:[address] [facility] TDAP 2014-10-23 00:00:[address] [facility] TDAP 2014-10-23 00:00:[address] [facility] TDAP 2014-10-23 00:00:[address] [facility] TDAP 2014-10-23 00:00:[address] [facility] TDAP 2014-10-23 00:00:[address] [facility] TDAP 2014-10-23 00:00:[address] [facility] TDAP 2014-10-23 00:00:[address] [facility] TDAP 2014-10-23 00:00:[address] [facility] TDAP 2014-10-23 00:00:[address] [facility] Td 2010-07-08 00:00:[address] [facility] TD, NOS 2010-07-08 00:00:00 Completed Td 2010-07-08 00:00:[address] [facility] TD, NOS 2010-07-08 00:00:[address] [facility] TD, NOS 2010-07-08 00:00:[address] [facility] Td 2010-07-08 00:00:[address] [facility] TD, NOS 2010-07-08 00:00:[address] [facility] TD, NOS 2010-07-08 00:00:[address] [facility] TD, NOS 2010-07-08 00:00:[address] [facility] TD, NOS 2010-07-08 00:00:[address] [facility] TD, NOS 2010-07-08 00:00:[address] [facility] TD, NOS 2010-07-08 00:00:[address] [facility] TD, NOS 2010-07-08 00:00:[address] [facility] TD, NOS 2010-07-08 00:00:[address] [facility] Td 2010-07-08 00:00:[address] [facility] TD, NOS 2010-07-08 00:00:[address] [facility] TD, NOS 2010-07-08 00:00:[address] [facility] TD, NOS 2010-07-08 00:00:[address] [facility] TD, NOS 2010-07-08 00:00:[address] [facility] TD, NOS 2010-07-08 00:00:[address] [facility] TD, NOS 2010-07-08 00:00:[address] [facility] TD, NOS 2010-07-08 00:00:[address] [facility] Td 2010-07-08 00:00:[address] [facility] Influenza Virus Vaccine Quad IM 3+ YRS Unknown Completed [facility] Influenza Virus Vaccine Quad IM Multi-dose 6+ MO Unknown Completed [facility] SARS-COV-2 COVID-19 PFIZER VACCINE Unknown Completed [facility] TD, NOS Unknown Completed [facility] TDAP Unknown Completed [facility] Influenza Virus Vaccine Quad IM 3+ YRS Unknown Completed [facility] Influenza Virus Vaccine Quad IM Multi-dose 6+ MO Unknown Completed [facility] SARS-COV-2 COVID-19 PFIZER VACCINE Unknown Completed [facility] TD, NOS Unknown Completed [facility] TDAP Unknown Completed [facility] Influenza Virus Vaccine Quad IM 3+ YRS Unknown Completed [facility] Influenza Virus Vaccine Quad IM Multi-dose 6+ MO Unknown Completed [facility] SARS-COV-2 COVID-19 PFIZER VACCINE Unknown Completed [facility] TD, NOS Unknown Completed [facility] TDAP Unknown Completed [facility] Influenza Virus Vaccine Quad IM 3+ YRS Unknown Completed [facility] Influenza Virus Vaccine Quad IM Multi-dose 6+ MO Unknown Completed [facility] SARS-COV-2 COVID-19 PFIZER VACCINE Unknown Completed [facility] TD, NOS Unknown Completed [facility] TDAP Unknown Completed [facility] Influenza Virus Vaccine Quad IM 3+ YRS Unknown Completed [facility] Influenza Virus Vaccine Quad IM Multi-dose 6+ MO Unknown Completed [facility] SARS-COV-2 COVID-19 PFIZER VACCINE Unknown Completed [facility] TD, NOS Unknown Completed [facility] TDAP Unknown Completed [facility] Influenza Virus Vaccine Quad IM 3+ YRS Unknown Completed [facility] Influenza Virus Vaccine Quad IM Multi-dose 6+ MO Unknown Completed [facility] SARS-COV-2 COVID-19 PFIZER VACCINE Unknown Completed [facility] TD, NOS Unknown Completed [facility] TDAP Unknown Completed [facility] Influenza Virus Vaccine Quad IM 3+ YRS Unknown Completed [facility] Influenza Virus Vaccine Quad IM Multi-dose 6+ MO Unknown Completed [facility] SARS-COV-2 COVID-19 PFIZER VACCINE Unknown Completed [facility] TD, NOS Unknown Completed [facility] TDAP Unknown Completed [facility] Influenza Virus Vaccine Quad IM 3+ YRS Unknown Completed [facility] Influenza Virus Vaccine Quad IM Multi-dose 6+ MO Unknown Completed [facility] SARS-COV-2 COVID-19 PFIZER VACCINE Unknown Completed [facility] TD, NOS Unknown Completed [facility] TDAP Unknown Completed [facility] Influenza Virus Vaccine Quad IM 3+ YRS Unknown Completed [facility] Influenza Virus Vaccine Quad IM Multi-dose 6+ MO Unknown Completed [facility] SARS-COV-2 COVID-19 PFIZER VACCINE Unknown Completed [facility] TD, NOS Unknown Completed [facility] TDAP Unknown Completed [facility] Influenza Virus Vaccine Quad IM 3+ YRS Unknown Completed [facility] Influenza Virus Vaccine Quad IM Multi-dose 6+ MO Unknown Completed [facility] SARS-COV-2 COVID-19 PFIZER VACCINE Unknown Completed [facility] TD, NOS Unknown Completed [facility] TDAP Unknown Completed [facility] Influenza Virus Vaccine Quad IM 3+ YRS Unknown Completed [facility] Influenza Virus Vaccine Quad IM Multi-dose 6+ MO Unknown Completed [facility] SARS-COV-2 COVID-19 PFIZER VACCINE Unknown Completed [facility] TD, NOS Unknown Completed [facility] TDAP Unknown Completed [facility] Influenza Virus Vaccine Quad IM 3+ YRS Unknown Completed [facility] Influenza Virus Vaccine Quad IM Multi-dose 6+ MO Unknown Completed [facility] SARS-COV-2 COVID-19 PFIZER VACCINE Unknown Completed [facility] TD, NOS Unknown Completed [facility] TDAP Unknown Completed [facility] Influenza Virus Vaccine Quad IM 3+ YRS Unknown Completed [facility] Influenza Virus Vaccine Quad IM Multi-dose 6+ MO Unknown Completed [facility] Influenza Virus Vaccine Quad IM, Preserv and ABX Free 6 MO-64 YRS (FLUCELVAX) Unknown Completed [facility] SARS-COV-2 COVID 19 CORNELIA SUCROSE VACCINE 12, [id number], 0.3 ML (30 MCG), IM PFIZER (KIRKPATRICK TOP) Unknown Completed [facility] SARS-COV-2 COVID-19 PFIZER VACCINE Unknown Completed [facility] TD, NOS Unknown Completed [facility] TDAP Unknown Completed [facility] Influenza Virus Vaccine Quad IM 3+ YRS Unknown Completed [facility] Influenza Virus Vaccine Quad IM Multi-dose 6+ MO Unknown Completed [facility] SARS-COV-2 COVID-19 PFIZER VACCINE Unknown Completed [facility] Influenza Virus Vaccine Quad IM, Preserv and ABX Free 6 MO-64 YRS (FLUCELVAX) Unknown Completed [facility] SARS-COV-2 COVID 19 CORNELIA SUCROSE VACCINE , 0.3 ML (30 MCG), IM PFIZER (KIRKPATRICK TOP) Unknown Completed [facility] TD, NOS Unknown Completed [facility] TDAP Unknown Completed [facility] Influenza Virus Vaccine Quad IM 3+ YRS Unknown Completed [facility] Influenza Virus Vaccine Quad IM Multi-dose 6+ MO Unknown Completed [facility] SARS-COV-2 COVID-19 PFIZER VACCINE Unknown Completed [facility] Influenza Virus Vaccine Quad IM, Preserv and ABX Free 6 MO-64 YRS (FLUCELVAX) Unknown Completed [facility] SARS-COV-2 COVID 19 CORNELIA SUCROSE VACCINE , 0.3 ML (30 MCG), IM PFIZER (KIRKPATRICK TOP) Unknown Completed [facility] TD, NOS Unknown Completed [facility] TDAP Unknown Completed [facility] Influenza Virus Vaccine Quad IM 3+ YRS Unknown Completed [facility] Influenza Virus Vaccine Quad IM Multi-dose 6+ MO Unknown Completed [facility] SARS-COV-2 COVID-19 PFIZER VACCINE Unknown Completed [facility] Influenza Virus Vaccine Quad IM, Preserv and ABX Free 6 MO-64 YRS (FLUCELVAX) Unknown Completed [facility] SARS-COV-2 COVID 19 CORNELIA SUCROSE VACCINE 12, , 0.3 ML (30 MCG), IM PFIZER (KIRKPATRICK TOP) Unknown Completed [facility] TD, NOS Unknown Completed [facility] TDAP Unknown Completed [facility] Influenza Virus Vaccine Quad IM 3+ YRS Unknown Completed [facility] Influenza Virus Vaccine Quad IM Multi-dose 6+ MO Unknown Completed [facility] SARS-COV-2 COVID-19 PFIZER VACCINE Unknown Completed [facility] Influenza Virus Vaccine Quad IM, Preserv and ABX Free 6 MO-64 YRS (FLUCELVAX) Unknown Completed [facility] SARS-COV-2 COVID 19 CORNELIA SUCROSE VACCINE , 0.3 ML (30 MCG), IM PFIZER (KIRKPATRICK TOP) Unknown Completed [facility] TD, NOS Unknown Completed [facility] TDAP Unknown Completed [facility] Influenza Virus Vaccine Quad IM 3+ YRS Unknown Completed [facility] Influenza Virus Vaccine Quad IM Multi-dose 6+ MO Unknown Completed [facility] SARS-COV-2 COVID-19 PFIZER VACCINE Unknown Completed [facility] Influenza Virus Vaccine Quad IM, Preserv and ABX Free 6 MO-64 YRS (FLUCELVAX) Unknown Completed [facility] SARS-COV-2 COVID 19 CORNELIA SUCROSE VACCINE , 0.3 ML (30 MCG), IM PFIZER (KIRKPATRICK TOP) Unknown Completed [facility] TD, NOS Unknown Completed [facility] TDAP Unknown Completed [facility] Influenza Virus Vaccine Quad IM 3+ YRS Unknown Completed [facility] Influenza Virus Vaccine Quad IM Multi-dose 6+ MO Unknown Completed [facility] SARS-COV-2 COVID-19 PFIZER VACCINE Unknown Completed [facility] Influenza Virus Vaccine Quad IM, Preserv and ABX Free 6 MO-64 YRS (FLUCELVAX) Unknown Completed [facility] SARS-COV-2 COVID 19 CORNELIA SUCROSE VACCINE , , 0.3 ML (30 MCG), IM PFIZER (KIRKPATRICK TOP) Unknown Completed [facility] TD, NOS Unknown Completed [facility] TDAP Unknown Completed [facility] Influenza Virus Vaccine Quad IM 3+ YRS Unknown Completed [facility] Influenza Virus Vaccine Quad IM Multi-dose 6+ MO Unknown Completed [facility] SARS-COV-2 COVID-19 PFIZER VACCINE Unknown Completed [facility] Influenza Virus Vaccine Quad IM, Preserv and ABX Free 6 MO-64 YRS (FLUCELVAX) Unknown Completed [facility] SARS-COV-2 COVID 19 CORNELIA SUCROSE VACCINE , , 0.3 ML (30 MCG), IM PFIZER (KIRKPATRICK TOP) Unknown Completed [facility] TD, NOS Unknown Completed [facility] TDAP Unknown Completed [facility] Influenza Virus Vaccine Quad IM 3+ YRS Unknown Completed [facility] Influenza Virus Vaccine Quad IM Multi-dose 6+ MO Unknown Completed [facility] SARS-COV-2 COVID-19 PFIZER VACCINE Unknown Completed [facility] Influenza Virus Vaccine Quad IM, Preserv and ABX Free 6 MO-64 YRS (FLUCELVAX) Unknown Completed [facility] SARS-COV-2 COVID 19 CORNELIA SUCROSE VACCINE , , 0.3 ML (30 MCG), IM PFIZER (KIRKPATRICK TOP) Unknown Completed [facility] TD, NOS Unknown Completed [facility] TDAP Unknown Completed [facility] Vital Signs Vital Name Observation Time Observation Value Comments S ource Systolic blood pressure 2024-01-12 18:07:00 135 mm[Hg] [facility] Diastolic blood pressure 2024-01-12 18:07:00 86 mm[Hg] [facility] Heart rate 2024-01-12 18:07:00 99 /min [facility] Body temperature 2024-01-12 18:07:[address] [facility] Body height 2024-01-12 18:07:00 160 cm [facility] Body weight 2024-01-12 18:07:00 69.854 kg [facility] BMI 2024-01-12 18:07:00 27.28 kg/m2 [facility] Oxygen saturation in Arterial blood by Pulse oximetry 2024-01-12 18:07:00 99 /min [facility] Systolic blood pressure 2024-01-01 22:58:00 133 mm[Hg] [facility] Diastolic blood pressure 2024-01-01 22:58:00 85 mm[Hg] [facility] Heart rate 2024-01-01 22:58:00 91 /min [facility] Body temperature 2024-01-01 22:58:[address] [facility] Respiratory rate 2024-01-01 22:58:00 14 /min [facility] Body height 2024-01-01 22:58:00 160 cm [facility] Body weight 2024-01-01 22:58:00 70.308 kg [facility] BMI 2024-01-01 22:58:00 27.46 kg/m2 [facility] Oxygen saturation in Arterial blood by Pulse oximetry 2024-01-01 22:58:00 99 /min [facility] Systolic blood pressure 2023-10-16 15:40:00 125 mm[Hg] [facility] Diastolic blood pressure 2023-10-16 15:40:00 83 mm[Hg] [facility] Heart rate 2023-10-16 15:40:00 79 /min [facility] Body temperature 2023-10-16 15:40:[address] [facility] Respiratory rate 2023-10-16 15:40:00 17 /min [facility] Body weight 2023-10-16 15:40:00 69.854 kg [facility] BMI 2023-10-16 15:40:00 27.28 kg/m2 [facility] Oxygen saturation in Arterial blood by Pulse oximetry 2023-10-16 15:40:00 99 /min [facility] Systolic blood pressure 2023-08-28 23:42:00 130 mm[Hg] [facility] Diastolic blood pressure 2023-08-28 23:42:00 83 mm[Hg] [facility] Heart rate 2023-08-28 23:42:00 89 /min [facility] Body temperature 2023-08-28 23:42:[address] [facility] Respiratory rate 2023-08-28 23:42:00 18 /min [facility] Body height 2023-08-28 23:42:00 160 [facility] 2023-08-28 23:42:00 72.576 kg [facility] BMI 2023-08-28 23:42:00 28.34 kg/m2 [facility] Oxygen saturation in Arterial blood by Pulse oximetry 2023-08-28 23:42:00 97 /min [facility] Systolic blood pressure 2023-08-10 20:42:00 128 mm[Hg] [facility] Diastolic blood pressure 2023-08-10 20:42:00 88 mm[Hg] [facility] Heart rate 2023-08-10 20:42:00 73 /min [facility] Body temperature 2023-08-10 20:42:[address] [facility] Respiratory rate 2023-08-10 20:42:00 18 /min [facility] Body height 2023-08-10 20:42:00 160 cm [facility] Body weight 2023-08-10 20:42:00 71.668 kg [facility] BMI 2023-08-10 20:42:00 27.99 kg/m2 [facility] Oxygen saturation in Arterial blood by Pulse oximetry 2023-08-10 20:42:00 98 /min [facility] Systolic blood pressure 2023-05-25 00:56:00 127 mm[Hg] [facility] Diastolic blood pressure 2023-05-25 00:56:00 86 mm[Hg] [facility] Heart rate 2023-05-25 00:56:00 86 /min [facility] Body temperature 2023-05-25 00:56:[address] [facility] Respiratory rate 2023-05-25 00:56:00 17 /min [facility] Body weight 2023-05-25 00:56:00 72.122 kg [facility] BMI 2023-05-25 00:56:00 28.17 kg/m2 [facility] Oxygen saturation in Arterial blood by Pulse oximetry 2023-05-25 00:56:00 98 /min [facility] Systolic blood pressure 2023-05-08 20:24:00 120 mm[Hg] [facility] Diastolic blood pressure 2023-05-08 20:24:00 82 mm[Hg] [facility] Heart rate 2023-05-08 20:24:00 87 /min [facility] Body height 2023-05-08 20:24:00 160 cm [facility] Body weight 2023-05-08 20:24:00 71.215 kg [facility] BMI 2023-05-08 20:24:00 27.81 kg/m2 [facility] Oxygen saturation in Arterial blood by Pulse oximetry 2023-05-08 20:24:00 98 /min [facility] Systolic blood pressure 2023-04-29 15:36:00 139 mm[Hg] [facility] Diastolic blood pressure 2023-04-29 15:36:00 86 mm[Hg] [facility] Heart rate 2023-04-29 15:36:00 84 /min [facility] Body temperature 2023-04-29 15:36:[address] [facility] Respiratory rate 2023-04-29 15:36:00 18 /min [facility] Body height 2023-04-29 15:36:00 157.5 cm [facility] Body weight 2023-04-29 15:36:00 71.668 kg [facility] BMI 2023-04-29 15:36:00 28.90 kg/m2 [facility] Oxygen saturation in Arterial blood by Pulse oximetry 2023-04-29 15:36:00 98 /min [facility] Systolic blood pressure 2023-04-08 16:05:00 113 mm[Hg] [facility] Diastolic blood pressure 2023-04-08 16:05:00 79 mm[Hg] [facility] Heart rate 2023-04-08 16:05:00 74 /min [facility] Body temperature 2023-04-08 16:05:[address] [facility] Respiratory rate 2023-04-08 16:05:00 17 /min [facility] Body height 2023-04-08 16:05:00 157.5 cm [facility] Body weight 2023-04-08 16:05:00 71.215 kg [facility] BMI 2023-04-08 16:05:00 28.72 kg/m2 [facility] Oxygen saturation in Arterial blood by Pulse oximetry 2023-04-08 16:05:00 97 /min [facility] Systolic blood pressure 2023-02-25 15:41:00 123 mm[Hg] [facility] Diastolic blood pressure 2023-02-25 15:41:00 77 mm[Hg] [facility] Heart rate 2023-02-25 15:41:00 101 /min [facility] Body temperature 2023-02-25 15:41:[address] [facility] Respiratory rate 2023-02-25 15:41:00 19 /min [facility] Body height 2023-02-25 15:41:00 160 cm [facility] Body weight 2023-02-25 15:41:00 72.122 kg [facility] BMI 2023-02-25 15:41:00 28.17 kg/m2 [facility] Oxygen saturation in Arterial blood by Pulse oximetry 2023-02-25 15:41:00 95 /min [facility] Systolic blood pressure 2023-01-27 14:47:00 136 mm[Hg] [facility] Diastolic blood pressure 2023-01-27 14:47:00 75 mm[Hg] [facility] Heart rate 2023-01-27 14:47:00 86 /min [facility] Respiratory rate 2023-01-27 14:47:00 18 /min [facility] Body height 2023-01-27 14:47:00 160 cm [facility] Body weight 2023-01-27 14:47:00 73.074 kg [facility] BMI 2023-01-27 14:47:00 28.54 kg/m2 [facility] Oxygen saturation in Arterial blood by Pulse oximetry 2023-01-27 14:47:00 99 /min [facility] Systolic blood pressure 2023-01-16 13:29:00 127 mm[Hg] [facility] Diastolic blood pressure 2023-01-16 13:29:00 88 mm[Hg] [facility] Heart rate 2023-01-16 13:29:00 94 /min [facility] Body temperature 2023-01-16 13:29:[address] [facility] Respiratory rate 2023-01-16 13:29:00 16 /min [facility] Body height 2023-01-16 13:29:00 160 cm [facility] Body weight 2023-01-16 13:29:00 70.308 kg [facility] BMI 2023-01-16 13:29:00 27.46 kg/m2 [facility] Oxygen saturation in Arterial blood by Pulse oximetry 2023-01-16 13:29:00 100 /min [facility] Systolic blood pressure 2022-12-02 18:51:00 130 mm[Hg] [facility] Diastolic blood pressure 2022-12-02 18:51:00 83 mm[Hg] [facility] Heart rate 2022-12-02 18:51:00 66 /min [facility] Body temperature 2022-12-02 18:51:[address] [facility] Body height 2022-12-02 18:51:00 160 [facility] 2022-12-02 18:51:00 72.802 kg [facility] BMI 2022-12-02 18:51:00 28.43 kg/m2 [facility] Oxygen saturation in Arterial blood by Pulse oximetry 2022-12-02 18:51:00 97 /min [facility] Systolic blood pressure 2022-11-03 19:38:00 130 mm[Hg] [facility] Diastolic blood pressure 2022-11-03 19:38:00 82 mm[Hg] [facility] Heart rate 2022-11-03 19:35:00 66 /min [facility] Body temperature 2022-11-03 19:35:[address] [facility] Respiratory rate 2022-11-03 19:35:00 14 /min [facility] Body height 2022-11-03 19:35:00 160 cm [facility] Body weight 2022-11-03 19:35:00 73.12 kg [facility] BMI 2022-11-03 19:35:00 28.56 kg/m2 [facility] Oxygen saturation in Arterial blood by Pulse oximetry 2022-11-03 19:35:00 97 /min [facility] Systolic blood pressure 2022-10-09 15:13:00 117 mm[Hg] [facility] Diastolic blood pressure 2022-10-09 15:13:00 77 mm[Hg] [facility] Heart rate 2022-10-09 15:13:00 93 /min [facility] Body temperature 2022-10-09 15:13:[address] [facility] Body height 2022-10-09 15:13:00 160 cm [facility] Body weight 2022-10-09 15:13:00 73.029 kg [facility] BMI 2022-10-09 15:13:00 28.52 kg/m2 [facility] Oxygen saturation in Arterial blood by Pulse oximetry 2022-10-09 15:13:00 99 /min [facility] Systolic blood pressure 2022-07-20 16:56:00 126 mm[Hg] [facility] Diastolic blood pressure 2022-07-20 16:56:00 81 mm[Hg] [facility] Heart rate 2022-07-20 16:56:00 77 /min [facility] Body temperature 2022-07-20 16:56:[address] [facility] Respiratory rate 2022-07-20 16:56:00 22 /min [facility] Body height 2022-07-20 16:56:00 160 cm [facility] Body weight 2022-07-20 16:56:00 75.921 kg [facility] BMI 2022-07-20 16:56:00 29.65 kg/m2 [facility] Oxygen saturation in Arterial blood by Pulse oximetry 2022-07-20 16:56:00 97 /min [facility] Systolic blood pressure 2022-07-08 16:22:00 122 mm[Hg] [facility] Diastolic blood pressure 2022-07-08 16:22:00 90 mm[Hg] [facility] Heart rate 2022-07-08 16:22:00 85 /min [facility] Body temperature 2022-07-08 16:22:[address] [facility] Respiratory rate 2022-07-08 16:22:00 20 /min [facility] Body height 2022-07-08 16:22:00 160 cm [facility] Body weight 2022-07-08 16:22:00 73.936 kg [facility] BMI 2022-07-08 16:22:00 28.87 kg/m2 [facility] Oxygen saturation in Arterial blood by Pulse oximetry 2022-07-08 16:22:00 99 /min [facility] Systolic blood pressure 2022-07-06 15:43:00 122 mm[Hg] [facility] Diastolic blood pressure 2022-07-06 15:43:00 86 mm[Hg] [facility] Heart rate 2022-07-06 15:43:00 115 /min [facility] Body temperature 2022-07-06 15:43:[address] [facility] Body height 2022-07-06 15:43:00 160 cm [facility] Body weight 2022-07-06 15:43:00 73.71 kg [facility] BMI 2022-07-06 15:43:00 28.79 kg/m2 [facility] Oxygen saturation in Arterial blood by Pulse oximetry 2022-07-06 15:43:00 96 /min [facility] Systolic blood pressure 2022-06-22 18:25:00 120 mm[Hg] [facility] Diastolic blood pressure 2022-06-22 18:25:00 81 mm[Hg] [facility] Heart rate 2022-06-22 18:25:00 93 /min [facility] Body temperature 2022-06-22 18:25:[address] [facility] Body height 2022-06-22 18:25:00 160 cm [facility] Body weight 2022-06-22 18:25:00 77.111 kg [facility] BMI 2022-06-22 18:25:00 30.11 kg/m2 [facility] Oxygen saturation in Arterial blood by Pulse oximetry 2022-06-22 18:25:00 98 /min [facility] Systolic blood pressure 2022-06-16 16:30:00 123 mm[Hg] [facility] Diastolic blood pressure 2022-06-16 16:30:00 80 mm[Hg] [facility] Heart rate 2022-06-16 16:30:00 65 /min [facility] Body temperature 2022-06-16 16:30:[address] [facility] Body height 2022-06-16 16:30:00 160 cm [facility] Body weight 2022-06-16 16:30:00 75.887 kg [facility] BMI 2022-06-16 16:30:00 29.64 kg/m2 [facility] Oxygen saturation in Arterial blood by Pulse oximetry 2022-06-16 16:30:00 98 /min [facility] Systolic blood pressure 2022-05-09 15:18:00 120 mm[Hg] [facility] Diastolic blood pressure 2022-05-09 15:18:00 83 mm[Hg] [facility] Heart rate 2022-05-09 15:18:00 83 /min [facility] Body temperature 2022-05-09 15:18:[address] [facility] Respiratory rate 2022-05-09 15:18:00 18 /min [facility] Body height 2022-05-09 15:18:00 160 cm [facility] Body weight 2022-05-09 15:18:00 75.615 kg [facility] BMI 2022-05-09 15:18:00 29.53 kg/m2 [facility] Oxygen saturation in Arterial blood by Pulse oximetry 2022-05-09 15:18:00 98 /min [facility] Systolic blood pressure 2022-04-07 15:52:00 138 mm[Hg] [facility] Diastolic blood pressure 2022-04-07 15:52:00 85 mm[Hg] [facility] Heart rate 2022-04-07 15:52:00 76 /min [facility] Body temperature 2022-04-07 15:52:[address] [facility] Body height 2022-04-07 15:52:00 160 cm [facility] Body weight 2022-04-07 15:52:00 73.483 kg [facility] BMI 2022-04-07 15:52:00 28.70 kg/m2 [facility] Oxygen saturation in Arterial blood by Pulse oximetry 2022-04-07 15:52:00 95 /min [facility] Systolic blood pressure 2022-04-06 15:32:00 118 mm[Hg] [facility] Diastolic blood pressure 2022-04-06 15:32:00 80 mm[Hg] [facility] Heart rate 2022-04-06 15:32:00 99 /min [facility] Body temperature 2022-04-06 15:32:[address] [facility] Respiratory rate 2022-04-06 15:32:00 17 /min [facility] Body height 2022-04-06 15:32:00 160 cm [facility] Body weight 2022-04-06 15:32:00 74.617 kg [facility] BMI 2022-04-06 15:32:00 29.14 kg/m2 [facility] Oxygen saturation in Arterial blood by Pulse oximetry 2022-04-06 15:32:00 98 /min [facility] Systolic blood pressure 2022-02-25 16:24:00 118 mm[Hg] [facility] Diastolic blood pressure 2022-02-25 16:24:00 83 mm[Hg] [facility] Heart rate 2022-02-25 16:24:00 96 /min [facility] Body temperature 2022-02-25 16:24:[address] [facility] Body height 2022-02-25 16:24:00 160 cm [facility] Body weight 2022-02-25 16:24:00 72.122 kg [facility] BMI 2022-02-25 16:24:00 28.17 kg/m2 [facility] Oxygen saturation in Arterial blood by Pulse oximetry 2022-02-25 16:24:00 95 /min [facility] Systolic blood pressure 2022-01-03 13:32:00 133 mm[Hg] [facility] Diastolic blood pressure 2022-01-03 13:32:00 83 mm[Hg] [facility] Heart rate 2022-01-03 13:32:00 85 /min [facility] Body temperature 2022-01-03 13:32:[address] [facility] Body height 2022-01-03 13:32:00 160 cm [facility] Body weight 2022-01-03 13:32:00 72.122 kg [facility] BMI 2022-01-03 13:32:00 28.17 kg/m2 [facility] Oxygen saturation in Arterial blood by Pulse oximetry 2022-01-03 13:32:00 98 /min [facility] Diastolic blood pressure 2021-12-07 16:38:00 87 mm[Hg] [facility] Heart rate 2021-12-07 16:38:00 98 /min [facility] Body temperature 2021-12-07 16:38:[address] [facility] Respiratory rate 2021-12-07 16:38:00 18 /min [facility] Body height 2021-12-07 16:38:00 160 cm [facility] Body weight 2021-12-07 16:38:00 71.215 kg [facility] BMI 2021-12-07 16:38:00 27.81 kg/m2 [facility] Oxygen saturation in Arterial blood by Pulse oximetry 2021-12-07 16:38:00 97 /min [facility] Systolic blood pressure 2021-12-07 16:38:00 123 mm[Hg] [facility] Systolic blood pressure 2021-08-03 16:08:00 117 mm[Hg] [facility] Diastolic blood pressure 2021-08-03 16:08:00 80 mm[Hg] [facility] Heart rate 2021-08-03 16:08:00 100 /min [facility] Body temperature 2021-08-03 16:08:[address] [facility] Respiratory rate 2021-08-03 16:08:00 18 /min [facility] Body weight 2021-08-03 16:08:00 71.668 kg [facility] BMI 2021-08-03 16:08:00 27.99 kg/m2 [facility] Oxygen saturation in Arterial blood by Pulse oximetry 2021-08-03 16:08:00 99 /min [facility] Systolic blood pressure 2021-07-15 18:43:00 135 mm[Hg] [facility] Diastolic blood pressure 2021-07-15 18:43:00 97 mm[Hg] [facility] Heart rate 2021-07-15 18:43:00 86 /min [facility] Body temperature 2021-07-15 18:43:[address] [facility] Respiratory rate 2021-07-15 18:43:00 18 /min [facility] Body height 2021-07-15 18:43:00 160 [facility] Body weight 2021-07-15 18:43:00 73.483 kg [facility] BMI 2021-07-15 18:43:00 28.70 kg/m2 [facility] Oxygen saturation in Arterial blood by Pulse oximetry 2021-07-15 18:43:00 100 /min [facility] Procedures Procedure Date / Time Performed Performing Clinicia n Source POCT SARS-COV-2 ANTIGEN (BINAX NOW) 2024-01-01 23:00:[address] [facility] POCT SARS-COV-2 ANTIGEN (BINAX NOW) 2023-10-16 15:45:[address] [facility] POCT SARS-COV-2 ANTIGEN (BINAX NOW) 2023-08-28 23:52:[address] [facility] POCT MOLECULAR STREP 2023-08-28 23:39:00 Unknown, Attchelsey [facility] POCT MOLECULAR FLU 2023-08-10 20:43:00 Unknown, Attend [facility] POCT MOLECULAR STREP 2023-08-10 20:40:00 Unknown, Attchelsey [facility] POCT SARS-COV-2 ANTIGEN (BINAX NOW) 2023-08-10 20:34:[address] [facility] SARS-COV-2 COVID 19 CORNELIA SUCROSE VACCINE 12+, , 0.3 ML (30 MCG), IM PFIZER (KIRKPATRICK TOP) 2023-05-08 20:28:[address] [facility] FLU VACC (), 6 MO-64 YRS, .5ML, IM, QUAD (FLUCELVAX) 2023-05-08 20:28:[address] [facility] XR FOOT 3+ VW LEFT 2023-04-29 16:09:[address] [facility] XR ANKLE 3+ VW LEFT 2023-04-29 16:08:[address] [facility] RAPID STREP SCREEN FOR GROUP A 2023-01-16 13:57:[address] [facility] RAPID INFLUENZA A/B 2023-01-16 13:57:[address] [facility] COVID-19 (ID NOW RAPID TESTING) 2023-01-16 13:57:[address] [facility] CONSENT/REFUSAL FOR DIAGNOSIS AND TREATMENT 2023-01-16 13:25:16 Doctor Unassigned, Ammon [facility] POCT MOLECULAR STREP 2022-12-02 19:03:[address] [facility] POCT MOLECULAR STREP 2022-11-03 19:47:00 Unknown, Attchelsey salguero [facility] XR HEEL 2+ VW BILATERAL 2022-07-20 17:15:[address] [facility] POCT MOLECULAR STREP 2022-06-16 16:34:00 Unknown, Attchelsey salgeuro [facility] POCT MOLECULAR FLU 2022-05-09 15:19:00 Unknown, Attend sami [facility] POCT MOLECULAR STREP 2022-05-09 15:16:00 Unknown, Attchelsey salguero [facility] POCT MOLECULAR FLU 2022-02-25 16:22:[address] [facility] POCT MOLECULAR STREP 2022-02-25 16:20:[address] [facility] RAPID STREP SCREEN FOR GROUP A 2021-12-07 16:41:[address] [facility] CONSENT/REFUSAL FOR DIAGNOSIS AND TREATMENT 2021-12-07 16:32:22 Doctor Unassigned, Ammon [facility] CONSENT/REFUSAL FOR DIAGNOSIS AND TREATMENT 2021-08-03 16:04:24 Doctor Unassigned, Ammon [facility] XR FOOT 3+ VW LEFT 2021-07-15 19:17:[address] [facility] CONSENT/REFUSAL FOR DIAGNOSIS AND TREATMENT 2021-07-15 18:35:54 Doctor Unassigned, Ammon [facility] NOTICE OF PRIVACY PRACTICES 2021-07-15 18:35:10 Doctor Unassigned, Ammon [facility] Encounters Start Date/Time End Date/Time Encounter Type Admission Type Attending [facility] Facility Care Department Encounter ID Source 2024-02-06 00:00:00 2024-03-09 18:17:02 Patient Secure Msg Doctor Unassigned, Ammon Doctor Unassigned, Ammon [facility] 1..840.114 350.1.13.10 4.2.7.2.686 [id number] [facility] 2024-01-12 13:00:00 2024-01-12 13:17:14 Office Visit Yessi Calle A [facility] 1..840.114 350.1.13.10 4.2.7.2.686 [id number] [facility] 2024-01-12 13:00:00 2024-01-12 13:17:14 Outpatient R YESSI CALLE [facility] [id number] [facility] 2024-01-01 17:40:00 2024-01-01 18:00:00 Urgent Care Mansoor Min Unknown, Attending [facility] 1..840.114 350.1.13.10 4.2.7.2.686 [id number] [facility] 2024-01-01 17:40:00 2024-01-01 17:40:00 Outpatient R MANSOOR MIN [facility] [id number] [facility] 2023-10-16 10:20:00 2023-10-16 10:40:00 Urgent Care Mansoor Min Unknown, Attending [facility] 1..840.114 350.1.13.10 4.2.7.2.686 [id number] [facility] 2023-10-16 10:20:00 2023-10-16 10:20:00 Outpatient R MANSOOR MIN [facility] [id number] [facility] 2023-08-28 18:20:00 2023-08-28 19:21:36 Outpatient R MANSOOR MIN [facility] [id number] [facility] 2023-08-28 18:20:00 2023-08-28 19:21:36 Urgent Care Mansoor Min Unknown, Attending [facility] 1.2.840.114 350.1.13.10 4.2.7.2.686 [id number] [facility] 2023-08-11 00:00:00 2023-08-11 08:52:11 Lorene Rowe [facility] 1..840.114 350.1.13.10 4.2.7.2.686 [id number] [facility] 2023-08-10 15:40:00 2023-08-10 16:00:00 Urgent Care Mansoor Min Unknown, Attending Archana [facility] 1..840.114 350.1.13.10 4.2.7.2.686 [id number] [facility] 2023-08-10 15:40:00 2023-08-10 15:40:00 Outpatient PRISCILLA TEAGUE [facility] [id number] [facility] 2023-08-07 16:00:00 2023-08-07 16:00:00 Outpatient YAMILETH WEBB [facility] [id number] [facility] 2023-07-08 00:00:00 2023-07-08 00:00:00 Lorene Rowe [facility] 1..840.114 350.1.13.10 4.2.7.2.686 [id number] [facility] 2023-06-05 16:15:00 2023-06-05 16:15:00 Outpatient KENNA KENT CRAIG [facility] [id number] [facility] 2023-06-04 00:00:00 2023-06-04 00:00:00 Refill Soledad [facility]3]LING GARCIA?[facility] 1.84.114 350.1.13.10 4.2.7.2.686 [id number] [facility] 2023-05-24 18:40:00 2023-05-24 19:07:08 Outpatient R MANSOOR MIN [facility] [id number] [facility] 2023-05-24 18:40:00 2023-05-24 19:00:00 Urgent Care Mansoor Min Unknown, Attending [facility] JOSE?[facility] 1.84.114 350.1.13.10 4.2.7.2.686 [id number] [facility] 2023-05-24 00:00:00 2023-05-24 00:00:00 Telephone Mansoor Min [facility] JOSE[facility] 1.84.114 350.1.13.10 4.2.7.2.686 [id number] [facility] 2023-05-08 14:00:00 2023-05-08 14:54:02 Outpatient R ROSEMARY SHEIKH [facility] [id number] [facility] 2023-05-08 14:00:00 2023-05-08 14:54:02 Office Visit Rosemary Sheikh [facility] JOSE[facility] 1.84.114 350.1.13.10 4.2.7.2.686 [id number] [facility] 2023-05-04 00:00:00 2023-05-04 00:00:00 [facility] 1.84.114 350.1.13.10 4.2.7.2.686 [id number] [facility] 2023-04-29 09:46:44 2023-04-29 23:59:00 Outpatient R PRISCILLA KAPADIA [facility] [id number] [facility] 2023-04-29 09:46:44 2023-04-29 23:59:00 Hospital Encounter Priscilla Kapadia [facility] 1.2.840.114 350.1.13.10 4.2.7.2.686 [id number] [facility] 2023-04-29 09:46:43 2023-04-29 23:59:00 Hospital Encounter Priscilla Kapadia [facility] 1..840.114 350.1.13.10 4.2.7.2.686 [id number] [facility] 2023-04-29 09:20:00 2023-04-29 09:55:38 Urgent Care Priscilla Kapadia Unknown, Attending [facility] 1..840.114 350.1.13.10 4.2.7.2.686 [id number] [facility] 2023-04-08 10:00:00 2023-04-08 10:37:29 Outpatient R BUTCH MINOR [facility] [id number] [facility] 2023-04-08 10:00:00 2023-04-08 10:37:29 Urgent Care Butch Minor Unknown, Attending [facility] 1..840.114 350.1.13.10 4.2.7.2.686 [id number] [facility] 2023-03-31 00:00:00 2023-03-31 00:00:00 [facility] 1..840.114 350.1.13.10 4.2.7.2.686 [id number] [facility] 2023-03-27 00:00:00 2023-03-27 00:00:00 Refill Robinmargarita [facility] JOSE?[facility] 1.840.114 350.1.13.10 4.2.7.2.686 [id number] [facility] 2023-03-09 10:20:00 2023-03-09 10:20:00 Outpatient R YAMILETH ROWE [facility] [id number] [facility] 2023-02-25 09:30:00 2023-02-25 09:58:59 Outpatient R PRISCILLA KAPADIA [facility] [id number] [facility] 2023-02-25 09:30:00 2023-02-25 09:58:59 Urgent Care Priscilla Kapadia Unknown, Attending [facility] 1..840.114 350..13.10 4.2.7.2.686 [id number] [facility] 2023-01-27 08:20:00 2023-01-27 09:02:54 Outpatient R YAMILETH ROWE [facility] [id number] [facility] 2023-01-27 08:20:00 2023-01-27 09:02:54 Office Visit Soledad [facility] JOSE[facility] 1..840.114 350..13.10 4.2.7.2.686 [id number] [facility] 2023-01-27 00:00:00 2023-01-27 00:00:00 Letter (Out) [facility] 1.84114 350.1.13.10 4.2.7.2.686 [id number] [facility] 2023-01-26 00:00:00 2023-01-26 00:00:00 Telephone Soledad [facility] 1.84114 350.1.13.10 4.2.7.2.686 [id number] [facility] 2023-01-16 08:30:00 2023-01-16 10:10:00 Emergency X ASHLEY WRIGHT [facility] [id number] [facility] 2023-01-16 08:30:00 2023-01-16 10:10:00 Emergency Ashley Wright [facility] 1.114 350.1.13.10 4.2.7.2.686 [id number] [facility] 2022-12-02 14:00:00 2022-12-02 14:32:47 Outpatient R CHUCKIE ROWEINE SOLEDAD [facility] [id number] [facility] 2022-12-02 14:00:00 2022-12-02 14:32:47 Office Visit Soledad [facility] 1.84114 350.1.13.10 4.2.7.2.686 [id number] [facility] 2022-11-03 14:20:00 2022-11-03 15:10:10 Outpatient R PRISCILLA KAPADIA [facility] [id number] [facility] 2022-11-03 14:20:00 2022-11-03 15:10:10 Urgent Care Priscilla Kapadia Unknown, Attending [facility] 1.84.114 350.1.13.10 4.2.7.2.686 [id number] [facility] 2022-10-09 09:40:00 2022-10-09 10:41:51 Outpatient R MEY HEALY [facility] [id number] [facility] 2022-10-09 09:40:00 2022-10-09 10:41:51 Urgent Care Mey Healy Unknown, Attending [facility] 1.2.840.114 350.1.13.10 4.2.7.2.686 [id number] [facility] 2022-08-08 13:23:51 2022-08-08 23:59:00 Outpatient R SOLEDADYAMILETH [facility] [place] [id number] [facility] 2022-08-08 13:23:51 2022-08-08 23:59:00 Hospital Encounter Robinmargarita Yamileth [facility] 1.2.840.114 350.1.13.10 4.2.7.2.686 [id number] [facility] 2022-07-26 00:00:00 2022-07-26 00:00:00 Telephone Soledad [facility] JOSE?[facility] 1.2.840.114 350.1.13.10 4.2.7.2.686 [id number] [facility] 2022-07-25 00:00:00 2022-07-25 00:00:00 Telephone [facility]edad [facility] JOSE?[facility] 1.2.840.114 350.1.13.10 4.2.7.2.686 [id number] [facility] 2022-07-20 12:06:42 2022-07-20 23:59:00 Outpatient R PRISCILLA KAPADIA [facility] [id number] [facility] 2022-07-20 12:06:42 2022-07-20 23:59:00 Hospital Encounter Priscilla Kapadia [facility] 1.114 350.1.13.10 4.2.7.2.686 [id number] [facility] 2022-07-20 11:40:00 2022-07-20 12:00:00 Urgent Care Priscilla Kapadia Unknown, Attending [facility] 1.114 350.1.13.10 4.2.7.2.686 [id number] [facility] 2022-07-08 12:15:00 2022-07-08 12:30:00 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, Akbar Mazariegos [facility]edad [facility] 1.114 350.1.13.10 4.2.7.2.686 [id number] [facility] 2022-07-08 11:20:00 2022-07-08 11:55:48 Outpatient R SOLEDAD YAMILETH SOLEDAD [facility] [place] [id number] [facility] 2022-07-08 11:20:00 2022-07-08 11:55:48 Office Visit Soledad [facility] 1.114 350.1.13.10 4.2.7.2.686 [id number] [facility] 2022-07-06 10:35:00 2022-07-06 10:55:42 Outpatient R MANSOOR MIN [facility] [id number] [facility] 2022-07-06 10:35:00 2022-07-06 10:55:42 Urgent Care Mansoor Min Unknown, Attending [facility] 1.114 350.1.13.10 4.2.7.2.686 [id number] [facility] 2022-06-22 13:30:00 2022-06-22 13:40:17 Outpatient R ROSEMARY SHEIKH [facility] [id number] [facility] 2022-06-22 13:30:00 2022-06-22 13:40:17 Office Visit Rosemary Sheikh [facility] 1.114 350.1.13.10 4.2.7.2.686 [id number] [facility] 2022-06-16 11:20:00 2022-06-16 11:40:00 Urgent Care Butch Minor Unknown, Attending [facility] 1.114 350.1.13.10 4.2.7.2.686 [id number] [facility] 2022-06-16 11:20:00 2022-06-16 11:20:00 Outpatient R BUTCH MINOR [facility] [id number] [facility] 2022-05-09 09:00:00 2022-05-09 09:28:42 Outpatient R MINMANSOOR [facility] [id number] [facility] 2022-05-09 09:00:00 2022-05-09 09:28:42 Urgent Care Mansoor Min Unknown, Attending [facility] 1.114 350.1.13.10 4.2.7.2.686 [id number] [facility] 2022-04-14 00:00:00 2022-04-14 00:00:00 Refill Yamileth Rowe [facility] 1.114 350.1.13.10 4.2.7.2.686 [id number] [facility] 2022-04-07 09:20:00 2022-04-07 10:17:32 Outpatient R YAMILETH ROWE [facility] [id number] [facility] 2022-04-07 09:20:00 2022-04-07 10:17:32 Office Visit Soledad [facility] JOSE?[facility] 1.2.840.114 350.1.13.10 4.2.7.2.686 [id number] [facility] 2022-04-06 09:00:00 2022-04-06 09:40:43 Outpatient R LIZZIEBenjamín ROBERTEUSEBIO [facility] [id number] [facility] 2022-04-06 09:00:00 2022-04-06 09:40:43 Urgent Care Butch Minor, [facility] 1..840.114 350.1.13.10 4.2.7.2.686 [id number] [facility] 2022-02-25 10:00:00 2022-02-25 10:42:34 [facility] [id number] 2022-02-25 10:00:00 2022-02-25 10:42:34 [facility] 1.2.840.114 350.1.13.10 4.2.7.2.686 [id number] [facility] 2022-01-03 08:40:00 2022-01-03 09:31:28 Outpatient R CHUCKIE ROWEINE [facility] [id number] [facility] 2022-01-03 08:40:00 2022-01-03 09:31:28 Office Visit Soledad [facility] JOSE?[facility] 1.2.840.114 350.1.13.10 4.2.7.2.686 [id number] [facility] 2021-12-07 11:42:00 2021-12-07 12:51:00 Emergency Raghavendra GUSMAN [facility] [id number] [facility] 2021-12-07 11:42:00 2021-12-07 12:51:00 Emergency Raghavendra Gardner [facility] 1.2.840.114 350.1.13.10 4.2.7.2.686 [id number] [facility] 2021-08-03 11:08:00 2021-08-03 12:17:00 Emergency ASHLEY DUNCAN [facility] [id number] [facility] 2021-08-03 11:08:00 2021-08-03 12:17:00 Emergency Didier [facility] 1.2.840.114 350.1.13.10 4.2.7.2.686 [id number] [facility] 2021-07-15 13:45:00 2021-07-15 14:49:00 Emergency Singer [facility] 1.2.840.114 350.1.13.10 4.2.7.2.686 [id number] [facility] 2021-07-15 13:45:00 2021-07-15 14:49:00 Emergency GER GUTIÉRREZ [facility] E[facility] [id number] [facility] Results Test Description Test Time Test Comments Results Result Co mments Source [facility] (BINAX NOW)2023-10-16 15:45:00* Test Item Value Reference Range Interpretation Comme nts POCT SARS-COV-2 ANTIGEN (test code = 57503-0) Not Detected Not Detected, See Comment On board controls acceptable with C Line (test code = 3574) Yes ERIN (test code = ERIN) accurate developme nt and interpretation of all internal controls Lab Interpretation (test code = 42256-8) Normal [facility] SARS-COV-2 ANTIGEN (BINAX NOW)2023-08-29 00:07:00* Test Item Value Reference Range Interpretation Comme nts POCT SARS-COV-2 ANTIGEN (samara t code = 27753-6) Not Detected Not Detected On board controls acceptable with C Line (test code = 3574) Yes Lab Interpretation (test cod e = 08473-7) Normal [facility] MOLECULAR [id number] 23:47:44* Test Item Value Reference Range Interpretation Comme nts POCT Molecular Strep (test c ode = 61692-3) Negative Negative Lab Interpretation (test cod e = 08786-9) [facility] Molecular [id number] 20:55:33* Test Item Value Reference Range Interpretation Comme nts POCT Molecular FluA (test co de = 93846-8) Negative Negative POCT Molecular FluB (test co de = 02938-6) Negative Negative Lab Interpretation (test cod e = 45271-4) [facility] SARS-COV-2 ANTIGEN (BINAX NOW)2023-08-10 20:49:00* Test Item Value Reference Range Interpretation Comme nts POCT SARS-COV-2 ANTIGEN (test code = 42093-5) Not Detected Not Detected On board controls acceptable with C Line (test code = 3574) Yes ERIN (test code = ERIN) accurate developme nt and interpretation of all internal controls Lab Interpretation (test code = 24103-1) [facility] MOLECULAR [id number] 20:48:12* Test Item Value Reference Range Interpretation Comme nts POCT Molecular Strep (test c ode = 49156-6) Negative Negative Lab Interpretation (test cod e = 10915-2) [facility] [id number] 22:31:09EXAM: XR ANKLE 3+ VW LEFT, XR [...] the lateral ankleand at the great toe. [facility]+ VW [id number] 22:31:09EXAM: XR ANKLE 3+ VW LEFT, XR [...] the lateral ankleand at the great toe. [facility] MOLECULAR [id number] 19:10:58* Test Item Value Reference Range Interpretation Comme nts POCT Molecular Strep (test c ode = 53842-4) Negative Negative Lab Interpretation (test cod e = 10725-2) Normal [facility] MOLECULAR [id number] 19:10:58* Test Item Value Reference Range Interpretation Comme nts POCT Molecular Strep (test c ode = 71361-1) Negative Negative Lab Interpretation (test cod e = 69092-8) Normal [facility] MOLECULAR [id number] 19:55:21* Test Item Value Reference Range Interpretation Comme nts POCT Molecular Strep (test c ode = 32409-6) Negative Negative Lab Interpretation (test cod e = 65022-7) Normal [facility] MOLECULAR [id number] 16:41:11* Test Item Value Reference Range Interpretation Comme nts POCT Molecular Strep (test c ode = 92178-7) Negative Negative Lab Interpretation (test cod e = 74351-4) Normal [facility] MOLECULAR [id number] 15:31:05* Test Item Value Reference Range Interpretation Comme nts POCT Molecular FluA (test co de = 04762-1) Negative Negative POCT Molecular FluB (test co de = 51706-9) Negative Negative Lab Interpretation (test cod e = 05183-4) Normal [facility] MOLECULAR [id number] 15:23:32* Test Item Value Reference Range Interpretation Comme nts POCT Molecular Strep (test c ode = 24056-0) Negative Negative Lab Interpretation (test cod e = 47239-9) Normal [facility] MOLECULAR [id number] 16:33:28* Test Item Value Reference Range Interpretation Comme nts POCT Molecular FluA (test co de = 28695-4) Negative Negative POCT Molecular FluB (test co de = 05156-4) Negative Negative Lab Interpretation (test cod e = 02014-4) Normal [facility] MOLECULAR [id number] 16:33:28* Test Item Value Reference Range Interpretation Comme nts POCT Molecular FluA (test co de = 59683-5) Negative Negative POCT Molecular FluB (test co de = 45011-7) Negative Negative Lab Interpretation (test cod e = 77099-5) Normal [facility] MOLECULAR [id number] 16:27:43* Test Item Value Reference Range Interpretation Comme nts POCT Molecular Strep (test c ode = 70982-9) Negative Negative Lab Interpretation (test cod e = 97453-0) [facility] MOLECULAR [id number] 16:27:43* Test Item Value Reference Range Interpretation Comme nts POCT Molecular Strep (test c ode = 61603-8) Negative Negative Lab Interpretation (test cod e = 35547-0) [facility]
--- NOTE | 2024-03-18 18:56 | ER ---
Nurse's Notes [facility] Name: Melanie Gotti Age: 43 yrs Sex: Female : 1980 Arrival Date: 03/18/2024 Time: 16:30 Bed 11 Private MD: Diagnosis: Cutaneous abscess, furuncle and carbuncle of other sites Presentation: 03/18 17:17 Chief complaint: Patient states: 2 boils to right buttocks. Coronavirus screen: At this jl7 time, the client does not indicate any symptoms associated with coronavirus-19. Ebola Screen: No symptoms or risks identified at this time. Initial Sepsis Screen: Does the patient meet any 2 criteria? No. Patient's initial sepsis screen is negative. Does the patient have a suspected source of infection? No. Patient's initial sepsis screen is negative. Risk Assessment: Do you want to hurt yourself or someone else? Patient reports no desire to harm self or others. Onset of symptoms is unknown. 17:17 Method Of Arrival: Ambulatory jl7 17:17 Acuity: JAYCOB 3 jl7 Triage Assessment: 17:19 General: Appears in no apparent distress. uncomfortable, Behavior is calm, cooperative, jl7 appropriate for age. Pain: Complains of pain in buttocks Pain currently is 8 out of 10 on a pain scale. 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 - Infectious Disease History:: Denies. - Social history:: Smoking status: Patient denies any tobacco usage or history of. Screenin:11 Abuse screen: Denies threats or abuse. Denies injuries from another. Nutritional ss screening: No deficits noted. Tuberculosis screening: Never had TB. Assessment: 19:11 General: Appears in no apparent distress. comfortable, Behavior is calm, appropriate ss for age. Neuro: Level of Consciousness is awake, alert, obeys commands, Oriented to person, place, time, situation. Respiratory: Airway is patent Respiratory effort is even, unlabored, Respiratory pattern is regular, symmetrical. Derm: Skin is intact, is healthy with good turgor, Skin is pink, warm \T\ dry. normal. Musculoskeletal: Circulation, motion, and sensation intact. Range of motion: intact in all extremities, Swelling absent. Vital Signs: 17:17 Pulse 83; Resp 15; Temp 98.2; Pulse Ox 99% ; Weight 68.49 kg; Height 5 ft. 3 in. ; Pain jl7 8/10; 17:19 BP 117 / 87; jl7 17:17 Body Mass Index 26.75 (68.49 kg, 160.02 cm) jl7 17:17 Pain Scale: Adult 7 ED Course: 16:36 Patient arrived in ED. ra3 16:47 Slime Blake MD is Attending Physician. gb1 17:19 Triage completed. jl7 17:19 Arm band placed on right wrist. 7 19:09 Trini Waite RN is Primary Nurse. ss 19:11 Patient has correct armband on for positive identification. ss 19:11 No provider procedures requiring assistance completed. Patient did not have IV access ss during this emergency room visit. Administered Medications: No medications were administered Medication: 19:11 VIS not applicable for this client. ss Outcome: 18:56 Discharge ordered by . gb1 19:11 Discharged to home ambulatory, ss 19:11 Condition: good 19:11 Discharge instructions given to patient, Instructed on discharge instructions, follow up and referral plans. medication usage, Demonstrated understanding of instructions, follow-up care, medications, Prescriptions given X 2, 19:14 Patient left the ED. ss Signatures: Trini Waite RN RN Ida Moreira RN RN [facility] Slime Blake MD MD [facility] [place] Janessa Norris ra3
--- NOTE | 2024-03-18 18:56 | EDPHYS ---
Physician Documentation [facility] Name: Melanie Gotti Age: 43 yrs Sex: Female : 1980 Arrival Date: 03/18/2024 Time: 16:30 Bed 11 Private MD: ED Physician Slime Blake HPI: 03/18 18:57 This 43 yrs old Female presents to ER via Ambulatory with complaints of Boils on gb1 buttocks. 18:57 Patient with boils on her right buttock. 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 She has had these boils in her buttocks before. She has a history of anxiety and depression.. The boils have been covered by an adhesive that she has been using to drain out the pus from the areas. They have been draining slowly.. 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 - Infectious Disease History:: Denies. - Social history:: Smoking status: Patient denies any tobacco usage or history of. Exam: 18:57 Constitutional: This is a well developed, well nourished patient who is awake, alert, gb1 and in no acute distress. Head/Face: Normocephalic, atraumatic. Eyes: Pupils equal round and reactive to light, extra-ocular motions intact. Lids and lashes normal. Conjunctiva and sclera are non-icteric and not injected. Cornea within normal limits. Periorbital areas with no swelling, redness, or edema. ENT: Nares patent. No nasal discharge, no septal abnormalities noted. Tympanic membranes are normal and external auditory canals are clear. Oropharynx with no redness, swelling, or masses, exudates, or evidence of obstruction, uvula midline. Mucous membranes moist. Chest/axilla: Normal chest wall appearance and motion. Nontender with no deformity. No lesions are appreciated. Cardiovascular: Regular rate and rhythm with a normal S1 and S2. No gallops, murmurs, or rubs. Normal PMI, no JVD. No pulse deficits. Skin: Patient with 3 areas of erythema with surrounding signs and symptoms on exam of cellulitis. There is some scant serosanguineous purulent drainage from both wounds. Patient has it covered with some sort of adhesive to draw out infection. The abscesses clinically are draining and do not feel fluctuant or indurated. I will discharge her home with oral Bactroban and topical bacitracin as well as recommend chlorhexidine wash I do suspect this is a MRSA cellulitis. Vital Signs: 17:17 Pulse 83; Resp 15; Temp 98.2; Pulse Ox 99% ; Weight 68.49 kg; Height 5 ft. 3 in. ; Pain jl7 8/10; 17:19 BP 117 / 87; jl7 17:17 Body Mass Index 26.75 (68.49 kg, 160.02 cm) jl7 17:17 Pain Scale: Adult jl7 MDM: 18:13 Medical Screening Exam initiated gb1 18:57 Data reviewed: vital signs, nurses notes. gb1 Administered Medications: No medications were administered Disposition Summary: 03/18/24 18:56 Discharge Ordered Notes: Location: Home gb1 Problem: new gb1 Symptoms: are unchanged gb1 Condition: Stable gb1 Diagnosis - Cutaneous abscess, furuncle and carbuncle of other sites gb1 Followup: gb1 - With: Private Physician - When: - Reason: Recheck today's complaints Discharge Instructions: - Discharge Summary Sheet gb1 - Cellulitis, Adult, [id number] gb1 Forms: - Work release form ss - Medication Reconciliation Form gb1 - Antibiotic Education gb1 - Prescription Opioid Use gb1 - Patient Portal Instructions gb1 - Leadership Thank You Letter gb1 Prescriptions: - mupirocin 2 % Topical ointment - apply 1 application TOPICAL route 2 times per day; 30 gram tube; Refills: 0, gb1 Product Selection Permitted - Bactrim DS 800-160 mg Oral Tablet - take 1 tablet ORAL route every 12 hours for 7 days; 14 tablet; Refills: 0, gb1 Product Selection Permitted Signatures: Ida Moreira RN RN jl7 Slime Blake MD MD gb1
[2024-03-19 01:00] VITALS: TEMP 98.2; O2SAT 99
[2024-03-19 01:02] VITALS: BP 117/87
== END 2024-03-18 19:14 | disposition home or self-care (01) ==
LOC: ER 16:30
DX: L02.32 Furuncle of buttock (principal); L02.33 Carbuncle of buttock; L02.31 Cutaneous abscess of buttock; F41.9 Anxiety disorder, unspecified; F32.A Depression, unspecified
CPT/HCPCS: 99283

== ENCOUNTER 2024-04-10 07:27 | Emergency (ER) | payer OTHER ==
--- OUTSIDE RECORDS SUMMARY | 2024-04-10 07:32 | XMS REPORT | Continuity of Care Document ---
Author Name Unknown Address [address] [place] [address] [facility] Address [address] [place] [address] Care Team Providers Care Automation Manager Name Role Phone Yamileth Rowe MD Primary Care Physician [phone] Doctor Unassigned, [place] Attending Clinician U Yessi Adkins Attending Clinician [phone] YESSI CALLE Attending Clinician Unavailable Mansoor Jorge Attending Clinician [phone] Unknown, Attending Attending Clinician Unavailab MANSOOR Chavarria Attending Clinician Unavailable Mansoor Jorge Attending Clinician [phone] Unknown, Attending Attending Clinician UnavailYamileth Parry MD Attending Clinician [phone] Priscilla Kapadia PA-C Attending Clinician [phone] PRISCILLA KAPADIA Attending Clinician Unavailable ROSEMARY SHEIKH Attending Clinician Unavailable YAMILETH ROWE Attending Clinician Unavailable KENNA ALMARAZ Attending Clinician UnavailKENNA Cifuentes Attending Clinician UnavailRosemary Calderon Attending Clinician [phone] BUTCH MINOR Attending Clinician Unavailable Butch Beatty Attending Clinician [phone] ASHLEY WRIGHT Attending Clinician Unavailable Ashley Wright MD Attending Clinician [phone] MEY HEALY Attending Clinician Unavailable Mey Nguyen Attending Clinician [phone] Lab, Ang - Db Attending Clinician Unavailable Raghavendra GARDNER Attending Clinician Unavailable Raghavendra Lockhart Attending Clinician [phone] ASHLEY GIL Attending Clinician Unavailab Ashley Damon DO Attending Clinician [phone] Ger Coleman DO Attending Clinician [phone] GER COLEMAN Attending Clinician Unavailable YAMILETH ROWE [...] vaccinatio n Disease Active 05-08 00:00: 00 [facility] Injury of left ankle, initial encounter Injury of left ankle, initial encounter Disease Active 05-08 00:00: 00 [facility] Allergic conjunctiv itis of left eye Allergic conjunctiv itis of left eye Disease Active -05 00:00: 00 [facility] Encounter for initial prescripti on of vaginal ring hormonal contracept lupe Encounter for initial prescripti on of vaginal ring hormonal contracept lupe Disease Active 04-28 00:00: 00 [facility] Decreased libido Decreased libido Disease Active 04-28 00:00: 00 [facility] Well woman exam Well woman exam Disease Active 2014-03 00:00: 00 [facility] Anemia of mother in , condition Anemia of mother in , condition Disease Resolve d 2014-03 00:00: 00 2016-02-25 00:00:00 2016-02-25 11:16:48 [facility] Spontaneou s vaginal delivery Spontaneou s vaginal delivery Disease Resolve d 2014-03 0-20 00:00: 00 2015-02-24 00:00:00 2021-10-03 00:38:09 [facility] Yeast infection of the vagina Yeast infection of the vagina Disease Resolve d 7-31 00:00: 00 2015-02-24 00:00:00 2015-02-24 12:46:58 [facility] Supervisio n of high-risk with history of Supervisio n of high-risk with history of Disease Resolve d 07-08 00:00: 00 2015-02-24 00:00:00 2015-02-24 12:47:13 [facility] Family history of Downs syndrome Family history of Downs syndrome Disease Resolve d 07-08 00:00: 00 2015-02-24 00:00:00 2015-02-24 12:47:01 [facility] Prior with demise, antepartum Prior with demise, antepartum Disease Resolve d 07-08 00:00: 00 2015-02-24 00:00:00 2021-10-03 00:35:41 [facility] Sciatic leg pain Sciatic leg pain Disease Resolve d 07-08 00:00: 00 2015-02-24 00:00:00 2015-02-24 12:47:08 [facility] History of delivery, currently History of delivery, currently Disease Resolve d 07-08 00:00: 00 2015-02-24 00:00:00 2015-02-24 12:47:43 [facility] induction of labor induction of labor Disease Resolve d 2014-03 0-19 00:00: 00 2015-01-06 00:00:00 2015-01-06 15:12:40 [facility] Allergies, Adverse Reactions, Alerts Allergy Name Allergy Type Status Severity Reaction(s) Onset Date Inactive Date Treating Clinician Comments Source NO KNOWN ALLERGIE S Drug Class Active [facility] Social History Social Habit Start Date Stop Date Quantity Comments Source History SDOH Alcohol Frequency [facility] History SDOH Alcohol Std Drinks [facility] History SDOH Alcohol Binge [facility] Alcoholic beverage intake 2024-01-12 00:00:00 2024-01-12 [...] Date Stop Date Source Never smoked tobacco [facility] Medications Ordered Medication Name Filled Medication Name Start Date Stop Date Current Medication? Ordering Clinician Indication Dosage Frequency Signature (SIG) Comments Components Source methylPREDN ISolone (MEDROL, RAVINDRA,) 4 mg tablets 2023-03 00:00: 00 Yes [id number] Take by mouth SEE-INSTRU CTIONS. follow package directions [facility] montelukast 10 mg tablet 2023-03 00:00: 00 Yes [id number] 10mg Take 1 tablet by mouth in the morning. [facility] cefdinir 300 mg capsule 2023-03 0-14 00:00: 00 01-08 04:59 :00 No [id number] 300mg Take 1 capsule by mouth every 12 (twelve) hours for 7 days. [facility] amoxicillin -clavulanat e (AUGMENTIN) 875-125 mg per tablet 6-10 00:00: 00 09-07 04:59 :00 No [id number] 1{tbl} Take 1 tablet by mouth in the morning and 1 tablet in the evening. Do all this for 10 days. [facility] ESCITALOPRA M OXALATE 20 mg tablet -24 00:00: 00 Yes [id number] 20mg TAKE 1 TABLET BY MOUTH EVERY MORNING [facility] ESCITALOPRA M OXALATE 20 mg tablet 07-09 00:00: 00 08-10 00:00 :00 No [id number] 20mg TAKE 1 TABLET BY MOUTH EVERY MORNING [facility] ESCITALOPRA M OXALATE 20 mg tablet 18 00:00: 00 07-09 00:00 :00 No [id number] 20mg TAKE 1 TABLET BY MOUTH EVERY MORNING [facility] azelastine 137 mcg (0.1 %) nasal spray -06 00:00: 00 Yes [id number] 1{spray } Use 1 [place] in each nostril in the morning and 1 [place] in the evening. Use in each nostril as directed [facility] amoxicillin -clavulanat e (AUGMENTIN) 875-125 mg per tablet -06 00:00: 00 06-03 04:59 :00 No [id number] 1{tbl} Take 1 tablet by mouth in the morning and 1 tablet in the evening. Do all this for 10 days. [facility] meloxicam 15 mg tablet 2-19 00:00: 00 01-11 00:00 :00 No [id number] 15mg Take 1 tablet by mouth in the morning. [facility] ESCITALOPRA M OXALATE 20 mg tablet 2-16 00:00: 00 06-04 00:00 :00 No [id number] 20mg TAKE 1 TABLET BY MOUTH EVERY MORNING [facility] ketorolac (TORADOL) injection 30 mg 1-20 17:15: 00 04-08 16:27 :00 No [id number] 30mg [facility] methocarbam oL (ROBAXIN-75 0) 750 mg tablet 04-08 00:00: 00 04-19 05:59 :00 No [id number] 750mg Take 1 tablet by mouth 4 (four) times daily for 10 days. [facility] escitalopra m oxalate 20 mg tablet 03-31 00:00: 00 05-05 00:00 :00 No [id number] 20mg TAKE ONE TABLET BY MOUTH EVERY MORNING [facility] ketorolac (TORADOL) injection 30 mg 2022-03 16:45: 00 02-25 16:00 :00 No [id number] 30mg [facility] proMETHazin e 25 mg tablet 2022-03 00:00: 00 01-11 00:00 :00 No [id number] 25mg Take 1 tablet by mouth every 4 (four) hours as needed for Nausea and Vomiting (N/V). [facility] escitalopra m oxalate 20 mg tablet 2022-03 00:00: 00 03-31 00:00 :00 No [id number] 20mg Take 1 tablet by mouth in the morning. [facility] ondansetron 4 mg disintegrat ing tablet 2022-03 00:00: 00 01-11 00:00 :00 No [id number] 4mg Take 1 tablet by mouth every 8 (eight) hours as needed for Nausea and Vomiting (N/V). [facility] clindamycin 300 mg capsule 2022-03 0-30 00:00: 00 01-27 00:00 :00 No [id number] 05 300mg Take 1 capsule by mouth 4 (four) times daily. [facility] amoxicillin 500 mg tablet 9-15 00:00: 00 01-27 00:00 :00 No [id number] 500mg Take 1 tablet by mouth in the morning and 1 tablet in the evening. [facility] azelastine 137 mcg (0.1 %) nasal spray 11-03 00:00: 00 05-23 00:00 :00 No [id number] 1{spray } Use 1 [place] in each nostril in the morning and 1 [place] in the evening. Use in each nostril as directed [facility] fluticasone propionate 50 mcg/actuati on nasal spray 11-03 00:00: 00 01-27 00:00 :00 No [id number] 2{spray } Use 2 Sprays in each nostril in the morning. [facility] predniSONE 20 mg tablet 11-03 00:00: 00 11-09 04:59 :00 No [id number] 20mg Take 1 tablet by mouth in the morning and 1 tablet in the evening. Do all this for 5 days. [facility] loratadine 10 mg tablet 10-09 10:15: 48 Yes 10mg Take 1 tablet by mouth in the morning. [facility] mupirocin 2 % ointment 10-09 00:00: 00 Yes [id number] Apply to area(s) 3 (three) times daily. [facility] Azelastine 205.5 mcg (0.15 %) nasal spray 07-26 00:00: 00 Yes [id number] 1{spray } Use 1 [place] in each nostril in the morning. [facility] fluticasone propionate 50 mcg/actuati on nasal spray 07-26 00:00: 00 Yes [id number] 1{spray } Use 1 [place] in each nostril in the morning. [facility] dexamethaso ne sod phos PF injection 10 mg 07-20 18:00: 00 07-20 17:18 :00 No [id number] 10mg [facility] cephALEXin 500 mg capsule -19 00:00: 00 07-12 04:59 :00 No [id number] 500mg Take 1 capsule by mouth 4 (four) times daily for 5 days. [facility] olopatadine 0.7 % Drop 405 00:00: 00 Yes [id number] 1[drp] Place 1 Drop in each eye in the morning. [facility] hydrOXYzine 25 mg capsule 405 00:00: 00 01-11 00:00 :00 No [id number] 25mg Take 1 capsule by mouth 3 (three) times daily as needed for Itching. [facility] predniSONE 20 mg tablet 3 00:00: 00 06-22 04:59 :00 No [id number] 40mg Take 2 tablets by mouth in the morning for 5 days. [facility] dexamethaso ne (DECADRON) injection 10 mg 2-20 15:30: 00 05-09 15:34 :00 No [id number] 10mg [facility] methylPREDN ISolone (MEDROL, RAVINDRA,) 4 mg tablets 05-09 00:00: 00 07-08 00:00 :00 No [id number] follow package directions [facility] azelastine- fluticasone (DYMISTA) 137-50 mcg/spray nasal spray 04-07 00:00: 00 Yes [id number] 1{spray } Use 1 [place] in each nostril in the morning and 1 [place] in the evening. [facility] escitalopra m oxalate 10 mg tablet 04-07 00:00: 00 01-27 00:00 :00 No [id number] 10mg Take 1 tablet by mouth in the morning. [facility] methylPREDN ISolone (MEDROL, RAVINDRA,) 4 mg tablets 04-07 00:00: 00 07-08 00:00 :00 No [id number] Take by mouth SEE-INSTRU CTIONS. follow package directions [facility] dexamethaso ne (DECADRON) injection 10 mg -18 16:45: 00 04-06 15:37 :00 No [id number] 10mg [facility] methylPREDN ISolone (MEDROL, RAVINDRA,) 4 mg tablets 04-06 00:00: 00 04-07 00:00 :00 No [id number] Take by mouth SEE-INSTRU CTIONS. follow package directions [facility] ibuprofen 600 mg tablet 2021-03 00:00: 00 04-07 00:00 :00 No [id number] 05 600mg Take 1 tablet by mouth every 6 (six) hours as needed for Pain (scale 4-6). [facility] amoxicillin 500 mg tablet 2021-03 00:00: 00 03-08 05:59 :00 No [id number] 05 500mg Take 1 tablet by mouth in the morning and 1 tablet in the evening. Do all this for 10 days. [facility] dexamethaso ne sod phos PF injection 10 mg 2021-03 15:15: 00 01-03 14:21 :[id number] [facility] dexAMETHaso ne sodium phos (PF) injection syringe 10 mg 2021-03 15:00: 00 01-03 14:20 :[id number] [facility] loratadine 10 mg tablet 2021-03 09:16: 59 Yes 10mg Take 10 mg by mouth in the morning. [facility] copper 380 square mm IUD 2021-03 08:36: 44 Yes 1{IUD} 1 Intra Uterine Device by Intrauteri ne route once now. [facility] hydrOXYzine 25 mg capsule 2021-03 00:00: 00 06-22 00:00 :00 No [id number] 25mg Take 1 capsule by mouth 3 (three) times daily as needed for Itching. [facility] escitalopra m oxalate 10 mg tablet 2021-03 00:00: 00 04-07 00:00 :00 No [id number] 10mg Take 1 tablet by mouth in the morning. [facility] azelastine- fluticasone (DYMISTA) 137-50 mcg/spray nasal spray 2021-0317 00:00: 00 04-07 00:00 :00 No [id number] 1{spray } Use 1 [place] in each nostril in the morning and 1 [place] in the evening. [facility] benzonatate 200 mg capsule 9-20 00:00: 00 01-03 00:00 :00 No [id number] 200mg Take 1 capsule by mouth 3 (three) times daily as needed for Cough for up to 20 doses. [facility] NUVARING 0.12-0.015 mg/24 hr vaginal insert 07-19 00:00: 00 01-03 00:00 :00 No [id number] 1{each} Insert 1 Each into vagina once every month. Insert vaginally and leave in place for 3 consecutiv e weeks, then remove for 1 week. [facility] hydrOXYzine 25 mg capsule 04-06 00:00: 00 01-03 00:00 :00 No [facility] escitalopra m oxalate 10 mg tablet 04-06 00:00: 00 01-03 00:00 :00 No [facility] norgestimat e-ethinyl estradiol 0.18/0.215/ 0.25 mg-35 mcg (28) tablet 2016-03-11 00:00: 00 01-03 00:00 :00 No 1{tbl} Take 1 tablet by mouth daily. [facility] ibuprofen (MOTRIN) 600 mg tablet 2014-03 0 00:00: 00 02-25 00:00 :00 No 600mg Take 1 Tab by mouth every 6 (six) hours as needed for Pain (scale 4-6). Take with food or milk. [facility] Immunizations Ordered Immunization Name Filled Immunization [...] [facility] 2014-10-23 00:00:00 Completed [facility] TDAP 2014-10-23 00:00:[address] [facility] TDAP 2014-10-23 00:00:[address] [facility] TDAP 2014-10-23 00:00:[address] [facility] TDAP 2014-10-23 00:00:[address] [facility] TDAP 2014-10-23 00:00:00 Completed [facility] TDAP 2014-10-23 00:00:00 Completed [facility] TDAP 2014-10-23 00:00:[address] [...] [facility] Td 2010-07-08 00:00:00 Completed [facility] TD, NOS 2010-07-08 00:00:00 Completed Td 2010-07-08 00:00:[address] [facility] TD, NOS 2010-07-08 00:00:00 Completed [facility] TD, NOS 2010-07-08 00:00:[address] [facility] Td 2010-07-08 00:00:00 Completed [facility] TD, NOS 2010-07-08 00:00:00 Completed [facility] TD, NOS 2010-07-08 00:00:00 Completed [facility] TD, NOS 2010-07-08 00:00:00 Completed [facility] TD, NOS 2010-07-08 00:00:00 Completed [facility] TD, NOS 2010-07-08 00:00:00 Completed [facility] TD, NOS 2010-07-08 00:00:00 Completed [facility] TD, NOS 2010-07-08 00:00:00 Completed [facility] TD, NOS 2010-07-08 00:00:00 Completed [facility] Td 2010-07-08 00:00:[address] [...] SARS-COV-2 COVID 19 CORNELIA SUCROSE VACCINE 12, 2081-0520, 0.3 ML (30 MCG), IM PFIZER (KIRKPATRICK [...] Systolic blood pressure 2024-01-12 18:07:00 135 mm[Hg] [facility] Diastolic blood pressure 2024-01-12 18:07:00 86 mm[Hg] [facility] Heart rate 2024-01-12 18:07:00 99 /min [facility] Body temperature 2024-01-12 18:07:[address] [facility] Body height 2024-01-12 18:07:[address] [facility] Body weight 2024-01-12 18:07:[address] [facility] BMI 2024-01-12 18:07:00 27.28 kg/m2 [facility] Oxygen saturation in Arterial blood by Pulse oximetry 2024-01-12 18:07:00 99 /min [facility] Systolic blood pressure 2024-01-01 22:58:00 133 mm[Hg] [facility] Diastolic blood pressure 2024-01-01 22:58:00 85 mm[Hg] [facility] Heart rate 2024-01-01 22:58:00 91 /min [facility] Body temperature 2024-01-01 22:58:[address] [facility] Respiratory rate 2024-01-01 22:58:00 14 /min [facility] Body height 2024-01-01 22:58:[address] [facility] Body weight 2024-01-01 22:58:[address] [facility] BMI 2024-01-01 22:58:00 27.46 kg/m2 [facility] Oxygen saturation in Arterial blood by Pulse oximetry 2024-01-01 22:58:00 99 /min [facility] Systolic blood pressure 2023-10-16 15:40:00 125 mm[Hg] [facility] Diastolic blood pressure 2023-10-16 15:40:00 83 mm[Hg] [facility] Heart rate 2023-10-16 15:40:00 79 /min [facility] Body temperature 2023-10-16 15:40:[address] [facility] Respiratory rate 2023-10-16 15:40:00 17 /min [facility] Body weight 2023-10-16 15:40:[address] [facility] BMI 2023-10-16 15:40:00 27.28 kg/m2 [facility] Oxygen saturation in Arterial blood by Pulse oximetry 2023-10-16 15:40:00 99 /min [facility] Systolic blood pressure 2023-08-28 23:42:00 130 mm[Hg] [facility] Diastolic blood pressure 2023-08-28 23:42:00 83 mm[Hg] [facility] Heart rate 2023-08-28 23:42:00 89 /min [facility] Body temperature 2023-08-28 23:42:[address] [facility] Respiratory rate 2023-08-28 23:42:00 18 /min [facility] Body height 2023-08-28 23:42:00 160 cm [facility] Body weight 2023-08-28 23:42:00 72.576 kg [facility] BMI 2023-08-28 23:42:00 28.34 kg/m2 [facility] Oxygen saturation in Arterial blood by Pulse oximetry 2023-08-28 23:42:00 97 /min [facility] Systolic blood pressure 2023-08-10 20:42:00 128 mm[Hg] [facility] Diastolic blood pressure 2023-08-10 20:42:00 88 mm[Hg] [facility] Heart rate 2023-08-10 20:42:00 73 /min [facility] Body temperature 2023-08-10 20:42:[address] [facility] Respiratory rate 2023-08-10 20:42:00 18 /min [facility] Body height 2023-08-10 20:42:[address] [facility] Body weight 2023-08-10 20:42:[address] [facility] BMI 2023-08-10 20:42:00 27.99 kg/m2 [facility] Oxygen saturation in Arterial blood by Pulse oximetry 2023-08-10 20:42:00 98 /min [facility] Systolic blood pressure 2023-05-25 00:56:00 127 mm[Hg] [facility] Diastolic blood pressure 2023-05-25 00:56:00 86 mm[Hg] [facility] Heart rate 2023-05-25 00:56:00 86 /min [facility] Body temperature 2023-05-25 00:56:[address] [facility] Respiratory rate 2023-05-25 00:56:00 17 /min [facility] Body weight 2023-05-25 00:56:00 72.122 kg [facility] BMI 2023-05-25 00:56:00 28.17 kg/m2 [facility] Oxygen saturation in Arterial blood by Pulse oximetry 2023-05-25 00:56:00 98 /min [facility] Systolic blood pressure 2023-05-08 20:24:00 120 mm[Hg] [facility] Diastolic blood pressure 2023-05-08 20:24:00 82 mm[Hg] [facility] Heart rate 2023-05-08 20:24:00 87 /min [facility] Body height 2023-05-08 20:24:[address] [facility] Body weight 2023-05-08 20:24:[address] [facility] BMI 2023-05-08 20:24:00 27.81 kg/m2 [facility] Oxygen saturation in Arterial blood by Pulse oximetry 2023-05-08 20:24:00 98 /min [facility] Systolic blood pressure 2023-04-29 15:36:00 139 mm[Hg] [facility] Diastolic blood pressure 2023-04-29 15:36:00 86 mm[Hg] [facility] Heart rate 2023-04-29 15:36:00 84 /min [facility] Body temperature 2023-04-29 15:36:[address] [facility] Respiratory rate 2023-04-29 15:36:00 18 /min [facility] Body height 2023-04-29 15:36:[address] [facility] Body weight 2023-04-29 15:36:[address] [facility] BMI 2023-04-29 15:36:00 28.90 kg/m2 [facility] Oxygen saturation in Arterial blood by Pulse oximetry 2023-04-29 15:36:00 98 /min [facility] Systolic blood pressure 2023-04-08 16:05:00 113 mm[Hg] [facility] Diastolic blood pressure 2023-04-08 16:05:00 79 mm[Hg] [facility] Heart rate 2023-04-08 16:05:00 74 /min [facility] Body temperature 2023-04-08 16:05:[address] [facility] Respiratory rate 2023-04-08 16:05:00 17 /min [facility] Body height 2023-04-08 16:05:[address] [facility] Body weight 2023-04-08 16:05:[address] [facility] BMI 2023-04-08 16:05:00 28.72 kg/m2 [facility] Oxygen saturation in Arterial blood by Pulse oximetry 2023-04-08 16:05:00 97 /min [facility] Systolic blood pressure 2023-02-25 15:41:00 123 mm[Hg] [facility] Diastolic blood pressure 2023-02-25 15:41:00 77 mm[Hg] [facility] Heart rate 2023-02-25 15:41:00 101 /min [facility] Body temperature 2023-02-25 15:41:[address] [facility] Respiratory rate 2023-02-25 15:41:00 19 /min [facility] Body height 2023-02-25 15:41:[address] [facility] Body weight 2023-02-25 15:41:[address] [facility] BMI 2023-02-25 15:41:00 28.17 kg/m2 [facility] Oxygen saturation in Arterial blood by Pulse oximetry 2023-02-25 15:41:00 95 /min [facility] Systolic blood pressure 2023-01-27 14:47:00 136 mm[Hg] [facility] Diastolic blood pressure 2023-01-27 14:47:00 75 mm[Hg] [facility] Heart rate 2023-01-27 14:47:00 86 /min [facility] Respiratory rate 2023-01-27 14:47:00 18 /min [facility] Body height 2023-01-27 14:47:00 160 cm [facility] Body weight 2023-01-27 14:47:[address] [facility] BMI 2023-01-27 14:47:00 28.54 kg/m2 [facility] Oxygen saturation in Arterial blood by Pulse oximetry 2023-01-27 14:47:00 99 /min [facility] Systolic blood pressure 2023-01-16 13:29:00 127 mm[Hg] [facility] Diastolic blood pressure 2023-01-16 13:29:00 88 mm[Hg] [facility] Heart rate 2023-01-16 13:29:00 94 /min [facility] Body temperature 2023-01-16 13:29:[address] [facility] Respiratory rate 2023-01-16 13:29:00 16 /min [facility] Body height 2023-01-16 13:29:00 160 cm [facility] Body weight 2023-01-16 13:29:00 70.308 kg [facility] BMI 2023-01-16 13:29:00 27.46 kg/m2 [facility] Oxygen saturation in Arterial blood by Pulse oximetry 2023-01-16 13:29:00 100 /min [facility] Systolic blood pressure 2022-12-02 18:51:00 130 mm[Hg] [facility] Diastolic blood pressure 2022-12-02 18:51:00 83 mm[Hg] [facility] Heart rate 2022-12-02 18:51:00 66 /min [facility] Body temperature 2022-12-02 18:51:[address] [facility] Body height 2022-12-02 18:51:00 160 cm [facility] Body weight 2022-12-02 18:51:00 72.802 kg [facility] BMI 2022-12-02 18:51:00 28.43 kg/m2 [facility] Oxygen saturation in Arterial blood by Pulse oximetry 2022-12-02 18:51:00 97 /min [facility] Systolic blood pressure 2022-11-03 19:38:00 130 mm[Hg] [facility] Diastolic blood pressure 2022-11-03 19:38:00 82 mm[Hg] [facility] Heart rate 2022-11-03 19:35:00 66 /min [facility] Body temperature 2022-11-03 19:35:[address] [facility] Respiratory rate 2022-11-03 19:35:00 14 /min [facility] Body height 2022-11-03 19:35:00 160 cm [facility] Body weight 2022-11-03 19:35:00 73.12 kg [facility] BMI 2022-11-03 19:35:00 28.56 kg/m2 [facility] Oxygen saturation in Arterial blood by Pulse oximetry 2022-11-03 19:35:00 97 /min [facility] Systolic blood pressure 2022-10-09 15:13:00 117 mm[Hg] [facility] Diastolic blood pressure 2022-10-09 15:13:00 77 mm[Hg] [facility] Heart rate 2022-10-09 15:13:00 93 /min [facility] Body temperature 2022-10-09 15:13:[address] [facility] Body height 2022-10-09 15:13:[address] [facility] Body weight 2022-10-09 15:13:[address] [facility] BMI 2022-10-09 15:13:00 28.52 kg/m2 [facility] Oxygen saturation in Arterial blood by Pulse oximetry 2022-10-09 15:13:00 99 /min [facility] Systolic blood pressure 2022-07-20 16:56:00 126 mm[Hg] [facility] Diastolic blood pressure 2022-07-20 16:56:00 81 mm[Hg] [facility] Heart rate 2022-07-20 16:56:00 77 /min [facility] Body temperature 2022-07-20 16:56:[address] [facility] Respiratory rate 2022-07-20 16:56:00 22 /min [facility] Body height 2022-07-20 16:56:00 160 cm [facility] Body weight 2022-07-20 16:56:00 75.921 kg [facility] BMI 2022-07-20 16:56:00 29.65 kg/m2 [facility] Oxygen saturation in Arterial blood by Pulse oximetry 2022-07-20 16:56:00 97 /min [facility] Systolic blood pressure 2022-07-08 16:22:00 122 mm[Hg] [facility] Diastolic blood pressure 2022-07-08 16:22:00 90 mm[Hg] [facility] Heart rate 2022-07-08 16:22:00 85 /min [facility] Body temperature 2022-07-08 16:22:[address] [facility] Respiratory rate 2022-07-08 16:22:00 20 /min [facility] Body height 2022-07-08 16:22:[address] [facility] Body weight 2022-07-08 16:22:[address] [facility] BMI 2022-07-08 16:22:00 28.87 kg/m2 [facility] Oxygen saturation in Arterial blood by Pulse oximetry 2022-07-08 16:22:00 99 /min [facility] Systolic blood pressure 2022-07-06 15:43:00 122 mm[Hg] [facility] Diastolic blood pressure 2022-07-06 15:43:00 86 mm[Hg] [facility] Heart rate 2022-07-06 15:43:00 115 /min [facility] Body temperature 2022-07-06 15:43:[address] [facility] Body height 2022-07-06 15:43:00 160 cm [facility] Body weight 2022-07-06 15:43:00 73.71 kg [facility] BMI 2022-07-06 15:43:00 28.79 kg/m2 [facility] Oxygen saturation in Arterial blood by Pulse oximetry 2022-07-06 15:43:00 96 /min [facility] Systolic blood pressure 2022-06-22 18:25:00 120 mm[Hg] [facility] Diastolic blood pressure 2022-06-22 18:25:00 81 mm[Hg] [facility] Heart rate 2022-06-22 18:25:00 93 /min [facility] Body temperature 2022-06-22 18:25:[address] [facility] Body height 2022-06-22 18:25:[address] [facility] Body weight 2022-06-22 18:25:[address] [facility] BMI 2022-06-22 18:25:00 30.11 kg/m2 [facility] Oxygen saturation in Arterial blood by Pulse oximetry 2022-06-22 18:25:00 98 /min [facility] Systolic blood pressure 2022-06-16 16:30:00 123 mm[Hg] [facility] Diastolic blood pressure 2022-06-16 16:30:00 80 mm[Hg] [facility] Heart rate 2022-06-16 16:30:00 65 /min [facility] Body temperature 2022-06-16 16:30:[address] [facility] Body height 2022-06-16 16:30:00 160 cm [facility] Body weight 2022-06-16 16:30:[address] [facility] BMI 2022-06-16 16:30:00 29.64 kg/m2 [facility] Oxygen saturation in Arterial blood by Pulse oximetry 2022-06-16 16:30:00 98 /min [facility] Systolic blood pressure 2022-05-09 15:18:00 120 mm[Hg] [facility] Diastolic blood pressure 2022-05-09 15:18:00 83 mm[Hg] [facility] Heart rate 2022-05-09 15:18:00 83 /min [facility] Body temperature 2022-05-09 15:18:[address] [facility] Respiratory rate 2022-05-09 15:18:00 18 /min [facility] Body height 2022-05-09 15:18:00 160 cm [facility] Body weight 2022-05-09 15:18:00 75.615 kg [facility] BMI 2022-05-09 15:18:00 29.53 kg/m2 [facility] Oxygen saturation in Arterial blood by Pulse oximetry 2022-05-09 15:18:00 98 /min [facility] Systolic blood pressure 2022-04-07 15:52:00 138 mm[Hg] [facility] Diastolic blood pressure 2022-04-07 15:52:00 85 mm[Hg] [facility] Heart rate 2022-04-07 15:52:00 76 /min [facility] Body temperature 2022-04-07 15:52:[address] [facility] Body height 2022-04-07 15:52:00 160 cm [facility] Body weight 2022-04-07 15:52:[address] [facility] BMI 2022-04-07 15:52:00 28.70 kg/m2 [facility] Oxygen saturation in Arterial blood by Pulse oximetry 2022-04-07 15:52:00 95 /min [facility] Systolic blood pressure 2022-04-06 15:32:00 118 mm[Hg] [facility] Diastolic blood pressure 2022-04-06 15:32:00 80 mm[Hg] [facility] Heart rate 2022-04-06 15:32:00 99 /min [facility] Body temperature 2022-04-06 15:32:[address] [facility] Respiratory rate 2022-04-06 15:32:00 17 /min [facility] Body height 2022-04-06 15:32:00 160 cm [facility] Body weight 2022-04-06 15:32:00 74.617 kg [facility] BMI 2022-04-06 15:32:00 29.14 kg/m2 [facility] Oxygen saturation in Arterial blood by Pulse oximetry 2022-04-06 15:32:00 98 /min [facility] Systolic blood pressure 2022-02-25 16:24:00 118 mm[Hg] [facility] Diastolic blood pressure 2022-02-25 16:24:00 83 mm[Hg] [facility] Heart rate 2022-02-25 16:24:00 96 /min [facility] Body temperature 2022-02-25 16:24:[address] [facility] Body height 2022-02-25 16:24:[address] [facility] Body weight 2022-02-25 16:24:[address] [facility] BMI 2022-02-25 16:24:00 28.17 kg/m2 [facility] Oxygen saturation in Arterial blood by Pulse oximetry 2022-02-25 16:24:00 95 /min [facility] Systolic blood pressure 2022-01-03 13:32:00 133 mm[Hg] [facility] Diastolic blood pressure 2022-01-03 13:32:00 83 mm[Hg] [facility] Heart rate 2022-01-03 13:32:00 85 /min [facility] Body temperature 2022-01-03 13:32:[address] [facility] Body height 2022-01-03 13:32:[address] [facility] Body weight 2022-01-03 13:32:[address] [facility] BMI 2022-01-03 13:32:00 28.17 kg/m2 [facility] Oxygen saturation in Arterial blood by Pulse oximetry 2022-01-03 13:32:00 98 /min [facility] Diastolic blood pressure 2021-12-07 16:38:00 87 mm[Hg] [facility] Heart rate 2021-12-07 16:38:00 98 /min [facility] Body temperature 2021-12-07 16:38:[address] [facility] Respiratory rate 2021-12-07 16:38:00 18 /min [facility] Body height 2021-12-07 16:38:00 160 cm [facility] Body weight 2021-12-07 16:38:[address] [facility] BMI 2021-12-07 16:38:00 27.81 kg/m2 [facility] Oxygen saturation in Arterial blood by Pulse oximetry 2021-12-07 16:38:00 97 /min [facility] Systolic blood pressure 2021-12-07 16:38:00 123 mm[Hg] [facility] Systolic blood pressure 2021-08-03 16:08:00 117 mm[Hg] [facility] Diastolic blood pressure 2021-08-03 16:08:00 80 mm[Hg] [facility] Heart rate 2021-08-03 16:08:00 100 /min [facility] Body temperature 2021-08-03 16:08:[address] [facility] Respiratory rate 2021-08-03 16:08:00 18 /min [facility] Body weight 2021-08-03 16:08:[address] [facility] BMI 2021-08-03 16:08:00 27.99 kg/m2 [facility] Oxygen saturation in Arterial blood by Pulse oximetry 2021-08-03 16:08:00 99 /min [facility] Systolic blood pressure 2021-07-15 18:43:00 135 mm[Hg] [facility] Diastolic blood pressure 2021-07-15 18:43:00 97 mm[Hg] [facility] Heart rate 2021-07-15 18:43:00 86 /min [facility] Body temperature 2021-07-15 18:43:[address] [facility] Respiratory rate 2021-07-15 18:43:00 18 /min [facility] Body height 2021-07-15 18:43:00 160 cm [facility] Body weight 2021-07-15 18:43:[address] [facility] BMI 2021-07-15 18:43:00 28.70 kg/m2 [facility] Oxygen saturation in Arterial blood by Pulse oximetry 2021-07-15 18:43:00 100 /min [facility] Procedures Procedure Date / Time Performed Performing Clinicia n Source POCT SARS-COV-2 ANTIGEN (BINAX NOW) 2024-01-01 23:00:[address] [facility] POCT SARS-COV-2 ANTIGEN (BINAX NOW) 2023-10-16 15:45:[address] [facility] POCT SARS-COV-2 ANTIGEN (BINAX NOW) 2023-08-28 23:52:[address] [facility] POCT MOLECULAR STREP 2023-08-28 23:39:00 Unknown, Attchelsey [facility] POCT MOLECULAR FLU 2023-08-10 20:43:00 Unknown, Attend [facility] POCT MOLECULAR STREP 2023-08-10 20:40:00 Unknown, Attchelsey [facility] POCT SARS-COV-2 ANTIGEN (BINAX NOW) 2023-08-10 20:34:00 [...] DIAGNOSIS AND TREATMENT 2023-01-16 13:25:16 Doctor Unassigned, [place] [facility] POCT MOLECULAR STREP 2022-12-02 19:03:[address] [facility] POCT MOLECULAR STREP 2022-11-03 19:47:00 Unknown, Attchelsey salguero [facility] XR HEEL 2+ VW BILATERAL 2022-07-20 17:15:[address] [facility] POCT MOLECULAR STREP 2022-06-16 16:34:00 Unknown, Attchelsey [facility] [...] DIAGNOSIS AND TREATMENT 2021-12-07 16:32:22 Doctor Unassigned, [place] [facility] CONSENT/REFUSAL FOR DIAGNOSIS AND TREATMENT 2021-08-03 16:04:24 Doctor Unassigned, [place] [facility] XR FOOT 3+ VW LEFT 2021-07-15 19:17:[address] [facility] CONSENT/REFUSAL FOR DIAGNOSIS AND TREATMENT 2021-07-15 18:35:54 Doctor Unassigned, [place] [facility] NOTICE OF PRIVACY PRACTICES 2021-07-15 18:35:10 Doctor Unassigned, [place] [facility] Encounters Start Date/Time End Date/Time Encounter Type Admission Type Attending [facility] Facility Care Department Encounter ID Source 2024-02-06 00:00:00 2024-03-09 18:17:02 Patient Secure Msg Doctor Unassigned, [place] Doctor Unassigned, [place] [facility] 1..840.114 350.1.13.10 4.2.7.2.686 [id number] [facility] 2024-01-12 13:00:00 2024-01-12 13:17:14 Office Visit Yessi Calle [facility] OFF[facility] BU[facility] 1..840.114 350.1.13.10 4.2.7.2.686 [id number] [facility] 2024-01-12 13:00:00 2024-01-12 13:17:14 Outpatient R YESSI CALLE [facility] [id number] [facility] 2024-01-01 17:40:00 2024-01-01 18:00:00 Urgent Care Mansoor Min Unknown, Attending [facility] MED[facility] OFF[facility] BU[facility] 1..840.114 350.1.13.10 4.2.7.2.686 [id number] [facility] 2024-01-01 17:40:00 2024-01-01 17:40:00 Outpatient R MANSOOR MIN [facility] [id number] [facility] 2023-10-16 10:20:00 2023-10-16 10:40:00 Urgent Care Mansoor Min Unknown, Attending [facility] MED[facility] OFF[facility] BU[facility] 1..840.114 350.1.13.10 4.2.7.2.686 [id number] [facility] 2023-10-16 10:20:00 2023-10-16 10:20:00 Outpatient R MANSOOR MIN [facility] [id number] [facility] 2023-08-28 18:20:00 2023-08-28 19:21:36 Outpatient R MANSOOR MIN [facility] [id number] [facility] 2023-08-28 18:20:00 2023-08-28 19:21:36 Urgent Care Mansoor Min Unknown, Attending [facility] MEDICAL OFFICE BUILD[facility] 1.2.840.114 350.1.13.10 4.2.7.2.686 [id number] [facility] 2023-08-11 00:00:00 2023-08-11 08:52:11 Lorene Rowe [facility] MEDICAL OFFICE BUILDING 1..840.114 350.1.13.10 4.2.7.2.686 [id number] [facility] 2023-08-10 15:40:00 2023-08-10 16:00:00 Urgent Care Mansoor Min Unknown, Attending Archana [facility] MED[facility] OFF[facility] BU[facility] 1..840.114 350.1.13.10 4.2.7.2.686 [id number] [facility] 2023-08-10 15:40:00 2023-08-10 15:40:00 Outpatient PRISCILLA TEAGUE [facility] [id number] [facility] 2023-08-07 16:00:00 2023-08-07 16:00:00 Outpatient YAMILETH WEBB [facility] [id number] [facility] 2023-07-08 00:00:00 2023-07-08 00:00:00 Lorene Rowe [facility] MEDICAL OFFICE BUILD[facility] 1..840.114 350.1.13.10 4.2.7.2.686 [id number] [facility] 2023-06-05 16:15:00 2023-06-05 16:15:00 Outpatient KENNA KENT CRAIG [facility] [id number] [facility] 2023-06-04 00:00:00 2023-06-04 00:00:00 [facility] 1.84.114 350.1.13.10 4.2.7.2.686 [id number] [facility] 2023-05-24 18:40:00 2023-05-24 19:07:08 Outpatient R MANSOOR MIN [facility] [id number] [facility] 2023-05-24 18:40:00 2023-05-24 19:00:00 Urgent Care Mansoor Min Unknown, Attending [facility]SE?[facility]ISE [facility] 1.84.114 350.1.13.10 4.2.7.2.686 [id number] [facility] 2023-05-24 00:00:00 2023-05-24 00:00:00 Telephone Mansoor Min [facility] 1.84.114 350.1.13.10 4.2.7.2.686 [id number] [facility] 2023-05-08 14:00:00 2023-05-08 14:54:02 Outpatient R ROSEMARY SHEIKH [facility] [id number] [facility] 2023-05-08 14:00:00 2023-05-08 14:54:02 Office Visit Rosemary Sheikh [facility] 1.84.114 350.1.13.10 4.2.7.2.686 [id number] [facility] 2023-05-04 00:00:00 2023-05-04 00:00:00 [facility] BU[facility] 1.84.114 350.1.13.10 4.2.7.2.686 [id number] [facility] 2023-04-29 09:46:44 2023-04-29 23:59:00 Outpatient R PRISCILLA KAPADIA [facility] [id number] [facility] 2023-04-29 09:46:44 2023-04-29 23:59:00 Hospital Encounter [facility] BUILD[facility] 1.2.840.114 350.1.13.10 4.2.7.2.686 [id number] [facility] 2023-04-29 09:46:43 2023-04-29 23:59:00 Hospital Encounter [facility] 1..840.114 350.1.13.10 4.2.7.2.686 [id number] [facility] 2023-04-29 09:20:00 2023-04-29 09:55:38 Urgent Care Priscilla Kapadia Unknown, Attending [facility] MEDICAL OFFICE BUILDING 1..840.114 350.1.13.10 4.2.7.2.686 [id number] [facility] 2023-04-08 10:00:00 2023-04-08 10:37:29 Outpatient R BUTCH MINOR [facility] [id number] [facility] 2023-04-08 10:00:00 2023-04-08 10:37:29 Urgent Care Butch Minor Unknown, Attending [facility] MEDICAL OFFICE BUILDING 1..840.114 350.1.13.10 4.2.7.2.686 [id number] [facility] 2023-03-31 00:00:00 2023-03-31 00:00:00 [facility] 1..840.114 350.1.13.10 4.2.7.2.686 [id number] [facility] 2023-03-27 00:00:00 2023-03-27 00:00:00 Refill Robinmargarita [facility] JOSE?[facility] 1.840.114 350.1.13.10 4.2.7.2.686 [id number] [facility] 2023-03-09 10:20:00 2023-03-09 10:20:00 Outpatient R YAMILETH ROWE [facility] [id number] [facility] 2023-02-25 09:30:00 2023-02-25 09:58:59 Outpatient R PRISCILLA KAPADIA [facility] [id number] [facility] 2023-02-25 09:30:00 2023-02-25 09:58:59 Urgent Care Priscilla Kapadia Unknown, Attending [facility]ELISE [facility] MEDICAL OFFICE BUILDING 1..840.114 350..13.10 4.2.7.2.686 [id number] [facility] 2023-01-27 08:20:00 2023-01-27 09:02:54 Outpatient R YAMILETH ROWE [facility] [id number] [facility] 2023-01-27 08:20:00 2023-01-27 09:02:54 Office Visit Soledad [facility] JOSE?[facility] 1..840.114 350..13.10 4.2.7.2.686 [id number] [facility] 2023-01-27 00:00:00 2023-01-27 00:00:00 Letter (Out) Yamileth Rowe [facility] 1.84114 350.1.13.10 4.2.7.2.686 [id number] [facility] 2023-01-26 00:00:00 2023-01-26 00:00:00 Telephone Soledad [facility] 1.84114 350.1.13.10 4.2.7.2.686 [id number] [facility] 2023-01-16 08:30:00 2023-01-16 10:10:00 Emergency X ASHLEY WRIGHT [facility] ERT [id number] [facility] 2023-01-16 08:30:00 2023-01-16 10:10:00 Emergency Ashley Wright [facility] 1.114 350.1.13.10 4.2.7.2.686 [id number] [facility] 2022-12-02 14:00:00 2022-12-02 14:32:47 Outpatient R CHUCKIE ROWEINE [facility] [id number] [facility] 2022-12-02 14:00:00 2022-12-02 14:32:47 Office Visit Soledad [facility] 1.84114 350.1.13.10 4.2.7.2.686 [id number] [facility] 2022-11-03 14:20:00 2022-11-03 15:10:10 Outpatient R PRISCILLA KAPADIA [facility] [id number] [facility] 2022-11-03 14:20:00 2022-11-03 15:10:10 Urgent Care Priscilla Kapadia Unknown, Attending [facility] BUILD[facility] 1.84.114 350.1.13.10 4.2.7.2.686 [id number] [facility] 2022-10-09 09:40:00 2022-10-09 10:41:51 Outpatient R MEY HEALY [facility] [id number] [facility] 2022-10-09 09:40:00 2022-10-09 10:41:51 Urgent Care Mey Healy Unknown, Attending [facility]ELISE [facility] MED[facility] OFFICE BUILDING 1.2.840.114 350.1.13.10 4.2.7.2.686 [id number] [facility] 2022-08-08 13:23:51 2022-08-08 23:59:00 Outpatient R SOLEDADYAMILETH [facility] [id number] [facility] 2022-08-08 13:23:51 2022-08-08 23:59:00 Hospital Encounter Robinmargarita Yamileth [facility] 1.2.840.114 350.1.13.10 4.2.7.2.686 [id number] [facility] 2022-07-26 00:00:00 2022-07-26 00:00:00 Telephone Soledad [facility] JOSE?ELISE [facility] MED[facility] OFF[facility] BUILDING 1.2.840.114 350.1.13.10 4.2.7.2.686 [id number] [facility] 2022-07-25 00:00:00 2022-07-25 00:00:00 Telephone Soledad [facility] JOSE?ELISE [facility] MEDICAL OFFICE BUILDING 1.2.840.114 350.1.13.10 4.2.7.2.686 [id number] [facility] 2022-07-20 12:06:42 2022-07-20 23:59:00 Outpatient R PRISCILLA KAPADIA [facility] [id number] [facility] 2022-07-20 12:06:42 2022-07-20 23:59:00 Hospital Encounter Priscilla Kapadia [facility] MEDICAL OFFICE BUILDING 1.114 350.1.13.10 4.2.7.2.686 [id number] [facility] 2022-07-20 11:40:00 2022-07-20 12:00:00 Urgent Care Priscilla Kapadia Unknown, Attending [facility] MEDICAL OFFICE BUILDING 1.114 350.1.13.10 4.2.7.2.686 [id number] [facility] 2022-07-08 12:15:00 2022-07-08 12:30:00 Canine Service Teacher Visit Lab, Akbar Mazariegos Soledad [facility] MEDICAL OFFICE BUILDING 1.114 350.1.13.10 4.2.7.2.686 [id number] [facility] 2022-07-08 11:20:00 2022-07-08 11:55:48 Outpatient R SOLEDAD YAMILETH [facility] [id number] [facility] 2022-07-08 11:20:00 2022-07-08 11:55:48 Office Visit Soledad [facility] MEDICAL OFFICE BUILDING 1.114 350.1.13.10 4.2.7.2.686 [id number] [facility] 2022-07-06 10:35:00 2022-07-06 10:55:42 Outpatient R MANSOOR MIN [facility] [id number] [facility] 2022-07-06 10:35:00 2022-07-06 10:55:42 Urgent Care Mansoor Min Unknown, Attending [facility] MEDICAL OFFICE BUILDING 1.114 350.1.13.10 4.2.7.2.686 [id number] [facility] 2022-06-22 13:30:00 2022-06-22 13:40:17 Outpatient R ROSEMARY SHEIKH [facility] [id number] [facility] 2022-06-22 13:30:00 2022-06-22 13:40:17 Office Visit Rosemray Sheikh [facility] MEDICAL OFFICE BUILDING 1.114 350.1.13.10 4.2.7.2.686 [id number] [facility] 2022-06-16 11:20:00 2022-06-16 11:40:00 Urgent Care Butch Minor Unknown, Attending [facility] MEDICAL OFFICE BUILDING 1.114 350.1.13.10 4.2.7.2.686 [id number] [facility] 2022-06-16 11:20:00 2022-06-16 11:20:00 Outpatient R BUTCH MINOR [facility] [id number] [facility] 2022-05-09 09:00:00 2022-05-09 09:28:42 Outpatient R MINMANSOOR [facility] [id number] [facility] 2022-05-09 09:00:00 2022-05-09 09:28:42 Urgent Care Mansoor Min Unknown, Attending [facility] MEDICAL OFFICE BUILDING 1.114 350.1.13.10 4.2.7.2.686 [id number] [facility] 2022-04-14 00:00:00 2022-04-14 00:00:00 Refill Yamileth Rowe [facility] MEDICAL OFFICE BUILDING 1.114 350.1.13.10 4.2.7.2.686 [id number] [facility] 2022-04-07 09:20:00 2022-04-07 10:17:32 Outpatient R YAMILETH ROWE [facility] [id number] [facility] 2022-04-07 09:20:00 2022-04-07 10:17:32 Office Visit Soledad [facility] JOSE?ELISE [facility] MEDICAL OFFICE BUILDING 1.2.840.114 350.1.13.10 4.2.7.2.686 [id number] [facility] 2022-04-06 09:00:00 2022-04-06 09:40:43 Outpatient R LIZZIEBenjamín ROBERTEUSEBIO [facility] [id number] [facility] 2022-04-06 09:00:00 2022-04-06 09:40:43 Urgent Care Butch Minor, [facility] MEDICAL OFFICE BUILDING 1..840.114 350.1.13.10 4.2.7.2.686 [id number] [facility] 2022-02-25 10:00:00 2022-02-25 10:42:34 [facility] [id number] 2022-02-25 10:00:00 2022-02-25 10:42:34 [facility] MEDICAL OFFICE BUILDING 1.2.840.114 350.1.13.10 4.2.7.2.686 [id number] [facility] 2022-01-03 08:40:00 2022-01-03 09:31:28 Outpatient R CHUCKIE ROWEINE [facility] [id number] [facility] 2022-01-03 08:40:00 2022-01-03 09:31:28 Office Visit Soledad [facility] JOSE?ELISE [facility] MEDICAL OFFICE BUILDING 1.2.840.114 350.1.13.10 4.2.7.2.686 [id number] [facility] 2021-12-07 11:42:00 2021-12-07 12:51:00 Emergency Raghavendra GUSMAN [facility] ERT [id number] [facility] 2021-12-07 11:42:00 2021-12-07 12:51:00 Emergency Raghavendra Gardner [facility] 1.2.840.114 350.1.13.10 4.2.7.2.686 [id number] [facility] 2021-08-03 11:08:00 2021-08-03 12:17:00 Emergency ASHLEY DUNCAN [facility] ERT [id number] [facility] 2021-08-03 11:08:00 2021-08-03 12:17:00 Emergency [facility] 1.2.840.114 350.1.13.10 4.2.7.2.686 [id number] [facility] 2021-07-15 13:45:00 2021-07-15 14:49:00 Emergency Singer [facility] 1.2.840.114 350.1.13.10 4.2.7.2.686 [id number] [facility] 2021-07-15 13:45:00 2021-07-15 14:49:00 Emergency GER GUTIÉRREZ [facility] ERT [id number] [facility] Results Test Description Test Time Test Comments Results Result Co mments Source [facility] (BINAX NOW)2023-10-16 15:45:00* Test Item Value Reference Range Interpretation Comme nts POCT SARS-COV-2 ANTIGEN (test code = 67026-8) Not Detected Not Detected, See Comment On board controls acceptable with C Line (test code = 3574) Yes ERIN (test code = ERIN) accurate developme nt and interpretation of all internal controls Lab Interpretation (test code = 12725-2) Normal [facility] SARS-COV-2 ANTIGEN (BINAX NOW)2023-08-29 00:07:00* Test Item Value Reference Range Interpretation Comme nts POCT SARS-COV-2 ANTIGEN (samara t code = 55519-2) Not Detected Not Detected On board controls acceptable with C Line (test code = 3574) Yes Lab Interpretation (test cod e = 51032-6) Normal [facility] MOLECULAR [id number] 23:47:44* Test Item Value Reference Range Interpretation Comme nts POCT Molecular Strep (test c ode = 64629-4) Negative Negative Lab Interpretation (test cod e = 81690-1) [facility] Molecular [id number] 20:55:33* Test Item Value Reference Range Interpretation Comme nts POCT Molecular FluA (test co de = 81581-0) Negative Negative POCT Molecular FluB (test co de = 60309-0) Negative Negative Lab Interpretation (test cod e = 15637-2) [facility] SARS-COV-2 ANTIGEN (BINAX NOW)2023-08-10 20:49:00* Test Item Value Reference Range Interpretation Comme nts POCT SARS-COV-2 ANTIGEN (test code = 51994-9) Not Detected Not Detected On board controls acceptable with C Line (test code = 3574) Yes ERIN (test code = ERIN) accurate developme nt and interpretation of all internal controls Lab Interpretation (test code = 21745-8) [facility] MOLECULAR [id number] 20:48:12* Test Item Value Reference Range Interpretation Comme nts POCT Molecular Strep (test c ode = 98755-5) Negative Negative Lab Interpretation (test cod e = 97239-1) [facility] [id number] 22:31:09EXAM: XR ANKLE 3+ VW LEFT, XR [...] [facility] [id number] 22:31:09EXAM: XR ANKLE 3+ VW LEFT, XR [...] the lateral ankleand at the great toe. [facility] MOLECULAR [id number] 19:10:58* Test Item Value Reference Range Interpretation Comme nts POCT Molecular Strep (test c ode = 50158-2) Negative Negative Lab Interpretation (test cod e = 30423-2) Normal [facility] MOLECULAR [id number] 19:10:58* Test Item Value Reference Range Interpretation Comme nts POCT Molecular Strep (test c ode = 31098-8) Negative Negative Lab Interpretation (test cod e = 22636-1) Normal [facility] MOLECULAR [id number] 19:55:21* Test Item Value Reference Range Interpretation Comme nts POCT Molecular Strep (test c ode = 32513-5) Negative Negative Lab Interpretation (test cod e = 78852-9) Normal [facility] MOLECULAR [id number] 16:41:11* Test Item Value Reference Range Interpretation Comme nts POCT Molecular Strep (test c ode = 13497-1) Negative Negative Lab Interpretation (test cod e = 97554-3) Normal [facility] MOLECULAR [id number] 15:31:05* Test Item Value Reference Range Interpretation Comme nts POCT Molecular FluA (test co de = 40734-4) Negative Negative POCT Molecular FluB (test co de = 76396-2) Negative Negative Lab Interpretation (test cod e = 09960-8) Normal [facility] MOLECULAR [id number] 15:23:32* Test Item Value Reference Range Interpretation Comme nts POCT Molecular Strep (test c ode = 36568-8) Negative Negative Lab Interpretation (test cod e = 33935-7) Normal [facility] MOLECULAR [id number] 16:33:28* Test Item Value Reference Range Interpretation Comme nts POCT Molecular FluA (test co de = 46964-1) Negative Negative POCT Molecular FluB (test co de = 09652-7) Negative Negative Lab Interpretation (test cod e = 99108-4) Normal [facility] MOLECULAR [id number] 16:33:28* Test Item Value Reference Range Interpretation Comme nts POCT Molecular FluA (test co de = 35735-7) Negative Negative POCT Molecular FluB (test co de = 67435-4) Negative Negative Lab Interpretation (test cod e = 62387-0) Normal [facility] MOLECULAR [id number] 16:27:43* Test Item Value Reference Range Interpretation Comme nts POCT Molecular Strep (test c ode = 99032-1) Negative Negative Lab Interpretation (test cod e = 46588-3) [facility] MOLECULAR [id number] 16:27:43* Test Item Value Reference Range Interpretation Comme nts POCT Molecular Strep (test c ode = 28506-1) Negative Negative Lab Interpretation (test cod e = 81833-0) [facility]
[2024-04-10 08:14] LABS: SARS-CoV-2 Antigen CONTROL BLUE LINE VIS/BG OK; SARS-CoV-2 Antigen Rapid Res Negative (Negative)
[2024-04-10] MEDS ORDERED: ACETAMINOPHEN 500 MG TAB ONE ×2 (08:22→08:24)
--- NOTE | 2024-04-10 08:40 | ER ---
Nurse's Notes [facility] Name: Melanie Gotti Age: 43 yrs Sex: Female : 1980 Arrival Date: 04/10/2024 Time: 07:27 Bed 16 Private MD: Diagnosis: Influenza due to identified novel influenza A virus Presentation: 04/10 07:48 Chief complaint: Patient states: Cough, congestion, FERREIRA, weak, and nausea for 2 days. ll1 Kids also sick. Coronavirus screen: Client denies travel out of the [place] in the last 14 days. congestion, cough unrelated to allergies, fatigue, nausea, Client presents with at least one sign or symptom that may indicate coronavirus-19. Standard/surgical mask placed on the client. Ebola Screen: Patient denies travel to an Ebola-affected area in the 21 days before illness onset. Initial Sepsis Screen: Does the patient meet any 2 criteria? No. Patient's initial sepsis screen is negative. Does the patient have a suspected source of infection? No. Patient's initial sepsis screen is negative. Risk Assessment: Do you want to hurt yourself or someone else? Patient reports no desire to harm self or others. Onset of symptoms was April 09, 2024. 07:48 Method Of Arrival: Ambulatory ll1 07:48 Acuity: JAYCOB 4 ll1 Triage Assessment: 07:48 General: Appears uncomfortable, Behavior is calm, cooperative, appropriate for age. ll1 General: Reports fatigue for. Pain: Complains of pain in head Quality of pain is described as aching. EENT: Reports nasal congestion. Neuro: Reports headache. Respiratory: Reports cough that is. GI: Reports nausea. Historical: - Allergies: 07:48 NKDA; ll1 - PMHx: 07:48 Anxiety; depressive disorder; ll1 - PSHx: 07:48 Cholecystectomy; ll1 - Immunization history:: Adult Immunizations up to date. - Infectious Disease History:: Denies. - Social history:: Smoking status: Patient denies any tobacco usage or history of. Screenin:54 [facility] ED Fall Risk Assessment (Adult) History of falling in the last 3 months, ld1 including since admission No falls in past 3 months (0 pts) Confusion or Disorientation No (0 pts) Intoxicated or Sedated No (0 pts) Impaired Gait No (0 pts) Mobility Assist Device Used No (0 pt) Altered Elimination No (0 pt) Score/Fall Risk Level 0 - 2 = Low Risk Oriented to surroundings, Maintained a safe environment, Educated pt \T\ family on fall prevention, incl call for assistance when getting out of bed, Assessed \T\ reinforced patient's understanding of fall precautions, Provided non-skid footwear, Hourly rounding (assess needs \T\ fall precautionary measures) done, Used ambulatory aids as needed (educated on \T\ assisted with), Used gait belt as appropriate. Abuse screen: Denies threats or abuse. Denies injuries from another. Nutritional screening: No deficits noted. Tuberculosis screening: No symptoms or risk factors identified. Assessment: 07:54 Reassessment: See triage assessment. Pain: Denies pain. ld1 Vital Signs: 07:48 BP 144 / 88; Pulse 115; Resp 18; Temp 97.8; Pulse Ox 99% ; Weight 70.31 kg; Pain 9/10; ll1 07:48 Pain Scale: Adult ll1 ED Course: 07:32 Patient arrived in ED. ra3 07:33 Ray Phillips DO is Attending Physician. ms3 07:34 Eloina Phillips, RN is Primary Nurse. ld1 07:34 Arm band placed on Patient placed in an exam room, on a stretcher. ll1 07:50 Triage completed. ll1 07:50 Flu Sent. kb4 07:50 SARS RAPID Sent. kb4 07:50 COVID swab sent to lab. Flu and/or RSV swab sent to lab. kb4 07:54 Patient has correct armband on for positive identification. Bed in low position. Call ld1 light in reach. Side rails up X2. Pulse ox on. NIBP on. Door closed. Noise minimized. 07:54 No provider procedures requiring assistance completed. Patient did not have IV access ld1 during this emergency room visit. 08:03 Warm blanket given. PO fluids given. ll1 08:39 Dinesh Mathis DO is Referral Physician. ms3 Administered Medications: 08:32 Drug: Acetaminophen PO 1000 mg PO once Route: PO; ld1 09:00 Follow up: Response: No adverse reaction ld1 Medication: 07:54 VIS not applicable for this client. ld1 Outcome: 08:39 Discharge ordered by . ms3 09:00 Discharged to home ambulatory, with family, ld1 09:00 Condition: stable 09:00 Discharge instructions given to patient, Instructed on discharge instructions, follow up and referral plans. medication usage, Demonstrated understanding of instructions, follow-up care, medications, Prescriptions given X 1, 09:00 Patient left the ED. ld1 Signatures: Jose Rafael Velasquez RN RN ll1 Ray Phillips DO DO ms3 Eloina Phillips RN RN ld1 Janessa Norris ra3 Antonette Mcknight kb4
--- NOTE | 2024-04-10 08:40 | EDPHYS ---
Physician Documentation [facility] Name: Melanie Gotti Age: 43 yrs Sex: Female : 1980 Arrival Date: 04/10/2024 Time: 07:27 Bed 16 Private MD: ED Physician Ray Phillips HPI: 04/10 07:59 This 43 yrs old Female presents to ER via Ambulatory with complaints of Flu Symptoms, ms3 Cold Symptoms. 07:59 Melanie Gotti is a 43-year-old female who presents to the Emergency Department with ms3 symptoms of congestion, headache, weakness, nausea, and coughing for the past two days. She rates her discomfort as 8.5 to 9 out of 10. She reports that taking dextromethorphan has slowed down the cough but has not significantly helped with her other symptoms. She has been taking 400 mg of ibuprofen for her headache but notes it has not been very effective. She has no past medical problems and no allergies. She confirms she is not .. Historical: - Allergies: 07:48 NKDA; ll1 - PMHx: 07:48 Anxiety; depressive disorder; ll1 - PSHx: 07:48 Cholecystectomy; ll1 - Immunization history:: Adult Immunizations up to date. - Infectious Disease History:: Denies. - Social history:: Smoking status: Patient denies any tobacco usage or history of. ROS: 07:59 Constitutional: Negative for fever, and chills. Cardiovascular: Negative for chest ms3 pain, and palpitations. Respiratory: Negative for shortness of breath, cough, wheezing, and pleuritic chest pain, Abdomen/GI: Negative for abdominal pain, nausea, vomiting, diarrhea, and constipation, MS/Extremity: Negative for injury and deformity, Skin: Negative for injury, rash, and discoloration, 07:59 ENT: Positive for Exam: 07:59 Constitutional: This is a well developed, well nourished patient who is awake, alert, ms3 and in no acute distress. Cardiovascular: Regular rate and rhythm with a normal S1 and S2. No gallops, murmurs, or rubs. Normal PMI, no JVD. No pulse deficits. Respiratory: Lungs have equal breath sounds bilaterally, clear to auscultation and percussion. No rales, rhonchi or wheezes noted. No increased work of breathing, no retractions or nasal flaring. Abdomen/GI: Soft, non-tender, with normal bowel sounds. No distension or tympany. No guarding or rebound. No evidence of tenderness throughout. 07:59 ENT: External ear(s): are unremarkable, Mouth: is normal, Posterior pharynx: is normal, no erythema, no exudate, no peritonsilar mass, no swelling, Vital Signs: 07:48 BP 144 / 88; Pulse 115; Resp 18; Temp 97.8; Pulse Ox 99% ; Weight 70.31 kg; Pain 9/10; ll1 07:48 Pain Scale: Adult ll1 MDM: 07:45 Medical Screening Exam initiated ms3 07:59 Differential Diagnosis: Influenza Upper Respiratory Infection Viral Syndrome Other ms3 COVID. 17:46 Data reviewed: vital signs, nurses notes, lab test result(s), and as a result, I will ms3 discharge patient. I considered the following discharge prescriptions or medication management in the emergency department Medications were administered in the Emergency Department. See MAR. Counseling: I had a detailed discussion with the patient and/or guardian regarding the historical points, exam findings, and any diagnostic results supporting the discharge/admit diagnosis, lab results, the need for outpatient follow up, to return to the emergency department if symptoms worsen or persist or if there are any questions or concerns that arise at home. Special discussion: I discussed with the patient/guardian in detail that at this point there is no indication for admission to the hospital. It is understood, however, that if the symptoms persist or worsen the patient needs to return immediately for re-evaluation. ED course: Discussed positive flu a results with patient. Patient given prescription for Xofluza. On reevaluation patient is alert and oriented x 4, no apparent distress, nontoxic-appearing, speaking full sentences, tolerating p.o. Return precautions discussed include shortness of breath, worsening symptoms, or any other concerns. Patient to follow-up with primary care physician in 2 to 3 days.. 04/10 07:34 Order name: SARS RAPID; Complete Time: 08:31 ms3 04/10 07:34 Order name: Flu; Complete Time: 08: ms3 Administered Medications: 08:32 Drug: Acetaminophen PO 1000 mg PO once Route: PO; ld1 09:00 Follow up: Response: No adverse reaction ld1 Disposition Summary: 04/10/24 08:39 Discharge Ordered Notes: Location: Home ms3 Condition: Stable ms3 Diagnosis - Influenza due to identified novel influenza A virus ms3 Followup: ms3 - With: Dinesh Mathis DO - When: 2 - 3 days - Reason: Recheck today's complaints Discharge Instructions: - Discharge Summary Sheet ms3 - Influenza, Adult ms3 Forms: - Work release form bd - Medication Reconciliation Form ms3 - Antibiotic Education ms3 - Prescription Opioid Use ms3 - Patient Portal Instructions ms3 - Leadership Thank You Letter ms3 Prescriptions: - Xofluza 40 mg Oral tablet - take 1 tablet ORAL route once as a single dose; 1 tablet; Refills: 0, Product ms3 Selection Permitted Signatures: Dispatcher [employer] EDJose Rafael Mathew RN RN ll1 Ray Phillips, DO ms3 Eloina Phillips RN RN ld1 Corrections: (The following items were deleted from the chart) 07:34 07:34 SARS-COV-2 Antigen Rapid+I.LAB.BRZ ordered. EDMS EDMS 07:34 07:34 Influenza Screen (A \T\ B)+BA.LAB.BRZ ordered. EDMS EDMS
[2024-04-10 09:04] VITALS: BP 144/88; TEMP 97.8; O2SAT 99
== END 2024-04-10 09:00 | disposition home or self-care (01) ==
LOC: ER 07:27
DX: J10.1 Influenza due to other identified influenza virus with other respiratory manifestations (principal); Z11.52 Encounter for screening for COVID-19
CPT/HCPCS: 36415; 87804; 87811

== ENCOUNTER 2024-06-17 13:43 | Emergency (ER) | payer OTHER ==
--- OUTSIDE RECORDS SUMMARY | 2024-06-17 13:51 | XMS REPORT | Continuity of Care Document ---
Author Name Unknown Address [address] [facility], [place]. [address] [place] [address] [facility] Address [address] [facility] [place]. [address] [place] [address] Care Team Providers Care Commercial Ocean Clammer Name Role Phone YAMILETH ROWE Primary Care Physician Unavailab LAYTON Wilson Attending Clinician UnaCRESENCIO Xie Attending Clinician Unavailable Jessi Ly Attending Clinician + [phone] Yamileth Rowe MD Attending Clinician + [phone] JESSI COLLIER Attending Clinician Unavailable Doctor Unassigned, [place] Attending Clinician U Yessi Adkins Attending Clinician + [phone] YESSI CALLE Attending Clinician Unavailable Mansoor Jorge Attending Clinician + [phone] Unknown, Attending Attending Clinician Unavailab MANSOOR Chavarria Attending Clinician Unavailable Mansoor Jorge Attending Clinician + [phone] Unknown, Attending Attending Clinician UnavailYamileth Parry MD Attending Clinician + [phone] Cresencio Kapadia PA-C Attending Clinician +[phone] ROSEMARY SHEIKH Attending Clinician Unavailable YAMILETH ROWE Attending Clinician Unavailable KENNA ALMARAZ Attending Clinician UnavailKENNA Cifuentes Attending Clinician Unavailmarcus Sheikh COLD STORAGE SUPERINTENDENT, Rosemary Attending Clinician [phone] CHACHO MINOR Attending Clinician Unavailable Mily ORDONEZ, Chacho Attending Clinician [phone] ASHLEY WRIGHT Attending Clinician Unavailable Ashley Wright MD Attending Clinician [phone] KG HEALY Attending Clinician Unavailable Green COLD STORAGE SUPERINTENDENTKg Attending Clinician [phone] Lab, Ang - Db Attending Clinician Unavailable Raghavendra GARDNER Attending Clinician Unavailable Raghavendra Lockhart Attending Clinician [phone] ASHLEY VELÁSQUEZ Attending Clinician Unavailab Ashley Damon DO Attending Clinician [phone] Farhat Coleman DO Attending Clinician [phone] FARHAT COLEMAN Attending Clinician Unavailable YAMILETH ROWE Admitting Clinician Unavailable ASHLEY VELÁSQUEZ Admitting Clinician Unavailab FARHAT Guzmán Admitting Clinician Unavailable Payers Payer Name Policy Type Policy Number Effective Date Expirati on Date Source [facility] II [id number] 2024 00:00:00 [facility] [id number] 2021 00:00:00 Problems Condition Name Condition Details Condition Category Status Onset Date Resolution Date Last Treatment Date Treating Clinician Comments Source Need for vaccinatio n Need for vaccinatio n Disease Active 05-08 00:00: 00 [facility] Injury of left ankle, initial encounter Injury of left ankle, initial encounter Disease Active 05-08 00:00: 00 [facility] Allergic conjunctiv itis of left eye Allergic conjunctiv itis of left eye Disease Active 06-22 00:00: 00 [facility] Encounter for initial prescripti on of vaginal ring hormonal contracept lupe Encounter for initial prescripti on of vaginal ring hormonal contracept lupe Disease Active 04-28 00:00: 00 [facility] Decreased libido Decreased libido Disease Active 04-28 00:00: 00 [facility] Well woman exam Well woman exam Disease Active 2014-03 00:00: 00 [facility] Anemia of mother in , condition Anemia of mother in , condition Disease Resolve d 2014-03 00:00: 00 2016-02-25 00:00:00 2016-02-25 11:16:48 [facility] Spontaneou s vaginal delivery Spontaneou s vaginal delivery Disease Resolve d 2014-03 0-20 00:00: 00 2015-02-24 00:00:00 2021-10-03 00:38:09 [facility] Yeast infection of the vagina Yeast infection of the vagina Disease Resolve d 7-31 00:00: 00 2015-02-24 00:00:00 2015-02-24 12:46:58 [facility] Supervisio n of high-risk with history of Supervisio n of high-risk with history of Disease Resolve d 07-08 00:00: 00 2015-02-24 00:00:00 2015-02-24 12:47:13 [facility] Family history of Downs syndrome Family history of Downs syndrome Disease Resolve d 4-21 00:00: 00 2015-02-24 00:00:00 2015-02-24 12:47:01 [facility] Prior with demise, antepartum Prior with demise, antepartum Disease Resolve d 07-08 00:00: 00 2015-02-24 00:00:00 2021-10-03 00:35:41 [facility] Sciatic leg pain Sciatic leg pain Disease Resolve d 4-21 00:00: 00 2015-02-24 00:00:00 2015-02-24 12:47:08 [facility] History of delivery, currently History of delivery, currently Disease Resolve d 4-21 00:00: 00 2015-02-24 00:00:00 2015-02-24 12:47:43 [facility] induction of labor induction of labor Disease Resolve d 2014-03 0-19 00:00: 00 2015-01-06 00:00:00 2015-01-06 15:12:40 [facility] Allergies, Adverse Reactions, Alerts Allergy Name Allergy Type Status Severity Reaction(s) Onset Date Inactive Date Treating Clinician Comments Source NO KNOWN ALLERGIE S Drug Class Active [facility] Social History Social Habit Start Date Stop Date Quantity Comments Source History SDOH Alcohol Frequency [facility] History SDOH Alcohol Std Drinks [facility] History SDOH Alcohol Binge [facility] Alcoholic beverage intake 2024-04-15 00:00:00 2024-04-15 00:00:00 Ex-drinker (finding) [facility] History of Social function 2024-04-15 00:00:00 2024-04-15 00:00:00 [facility] Alcohol intake 2023-05-24 00:00:00 2023-05-24 00:00:00 Ex-drinker (finding) [facility] Exposure to SARS-CoV-2 (event) 2022-07-10 00:00:00 2022-07-20 11:46:00 Not sure [facility] Tobacco use and exposure 2022-05-09 00:00:00 2022-05-09 00:00:00 User of smokeless tobacco [facility] Tobacco Comment 2022-05-09 00:00:00 2022-05-09 00:00:00 Vape occasional [facility] Alcohol Comment 2022-01-03 00:00:00 2022-01-03 00:00:00 socially, 2 beers a week [facility] Sex assigned at 1980 00:00:00 1980 00:00:00 [facility] Smoking Status Start Date Stop Date Source Never smoked tobacco [facility] Medications Ordered Medication Name Filled Medication Name Start Date Stop Date Current Medication? Ordering Clinician Indication Dosage Frequency Signature (SIG) Comments Components Source amoxicillin -clavulanat e (AUGMENTIN) 875-125 mg per tablet 04-15 00:00: 00 04-15 00:00 :00 Yes [id number] 1{tbl} Take 1 tablet by mouth in the morning and 1 tablet in the evening. [facility] bromphenira mine-pseudo ephedrine-D M (BROMFED DM) 2-30-10 mg/5 mL syrup 04-15 00:00: 00 04-15 00:00 :00 Yes [id number] 5mL Take 5 mL by mouth 4 (four) times daily as needed for Congestion /Allergies or Cough. [facility] methylPREDN ISolone (MEDROL, RAVINDRA,) 4 mg tablets 2023-03 00:00: 00 Yes [id number] Take by mouth SEE-INSTRU CTIONS. follow package directions [facility] montelukast 10 mg tablet 2023-03 00:00: 00 Yes [id number] 10mg Take 1 tablet by mouth in the morning. [facility] cefdinir 300 mg capsule 2023-03 0-14 00:00: 00 01-08 04:59 :00 No [id number] 300mg Take 1 capsule by mouth every 12 (twelve) hours for 7 days. [facility] amoxicillin -clavulanat e (AUGMENTIN) 875-125 mg per tablet 08-27 00:00: 00 09-07 04:59 :00 No [id number] 1{tbl} Take 1 tablet by mouth in the morning and 1 tablet in the evening. Do all this for 10 days. [facility] ESCITALOPRA M OXALATE 20 mg tablet 08-10 00:00: 00 Yes [id number] 20mg TAKE 1 TABLET BY MOUTH EVERY MORNING [facility] ESCITALOPRA M OXALATE 20 mg tablet 07-09 00:00: 00 08-10 00:00 :00 No [id number] 20mg TAKE 1 TABLET BY MOUTH EVERY MORNING [facility] ESCITALOPRA M OXALATE 20 mg tablet - 00:00: 00 07-09 00:00 :00 No [id number] 20mg TAKE 1 TABLET BY MOUTH EVERY MORNING [facility] azelastine 137 mcg (0.1 %) nasal spray -06 00:00: 00 Yes [id number] 1{spray } Use 1 [place] in each nostril in the morning and 1 [place] in the evening. Use in each nostril as directed [facility] amoxicillin -clavulanat e (AUGMENTIN) 875-125 mg per tablet -06 00:00: 00 06-03 04:59 :00 No [id number] 1{tbl} Take 1 tablet by mouth in the morning and 1 tablet in the evening. Do all this for 10 days. [facility] meloxicam 15 mg tablet 05-08 00:00: 00 01-11 00:00 :00 No [id number] 15mg Take 1 tablet by mouth in the morning. [facility] ESCITALOPRA M OXALATE 20 mg tablet 05-05 00:00: 00 06-04 00:00 :00 No [id number] 20mg TAKE 1 TABLET BY MOUTH EVERY MORNING [facility] ketorolac (TORADOL) injection 30 mg 04-08 17:15: 00 04-08 16:27 :00 No [id number] 30mg [facility] methocarbam oL (ROBAXIN-75 0) 750 mg tablet 04-08 00:00: 00 04-19 05:59 :00 No [id number] 750mg Take 1 tablet by mouth 4 (four) times daily for 10 days. [facility] escitalopra m oxalate 20 mg tablet 03-31 00:00: 00 05-05 00:00 :00 No [id number] 20mg TAKE ONE TABLET BY MOUTH EVERY MORNING [facility] ketorolac (TORADOL) injection 30 mg 2022-03 16:45: 00 02-25 16:00 :00 No [id number] 30mg [facility] proMETHazin e 25 mg tablet 2022-03 00:00: 00 01-11 00:00 :00 No [id number] 25mg Take 1 tablet by mouth every 4 (four) hours as needed for Nausea and Vomiting (N/V). [facility] escitalopra m oxalate 20 mg tablet 2022-03 1-10 00:00: 00 03-31 00:00 :00 No [id number] 20mg Take 1 tablet by mouth in the morning. [facility] ondansetron 4 mg disintegrat ing tablet 2022-03 0-30 00:00: 00 01-11 00:00 :00 No [id number] 4mg Take 1 tablet by mouth every 8 (eight) hours as needed for Nausea and Vomiting (N/V). [facility] clindamycin 300 mg capsule 2022-03 0-30 00:00: 00 01-27 00:00 :00 No [id number] 05 300mg Take 1 capsule by mouth 4 (four) times daily. [facility] amoxicillin 500 mg tablet 9-15 00:00: 00 01-27 00:00 :00 No [id number] 500mg Take 1 tablet by mouth in the morning and 1 tablet in the evening. [facility] azelastine 137 mcg (0.1 %) nasal spray -17 00:00: 00 05-23 00:00 :00 No [id number] 1{spray } Use 1 [place] in each nostril in the morning and 1 [place] in the evening. Use in each nostril as directed [facility] fluticasone propionate 50 mcg/actuati on nasal spray 11-03 00:00: 00 01-27 00:00 :00 No [id number] 2{spray } Use 2 Sprays in each nostril in the morning. [facility] predniSONE 20 mg tablet 817 00:00: 00 11-09 04:59 :00 No [id number] 20mg Take 1 tablet by mouth in the morning and 1 tablet in the evening. Do all this for 5 days. [facility] loratadine 10 mg tablet 10-09 10:15: 48 Yes 10mg Take 1 tablet by mouth in the morning. [facility] mupirocin 2 % ointment 10-09 00:00: 00 Yes [id number] Apply to area(s) 3 (three) times daily. [facility] Azelastine 205.5 mcg (0.15 %) nasal spray 07-26 00:00: 00 Yes [id number] 1{spray } Use 1 [place] in each nostril in the morning. [facility] fluticasone propionate 50 mcg/actuati on nasal spray 07-26 00:00: 00 Yes [id number] 1{spray } Use 1 [place] in each nostril in the morning. [facility] dexamethaso ne sod phos PF injection 10 mg 07-20 18:00: 00 07-20 17:18 :00 No [id number] 10mg [facility] cephALEXin 500 mg capsule 07-06 00:00: 00 07-12 04:59 :00 No [id number] 500mg Take 1 capsule by mouth 4 (four) times daily for 5 days. [facility] olopatadine 0.7 % Drop 06-22 00:00: 00 Yes [id number] 1[drp] Place 1 Drop in each eye in the morning. [facility] hydrOXYzine 25 mg capsule 06-22 00:00: 00 01-11 00:00 :00 No [id number] 25mg Take 1 capsule by mouth 3 (three) times daily as needed for Itching. [facility] predniSONE 20 mg tablet 330 00:00: 00 06-22 04:59 :00 No [id number] 40mg Take 2 tablets by mouth in the morning for 5 days. [facility] dexamethaso ne (DECADRON) injection 10 mg 2-20 15:30: 00 05-09 15:34 :00 No [id number] 10mg [facility] methylPREDN ISolone (MEDROL, RAVINDRA,) 4 mg tablets 2-20 00:00: 00 07-08 00:00 :00 No [id number] follow package directions [facility] azelastine- fluticasone (DYMISTA) 137-50 mcg/spray nasal spray 04-07 00:00: 00 Yes [id number] 1{spray } Use 1 [place] in each nostril in the morning and 1 [place] in the evening. [facility] escitalopra m oxalate 10 mg tablet 04-07 00:00: 00 01-27 00:00 :00 No [id number] 10mg Take 1 tablet by mouth in the morning. [facility] methylPREDN ISolone (MEDROL, RAVINDRA,) 4 mg tablets 04-07 00:00: 00 07-08 00:00 :00 No [id number] Take by mouth SEE-INSTRU CTIONS. follow package directions [facility] dexamethaso ne (DECADRON) injection 10 mg 04-06 16:45: 00 04-06 15:37 :00 No [id number] 10mg [facility] methylPREDN ISolone (MEDROL, RAVINDRA,) 4 mg tablets 04-06 00:00: 00 04-07 00:00 :00 No [id number] Take by mouth SEE-INSTRU CTIONS. follow package directions [facility] ibuprofen 600 mg tablet 2021-03 00:00: 00 04-07 00:00 :00 No [id number] 05 600mg Take 1 tablet by mouth every 6 (six) hours as needed for Pain (scale 4-6). [facility] amoxicillin 500 mg tablet 2021-03 00:00: 00 03-08 05:59 :00 No [id number] 05 500mg Take 1 tablet by mouth in the morning and 1 tablet in the evening. Do all this for 10 days. [facility] dexamethaso ne sod phos PF injection 10 mg 2021-03 017 15:15: 00 01-03 14:21 :00 No [id number] 10mg [facility] dexAMETHaso ne sodium phos (PF) injection syringe 10 mg 2021-03 0 15:00: 00 01-03 14:20 :23 No [id number] 10mg [facility] loratadine 10 mg tablet 2021-03 09:16: 59 Yes 10mg Take 10 mg by mouth in the morning. [facility] copper 380 square mm IUD 2021-03 08:36: 44 Yes 1{IUD} 1 Intra Uterine Device by Intrauteri ne route once now. [facility] hydrOXYzine 25 mg capsule 2021-03 00:00: 00 06-22 00:00 :00 No [id number] 25mg Take 1 capsule by mouth 3 (three) times daily as needed for Itching. [facility] escitalopra m oxalate 10 mg tablet 2021-03 00:00: 00 04-07 00:00 :00 No [id number] 10mg Take 1 tablet by mouth in the morning. [facility] azelastine- fluticasone (DYMISTA) 137-50 mcg/spray nasal spray 2021-03 00:00: 00 04-07 00:00 :00 No [id number] 1{spray } Use 1 [place] in each nostril in the morning and 1 [place] in the evening. [facility] benzonatate 200 mg capsule 9-20 00:00: 00 01-03 00:00 :00 No [id number] 200mg Take 1 capsule by mouth 3 (three) times daily as needed for Cough for up to 20 doses. [facility] NUVARING 0.12-0.015 mg/24 hr vaginal insert -02 00:00: 00 01-03 00:00 :00 No [id number] 1{each} Insert 1 Each into vagina once every month. Insert vaginally and leave in place for 3 consecutiv e weeks, then remove for 1 week. [facility] hydrOXYzine 25 mg capsule -18 00:00: 00 01-03 00:00 :00 No [facility] escitalopra m oxalate 10 mg tablet 1-18 00:00: 00 01-03 00:00 :00 No [facility] norgestimat e-ethinyl estradiol 0.18/0.215/ 0.25 mg-35 mcg (28) tablet 2016-03 2-11 00:00: 00 01-03 00:00 :00 No 1{tbl} Take 1 tablet by mouth daily. [facility] ibuprofen (MOTRIN) 600 mg tablet 2014-03 0-21 00:00: 00 02-25 00:00 :00 No 600mg Take 1 Tab by mouth every 6 (six) hours as needed for Pain (scale 4-6). Take with food or milk. [facility] Immunizations Ordered Immunization Name Filled Immunization Name Date Status Comments Source Influenza Virus Vaccine Quad IM, Preserv and ABX Free 6 MO-64 YRS (FLUCELVAX) 2023-05-08 00:00:00 Completed [facility] SARS-COV-2 COVID 19 CORNELIA SUCROSE VACCINE 12+, , 0.3 ML (30 MCG), IM PFIZER (KIRKPATRICK TOP) 2023-05-08 00:00:00 Completed SARS-COV-2 COVID-19 PFIZER VACCINE 2020-08-25 00:00:00 Completed [facility] SARS-COV-2 COVID-19 PFIZER VACCINE 2020-08-25 00:00:00 Completed SARS-COV-2 COVID-19 PFIZER VACCINE 2020-08-25 00:00:00 Completed [facility] SARS-COV-2 COVID-19 PFIZER VACCINE 2020-08-25 00:00:00 Completed [facility] SARS-COV-2 COVID-19 PFIZER VACCINE 2020-08-25 00:00:00 Completed [facility] SARS-COV-2 COVID-19 PFIZER VACCINE 2020-08-25 00:00:00 Completed [facility] SARS-COV-2 COVID-19 PFIZER VACCINE 2020-08-25 00:00:00 Completed [facility] SARS-COV-2 COVID-19 PFIZER VACCINE 2020-08-25 00:00:00 Completed [facility] SARS-COV-2 COVID-19 PFIZER VACCINE 2020-08-25 00:00:00 Completed [facility] SARS-COV-2 COVID-19 PFIZER VACCINE 2020-08-25 00:00:00 Completed [facility] SARS-COV-2 COVID-19 PFIZER VACCINE 2020-08-25 00:00:00 Completed [facility] SARS-COV-2 COVID-19 PFIZER VACCINE 2020-08-25 00:00:00 Completed [facility] SARS-COV-2 COVID-19 PFIZER VACCINE 2020-08-25 00:00:00 Completed [facility] SARS-COV-2 COVID-19 PFIZER VACCINE 2020-08-25 00:00:00 Completed [facility] SARS-COV-2 COVID-19 PFIZER VACCINE 2020-08-25 00:00:00 Completed [facility] SARS-COV-2 COVID-19 PFIZER VACCINE 2020-08-25 00:00:00 Completed [facility] SARS-COV-2 COVID-19 PFIZER VACCINE 2020-08-25 00:00:00 Completed [facility] SARS-COV-2 COVID-19 PFIZER VACCINE 2020-08-25 00:00:00 Completed [facility] SARS-COV-2 COVID-19 PFIZER VACCINE 2020-08-25 00:00:00 Completed [facility] SARS-COV-2 COVID-19 PFIZER VACCINE 2020-08-25 00:00:00 Completed [facility] SARS-COV-2 COVID-19 PFIZER VACCINE 2020-08-04 00:00:00 Completed [facility] SARS-COV-2 COVID-19 PFIZER VACCINE 2020-08-04 00:00:00 Completed [facility] SARS-COV-2 COVID-19 PFIZER VACCINE 2020-08-04 00:00:00 Completed [facility] SARS-COV-2 COVID-19 PFIZER VACCINE 2020-08-04 00:00:00 Completed [facility] SARS-COV-2 COVID-19 PFIZER VACCINE 2020-08-04 00:00:00 Completed [facility] SARS-COV-2 COVID-19 PFIZER VACCINE 2020-08-04 00:00:00 Completed [facility] SARS-COV-2 COVID-19 PFIZER VACCINE 2020-08-04 00:00:00 Completed [facility] SARS-COV-2 COVID-19 PFIZER VACCINE 2020-08-04 00:00:00 Completed [facility] SARS-COV-2 COVID-19 PFIZER VACCINE 2020-08-04 00:00:00 Completed [facility] SARS-COV-2 COVID-19 PFIZER VACCINE 2020-08-04 00:00:00 Completed [facility] SARS-COV-2 COVID-19 PFIZER VACCINE 2020-08-04 00:00:00 Completed [facility] SARS-COV-2 COVID-19 PFIZER VACCINE 2020-08-04 00:00:00 Completed [facility] SARS-COV-2 COVID-19 PFIZER VACCINE 2020-08-04 00:00:00 Completed [facility] SARS-COV-2 COVID-19 PFIZER VACCINE 2020-08-04 00:00:00 Completed [facility] SARS-COV-2 COVID-19 PFIZER VACCINE 2020-08-04 00:00:00 Completed [facility] SARS-COV-2 COVID-19 PFIZER VACCINE 2020-08-04 00:00:00 Completed [facility] SARS-COV-2 COVID-19 PFIZER VACCINE 2020-08-04 00:00:00 Completed [facility] SARS-COV-2 COVID-19 PFIZER VACCINE 2020-08-04 00:00:00 Completed [facility] SARS-COV-2 COVID-19 PFIZER VACCINE 2020-08-04 00:00:00 Completed [facility] SARS-COV-2 COVID-19 PFIZER VACCINE 2020-08-04 00:00:00 Completed [facility] Influenza Virus Vaccine Quad IM Multi-dose 6+ MO 2017-02-14 00:00:00 Completed [facility] Influenza Virus Vaccine Quad IM Multi-dose 6+ MO 2017-02-14 00:00:00 Completed [facility] Influenza Virus Vaccine Quad IM Multi-dose 6+ MO 2017-02-14 00:00:00 Completed [facility] Influenza Virus Vaccine Quad IM Multi-dose 6+ MO 2017-02-14 00:00:00 Completed [facility] Influenza Virus Vaccine Quad IM Multi-dose 6+ MO 2017-02-14 00:00:00 Completed [facility] Influenza Virus Vaccine Quad IM Multi-dose 6+ MO 2017-02-14 00:00:00 Completed [facility] Influenza Virus Vaccine Quad IM Multi-dose 6+ MO 2017-02-14 00:00:00 Completed [facility] Influenza Virus Vaccine Quad IM Multi-dose 6+ MO 2017-02-14 00:00:00 Completed [facility] Influenza Virus Vaccine Quad IM Multi-dose 6+ MO 2017-02-14 00:00:00 Completed [facility] Influenza Virus Vaccine Quad IM Multi-dose 6+ MO 2017-02-14 00:00:00 Completed [facility] Influenza Virus Vaccine Quad IM Multi-dose 6+ MO 2017-02-14 00:00:00 Completed [facility] Influenza Virus Vaccine Quad IM Multi-dose 6+ MO 2017-02-14 00:00:00 Completed [facility] Influenza Virus Vaccine Quad IM Multi-dose 6+ MO 2017-02-14 00:00:00 Completed [facility] Influenza Virus Vaccine Quad IM Multi-dose 6+ MO 2017-02-14 00:00:00 Completed [facility] Influenza Virus Vaccine Quad IM Multi-dose 6+ MO 2017-02-14 00:00:00 Completed [facility] Influenza Virus Vaccine Quad IM Multi-dose 6+ MO 2017-02-14 00:00:00 Completed [facility] Influenza Virus Vaccine Quad IM Multi-dose 6+ MO 2017-02-14 00:00:00 Completed [facility] Influenza Virus Vaccine Quad IM Multi-dose 6+ MO 2017-02-14 00:00:00 Completed [facility] Influenza Virus Vaccine Quad IM Multi-dose 6+ MO 2017-02-14 00:00:00 Completed [facility] Influenza Virus Vaccine Quad IM Multi-dose 6+ MO 2017-02-14 00:00:00 Completed [facility] Influenza Virus Vaccine Quad IM Multi-dose 6+ MO 2017-02-14 00:00:00 Completed [facility] Influenza Virus Vaccine Quad IM Multi-dose 6+ MO 2017-02-14 00:00:00 Completed [facility] Influenza Virus Vaccine Quad IM Multi-dose 6+ MO 2017-02-14 00:00:00 Completed [facility] Influenza Virus Vaccine Quad IM 3+ YRS 2014-12-08 00:00:00 Completed [facility] Influenza Virus Vaccine Quad IM 3+ YRS 2014-12-08 00:00:00 Completed Influenza Virus Vaccine Quad IM 3+ YRS 2014-12-08 00:00:00 Completed [facility] Influenza Virus Vaccine Quad IM 3+ YRS 2014-12-08 00:00:00 Completed [facility] Influenza Virus Vaccine Quad IM 3+ YRS 2014-12-08 00:00:00 Completed [facility] Influenza Virus Vaccine Quad IM 3+ YRS 2014-12-08 00:00:00 Completed [facility] Influenza Virus Vaccine Quad IM 3+ YRS 2014-12-08 00:00:00 Completed [facility] Influenza Virus Vaccine Quad IM 3+ YRS 2014-12-08 00:00:00 Completed [facility] Influenza Virus Vaccine Quad IM 3+ YRS 2014-12-08 00:00:00 Completed [facility] Influenza Virus Vaccine Quad IM 3+ YRS 2014-12-08 00:00:00 Completed [facility] Influenza Virus Vaccine Quad IM 3+ YRS 2014-12-08 00:00:00 Completed [facility] Influenza Virus Vaccine Quad IM 3+ YRS 2014-12-08 00:00:00 Completed [facility] Influenza Virus Vaccine Quad IM 3+ YRS 2014-12-08 00:00:00 Completed [facility] Influenza Virus Vaccine Quad IM 3+ YRS 2014-12-08 00:00:00 Completed [facility] Influenza Virus Vaccine Quad IM 3+ YRS 2014-12-08 00:00:00 Completed [facility] Influenza Virus Vaccine Quad IM 3+ YRS 2014-12-08 00:00:00 Completed [facility] Influenza Virus Vaccine Quad IM 3+ YRS 2014-12-08 00:00:00 Completed [facility] Influenza Virus Vaccine Quad IM 3+ YRS 2014-12-08 00:00:00 Completed [facility] Influenza Virus Vaccine Quad IM 3+ YRS 2014-12-08 00:00:00 Completed [facility] Influenza Virus Vaccine Quad IM 3+ YRS 2014-12-08 00:00:00 Completed [facility] Influenza Virus Vaccine Quad IM 3+ YRS 2014-12-08 00:00:00 Completed [facility] Influenza Virus Vaccine Quad IM 3+ YRS 2014-12-08 00:00:00 Completed [facility] Influenza Virus Vaccine Quad IM 3+ YRS 2014-12-08 00:00:00 Completed [facility] TDAP 2014-10-23 00:00:00 Completed [facility] TDAP 2014-10-23 00:00:00 Completed [facility] TDAP 2014-10-23 00:00:00 Completed [facility] TDAP 2014-10-23 00:00:00 Completed [facility] TDAP 2014-10-23 00:00:00 Completed [facility] TDAP 2014-10-23 00:00:00 Completed [facility] TDAP 2014-10-23 00:00:00 Completed [facility] TDAP 2014-10-23 00:00:00 Completed [facility] [facility] 2014-10-23 00:00:00 Completed [facility] TD[facility] 2014-10-23 00:00:00 Completed [facility] TDAP 2014-10-23 00:00:00 Completed [facility] TDAP 2014-10-23 00:00:00 Completed [facility] TDAP 2014-10-23 00:00:00 Completed [facility] TDAP 2014-10-23 00:00:00 Completed [facility] TDAP 2014-10-23 00:00:00 Completed [facility] TDAP 2014-10-23 00:00:00 Completed [facility] TDAP 2014-10-23 00:00:00 Completed [facility] TDAP 2014-10-23 00:00:00 Completed [facility] TDAP 2014-10-23 00:00:00 Completed [facility] TDAP 2014-10-23 00:00:00 Completed [facility] TDAP 2014-10-23 00:00:00 Completed [facility] TDAP 2014-10-23 00:00:00 Completed [facility] TDAP 2014-10-23 00:00:00 Completed [facility] Td 2010-07-08 00:00:00 Completed [facility] TD, NOS 2010-07-08 00:00:00 Completed Td 2010-07-08 00:00:00 Completed [facility] TD, NOS 2010-07-08 00:00:00 Completed [facility] TD, NOS 2010-07-08 00:00:00 Completed [facility] Td 2010-07-08 00:00:00 Completed [facility] TD, NOS 2010-07-08 00:00:00 Completed [facility] TD, NOS 2010-07-08 00:00:00 Completed [facility] TD, NOS 2010-07-08 00:00:00 Completed [facility] TD, NOS 2010-07-08 00:00:00 Completed [facility] TD, NOS 2010-07-08 00:00:00 Completed [facility] TD, NOS 2010-07-08 00:00:00 Completed [facility] TD, NOS 2010-07-08 00:00:00 Completed [facility] TD, NOS 2010-07-08 00:00:00 Completed [facility] Td 2010-07-08 00:00:00 Completed [facility] TD, NOS 2010-07-08 00:00:00 Completed [facility] TD, NOS 2010-07-08 00:00:00 Completed [facility] TD, NOS 2010-07-08 00:00:00 Completed [facility] TD, NOS 2010-07-08 00:00:00 Completed [facility] TD, NOS 2010-07-08 00:00:00 Completed [facility] TD, NOS 2010-07-08 00:00:00 Completed [facility] TD, NOS 2010-07-08 00:00:00 Completed [facility] Td 2010-07-08 00:00:00 Completed [facility] SARS-COV-2 COVID-19 PFIZER VACCINE Unknown Completed [facility] Influenza Virus Vaccine Quad IM, Preserv and ABX Free 6 MO-64 YRS (FLUCELVAX) Unknown Completed [facility] SARS-COV-2 COVID 19 CORNELIA SUCROSE VACCINE 12+, [id number], 0.3 ML (30 MCG), IM PFIZER (KIRKPATRICK TOP) Unknown Completed [facility] TD, NOS Unknown Completed [facility] TDAP Unknown Completed [facility] Influenza Virus Vaccine Quad IM 3+ YRS Unknown Completed [facility] Influenza Virus Vaccine Quad IM Multi-dose 6+ MO Unknown Completed [facility] SARS-COV-2 COVID-19 PFIZER VACCINE Unknown Completed [facility] Influenza Virus Vaccine Quad IM, Preserv and ABX Free 6 MO-64 YRS (FLUCELVAX) Unknown Completed [facility] SARS-COV-2 COVID 19 CORNELIA SUCROSE VACCINE 12, , 0.3 ML (30 MCG), IM PFIZER (KIRKPATRICK TOP) Unknown Completed [facility] TD, NOS Unknown Completed [facility] TDAP Unknown Completed [facility] Influenza Virus Vaccine Quad IM 3+ YRS Unknown Completed [facility] Influenza Virus Vaccine Quad IM Multi-dose 6+ MO Unknown Completed [facility] SARS-COV-2 COVID-19 PFIZER VACCINE Unknown Completed [facility] Influenza Virus Vaccine Quad IM, Preserv and ABX Free 6 MO-64 YRS (FLUCELVAX) Unknown Completed [facility] SARS-COV-2 COVID 19 CORNELIA SUCROSE VACCINE , 0.3 ML (30 MCG), IM PFIZER (KIRKPATRICK TOP) Unknown Completed [facility] TD, NOS Unknown Completed [facility] TDAP Unknown Completed [facility] Influenza Virus Vaccine Quad IM 3+ YRS Unknown Completed [facility] Influenza Virus Vaccine Quad IM Multi-dose 6+ MO Unknown Completed [facility] SARS-COV-2 COVID-19 PFIZER VACCINE Unknown Completed [facility] Influenza Virus Vaccine Quad IM, Preserv and ABX Free 6 MO-64 YRS (FLUCELVAX) Unknown Completed [facility] SARS-COV-2 COVID 19 CORNELIA SUCROSE VACCINE , , 0.3 ML (30 MCG), IM PFIZER (KIRKPATRICK TOP) Unknown Completed [facility] TD, NOS Unknown Completed [facility] TDAP Unknown Completed [facility] Influenza Virus Vaccine Quad IM 3+ YRS Unknown Completed [facility] Influenza Virus Vaccine Quad IM Multi-dose 6+ MO Unknown Completed [facility] SARS-COV-2 COVID-19 PFIZER VACCINE Unknown Completed [facility] Influenza Virus Vaccine Quad IM, Preserv and ABX Free 6 MO-64 YRS (FLUCELVAX) Unknown Completed [facility] SARS-COV-2 COVID 19 CORNELIA SUCROSE VACCINE 12+, [id number], 0.3 ML (30 MCG), IM PFIZER (KIRKPATRICK TOP) Unknown Completed [facility] TD, NOS Unknown Completed [facility] TDAP Unknown Completed [facility] Influenza Virus Vaccine Quad IM 3+ YRS Unknown Completed [facility] Influenza Virus Vaccine Quad IM Multi-dose 6+ MO Unknown Completed [facility] SARS-COV-2 COVID-19 PFIZER VACCINE Unknown Completed [facility] TD, NOS Unknown Completed [facility] TDAP Unknown Completed [facility] Influenza Virus Vaccine Quad IM 3+ YRS Unknown Completed [facility] Influenza Virus Vaccine Quad IM Multi-dose 6+ MO Unknown Completed [facility] SARS-COV-2 COVID-19 PFIZER VACCINE Unknown Completed [facility] TD, NOS Unknown Completed [facility] TDAP Unknown Completed [facility] Influenza Virus Vaccine Quad IM 3+ YRS Unknown Completed [facility] Influenza Virus Vaccine Quad IM Multi-dose 6+ MO Unknown Completed [facility] SARS-COV-2 COVID-19 PFIZER VACCINE Unknown Completed [facility] TD, NOS Unknown Completed [facility] TDAP Unknown Completed [facility] Influenza Virus Vaccine Quad IM 3+ YRS Unknown Completed [facility] Influenza Virus Vaccine Quad IM Multi-dose 6+ MO Unknown Completed [facility] SARS-COV-2 COVID-19 PFIZER VACCINE Unknown Completed [facility] TD, NOS Unknown Completed [facility] TDAP Unknown Completed [facility] Influenza Virus Vaccine Quad IM 3+ YRS Unknown Completed [facility] Influenza Virus Vaccine Quad IM Multi-dose 6+ MO Unknown Completed [facility] SARS-COV-2 COVID-19 PFIZER VACCINE Unknown Completed [facility] TD, NOS Unknown Completed [facility] TDAP Unknown Completed [facility] Influenza Virus Vaccine Quad IM 3+ YRS Unknown Completed [facility] Influenza Virus Vaccine Quad IM Multi-dose 6+ MO Unknown Completed [facility] SARS-COV-2 COVID-19 PFIZER VACCINE Unknown Completed [facility] TD, NOS Unknown Completed [facility] TDAP Unknown Completed [facility] Influenza Virus Vaccine Quad IM 3+ YRS Unknown Completed [facility] Influenza Virus Vaccine Quad IM Multi-dose 6+ MO Unknown Completed [facility] SARS-COV-2 COVID-19 PFIZER VACCINE Unknown Completed [facility] TD, NOS Unknown Completed [facility] TDAP Unknown Completed [facility] Influenza Virus Vaccine Quad IM 3+ YRS Unknown Completed [facility] Influenza Virus Vaccine Quad IM Multi-dose 6+ MO Unknown Completed [facility] SARS-COV-2 COVID-19 PFIZER VACCINE Unknown Completed [facility] TD, NOS Unknown Completed [facility] TDAP Unknown Completed [facility] Influenza Virus Vaccine Quad IM 3+ YRS Unknown Completed [facility] Influenza Virus Vaccine Quad IM Multi-dose 6+ MO Unknown Completed [facility] SARS-COV-2 COVID-19 PFIZER VACCINE Unknown Completed [facility] TD, NOS Unknown Completed [facility] TDAP Unknown Completed [facility] Influenza Virus Vaccine Quad IM 3+ YRS Unknown Completed [facility] Influenza Virus Vaccine Quad IM Multi-dose 6+ MO Unknown Completed [facility] SARS-COV-2 COVID-19 PFIZER VACCINE Unknown Completed [facility] TD, NOS Unknown Completed [facility] TDAP Unknown Completed [facility] Influenza Virus Vaccine Quad IM 3+ YRS Unknown Completed [facility] Influenza Virus Vaccine Quad IM Multi-dose 6+ MO Unknown Completed [facility] SARS-COV-2 COVID-19 PFIZER VACCINE Unknown Completed [facility] TD, NOS Unknown Completed [facility] TDAP Unknown Completed [facility] Influenza Virus Vaccine Quad IM 3+ YRS Unknown Completed [facility] Influenza Virus Vaccine Quad IM Multi-dose 6+ MO Unknown Completed [facility] SARS-COV-2 COVID-19 PFIZER VACCINE Unknown Completed [facility] TD, NOS Unknown Completed [facility] TDAP Unknown Completed [facility] Influenza Virus Vaccine Quad IM 3+ YRS Unknown Completed [facility] Influenza Virus Vaccine Quad IM Multi-dose 6+ MO Unknown Completed [facility] Influenza Virus Vaccine Quad IM, Preserv and ABX Free 6 MO-64 YRS (FLUCELVAX) Unknown Completed [facility] SARS-COV-2 COVID 19 CORNELIA SUCROSE VACCINE 12+, [phone], 0.3 ML (30 MCG), IM PFIZER (KIRKPATRICK TOP) Unknown Completed [facility] SARS-COV-2 COVID-19 PFIZER VACCINE Unknown Completed [facility] TD, NOS Unknown Completed [facility] TDAP Unknown Completed [facility] Influenza Virus Vaccine Quad IM 3+ YRS Unknown Completed [facility] Influenza Virus Vaccine Quad IM Multi-dose 6+ MO Unknown Completed [facility] SARS-COV-2 COVID-19 PFIZER VACCINE Unknown Completed [facility] Influenza Virus Vaccine Quad IM, Preserv and ABX Free 6 MO-64 YRS (FLUCELVAX) Unknown Completed [facility] SARS-COV-2 COVID 19 CORNELIA SUCROSE VACCINE , 0.3 ML (30 MCG), IM PFIZER (KIRKPATRICK TOP) Unknown Completed [facility] TD, NOS Unknown Completed [facility] TDAP Unknown Completed [facility] Influenza Virus Vaccine Quad IM 3+ YRS Unknown Completed [facility] Influenza Virus Vaccine Quad IM Multi-dose 6+ MO Unknown Completed [facility] SARS-COV-2 COVID-19 PFIZER VACCINE Unknown Completed [facility] Influenza Virus Vaccine Quad IM, Preserv and ABX Free 6 MO-64 YRS (FLUCELVAX) Unknown Completed [facility] SARS-COV-2 COVID 19 CORNELIA SUCROSE VACCINE , 0.3 ML (30 MCG), IM PFIZER (KIRKPATRICK TOP) Unknown Completed [facility] TD, NOS Unknown Completed [facility] TDAP Unknown Completed [facility] Influenza Virus Vaccine Quad IM 3+ YRS Unknown Completed [facility] Influenza Virus Vaccine Quad IM Multi-dose 6+ MO Unknown Completed [facility] SARS-COV-2 COVID-19 PFIZER VACCINE Unknown Completed [facility] Influenza Virus Vaccine Quad IM, Preserv and ABX Free 6 MO-64 YRS (FLUCELVAX) Unknown Completed [facility] SARS-COV-2 COVID 19 CORNELIA SUCROSE VACCINE , , 0.3 ML (30 MCG), IM PFIZER (KIRKPATRICK TOP) Unknown Completed [facility] TD, NOS Unknown Completed [facility] TDAP Unknown Completed [facility] Influenza Virus Vaccine Quad IM 3+ YRS Unknown Completed [facility] Influenza Virus Vaccine Quad IM Multi-dose 6+ MO Unknown Completed [facility] Vital Signs Vital Name Observation Time Observation Value Comments S ource Systolic blood pressure 2024-04-15 20:33:00 108 mm[Hg] [facility] Diastolic blood pressure 2024-04-15 20:33:00 76 mm[Hg] [facility] Heart rate 2024-04-15 20:33:00 130 /min [facility] Body temperature 2024-04-15 20:33:00 37.5 Roberta [facility] Body height 2024-04-15 20:33:[address] [facility] Body weight 2024-04-15 20:33:[address] [facility] BMI 2024-04-15 20:33:00 26.93 kg/m2 [facility] Oxygen saturation in Arterial blood by Pulse oximetry 2024-04-15 20:33:00 98 /min [facility] Systolic blood pressure 2024-01-12 18:07:00 135 mm[Hg] [facility] Diastolic blood pressure 2024-01-12 18:07:00 86 mm[Hg] [facility] Heart rate 2024-01-12 18:07:00 99 /min [facility] Body temperature 2024-01-12 18:07:00 37 Roberta [facility] Body height 2024-01-12 18:07:[address] [facility] Body weight 2024-01-12 18:07:[address] [facility] BMI 2024-01-12 18:07:00 27.28 kg/m2 [facility] Oxygen saturation in Arterial blood by Pulse oximetry 2024-01-12 18:07:00 99 /min [facility] Systolic blood pressure 2024-01-01 22:58:00 133 mm[Hg] [facility] Diastolic blood pressure 2024-01-01 22:58:00 85 mm[Hg] [facility] Heart rate 2024-01-01 22:58:00 91 /min [facility] Body temperature 2024-01-01 22:58:00 36.83 Roberta [facility] Respiratory rate 2024-01-01 22:58:00 14 /min [facility] Body height 2024-01-01 22:58:00 160 cm [facility] Body weight 2024-01-01 22:58:00 70.308 kg [facility] BMI 2024-01-01 22:58:00 27.46 kg/m2 [facility] Oxygen saturation in Arterial blood by Pulse oximetry 2024-01-01 22:58:00 99 /min [facility] Systolic blood pressure 2023-10-16 15:40:00 125 mm[Hg] [facility] Diastolic blood pressure 2023-10-16 15:40:00 83 mm[Hg] [facility] Heart rate 2023-10-16 15:40:00 79 /min [facility] Body temperature 2023-10-16 15:40:00 36.72 Roberta [facility] Respiratory rate 2023-10-16 15:40:00 17 /min [facility] Body weight 2023-10-16 15:40:[address] [facility] BMI 2023-10-16 15:40:00 27.28 kg/m2 [facility] Oxygen saturation in Arterial blood by Pulse oximetry 2023-10-16 15:40:00 99 /min [facility] Systolic blood pressure 2023-08-28 23:42:00 130 mm[Hg] [facility] Diastolic blood pressure 2023-08-28 23:42:00 83 mm[Hg] [facility] Heart rate 2023-08-28 23:42:00 89 /min [facility] Body temperature 2023-08-28 23:42:00 37.06 Roberta [facility] Respiratory rate 2023-08-28 23:42:00 18 /min [facility] Body height 2023-08-28 23:42:00 160 cm [facility] Body weight 2023-08-28 23:42:00 72.576 kg [facility] BMI 2023-08-28 23:42:00 28.34 kg/m2 [facility] Oxygen saturation in Arterial blood by Pulse oximetry 2023-08-28 23:42:00 97 /min [facility] Systolic blood pressure 2023-08-10 20:42:00 128 mm[Hg] [facility] Diastolic blood pressure 2023-08-10 20:42:00 88 mm[Hg] [facility] Heart rate 2023-08-10 20:42:00 73 /min [facility] Body temperature 2023-08-10 20:42:00 36.78 Roberta [facility] Respiratory rate 2023-08-10 20:42:00 18 /min [facility] Body height 2023-08-10 20:42:[address] [facility] Body weight 2023-08-10 20:42:[address] [facility] BMI 2023-08-10 20:42:00 27.99 kg/m2 [facility] Oxygen saturation in Arterial blood by Pulse oximetry 2023-08-10 20:42:00 98 /min [facility] Systolic blood pressure 2023-05-25 00:56:00 127 mm[Hg] [facility] Diastolic blood pressure 2023-05-25 00:56:00 86 mm[Hg] [facility] Heart rate 2023-05-25 00:56:00 86 /min [facility] Body temperature 2023-05-25 00:56:00 36.72 Roberta [facility] Respiratory rate 2023-05-25 00:56:00 17 /min [facility] Body weight 2023-05-25 00:56:[address] [facility] BMI 2023-05-25 00:56:00 28.17 kg/m2 [facility] Oxygen saturation in Arterial blood by Pulse oximetry 2023-05-25 00:56:00 98 /min [facility] Systolic blood pressure 2023-05-08 20:24:00 120 mm[Hg] [facility] Diastolic blood pressure 2023-05-08 20:24:00 82 mm[Hg] [facility] Heart rate 2023-05-08 20:24:00 87 /min [facility] Body height 2023-05-08 20:24:[address] [facility] Body weight 2023-05-08 20:24:[address] [facility] BMI 2023-05-08 20:24:00 27.81 kg/m2 [facility] Oxygen saturation in Arterial blood by Pulse oximetry 2023-05-08 20:24:00 98 /min [facility] Systolic blood pressure 2023-04-29 15:36:00 139 mm[Hg] [facility] Diastolic blood pressure 2023-04-29 15:36:00 86 mm[Hg] [facility] Heart rate 2023-04-29 15:36:00 84 /min [facility] Body temperature 2023-04-29 15:36:00 36.78 Roberta [facility] Respiratory rate 2023-04-29 15:36:00 18 /min [facility] Body height 2023-04-29 15:36:[address] [facility] Body weight 2023-04-29 15:36:[address] [facility] BMI 2023-04-29 15:36:00 28.90 kg/m2 [facility] Oxygen saturation in Arterial blood by Pulse oximetry 2023-04-29 15:36:00 98 /min [facility] Systolic blood pressure 2023-04-08 16:05:00 113 mm[Hg] [facility] Diastolic blood pressure 2023-04-08 16:05:00 79 mm[Hg] [facility] Heart rate 2023-04-08 16:05:00 74 /min [facility] Body temperature 2023-04-08 16:05:00 36.11 Roberta [facility] Respiratory rate 2023-04-08 16:05:00 17 /min [facility] Body height 2023-04-08 16:05:[address] [facility] Body weight 2023-04-08 16:05:00 71.215 kg [facility] BMI 2023-04-08 16:05:00 28.72 kg/m2 [facility] Oxygen saturation in Arterial blood by Pulse oximetry 2023-04-08 16:05:00 97 /min [facility] Systolic blood pressure 2023-02-25 15:41:00 123 mm[Hg] [facility] Diastolic blood pressure 2023-02-25 15:41:00 77 mm[Hg] [facility] Heart rate 2023-02-25 15:41:00 101 /min [facility] Body temperature 2023-02-25 15:41:00 37.22 Roberta [facility] Respiratory rate 2023-02-25 15:41:00 19 /min [facility] Body height 2023-02-25 15:41:[address] [facility] Body weight 2023-02-25 15:41:[address] [facility] BMI 2023-02-25 15:41:00 28.17 kg/m2 [facility] Oxygen saturation in Arterial blood by Pulse oximetry 2023-02-25 15:41:00 95 /min [facility] Systolic blood pressure 2023-01-27 14:47:00 136 mm[Hg] [facility] Diastolic blood pressure 2023-01-27 14:47:00 75 mm[Hg] [facility] Heart rate 2023-01-27 14:47:00 86 /min [facility] Respiratory rate 2023-01-27 14:47:00 18 /min [facility] Body height 2023-01-27 14:47:00 160 cm [facility] Body weight 2023-01-27 14:47:[address] [facility] BMI 2023-01-27 14:47:00 28.54 kg/m2 [facility] Oxygen saturation in Arterial blood by Pulse oximetry 2023-01-27 14:47:00 99 /min [facility] Systolic blood pressure 2023-01-16 13:29:00 127 mm[Hg] [facility] Diastolic blood pressure 2023-01-16 13:29:00 88 mm[Hg] [facility] Heart rate 2023-01-16 13:29:00 94 /min [facility] Body temperature 2023-01-16 13:29:00 36.89 Roberta [facility] Respiratory rate 2023-01-16 13:29:00 16 /min [facility] Body height 2023-01-16 13:29:[address] [facility] Body weight 2023-01-16 13:29:00 70.308 kg [facility] BMI 2023-01-16 13:29:00 27.46 kg/m2 [facility] Oxygen saturation in Arterial blood by Pulse oximetry 2023-01-16 13:29:00 100 /min [facility] Systolic blood pressure 2022-12-02 18:51:00 130 mm[Hg] [facility] Diastolic blood pressure 2022-12-02 18:51:00 83 mm[Hg] [facility] Heart rate 2022-12-02 18:51:00 66 /min [facility] Body temperature 2022-12-02 18:51:00 36.28 Roberta [facility] Body height 2022-12-02 18:51:[address] [facility] Body weight 2022-12-02 18:51:[address] [facility] BMI 2022-12-02 18:51:00 28.43 kg/m2 [facility] Oxygen saturation in Arterial blood by Pulse oximetry 2022-12-02 18:51:00 97 /min [facility] Systolic blood pressure 2022-11-03 19:38:00 130 mm[Hg] [facility] Diastolic blood pressure 2022-11-03 19:38:00 82 mm[Hg] [facility] Heart rate 2022-11-03 19:35:00 66 /min [facility] Body temperature 2022-11-03 19:35:00 36.72 Roberta [facility] Respiratory rate 2022-11-03 19:35:00 14 /min [facility] Body height 2022-11-03 19:35:00 160 cm [facility] Body weight 2022-11-03 19:35:00 73.12 kg [facility] BMI 2022-11-03 19:35:00 28.56 kg/m2 [facility] Oxygen saturation in Arterial blood by Pulse oximetry 2022-11-03 19:35:00 97 /min [facility] Systolic blood pressure 2022-10-09 15:13:00 117 mm[Hg] [facility] Diastolic blood pressure 2022-10-09 15:13:00 77 mm[Hg] [facility] Heart rate 2022-10-09 15:13:00 93 /min [facility] Body temperature 2022-10-09 15:13:00 36.28 Roberta [facility] Body height 2022-10-09 15:13:[address] [facility] Body weight 2022-10-09 15:13:[address] [facility] BMI 2022-10-09 15:13:00 28.52 kg/m2 [facility] Oxygen saturation in Arterial blood by Pulse oximetry 2022-10-09 15:13:00 99 /min [facility] Systolic blood pressure 2022-07-20 16:56:00 126 mm[Hg] [facility] Diastolic blood pressure 2022-07-20 16:56:00 81 mm[Hg] [facility] Heart rate 2022-07-20 16:56:00 77 /min [facility] Body temperature 2022-07-20 16:56:00 36.39 Roberta [facility] Respiratory rate 2022-07-20 16:56:00 22 /min [facility] Body height 2022-07-20 16:56:00 160 cm [facility] Body weight 2022-07-20 16:56:[address] [facility] BMI 2022-07-20 16:56:00 29.65 kg/m2 [facility] Oxygen saturation in Arterial blood by Pulse oximetry 2022-07-20 16:56:00 97 /min [facility] Systolic blood pressure 2022-07-08 16:22:00 122 mm[Hg] [facility] Diastolic blood pressure 2022-07-08 16:22:00 90 mm[Hg] [facility] Heart rate 2022-07-08 16:22:00 85 /min [facility] Body temperature 2022-07-08 16:22:00 36.67 Roberta [facility] Respiratory rate 2022-07-08 16:22:00 20 /min [facility] Body height 2022-07-08 16:22:[address] [facility] Body weight 2022-07-08 16:22:[address] [facility] BMI 2022-07-08 16:22:00 28.87 kg/m2 [facility] Oxygen saturation in Arterial blood by Pulse oximetry 2022-07-08 16:22:00 99 /min [facility] Systolic blood pressure 2022-07-06 15:43:00 122 mm[Hg] [facility] Diastolic blood pressure 2022-07-06 15:43:00 86 mm[Hg] [facility] Heart rate 2022-07-06 15:43:00 115 /min [facility] Body temperature 2022-07-06 15:43:00 36.83 Roberta [facility] Body height 2022-07-06 15:43:[address] [facility] Body weight 2022-07-06 15:43:[address] [facility] BMI 2022-07-06 15:43:00 28.79 kg/m2 [facility] Oxygen saturation in Arterial blood by Pulse oximetry 2022-07-06 15:43:00 96 /min [facility] Systolic blood pressure 2022-06-22 18:25:00 120 mm[Hg] [facility] Diastolic blood pressure 2022-06-22 18:25:00 81 mm[Hg] [facility] Heart rate 2022-06-22 18:25:00 93 /min Un[facility] Body temperature 2022-06-22 18:25:00 37 Roberta [facility] Body height 2022-06-22 18:25:00 160 cm [facility] Body weight 2022-06-22 18:25:00 77.111 kg [facility] BMI 2022-06-22 18:25:00 30.11 kg/m2 [facility] Oxygen saturation in Arterial blood by Pulse oximetry 2022-06-22 18:25:00 98 /min [facility] Systolic blood pressure 2022-06-16 16:30:00 123 mm[Hg] [facility] Diastolic blood pressure 2022-06-16 16:30:00 80 mm[Hg] [facility] Heart rate 2022-06-16 16:30:00 65 /min Unive [facility] Body temperature 2022-06-16 16:30:00 36.56 Roberta [facility] Body height 2022-06-16 16:30:00 160 cm [facility] Body weight 2022-06-16 16:30:[address] [facility] BMI 2022-06-16 16:30:00 29.64 kg/m2 [facility] Oxygen saturation in Arterial blood by Pulse oximetry 2022-06-16 16:30:00 98 /min [facility] Systolic blood pressure 2022-05-09 15:18:00 120 mm[Hg] [facility] Diastolic blood pressure 2022-05-09 15:18:00 83 mm[Hg] [facility] Heart rate 2022-05-09 15:18:00 83 /min Unive [facility] Body temperature 2022-05-09 15:18:00 36.72 Roberta [facility] Respiratory rate 2022-05-09 15:18:00 18 /min [facility] Body height 2022-05-09 15:18:00 160 cm [facility] Body weight 2022-05-09 15:18:[address] [facility] BMI 2022-05-09 15:18:00 29.53 kg/m2 [facility] Oxygen saturation in Arterial blood by Pulse oximetry 2022-05-09 15:18:00 98 /min [facility] Systolic blood pressure 2022-04-07 15:52:00 138 mm[Hg] [facility] Diastolic blood pressure 2022-04-07 15:52:00 85 mm[Hg] [facility] Heart rate 2022-04-07 15:52:00 76 /min [facility] Body temperature 2022-04-07 15:52:00 36.94 Roberta [facility] Body height 2022-04-07 15:52:[address] [facility] Body weight 2022-04-07 15:52:[address] [facility] BMI 2022-04-07 15:52:00 28.70 kg/m2 [facility] Oxygen saturation in Arterial blood by Pulse oximetry 2022-04-07 15:52:00 95 /min [facility] Systolic blood pressure 2022-04-06 15:32:00 118 mm[Hg] [facility] Diastolic blood pressure 2022-04-06 15:32:00 80 mm[Hg] [facility] Heart rate 2022-04-06 15:32:00 99 /min [facility] Body temperature 2022-04-06 15:32:00 37.33 Roberta [facility] Respiratory rate 2022-04-06 15:32:00 17 /min [facility] Body height 2022-04-06 15:32:[address] [facility] Body weight 2022-04-06 15:32:[address] [facility] BMI 2022-04-06 15:32:00 29.14 kg/m2 [facility] Oxygen saturation in Arterial blood by Pulse oximetry 2022-04-06 15:32:00 98 /min [facility] Systolic blood pressure 2022-02-25 16:24:00 118 mm[Hg] [facility] Diastolic blood pressure 2022-02-25 16:24:00 83 mm[Hg] [facility] Heart rate 2022-02-25 16:24:00 96 /min Un[facility] Body temperature 2022-02-25 16:24:00 36.78 Roberta [facility] Body height 2022-02-25 16:24:00 160 cm [facility] Body weight 2022-02-25 16:24:00 72.122 kg [facility] BMI 2022-02-25 16:24:00 28.17 kg/m2 [facility] Oxygen saturation in Arterial blood by Pulse oximetry 2022-02-25 16:24:00 95 /min [facility] Systolic blood pressure 2022-01-03 13:32:00 133 mm[Hg] [facility] Diastolic blood pressure 2022-01-03 13:32:00 83 mm[Hg] [facility] Heart rate 2022-01-03 13:32:00 85 /min Unive [facility] Body temperature 2022-01-03 13:32:00 36.44 Roberta [facility] Body height 2022-01-03 13:32:[address] [facility] Body weight 2022-01-03 13:32:[address] [facility] BMI 2022-01-03 13:32:00 28.17 kg/m2 [facility] Oxygen saturation in Arterial blood by Pulse oximetry 2022-01-03 13:32:00 98 /min [facility] Diastolic blood pressure 2021-12-07 16:38:00 87 mm[Hg] [facility] Heart rate 2021-12-07 16:38:00 98 /min Unive [facility] Body temperature 2021-12-07 16:38:00 36.17 Orberta [facility] Respiratory rate 2021-12-07 16:38:00 18 /min [facility] Body height 2021-12-07 16:38:00 160 cm [facility] Body weight 2021-12-07 16:38:[address] [facility] BMI 2021-12-07 16:38:00 27.81 kg/m2 [facility] Oxygen saturation in Arterial blood by Pulse oximetry 2021-12-07 16:38:00 97 /min [facility] Systolic blood pressure 2021-12-07 16:38:00 123 mm[Hg] [facility] Systolic blood pressure 2021-08-03 16:08:00 117 mm[Hg] [facility] Diastolic blood pressure 2021-08-03 16:08:00 80 mm[Hg] [facility] Heart rate 2021-08-03 16:08:00 100 /min [facility] Body temperature 2021-08-03 16:08:00 36.56 Roberta [facility] Respiratory rate 2021-08-03 16:08:00 18 /min [facility] Body weight 2021-08-03 16:08:[address] [facility] BMI 2021-08-03 16:08:00 27.99 kg/m2 [facility] Oxygen saturation in Arterial blood by Pulse oximetry 2021-08-03 16:08:00 99 /min [facility] Systolic blood pressure 2021-07-15 18:43:00 135 mm[Hg] [facility] Diastolic blood pressure 2021-07-15 18:43:00 97 mm[Hg] [facility] Heart rate 2021-07-15 18:43:00 86 /min [facility] Body temperature 2021-07-15 18:43:00 37.33 Roberta [facility] Respiratory rate 2021-07-15 18:43:00 18 /min [facility] Body height 2021-07-15 18:43:[address] [facility] Body weight 2021-07-15 18:43:[address] [facility] BMI 2021-07-15 18:43:00 28.70 kg/m2 [facility] Oxygen saturation in Arterial blood by Pulse oximetry 2021-07-15 18:43:00 100 /min [facility] Procedures Procedure Date / Time Performed Performing Clinicia n Source XR CHEST 2 VW 2024-04-15 21:08:00 Jessi Collier [facility] POCT SARS-COV-2 ANTIGEN (BINAX NOW) 2024-01-01 23:00:00 Mansoor Min [facility] POCT SARS-COV-2 ANTIGEN (BINAX NOW) 2023-10-16 15:45:00 Mansoor Min [facility] POCT SARS-COV-2 ANTIGEN (BINAX NOW) 2023-08-28 23:52:00 Mansoor Min [facility] POCT MOLECULAR STREP 2023-08-28 23:39:00 Unknown, Attchelsey [facility] POCT MOLECULAR FLU 2023-08-10 20:43:00 Unknown, Attend [facility] POCT MOLECULAR STREP 2023-08-10 20:40:00 Unknown, Attchelsey [facility] POCT SARS-COV-2 ANTIGEN (BINAX NOW) 2023-08-10 20:34:00 Cresencio Kapadia [facility] SARS-COV-2 COVID 19 CORNELIA SUCROSE VACCINE 12+, [id number], 0.3 ML (30 MCG), IM PFIZER (KIRKPATRICK TOP) 2023-05-08 20:28:51 Rosemary Sheikh [facility] FLU VACC (), 6 MO-64 YRS, .5ML, IM, QUAD (FLUCELVAX) 2023-05-08 20:28:23 Rosemary Sheikh [facility] XR FOOT 3+ VW LEFT 2023-04-29 16:09:11 Cresencio Kapadia [facility] XR ANKLE 3+ VW LEFT 2023-04-29 16:08:46 Aaron Kapadia [facility] RAPID STREP SCREEN FOR GROUP A 2023-01-16 13:57:00 Ashley Wright [facility] RAPID INFLUENZA A/B 2023-01-16 13:57:00 Ashley Wright [facility] COVID-19 (ID NOW RAPID TESTING) 2023-01-16 13:57:00 Ashley Wright [facility] CONSENT/REFUSAL FOR DIAGNOSIS AND TREATMENT 2023-01-16 13:25:16 Doctor Unassigned, [place] [facility] POCT MOLECULAR STREP 2022-12-02 19:03:00 Sabrina Rowe [facility] POCT MOLECULAR STREP 2022-11-03 19:47:00 Unknown, Attchelsey salguero [facility] XR HEEL 2+ VW BILATERAL 2022-07-20 17:15:00 Cresencio Kapadia [facility] POCT MOLECULAR STREP 2022-06-16 16:34:00 [facility], [facility] 2022-05-09 15:19:00 Unknown, Teresa [facility] POCT MOLECULAR STREP 2022-05-09 15:16:00 Unknown, Attchelsey [facility] POCT MOLECULAR FLU 2022-02-25 16:22:00 Yamileth Rowe [facility] POCT MOLECULAR STREP 2022-02-25 16:20:00 Sabrina Rowe [facility] RAPID STREP SCREEN FOR GROUP A 2021-12-07 16:41:00 Farhat Coleman [facility] CONSENT/REFUSAL FOR DIAGNOSIS AND TREATMENT 2021-12-07 16:32:22 Doctor Unassigned, [place] [facility] CONSENT/REFUSAL FOR DIAGNOSIS AND TREATMENT 2021-08-03 16:04:24 Doctor Unassigned, [place] [facility] XR FOOT 3+ VW LEFT 2021-07-15 19:17:24 Farhat Coleman [facility] CONSENT/REFUSAL FOR DIAGNOSIS AND TREATMENT 2021-07-15 18:35:54 Doctor Unassigned, [place] [facility] NOTICE OF PRIVACY PRACTICES 2021-07-15 18:35:10 Doctor Unassigned, [place] [facility] Encounters Start Date/Time End Date/Time Encounter Type Admission Type Attending Clinicians Care Facility Care Department Encounter ID Source 2024-06-17 15:15:00 2024-06-17 15:15:00 Outpatient LAYTON JONES [facility] [id number] [facility] 2024-05-29 12:20:00 2024-05-29 13:03:58 Outpatient R CRESENCIO KAPADIA [facility] [id number] [facility] 2024-04-15 14:59:01 2024-04-15 23:59:00 [facility] 1.20.114 350.1.13.10 4.2.7.2.686 [id number] [facility] 2024-04-15 00:00:00 2024-04-15 16:48:22 Telephone Yamileth Rowe [facility] JOSE?[facility] 1.114 350.1.13.10 4.2.7.2.686 [id number] [facility] 2024-04-15 14:30:00 2024-04-15 14:58:47 Outpatient R SHRUTI COLLIERTHIA [facility] [id number] [facility] 2024-04-15 14:30:00 2024-04-15 14:58:47 [facility] 1.114 350.1.13.10 4.2.7.2.686 [id number] [facility] 2024-02-06 00:00:00 2024-03-09 18:17:02 Patient Secure Msg Doctor Unassigned, [place] Doctor Unassigned, [place] [facility] 1.114 350.1.13.10 4.2.7.2.686 [id number] [facility] 2024-01-12 13:00:00 2024-01-12 13:17:14 Office Visit Yessi Calle [facility] JOSE?[facility] 1.2.114 350.1.13.10 4.2.7.2.686 [id number] [facility] 2024-01-12 13:00:00 2024-01-12 13:17:14 Outpatient R YESSI CALLE [facility] [id number] [facility] 2024-01-01 17:40:00 2024-01-01 18:00:00 Urgent Care Mansoor Min Unknown, Attending [facility] 1..840.114 350.1.13.10 4.2.7.2.686 [id number] [facility] 2024-01-01 17:40:00 2024-01-01 17:40:00 Outpatient R MARA MINKaiaLisa [facility] [id number] [facility] 2023-10-16 10:20:00 2023-10-16 10:40:00 Urgent Care Mansoor Min Unknown, Attending [facility] 1.840.114 350.1.13.10 4.2.7.2.686 [id number] [facility] 2023-10-16 10:20:00 2023-10-16 10:20:00 Outpatient R MARA MINKaiaLisa [facility] [id number] [facility] 2023-08-28 18:20:00 2023-08-28 19:21:36 Outpatient R MARA MINSHANNAN [facility] [id number] [facility] 2023-08-28 18:20:00 2023-08-28 19:21:36 Urgent Care Mansoor Min Unknown, Attending [facility] 1..840.114 350.1.13.10 4.2.7.2.686 [id number] [facility] 2023-08-11 00:00:00 2023-08-11 08:52:11 Yamileth Jo [facility] 1.2.840.114 350.1.13.10 4.2.7.2.686 [id number] [facility] 2023-08-10 15:40:00 2023-08-10 16:00:00 Urgent Care [place] Min Unknown, Attending Cresencio Kapadia [facility]?ELISE [facility] 1.2.840.114 350.1.13.10 4.2.7.2.686 [id number] [facility] 2023-08-10 00:00:00 2023-08-10 00:00:00 Outpatient R ROSEMARY SHEIKH [facility] [id number] [facility] 2023-08-07 16:00:00 2023-08-07 16:00:00 Outpatient YAMILETH WEBB [facility] [id number] [facility] 2023-07-08 00:00:00 2023-07-08 00:00:00 Refnazia Rowe [facility]ELISE [facility] MED[facility]ILD[facility] 1.2.840.114 350.1.13.10 4.2.7.2.686 [id number] [facility] 2023-06-05 16:15:00 2023-06-05 16:15:00 Outpatient KENNA KENT CRAIG [facility] [id number] [facility] 2023-06-04 00:00:00 2023-06-04 00:00:00 Refnazia Rowe [facility]ELISE [facility] MED[facility] 1.2.840.114 350.1.13.10 4.2.7.2.686 [id number] [facility] 2023-05-24 18:40:00 2023-05-24 19:07:08 Outpatient R MANSOOR MIN [facility] [id number] [facility] 2023-05-24 18:40:00 2023-05-24 19:00:00 Urgent Care Mansoor Min Unknown, Attending [facility] JOSE?[facility] 1.84.114 350.1.13.10 4.2.7.2.686 [id number] [facility] 2023-05-24 00:00:00 2023-05-24 00:00:00 Telephone Mansoor Min [facility] JOSE?ELISE [facility] 1.84.114 350.1.13.10 4.2.7.2.686 [id number] [facility] 2023-05-08 14:00:00 2023-05-08 14:54:02 Outpatient R ROSEMARY SHEIKH [facility] [id number] [facility] 2023-05-08 14:00:00 2023-05-08 14:54:02 Office Visit Rosemary Sheikh [facility] 1.84.114 350.1.13.10 4.2.7.2.686 [id number] [facility] 2023-05-04 00:00:00 2023-05-04 00:00:00 RefYamileth Downey [facility] JOSE?ELISE [facility] 1.84.114 350.1.13.10 4.2.7.2.686 [id number] [facility] 2023-04-29 09:46:44 2023-04-29 23:59:00 Outpatient R CRESENCIO KAPADIA [facility] [id number] [facility] 2023-04-29 09:46:44 2023-04-29 23:59:00 Hospital Encounter Kang Cresencio [facility] JOSE?ELISE [facility]ILD[facility] 1.84.114 350.1.13.10 4.2.7.2.686 [id number] [facility] 2023-04-29 09:46:43 2023-04-29 23:59:00 Hospital Encounter Cresencio Kapadia [facility] JOSE?ELISE [facility] MED[facility] BUILD[facility] 1.2840.114 350.1.13.10 4.2.7.2.686 [id number] [facility] 2023-04-29 09:20:00 2023-04-29 09:55:38 Urgent Care Cresencio Kapadia Unknown, Attending [facility] 1.84.114 350.1.13.10 4.2.7.2.686 [id number] [facility] 2023-04-08 10:00:00 2023-04-08 10:37:29 Outpatient R CHACHO MINOR [facility] [id number] [facility] 2023-04-08 10:00:00 2023-04-08 10:37:29 Urgent Care Chacho Minor Unknown, Attending [facility] 1.84114 350.1.13.10 4.2.7.2.686 [id number] [facility] 2023-03-31 00:00:00 2023-03-31 00:00:00 Refnazia Robinmargarita [facility] OJSE?[facility] 1.84.114 350.1.13.10 4.2.7.2.686 [id number] [facility] 2023-03-27 00:00:00 2023-03-27 00:00:00 Refnazia Rowe [facility] JOSE?[facility] 1.84.114 350.1.13.10 4.2.7.2.686 [id number] [facility] 2023-03-09 10:20:00 2023-03-09 10:20:00 Outpatient R YAMILETH ROWE CHRISTINE [facility] [id number] [facility] 2023-02-25 09:30:00 2023-02-25 09:58:59 Outpatient R CRESENCIO KAPADIA [facility] [id number] [facility] 2023-02-25 09:30:00 2023-02-25 09:58:59 Urgent Care Cresencio Kapadia Unknown, Attending [facility]?JUAN ANTONIOFermín [facility] MED[facility] BUILD[facility] 1..840.114 350.1.13.10 4.2.7.2.686 [id number] [facility] 2023-01-27 08:20:00 2023-01-27 09:02:54 Outpatient R YAMILETH ROWE YAMILETH [facility] [id number] [facility] 2023-01-27 08:20:00 2023-01-27 09:02:54 Office Visit Kate [facility] JOSE?JUAN ANTONIOFermín [facility] MED[facility] BUILD[facility] 1..840.114 350.1.13.10 4.2.7.2.686 [id number] [facility] 2023-01-27 00:00:00 2023-01-27 00:00:00 Letter (Out) [facility] 1.2.840.114 350.1.13.10 4.2.7.2.686 [id number] [facility] 2023-01-26 00:00:00 2023-01-26 00:00:00 Telephone Kate [facility] JOSE?[facility] 1.2.840.114 350.1.13.10 4.2.7.2.686 [id number] [facility] 2023-01-16 08:30:00 2023-01-16 10:10:00 Emergency X ASHLEY WRIGHT [facility] ERT [id number] [facility] 2023-01-16 08:30:00 2023-01-16 10:10:00 Emergency Ashley Wright [facility] 1.84.114 350.1.13.10 4.2.7.2.686 [id number] [facility] 2022-12-02 14:00:00 2022-12-02 14:32:47 Outpatient R YAMILETH ROWE [facility] [id number] [facility] 2022-12-02 14:00:00 2022-12-02 14:32:47 Office Visit Yamileth Rowe [facility] 1.840.114 350.1.13.10 4.2.7.2.686 [id number] [facility] 2022-11-03 14:20:00 2022-11-03 15:10:10 Outpatient R CRESENCIO KAPADIA [facility] [id number] [facility] 2022-11-03 14:20:00 2022-11-03 15:10:10 Urgent Care Cresencio Kapadia Unknown, Attending [facility] 1.840.114 350.1.13.10 4.2.7.2.686 [id number] [facility] 2022-10-09 09:40:00 2022-10-09 10:41:51 Outpatient R KG HEALY [facility] [id number] [facility] 2022-10-09 09:40:00 2022-10-09 10:41:51 Urgent Care Kg Healy Unknown, Attending [facility] 1.840.114 350.1.13.10 4.2.7.2.686 [id number] [facility] 2022-08-08 13:23:51 2022-08-08 23:59:00 Outpatient R YAMILETH ROWE [facility] [id number] [facility] 2022-08-08 13:23:51 2022-08-08 23:59:00 Hospital Encounter Yamileth Rowe [facility] 1.2840.114 350.1.13.10 4.2.7.2.686 [id number] [facility] 2022-07-26 00:00:00 2022-07-26 00:00:00 Telephone Kate [facility] JOSE?[facility] 1.20.114 350.1.13.10 4.2.7.2.686 [id number] [facility] 2022-07-25 00:00:00 2022-07-25 00:00:00 Telephone Kate [facility] JOSE?[facility] 1.2840.114 350.1.13.10 4.2.7.2.686 [id number] [facility] 2022-07-20 12:06:42 2022-07-20 23:59:00 Outpatient R KANG CRESENCIO [facility] [id number] [facility] 2022-07-20 12:06:42 2022-07-20 23:59:00 Hospital Encounter Kang Cresencio [facility] JOSE?[facility] 1.2840.114 350.1.13.10 4.2.7.2.686 [id number] [facility] 2022-07-20 11:40:00 2022-07-20 12:00:00 Urgent Care Kang [facility]io Unknown, [facility] BUILD[facility] 1.2840.114 350.1.13.10 4.2.7.2.686 [id number] [facility] 2022-07-08 12:15:00 2022-07-08 12:30:00 It Systems Administrator Visit Lab, Akbar Mazariegos Kate [facility]ELISE [facility] MED[facility] OFF[facility] BUILDING 1..114 350.1.13.10 4.2.7.2.686 [id number] [facility] 2022-07-08 11:20:00 2022-07-08 11:55:48 Outpatient R YAMILETH ROWE [facility] [id number] [facility] 2022-07-08 11:20:00 2022-07-08 11:55:48 [facility] MEDICAL OFFICE BUILDING 1.114 350.1.13.10 [id number] [id number] [facility] 2022-07-06 10:35:00 2022-07-06 10:55:42 Outpatient R MANSOOR MIN [facility] [id number] [facility] 2022-07-06 10:35:00 2022-07-06 10:55:42 Urgent Care Mansoor Min Unknown, Attending [facility] MED[facility] 1.84.114 350.1.13.10 [id number] [facility] 2022-06-22 13:30:00 2022-06-22 13:40:17 Outpatient R ROSEMARY SHEIKH [facility] [id number] [facility] 2022-06-22 13:30:00 2022-06-22 13:40:17 [facility] MEDICAL OFFICE BUILDING 1.84.114 350.1.13.10 4.2.7.2.686 [id number] [facility] 2022-06-16 11:20:00 2022-06-16 11:40:00 Urgent Care Chacho Minor Unknown, Attending [facility] MEDICAL OFFICE BUILDING 1..840.114 350.1.13.10 4.2.7.2.686 [id number] [facility] 2022-06-16 11:20:00 2022-06-16 11:20:00 Outpatient R CHACHO MINOR [facility] [id number] [facility] 2022-05-09 09:00:00 2022-05-09 09:28:42 Outpatient R MARA MINSHANNAN [facility] [id number] [facility] 2022-05-09 09:00:00 2022-05-09 09:28:42 Urgent Care Mara Minkaialisa Unknown, Attending [facility] MEDICAL OFFICE BUILDING 1.840.114 350.1.13.10 4.2.7.2.686 [id number] [facility] 2022-04-14 00:00:00 2022-04-14 00:00:00 Refill Kate [facility])?[facility] MEDICAL OFFICE BUILDING 1..840.114 350.1.13.10 4.2.7.2.686 [id number] [facility] 2022-04-07 09:20:00 2022-04-07 10:17:32 Outpatient R [facility] [id number] [facility] 2022-04-07 09:20:00 2022-04-07 10:17:32 Office Visit Kate [facility])?[facility] MEDICAL OFFICE BUILDING 1..840.114 350.1.13.10 4.2.7.2.686 [id number] [facility] 2022-04-06 09:00:00 2022-04-06 09:40:43 Outpatient R CHACHO MINOR [facility] [id number] [facility] 2022-04-06 09:00:00 2022-04-06 09:40:43 Urgent Care Chacho Minor Unknown, Attending [facility] MEDICAL OFFICE BUILDING 1..840.114 350.1.13.10 4.2.7.2.686 [id number] [facility] 2022-02-25 10:00:00 2022-02-25 10:42:34 Outpatient R [facility] [id number] [facility] 2022-02-25 10:00:00 2022-02-25 10:42:34 Office Visit Kate [facility])?[facility] MEDICAL OFFICE BUILDING 1.840.114 350.1.13.10 4.2.7.2.686 [id number] [facility] 2022-01-03 08:40:00 2022-01-03 09:31:28 Outpatient R [facility] [id number] [facility] 2022-01-03 08:40:00 2022-01-03 09:31:28 Office Visit Kate [facility])?[facility] MEDICAL OFFICE BUILDING 1.840.114 350.1.13.10 4.2.7.2.686 [id number] [facility] 2021-12-07 11:42:00 2021-12-07 12:51:00 Emergency X Raghavendra GARDNER [facility] ERT [id number] [facility] 2021-12-07 11:42:00 2021-12-07 12:51:00 Emergency Raghavendra Gardner [facility] 1.840.114 350.1.13.10 4.2.7.2.686 [id number] [facility] 2021-08-03 11:08:00 2021-08-03 12:17:00 Emergency X ASHLEY VELÁSQUEZ [facility] ERT [id number] [facility] 2021-08-03 11:08:00 2021-08-03 12:17:00 Emergency Ashley Velásquez [facility] 1.2.840.114 350.1.13.10 4.2.7.2.686 [id number] [facility] 2021-07-15 13:45:00 2021-07-15 14:49:00 [facility] 1.2.[facility].114 350.1.13.10 4.2.7.2.686 [id number] [facility] 2021-07-15 13:45:00 2021-07-15 14:49:00 Emergency X FARHAT COLEMAN [facility] ERT [id number] [facility] Results Test Description Test Time Test Comments Results Resul t Comments Source XR Chest 2 vw 2024-03-21 8 00:59:58 EXAM: XR CHEST 2 VW COMPARISON: None. HISTORY: cough, fever ? TECHNIQUE: PA and lateral views of the chest were obtained. FINDINGS: No focal consolidation is identified. No pleural effusion or pneumothoraxis seen. The cardiomediastinal silhouette is unremarkable.No acute osseous abnormalities. [facility] SARS-COV-2 ANTIGEN (BINAX NOW)2023-10-16 15:45:00* Test Item Value Reference Range Interpretation Comme nts POCT SARS-COV-2 ANTIGEN (test code = 12402-8) Not Detected Not Detected, See Comment On board controls acceptable with C Line (test code = 3574) Yes ERIN (test code = ERIN) accurate developme nt and interpretation of all internal controls Lab Interpretation (test code = 25027-3) Normal [facility] SARS-COV-2 ANTIGEN (BINAX NOW)2023-08-29 00:07:00* Test Item Value Reference Range Interpretation Comme nts POCT SARS-COV-2 ANTIGEN (samara t code = 47053-7) Not Detected Not Detected On board controls acceptable with C Line (test code = 3574) Yes Lab Interpretation (test cod e = 86456-2) Normal [facility] MOLECULAR [id number] 23:47:44* Test Item Value Reference Range Interpretation Comme nts POCT Molecular Strep (test c ode = 93149-3) Negative Negative Lab Interpretation (test cod e = 27732-1) Normal [facility] Molecular [id number] 20:55:33* Test Item Value Reference Range Interpretation Comme nts POCT Molecular FluA (test co de = 70024-6) Negative Negative POCT Molecular FluB (test co de = 48257-3) Negative Negative Lab Interpretation (test cod e = 66335-7) Normal [facility] SARS-COV-2 ANTIGEN (BINAX NOW)2023-08-10 20:49:00* Test Item Value Reference Range Interpretation Comme nts POCT SARS-COV-2 ANTIGEN (test code = 69728-1) Not Detected Not Detected On board controls acceptable with C Line (test code = 3574) Yes ERIN (test code = ERIN) accurate developme nt and interpretation of all internal controls Lab Interpretation (test code = 34686-7) Normal [facility] MOLECULAR [id number] 20:48:12* Test Item Value Reference Range Interpretation Comme nts POCT Molecular Strep (test c ode = 21882-9) Negative Negative Lab Interpretation (test cod e = 71180-6) [facility] [id number] 22:31:09EXAM: XR ANKLE 3+ VW LEFT, XR [...] the lateral ankleand at the great toe. [facility] FOOT [facility]+ VW [id number] 22:31:09EXAM: XR ANKLE 3+ VW LEFT, XR [...] the lateral ankleand at the great toe. [facility] MOLECULAR [id number] 19:10:58* Test Item Value Reference Range Interpretation Comme nts POCT Molecular Strep (test c ode = 13923-7) Negative Negative Lab Interpretation (test cod e = 81092-1) Normal [facility] MOLECULAR [id number] 19:10:58* Test Item Value Reference Range Interpretation Comme nts POCT Molecular Strep (test c ode = 29767-9) Negative Negative Lab Interpretation (test cod e = 10183-7) Normal [facility] MOLECULAR [id number] 19:55:21* Test Item Value Reference Range Interpretation Comme nts POCT Molecular Strep (test c ode = 92435-0) Negative Negative Lab Interpretation (test cod e = 60549-9) Normal [facility] MOLECULAR [id number] 16:41:11* Test Item Value Reference Range Interpretation Comme nts POCT Molecular Strep (test c ode = 10401-9) Negative Negative Lab Interpretation (test cod e = 23495-9) Normal [facility] MOLECULAR [id number] 15:31:05* Test Item Value Reference Range Interpretation Comme nts POCT Molecular FluA (test co de = 42588-6) Negative Negative POCT Molecular FluB (test co de = 55035-7) Negative Negative Lab Interpretation (test cod e = 09695-8) Normal [facility] MOLECULAR [id number] 15:23:32* Test Item Value Reference Range Interpretation Comme nts POCT Molecular Strep (test c ode = 72785-7) Negative Negative Lab Interpretation (test cod e = 82140-5) Normal [facility] MOLECULAR [id number] 16:33:28* Test Item Value Reference Range Interpretation Comme nts POCT Molecular FluA (test co de = 72400-6) Negative Negative POCT Molecular FluB (test co de = 63996-9) Negative Negative Lab Interpretation (test cod e = 75175-9) Normal [facility] MOLECULAR [id number] 16:33:28* Test Item Value Reference Range Interpretation Comme nts POCT Molecular FluA (test co de = 05604-8) Negative Negative POCT Molecular FluB (test co de = 91418-5) Negative Negative Lab Interpretation (test cod e = 31715-0) Normal [facility] MOLECULAR [id number] 16:27:43* Test Item Value Reference Range Interpretation Comme nts POCT Molecular Strep (test c ode = 69243-8) Negative Negative Lab Interpretation (test cod e = 95303-6) Normal [facility] MOLECULAR [id number] 16:27:43* Test Item Value Reference Range Interpretation Comme nts POCT Molecular Strep (test c ode = 25280-7) Negative Negative Lab Interpretation (test cod e = 42035-7) Normal [facility] Notes Date/Time Note Provider Source 2024-04-15 16:45:41 Medications sent to the [facility], will notify patient when done. [facility] [employer] [facility] 2024-04-15 14:30:00 Addended by: ANAYA QUEEN on: 04/15/2024 04:28 PM Modules accepted: Orders [facility] 2023-06-05 08:36:36 Images from the original note [...] Rowe MD Last refill: 05/05/2023 Rx #: [id number] Psychiatry: Antidepressants Qtotos4806/04/2023 10:06 AM Protocol Details Manual Review: Verify no changes in dose in the last 3 months Valid encounter within last 12 months To be filled at: [facility] [id number] [address] No doses changed since 02/09 30 day [...] Med 04/07/22 Office Visit Yamileth Rowe MD [facility] 02/25/22 Office Visit Yamileth [...] provider and meeting all other requirements T [facility] 2023-05-24 19:52:08 [facility]. Pt notified. [facility] 2023-05-24 19:41:10 Aki Gotti is a 42 year old female, Sondra with [facility] [place] regarding patient states she accidentally deleted an rx and asking for it to be resent. amoxicillin-clavulanate (AUGMENTIN) 875-125 mg per tablet [facility] [id number] - [place] - [address] [place] [address] [facility] 2023-03-31 15:27:54 Images from the original note were not included. Last Refilled: 01/27/23 Notes: [id number] - [place], [place] - [address] [facility] Recent Visits Date Type Provider Dept [...] Rowe MD Last refill: 02/22/2023 Rx #: [id number] Psychiatry: Antidepressants Xriofj5603/31/2023 01:50 PM Protocol Details Manual Review: Verify no changes in dose in the last 3 months Valid encounter within last 12 months To be filled at: [facility] [id number] [address] [place] [place] [facility] 2023-03-27 13:18:15 Refill denied: Too soon to refill Requested Prescriptions Pending Prescriptions Disp Refills escitalopram oxalate 20 mg tablet 90 tablet 0 Sig: Take 1 tablet by mouth in the morning. Last fill date: Filled 01/27/23 qty 90 [employer] WORK[employer] Sue Verma LVN [facility]
[2024-06-17] MEDS ORDERED: LIDOCAINE VISCOUS 2% 10ML ORAL SOLN ONE (14:03)
--- NOTE | 2024-06-17 14:29 | ER ---
Nurse's Notes [facility] Name: Melanie Gotti Age: 43 yrs Sex: Female : 1980 Arrival Date: 06/17/2024 Time: 13:43 Bed 12 Private MD: Diagnosis: Cutaneous abscess of right inner nare Presentation: 06/17 13:55 Chief complaint: Patient states: States zit to nose area for 3 days. It just keeps ll1 getting bigger, R nare. Coronavirus screen: Client denies travel out of the [place] in the last 14 days. At this time, the client does not indicate any symptoms associated with coronavirus-19. Ebola Screen: Patient denies travel to an Ebola-affected area in the 21 days before illness onset. Initial Sepsis Screen: Does the patient meet any 2 criteria? No. Patient's initial sepsis screen is negative. Does the patient have a suspected source of infection? No. Patient's initial sepsis screen is negative. Risk Assessment: Do you want to hurt yourself or someone else? Patient reports no desire to harm self or others. Onset of symptoms was June 15, 2024. 13:55 Method Of Arrival: Ambulatory ll1 13:55 Acuity: JAYCOB 4 ll1 Triage Assessment: 13:56 General: Appears uncomfortable, Behavior is calm, cooperative, appropriate for age. ll1 Pain: Complains of pain in nose Quality of pain is described as aching. EENT: Reports pain in R nare. Derm: Reports Abscess to R nare. Historical: - Allergies: 13:54 NKDA; ll1 - PMHx: 13:54 Anxiety; depressive disorder; ll1 - PSHx: 13:54 Cholecystectomy; ll1 - Immunization history:: Adult Immunizations up to date. - Infectious Disease History:: Denies. - Social history:: Smoking status: Patient denies any tobacco usage or history of. Screenin:10 [facility] ED Fall Risk Assessment (Adult) History of falling in the last 3 months, ph including since admission No falls in past 3 months (0 pts) Confusion or Disorientation No (0 pts) Intoxicated or Sedated No (0 pts) Impaired Gait No (0 pts) Mobility Assist Device Used No (0 pt) Altered Elimination No (0 pt) Score/Fall Risk Level 0 - 2 = Low Risk Oriented to surroundings, Maintained a safe environment, Hourly rounding (assess needs \T\ fall precautionary measures) done. Abuse screen: Denies threats or abuse. Denies injuries from another. Nutritional screening: No deficits noted. Tuberculosis screening: No symptoms or risk factors identified. Assessment: 14:10 General: Appears in no apparent distress. Behavior is calm, cooperative. Pain: ph Complains of pain in right nostril. Neuro: Level of Consciousness is awake, alert, obeys commands, Oriented to person, place, time, situation. Cardiovascular: Capillary refill < 3 seconds in bilateral fingers Patient's skin is warm and dry. Respiratory: Airway is patent Respiratory effort is even, unlabored. Derm: Skin is pink, warm \T\ dry. Vital Signs: 14:01 BP 132 / 88; Pulse 107; Resp 15; Temp 99(O); Pulse Ox 97% on R/A; Weight 68.04 kg; ss Height 5 ft. 3 in. ; 14:36 BP 122 / 78; Pulse 91; Resp 18; Temp 98.7; Pulse Ox 99% on R/A; ph 14:01 Body Mass Index 26.57 (68.04 kg, 160.02 cm) ED Course: 13:46 Patient arrived in ED. mr 13:48 [facility]C [facility] sb4 13:48 Wendi Mathis MD is Attending Physician. sb4 13:55 Arm band placed on. ll1 13:56 Triage completed. ll1 13:56 Ariadne Ortega, RN is Primary Nurse. ph 14:10 Patient has correct armband on for positive identification. Bed in low position. Call ph light in reach. Side rails up X 1. Pulse ox on. NIBP on. Door closed. Noise minimized. 14:35 Assist provider with I \T\ D: of an abscess on right nare Performed by Mattie Burr PA-C ph Patient tolerated well. Patient did not have IV access during this emergency room visit. Administered Medications: 14:11 Drug: Lidocaine Mucous Membrane Gel 2 % 1 application Mucous Membrane once; right inner ph nare Route: Mucous Membrane; 14:36 Follow up: Response: No adverse reaction ph Medication: 14:10 VIS not applicable for this client. ph Outcome: 14:28 Discharge ordered by . sb4 14:35 Discharged to home ambulatory, ph 14:35 Condition: good 14:35 Discharge instructions given to family, Instructed on discharge instructions, follow up and referral plans. medication usage, Demonstrated understanding of instructions, follow-up care, medications, Prescriptions given X 1, 14:36 Patient left the ED. ph Signatures: Lilibeth Clark, Reg Reg mr Trini Waite, RN RN ss Ariadne Ortega RN RN ph Lewis, Lynsay, RN RN ll1 Mattie Burr PA-C PAMarissa 4
--- NOTE | 2024-06-17 14:29 | EDPHYS ---
Physician Documentation [facility] Name: Melanie Gotti Age: 43 yrs Sex: Female : 1980 Arrival Date: 06/17/2024 Time: 13:43 Bed 12 Private MD: ED Physician Wendi Mathis HPI: 06/17 14:01 This 43 yrs old Female presents to ER via Ambulatory with complaints of Nose Problem. sb4 14:01 Patient reports a swollen area in her right nostril. States that it started as a pimple sb4 but is has slowly gotten bigger and more painful. She states it is not draining. States that she has an appointment with her PCP later today but could not wait because it was hurting her so much. Historical: - Allergies: 13:54 NKDA; ll1 - PMHx: 13:54 Anxiety; depressive disorder; ll1 - PSHx: 13:54 Cholecystectomy; ll1 - Immunization history:: Adult Immunizations up to date. - Infectious Disease History:: Denies. - Social history:: Smoking status: Patient denies any tobacco usage or history of. ROS: 14:01 Constitutional: Negative for fever, chills, and weight loss, sb4 14:01 ENT: Positive for Per HPI, 14:01 All other systems are negative, Exam: 14:01 Constitutional: This is a well developed, well nourished patient who is awake, alert, sb4 and in no acute distress. Head/Face: Normocephalic, atraumatic. Eyes: Extra-ocular motions intact. Periorbital areas with no swelling, redness, or edema. Respiratory: No increased work of breathing, no retractions or nasal flaring. Skin: Warm, dry with normal turgor. Normal color with no rashes, no lesions, and no evidence of cellulitis. 14:01 ENT: Nose: 14:01 Skin: Appearance: abscess, that is small, of the right nostril, with induration, with surrounding cellulitis, inner right nare, lateral, Vital Signs: 14:01 BP 132 / 88; Pulse 107; Resp 15; Temp 99(O); Pulse Ox 97% on R/A; Weight 68.04 kg; ss Height 5 ft. 3 in. ; 14:36 BP 122 / 78; Pulse 91; Resp 18; Temp 98.7; Pulse Ox 99% on R/A; ph 14:01 Body Mass Index 26.57 (68.04 kg, 160.02 cm) ss Procedures: 14:31 I \T\ D: Incision and drainage was performed for an abscess of the right right nostril sb4 Prepped with Betadine, Anesthetized with topical lidocaine gel. Incised with 23 gauge needle. Drained small amount serosanguinous fluid. bloody fluid. the patient tolerated the procedure well. MDM: 13:49 Medical Screening Exam initiated sb4 14:31 Data reviewed: vital signs, nurses notes, and as a result, I will discharge patient. sb4 Counseling: I had a detailed discussion with the patient and/or guardian regarding the historical points, exam findings, and any diagnostic results supporting the discharge/admit diagnosis, the need for outpatient follow up, for definitive care, to return to the emergency department if symptoms worsen or persist or if there are any questions or concerns that arise at home. Administered Medications: 14:11 Drug: Lidocaine Mucous Membrane Gel 2 % 1 application Mucous Membrane once; right inner ph nare Route: Mucous Membrane; 14:36 Follow up: Response: No adverse reaction ph Disposition Summary: 06/17/24 14:28 Discharge Ordered Notes: Location: Home sb4 Problem: new sb4 Symptoms: have improved sb4 Condition: Stable sb4 Diagnosis - Cutaneous abscess of right inner nare sb4 Followup: sb4 - With: Private Physician - When: As needed - Reason: Recheck today's complaints, Re-evaluation by your physician Discharge Instructions: - Discharge Summary Sheet sb4 Forms: - Antibiotic Education sb4 - Patient Portal Instructions sb4 - Leadership Thank You Letter sb4 Prescriptions: - mupirocin 2 % Topical ointment - apply 1 application TOPICAL route daily; 1 Applicator; Refills: 0, Product sb4 Selection Permitted Signatures: Ariadne Ortega RN RN ph Jose Rafael Velasquez RN RN ll1 Mattie Burr PA-C PA-C sb4 Corrections: (The following items were deleted from the chart) 14:04 14:01 Skin: abscess, that is small, of the right nostril, with induration, with sb4 surrounding cellulitis, Inner outer right nare, sb4
[2024-06-17 14:42] VITALS: BP 122/78; TEMP 98.7; O2SAT 99
== END 2024-06-17 14:36 | disposition home or self-care (01) ==
LOC: ER 13:43
PROC: 0H91XZZ Drainage of Face Skin, External Approach (ICD-10-PCS; principal; 2024-06-17)
PROC: 099KXZZ Drainage of Nasal Mucosa and Soft Tissue, External Approach (ICD-10-PCS; 2024-06-17)
DX: J34.0 Abscess, furuncle and carbuncle of nose (principal)
CPT/HCPCS: 99284